=== PATIENT | male | born 1950 | race Caucasian/White ===

== ENCOUNTER 2022-07-03 15:45 | Outpatient (CLI) | payer MEDICARE, SELFPAY ==
[2022-07-03 18:50] LABS: Basophils Absolute Auto 0.1 K/mm3 (0.0-0.1); Basophils Percent Auto 0.4 % (0.2-1.2); Eosinophils Absolute Auto 0.1 K/mm3 (0-0.3); Eosinophils Percent Auto 0.4 % (0-4.4); Hematocrit 34.1 % (42.0-52.0); Hemoglobin 11.6 g/dL (14.0-18.0); Immature Granulocyte Absolute 0.12 K/mm3 (0.00-0.031); Immature Granulocyte Percent A 0.9 % (0-0.5); Lymphocytes Absolute Auto 1.68 K/mm3 (0.9-3.2); Lymphocytes Percent Auto 12.5 % (18.3-44.2); Mean Corpuscular Hemoglobin 32.8 pg (26-34); Mean Corpuscular Volume 96.3 fl (80-100); Mean Platelet Volume 11.6 fl (7.4-10.4); Monocytes Absolute Auto 0.9 K/mm3 (0.1-0.6); Monocytes Percent Auto 6.9 % (2.6-8.5); Neutrophils Absolute Auto 10.6 K/mm3 (1.3-6.7); Neutrophils Percent Auto 78.9 % (45.5-73.1); Platelet Count Result 307 k/mm3 (150-375); Red Blood Count 3.54 M/mm3 (4.6-6.20); Red Cell Distribution Width 15.6 % (11.5-14.5); White Blood Count 13.4 K/mm3 (4.5-10.0)
[2022-07-03 20:07] LABS: LDL Cholesterol Direct 88 mg/dL
[2022-07-03 21:18] LABS: Alanine Aminotransferase 54 U/L (6-50); Albumin Level 3.5 g/dL (3.5-5.1); Alkaline Phosphatase 30 U/L (38-126); Anion Gap 13 mmol/L (8-16); Aspartate Amino Transferase 40 U/L (17-59); Bilirubin,Total 1.2 mg/dL (0.2-1.3); Blood Urea Nitrogen 17 mg/dL (9-20); Calcium 8.4 mg/dL (8.4-10.2); Carbon Dioxide 24 mmol/L (22-30); Chloride 109 mmol/L (98-107); Cholesterol 143 mg/dL (0-200); Estimated Glomerular Filt Rate > 60; Glucose 123 mg/dL (65-110); HDL Direct 28 mg/dL; Sodium 146 mmol/L (137-145); Triglycerides 103 mg/dL (<150)
== END 2022-07-03 15:46 | disposition home or self-care (01) ==
LOC: ANHGOSHLAB 15:46
PROVIDERS: PCP Family Medicine; Visit Provider Family Medicine
DX: K52.9 Noninfective gastroenteritis and colitis, unspecified (principal); E78.2 Mixed hyperlipidemia
CPT/HCPCS: 36415; 80053; 80061; 85025

== ENCOUNTER 2022-07-03 21:51 | Inpatient (IN) | payer MEDICARE, SELFPAY ==
--- NOTE | ~2022-07-03 | US_ITS ---
EXAMINATION:US venous doppler LE LT INDICATION:Left leg edema TECHNIQUE: Multiple grayscale, color flow and Doppler images of the left lower extremity deep venous systems were obtained and reviewed. COMPARISON:Ultrasound dated 03/01/2009 FINDINGS: The common femoral, superficial femoral and popliteal veins demonstrate normal respiratory variation, augmentation and compressibility. Color flow is also seen within the posterior tibial, pe roneal, greater saphenous and profunda veins. IMPRESSION: 1: No lower extremity deep venous thrombosis. Reviewed, dictated and finalized at location B.
[2022-07-03 22:16] VITALS: BP 150/71; PULSE 53; RESP 16; TEMP 36.6; O2SAT 99
--- NOTE | 2022-07-03 22:16 | PC.NURSE ---
pt does not wish to have labs drawn in triage as he reports that i just had labs done at [facility]
--- NOTE | 2022-07-03 23:16 | PC.NURSE ---
pt does not wish to have labs drawn in triage as he states that he just had them drawn earlier at [facility].
[2022-07-03 23:39] LABS: Basophils Percent Auto 0.4 % (0.2-1.2); Eosinophils Absolute Auto 0.1 K/mm3 (0-0.3); Eosinophils Percent Auto 1.1 % (0-4.4); Hematocrit 32.2 % (42.0-52.0); Hemoglobin 11.2 g/dL (14.0-18.0); Immature Granulocyte Percent A 0.9 % (0-0.5); Lymphocytes Absolute Auto 2.39 K/mm3 (0.9-3.2); Mean Corpuscular HGB Conc 34.8 g/dl (32-36); Mean Corpuscular Hemoglobin 33.1 pg (26-34); Mean Corpuscular Volume 95.3 fl (80-100); Mean Platelet Volume 10.3 fl (7.4-10.4); Monocytes Absolute Auto 0.9 K/mm3 (0.1-0.6); Monocytes Percent Auto 7.5 % (2.6-8.5); Neutrophils Absolute Auto 7.9 K/mm3 (1.3-6.7); Neutrophils Percent Auto 69.1 % (45.5-73.1); Platelet Count Result 264 k/mm3 (150-375); Red Blood Count 3.38 M/mm3 (4.6-6.20); Red Cell Distribution Width 15.7 % (11.5-14.5); White Blood Count 11.4 K/mm3 (4.5-10.0)
[2022-07-03 23:52] LABS: Alanine Aminotransferase 54 U/L (6-50); Albumin Level 3.3 g/dL (3.5-5.1); Alkaline Phosphatase 30 U/L (38-126); Anion Gap 14 mmol/L (8-16); Aspartate Amino Transferase 43 U/L (17-59); Bilirubin,Total 0.9 mg/dL (0.2-1.3); Blood Urea Nitrogen 18 mg/dL (9-20); Carbon Dioxide 24 mmol/L (22-30); Chloride 108 mmol/L (98-107); Estimated CRCL calculation 75 ml/min; Estimated Glomerular Filt Rate > 60; Glucose 143 mg/dL (65-110); Potassium < 2.0 mmol/L (3.4-5.0); Sodium 146 mmol/L (137-145)
[2022-07-04] VITALS (36 sets, daily range): BP systolic 123–167; BP diastolic 55–84; PULSE 43–59; RESP 6–23; TEMP 36.1–36.6; O2SAT 96–100; BMI 33.1; BMI 33.2
[2022-07-04 00:26] LABS: Magnesium 1.2 mg/dL (1.6-2.3); Phosphorus 1.5 mg/dL (2.5-4.5)
[2022-07-04] MEDS: POTASSIUM CHLORIDE 20 MEQ PACKET (FOR LIQUID) 80 MEQ PO (00:36)
[2022-07-04] MEDS: SODIUM CHLORIDE 0.9% IV 1,000 ML 999 ML IV CONT (00:48)
[2022-07-04] MEDS: KCL 20 MEQ/SW 100 ML 100 ML 50 MEQ IVPB (00:49)
--- NOTE | 2022-07-04 01:08 | ED.GENADULT ---
HPI - General Adult General Chief complaint: Recheck/Abnormal Lab/Rx Stated complaint: low potassium Time Seen by Provider: 07/04/22 00:12 History of Present Illness HPI narrative: 71-year-old male presented emergency department for evaluation of low potassium. Patient states that over the last 8 to 9 weeks he has had intermittent issues with lymphocytic colitis. Patient had been hospitalized in [place] but does have a local physician. Patient followed up and had baseline labs drawn today and was found to have a potassium of 1.9. Patient states that the diarrhea had been improving while he had been on steroids. Patient states that this morning he had a large diarrhea episode. Patient denies any associated chest pain or shortness of breath. Patient states he does have some exertional fatigue. Patient denies any abdominal pain except that he does have some intestinal cramping with the diarrhea. Related Data Home Medications Medication Instructions Recorded Confirmed budesonide 3 mg 9 mg PO DAILY 07/03/22 07/04/22 capsule,delayed,extended release docosahexaenoic acid (dha)-epa 120 1 cap PO DAILY 07/03/22 07/04/22 mg-180 mg capsule (Fish Oil) multivitamin 1 tablet PO DAILY 07/03/22 07/04/22 vitamins A,C,U-sokm-qwfsox 14,320 1 cap PO BID 07/03/22 07/04/22 unit-226 mg-200 unit capsule (PreserVision AREDS) allopurinol 300 mg tablet 300 mg PO DAILY 07/04/22 07/04/22 levothyroxine 137 mcg tablet 137 mcg PO DAILY 07/04/22 07/04/22 Allergies Allergy/AdvReac Type Severity Reaction Status Date / Time CHRISTOPHER Inhibitors Allergy Unknown unknown Verified 07/03/22 21:51 Sulfa (Sulfonamide Allergy Unknown unknown Verified 07/03/22 21:51 Antibiotics) Ebtyjyh-LKY-LpT Reductase AdvReac Severe colitis Verified 07/03/22 21:51 Inhibitor [facility] Past Medical History Medical History Actinic keratosis Ventral hernia without obstruction or gangrene Family History Family History Father Family history of heart disease in male family member before age 55 Mother Family history of heart disease in male family member before age 55 Family history of cardiovascular disease Family history of kidney disease Family history of seizure disorder Social History Social History Smoking status: Never smoker Alcohol intake: never Substance use: never Spiritual care concerns: No Course Course Emergency Course: Patient's potassium was 1.9. Patient was treated with 20 mEq IV and 80 milliequivalents p.o. Patient's calcium and magnesium are also low. These were also replaced while in the ED. Case was discussed with hospitalist and patient is being admitted to the IMU. All questions and concerns were addressed. Patient was comfortable with the plan with admission. Vital Signs Vital signs: Vital Signs Temperature 97.9 F 07/03/22 22:16 Pulse Rate 53 L 07/03/22 22:16 Respiratory Rate 16 07/03/22 22:16 Blood Pressure 150/71 H 07/03/22 22:16 Pulse Oximetry 99 07/03/22 22:16 Oxygen Delivery Room Air 07/03/22 22:16 Temperature 97.3 F L 07/05/22 16:25 Pulse Rate 54 L 07/05/22 18:00 Respiratory Rate 20 07/05/22 16:25 Blood Pressure 148/70 H 07/05/22 16:25 Pulse Oximetry 51 L 07/05/22 16:25 Oxygen Delivery Room Air 07/05/22 15:18 Medical Decision Making Vital Signs Vital Signs: Vital Signs Temperature 97.9 F 07/03/22 22:16 Pulse Rate 53 L 07/03/22 22:16 Respiratory Rate 16 07/03/22 22:16 Blood Pressure 150/71 H 07/03/22 22:16 Pulse Oximetry 99 07/03/22 22:16 Oxygen Delivery Room Air 07/03/22 22:16 Temperature 97.3 F L 07/05/22 16:25 Pulse Rate 54 L 07/05/22 18:00 Respiratory Rate 20 07/05/22 16:25 Blood Pressure 148/70 H 07/05/22 16:25 Pulse Oximetry 51 L 07/05/22 16:25 Oxygen
[2022-07-04] MEDS: MAGNESIUM SULF 1 GM/D5W 100 ML 1 GM/100 ML BAG IVPB (01:15)
[2022-07-04 02:59] LABS: SARS-CoV-2 RNA PCR Negative
--- NOTE | 2022-07-04 03:58 | ADMGEN ---
This patient, Brandon Conn, was admitted to IMU Room 206-01. Patient/family oriented to hospital policies and general routines including ID bracelet, bed and alarms, visiting hours, pain management, procedures, bathroom and other care routines, personal items, smoking policy, room service/diet, and visiting hours. Information on how to activate the Rapid Response Team has been discussed. Patient/Family are encouraged to report perceived risks to care and to ask questions if they do not understand what they are told or what they should do.
[2022-07-04] MEDS: SODIUM CHLORIDE 0.9% IV 1,000 ML 125 ML IV CONT ×2 (04:06→12:44)
[2022-07-04] MEDS: CALCIUM GLUCONATE 1,000 MG/10 ML VIAL 1000 MG IV PUSH (04:11)
--- NOTE | 2022-07-04 08:29 | PM.IMHP ---
H&P: HPI History of Present Illness Date/Time: 07/04/22 08:29 Chief Complaint: Hypokalemia Narrative: 71-year-old male presented emergency department for evaluation of low potassium.? Patient states that over the last 8 to 9 weeks he has had intermittent issues with lymphocytic colitis.? Patient had been hospitalized in [place] but does have a local physician.? Patient followed up and had baseline labs drawn today and was found to have a potassium of 1.9.? Patient states that the diarrhea had been improving while he had been on steroids.? Patient states that this morning he had a large diarrhea episode.? Patient denies any associated chest pain or shortness of breath.? Patient states he does have some exertional fatigue.? Patient denies any abdominal pain except that he does have some intestinal cramping with the diarrhea. Review of Systems Review of Systems: - CONSTITUTIONAL: Denies weight loss, fever and chills. - HEENT: Denies changes in vision and hearing - RESPIRATORY: Denies SOB and cough. - CV: Denies palpitations and CP. - GI: Denies abdominal pain, nausea, vomiting and reports diarrhea. - : Denies dysuria and urinary frequency. - MSK: Denies myalgia and joint pain. - SKIN: Denies rash and pruritus. - NEUROLOGICAL: Denies headache and syncope. - PSYCHIATRIC: Denies recent changes in mood. Denies anxiety and depression. FOR[facility]LY [facility] Past Medical History Medical History Actinic keratosis Ventral hernia without obstruction or gangrene Family History Family History Father Family history of heart disease in male family member before age 55 Mother Family history of heart disease in male family member before age 55 Family history of cardiovascular disease Family history of kidney disease Family history of seizure disorder Social History Social History Smoking status: Never smoker Alcohol intake: never Substance use: never Spiritual care concerns: No Meds Home Medications and Allergies Home Medications Medication Instructions Recorded Confirmed Type budesonide 3 mg 9 mg PO DAILY 07/03/22 07/04/22 History capsule,delayed,extended release diphenoxylate-atropine 2.5 1 tablet PO TID PRN diarrhea #20 07/03/22 07/04/22 Rx mg-0.025 mg tablet (Lomotil) tabs docosahexaenoic acid (dha)-epa 120 1 cap PO DAILY 07/03/22 07/04/22 History mg-180 mg capsule (Fish Oil) multivitamin 1 tablet PO DAILY 07/03/22 07/04/22 History vitamins A,C,V-krfg-pcpebm 14,320 1 cap PO BID 07/03/22 07/04/22 History unit-226 mg-200 unit capsule (PreserVision AREDS) allopurinol 300 mg tablet 300 mg PO DAILY 07/04/22 07/04/22 History levothyroxine 137 mcg tablet 137 mcg PO DAILY 07/04/22 07/04/22 History Allergies Allergy/AdvReac Type Severity Reaction Status Date / Time CHRISTOPHER Inhibitors Allergy Unknown unknown Verified 07/03/22 21:51 Sulfa (Sulfonamide Allergy Unknown unknown Verified 07/03/22 21:51 Antibiotics) Mbxweks-MOM-DvL Reductase AdvReac Severe colitis Verified 07/03/22 21:51 Inhibitor Vital Signs Vital Signs - 24 hr 07/03/22 22:16 07/04/22 00:08 07/04/22 00:10 Temperature 97.9 F Pulse Rate 53 L 52 L 49 L Respiratory Rate 16 15 16 Blood Pressure 150/71 H 152/75 H Pulse Oximetry 99 99 99 Oxygen Delivery Room Air 07/04/22 00:11 07/04/22 00:15 07/04/22 00:16 Temperature Pulse Rate 46 L 44 L 47 L Respiratory Rate 15 14 16 Blood Pressure 149/70 H Pulse Oximetry 99 98 96 Oxygen Delivery 07/04/22 00:30 07/04/22 00:31 07/04/22 00:45 Temperature Pulse Rate 48 L 48 L 46 L Respiratory Rate 8 L 11 L 14 Blood Pressure 143/70 H Pulse Oximetry 98 97 98 Oxygen Delivery 07/04/22 00:46 07/04/22 01:00 07/04/22 01:01 Temperature Pulse Rate 51 L 53 L 59 L Respiratory Rate 1
[2022-07-04 08:35] LABS: Anion Gap 9 mmol/L (8-16); Blood Urea Nitrogen 19 mg/dL (9-20); Calcium 7.6 mg/dL (8.4-10.2); Carbon Dioxide 20 mmol/L (22-30); Chloride 113 mmol/L (98-107); Estimated CRCL calculation 95 ml/min; Estimated Glomerular Filt Rate > 60; Glucose 104 mg/dL (65-110); Magnesium 1.4 mg/dL (1.6-2.3); Phosphorus 2.5 mg/dL (2.5-4.5); Potassium 2.2 mmol/L (3.4-5.0); Sodium 142 mmol/L (137-145)
[2022-07-04] MEDS: POTASSIUM CHLORIDE 20 MEQ TABLET 40 MEQ PO ×2 (09:23→22:24)
[2022-07-04] MEDS: MAGNESIUM SULF 2 GM/WATER 50ML 2 GM/50 ML BAG IVPB (09:25)
[2022-07-04] MEDS: POTASSIUM CHLORIDE INJ 40 MEQ in SODIUM CHLORIDE 0.9% IV 500 ML 130 MEQ IVPB ×3 (09:26→22:23)
[2022-07-04 11:02] LABS: Toxigenic C. Diff NEGATIVE (NEGATIVE)
[2022-07-04 14:06] LABS: Magnesium 1.8 mg/dL (1.6-2.3)
[2022-07-04 14:10] LABS: Potassium 2.4 mmol/L (3.4-5.0)
[2022-07-04] MEDS: DIPHENOXYLATE/ATROPINE (*CRX) 2.5 MG TABLET 1 TABLET PO (15:00)
[2022-07-04] MEDS: BUDESONIDE 3 MG CAP.SR.24H 9 MG PO (15:01)
[2022-07-04] MEDS: OPTI-GEN TAB 1 TABLET PO (18:46)
[2022-07-04 21:27] LABS: Potassium 2.6 mmol/L (3.4-5.0)
[2022-07-05] VITALS (14 sets, daily range): BP systolic 133–148; BP diastolic 58–79; PULSE 45–100; RESP 18–23; TEMP 36.1–36.6; O2SAT 51–100
[2022-07-05 05:14] LABS: Basophils Percent Auto 0.3 % (0.2-1.2); Eosinophils Absolute Auto 0.1 K/mm3 (0-0.3); Eosinophils Percent Auto 0.5 % (0-4.4); Hematocrit 29.9 % (42.0-52.0); Hemoglobin 10.4 g/dL (14.0-18.0); Immature Granulocyte Absolute 0.09 K/mm3 (0.00-0.031); Immature Granulocyte Percent A 0.8 % (0-0.5); Lymphocytes Absolute Auto 1.39 K/mm3 (0.9-3.2); Lymphocytes Percent Auto 12.9 % (18.3-44.2); Mean Corpuscular HGB Conc 34.8 g/dl (32-36); Mean Corpuscular Hemoglobin 32.9 pg (26-34); Mean Corpuscular Volume 94.6 fl (80-100); Mean Platelet Volume 11.4 fl (7.4-10.4); Monocytes Absolute Auto 0.6 K/mm3 (0.1-0.6); Monocytes Percent Auto 5.9 % (2.6-8.5); Neutrophils Absolute Auto 8.6 K/mm3 (1.3-6.7); Neutrophils Percent Auto 79.6 % (45.5-73.1); Platelet Count Result 243 k/mm3 (150-375); Red Blood Count 3.16 M/mm3 (4.6-6.20); Red Cell Distribution Width 15.7 % (11.5-14.5); White Blood Count 10.8 K/mm3 (4.5-10.0)
[2022-07-05 05:32] LABS: Alanine Aminotransferase 50 U/L (6-50); Albumin Level 2.9 g/dL (3.5-5.1); Alkaline Phosphatase 20 U/L (38-126); Anion Gap 9 mmol/L (8-16); Aspartate Amino Transferase 32 U/L (17-59); Blood Urea Nitrogen 13 mg/dL (9-20); Calcium 7.1 mg/dL (8.4-10.2); Carbon Dioxide 21 mmol/L (22-30); Chloride 112 mmol/L (98-107); Estimated CRCL calculation 95 ml/min; Estimated Glomerular Filt Rate > 60; Glucose 122 mg/dL (65-110); Magnesium 1.7 mg/dL (1.6-2.3); Potassium 2.7 mmol/L (3.4-5.0); Sodium 142 mmol/L (137-145)
[2022-07-05] MEDS: LEVOTHYROXINE SODIUM 112 MCG, LEVOTHYROXINE SODIUM 25 MCG 137 MCG PO (06:10)
[2022-07-05] MEDS: POTASSIUM CHLORIDE INJ 40 MEQ in SODIUM CHLORIDE 0.9% IV 500 ML 130 MEQ IVPB ×2 (06:13→14:42)
[2022-07-05] MEDS: POTASSIUM CHLORIDE 20 MEQ TABLET 40 MEQ PO (06:14)
[2022-07-05] MEDS: ENOXAPARIN 40 MG/0.4 ML SYRINGE SUB-Q (09:09)
[2022-07-05] MEDS: MULTIVITAMINS THERAPEUTIC TAB (*BKC) 1 TABLET PO (09:09)
[2022-07-05] MEDS: OPTI-GEN TAB 1 TABLET PO ×2 (09:09→18:15)
[2022-07-05] MEDS: BUDESONIDE 3 MG CAP.SR.24H 9 MG PO (09:10)
[2022-07-05] MEDS: allopurinoL 300 MG TABLET PO (09:10)
[2022-07-05 13:02] LABS: Potassium 2.9 mmol/L (3.4-5.0)
--- NOTE | 2022-07-05 13:37 | PM.DS ---
DS: Admitting Diagnosis Discharge Date 07/05/2022 Admitting Diagnosis Severe hypokalemia DS: Discharge Diagnosis Discharge Diagnosis (1) Benign paroxysmal positional vertigo of left ear: Code(s): H81.12 - Benign paroxysmal vertigo, left ear Status: Acute (2) Metabolic syndrome: Code(s): E88.81 - Metabolic syndrome Status: Acute (3) Prediabetes: Code(s): R73.03 - Prediabetes Status: Acute (4) Essential hypertension: Code(s): I10 - Essential (primary) hypertension Status: Acute (5) Mixed hyperlipidemia: Code(s): E78.2 - Mixed hyperlipidemia Status: Acute (6) Gout: Qualifiers: Gout site: ankle Gout etiology: unspecified cause Chronicity: chronic Laterality: left Qualified Code(s): M1A.0720 - Idiopathic chronic gout, left ankle and foot, without tophus (tophi) Code(s): M10.9 - Gout, unspecified Status: Acute (7) Hypothyroidism (acquired): Code(s): E03.9 - Hypothyroidism, unspecified Status: Acute (8) Obesity: Qualifiers: Obesity type: unspecified obesity type Obesity classification: adult class 2 (BMI 35 - 39.9) Serious obesity comorbidity presence: with serious comorbidity Body mass index: BMI 36.0-36.9 Qualified Code(s): E66.01 - Morbid (severe) obesity due to excess calories; Z68.36 - Body mass index [BMI] 36.0-36.9, adult Code(s): E66.9 - Obesity, unspecified Status: Acute (9) Hypokalemia: Code(s): E87.6 - Hypokalemia Status: Acute (10) Lymphocytic colitis: Code(s): K52.832 - Lymphocytic colitis Status: Acute DS: Summary Hospital Course Reason for hospitalization: 71-year-old male presented emergency department for evaluation of low potassium.? Patient states that over the last 8 to 9 weeks he has had intermittent issues with lymphocytic colitis.? Patient had been hospitalized in [place] but does have a local physician.? Patient followed up and had baseline labs drawn today and was found to have a potassium of 1.9.? Patient states that the diarrhea had been improving while he had been on steroids.? Patient states that this morning he had a large diarrhea episode.? Patient denies any associated chest pain or shortness of breath.? Patient states he does have some exertional fatigue.? Patient denies any abdominal pain except that he does have some intestinal cramping with the diarrhea. Hospital Course: Severe hypokalemia potassium 1.9 replace and needed. Required several doses of IV potassium as well as oral potassium. Will send home on potassium chloride oral along with magnesium supplement. Recheck lab in 1 week. He is going to see his regular doctor at that time for further direction. Hypomagnesemia replace and monitor Recently diagnosed lymphocytic colitis: Improving.? Resume budesonide 9 mg daily.? Follows up with GI in [place] Recent history of acute renal failure with creatinine up to 7 Recent weight loss to 40 lb due to colitis Hyperlipidemia used to be on statin.? Consideration of statin his colitis. Hypertension not on any medication anymore. Used to be on olmesartan and hydrochlorothiazide. Hydrochlorothiazide will be discontinued. Restart olmesartan his blood pressure has been elevated here. Continue to monitor Metabolic syndrome Hypothyroidism Gout DVT prophylaxis Lovenox Time Spent with Patient Time attestation: Total time spent providing and/or coordinating discharge services: 40 minutes Exam Narrative: GENERAL: The patient is well developed, not in acute distress HEENT: Nonicteric sclerae, PERRLA, EOMI. Oropharynx clear. Moist mucous membranes. Conjunctivae appear well perfused. CHEST: Chest wall is nontender. HEART: Regular rate and rhythm without murmur, rubs, or gallops LUNGS: Clear to auscultation bilaterally. no respiratory distress ABDOMEN: Soft, positive bowel sounds, non-tender, no organomegaly. SKIN: No rash, no excessive bruisi
[2022-07-05] MEDS: MAGNESIUM OXIDE 400 MG TABLET PO (14:35)
[2022-07-05] MEDS: POTASSIUM CHLORIDE 20 MEQ PACKET (FOR LIQUID) 40 MEQ PO (14:42)
--- NOTE | 2022-07-05 15:08 | PC.NURSE ---
On 07/05/22, the student, [Petra Hewitt], provided care and completed [facility] documentation on this patient. I have reviewed the student's documentation and agree with the findings.
== END 2022-07-05 18:45 | disposition home or self-care (01) | DRG 641 ==
LOC: ANHED 07-04 03:09 → ANHIMU 07-04 03:12
PROVIDERS: Admitting Provider Internal Medicine; Emergency Provider Emergency Medicine; PCP Family Medicine; Visit Provider Internal Medicine
DX: E87.6 Hypokalemia (principal); E83.42 Hypomagnesemia; K52.832 Lymphocytic colitis; B96.23 Unspecified Shiga toxin-producing Escherichia coli [E. coli] [STEC] as the cause of diseases classified elsewhere; I10 Essential (primary) hypertension; M10.9 Gout, unspecified; E03.9 Hypothyroidism, unspecified; E88.81 Metabolic syndrome and other insulin resistance; Z20.822 Contact with and (suspected) exposure to COVID-19; E78.2 Mixed hyperlipidemia; E66.9 Obesity, unspecified; Z68.33 Body mass index [BMI] 33.0-33.9, adult
CPT/HCPCS: 36415; 80048; 80053; 80061; 83735; 84100; 84132; 85025; 87045; 87269; 87272; 87427; 87493; 89055; 93971; 96365; 96366; 96368; 96375; 99285; A9270; C9803; G0378; J0610; J1650; J3475; J3480; J7030; J7040; U0003; U0005

== ENCOUNTER 2023-10-08 09:18 | Outpatient (CLI) | payer MEDICARE, SELFPAY ==
--- NOTE | ~2023-10-08 | XR_ITS ---
Clinical Indication: Cough PA and lateral views of the chest: Comparison: None Findings: The lungs are clear, without evidence of focal consolidation or pleural effusion. Cardiome diastinal silhouette is upper limits of normal in size. Bones and soft tissues are unremarkable. Impression: Clear lungs. Reviewed, dictated and finalized at [facility]. GRINDER Impression: Clear lungs.
== END 2023-10-08 09:19 ==
PROVIDERS: PCP Family Medicine; Visit Provider Nurse Practitioner Family
DX: R05.9 Cough, unspecified (principal)
CPT/HCPCS: 71046

== ENCOUNTER 2023-12-12 09:08 | Outpatient (CLI) | payer MEDICARE, SELFPAY ==
--- NOTE | 2023-12-12 09:12 | EST_ITS ---
Patient Info Name: Brandon Conn Age: 73 years : 1950 Gender: Male Ht: 74 in Wt: 255 lbs BSA: 2.49 m2 HR: 90 bpm BP: 148 / 86 mmHg Heart Rhythm: Sinus Rhythm Technical Quality: Poor Exam Date: 12/12/2023 9:25 AM Exam Location: Echo Lab Patient Status: Outpatient Admit Date: 12/12/2023 Staff Ordering Physician: Janes, Ad Hill PA-C Attending Provider: Janes, Ad Hill PA-C Exercise Technologist: Nikky Lao CT Exercise Physician: Yo Hayes DO Exam Type: CA stress echo w contrast Study Info Indications R06.02 - Shortness of breath Treadmill exercise stress echocardiogram is performed. Contrast administered to opacify the left ventricle and to improve the deliniation of the left ventricular endocardial borders. Contrast/Agitated Saline Contrast/Ag. Saline: Definity Amount: 4.00 ml Administered By: Bee Haywood IV Access: Right Site Condition: IV removed Reason for Poor Study: patient body habitus Summary 1. 1. Negative Fermin exercise stress test for ischemic ST changes by ECG criteria. 2. 2. Poor functional capacity, achieving 4.7 METs of workload. 3. 3. Baseline hypertension. 4. 4. Appropriate HR response to exercise. 5. 5. Appropriate HR recovery at 1 minute post exercise. 6. 6. Negative stress echocardiogram for ischemia by wall motion analysis. 7. 7. Patient informed of the above results. Stress Echo Findings Left Ventricle Definity injected to improve delineation of endocardium. Appropriate LV endocardial thickening with systole. Appropriate augmenation of contractility with systole. No wall motion abnormality. Left Ventricle Definity injected to improve delineation of endocardium. Normal LV systolic function, no wall motion abnormality. Protocol: Fermin Stress ECG Details Stage: REST Duration (min): 1 min : 40 sec Speed (mph): 0.0 Grade (%): 0 HR (bpm): 91 SBP (mmHg): 148 DBP (mmHg): 86 METS: --- Stage: REST Duration (min): 53 min : 50 sec Speed (mph): 0.0 Grade (%): 0 HR (bpm): 91 SBP (mmHg): 148 DBP (mmHg): 86 METS: --- Stage: STAGE 1 Duration (min): 1 min : 0 sec Speed (mph): 1.7 Grade (%): 10 HR (bpm): 112 SBP (mmHg): 148 DBP (mmHg): 86 METS: --- Stage: STAGE 1 Duration (min): 2 min : 0 sec Speed (mph): 1.7 Grade (%): 10 HR (bpm): 121 SBP (mmHg): 148 DBP (mmHg): 86 METS: --- Stage: STAGE 1 Duration (min): 3 min : 0 sec Speed (mph): 1.7 Grade (%): 10 HR (bpm): 125 SBP (mmHg): 201 DBP (mmHg): 65 METS: --- Stage: STAGE 2 Duration (min): 0 min : 3 sec Speed (mph): 0.0 Grade (%): 0 HR (bpm): 125 SBP (mmHg): 201 DBP (mmHg): 65 METS: --- Stage: RECOVERY Duration (min): 0 min : 56 sec Speed (mph): 0.0 Grade (%): 0 HR (bpm): 106 SBP (mmHg): 201 DBP (mmHg): 65 METS: --- Stage: RECOVERY Duration (min): 1 min : 56 sec Speed (mph): 0.0 Grade (%): 0 HR (bpm): 102 SBP (mmHg): 201 DBP (mmHg): 65 METS: --- Stage: RECOVERY Duration (min): 2 min : 56 sec Speed (mph): 0.0 Grade (%): 0
[2023-12-12] MEDS: PERFLUTREN LIPID MICROSPHERES 1.5 ML VIAL DILUTED TO 10 ML TOTAL VOLUME IV PUSH (10:20)
--- NOTE | 2023-12-12 16:07 | P.PCNPFT_ITS ---
PFT Procedure Performed PFT Procedure Performed Plethysmography (Lung Vol) Diffusing Cap (DLCO) Flow Vol Loop Spirometry w/o Bronchodil PFT Interpretation DOS: 12/12/2023 REQUESTING: Ad Marrero PA-C REASON FOR TESTING: Shortness of breath PULMONARY FUNCTION TESTS Effort was excellent and repeatability of the FEV1 spirometry maneuver was Grade A however the patient was only able to perform one adequate DLCO trial. Spirometry: FEV1 is 1.69 L, 49%, reduced. FVC is 2.01 L, 43%, reduced. FEV 1/FVC ratio is 84% normal. No bronchodilator was administered. Lung volumes: Total lung capacity is 4.32 L, 55%, reduced. FRC is 2.50 L, 59%, reduced. Residual volume is 1.93 L, 69%, reduced. RV/TLC is 45%, normal. Airway resistance is 3.60 cmH20/L/sec, 309% predicted, elevated. Diffusion: DLCO is 13.5, 51%, moderately reduced. DLCO/VA is 4.57, 129%, normal. Flow volume loop: Restrictive appearance, tall and thin. IMPRESSION: This study shows a moderate restrictive impairment without obstruction, moderate diffusion impairment which normalizes with alveolar volume. No bronchodilator was administered. No prior studies for comparison. There many clinical scenarios that can can produce this pattern such as interstitial lung disease, pneumonitis, and carboxyhemoglobin from smoking. Clinical correlation is recommended. Keyona Denson MD
--- NOTE | 2023-12-13 13:44 | IVDEFINITY ---
Prior to administration of IV Definity the patient was educated on the risks and benefits of the imaging enhancing agent including potential adverse side effects. The patient verbalized understanding. Allergies were verified. No exclusion criteria were identified and at least one of the following inclusion criteria were met: 1) physician request, 2) patient technically difficult to image (per the [place] [employer]chocardi[employer] guidelines of two or more segments not discernable within the apical view), or 3) questionable left ventricular function. ?
== END 2023-12-12 09:09 | disposition home or self-care (01) ==
PROVIDERS: PCP Family Medicine; Visit Provider Physician Assistant
DX: R06.02 Shortness of breath (principal); R94.2 Abnormal results of pulmonary function studies
CPT/HCPCS: 93351; 94375; 94726; 94729; C8930; Q9957

== ENCOUNTER 2023-12-27 12:51 | Outpatient (CLI) | payer MEDICARE, SELFPAY ==
--- NOTE | ~2023-12-27 | CT_ITS ---
EXAMINATION:CT diagnostic chest wo con DATE: 12/27/2023 13:47 INDICATION: Shortness of breath. Chronic cough. TECHNIQUE: Computed tomography (CT) of the chest was performed without intravenous contrast. Automate d exposure control and iterative reconstruction technique were employed. The dose-length product (DLP ) was 812.57 mGy-cm. COMPARISON: Chest 2 views 10/08/2023 FINDINGS: There is mild elevation of left hemidiaphragm. There is mild atelectasis in left lower lobe . There is diffuse septal thickening in the lungs. There are associated with mild groundglass opaciti es, predominantly on the right. Calcified pulmonary nodules and calcified hilar and mediastinal lymph nodes are consistent with old granulomatous disease. No bronchiectasis or honeycombing. The heart si ze is normal. There are coronary artery calcifications. No pericardial effusion. The central pulmonar y arteries are enlarged, consistent with pulmonary arterial hypertension. Aortic atherosclerosis is n oted. There are bridging endplate osteophytes at multiple levels in the spine, consistent with diffus e idiopathic skeletal hyperostosis (DISH). There is mild chronic anterior wedging of multiple vertebr al bodies. IMPRESSION: 1. Chronic interstitial lung disease in a pattern of nonspecific interstitial pneumonia (NSIP). Reviewed, dictated and finalized at location E. IMPRESSION: 1. Chronic interstitial lung disease in a pattern of nonspecific interstitial p neumonia (NSIP).
[2023-12-27 13:00] VITALS: PULSE 110; O2SAT 95
[2023-12-27 13:05] VITALS: PULSE 144; O2SAT 86
[2023-12-27 13:10] VITALS: PULSE 142; O2SAT 87
[2023-12-27 13:15] VITALS: PULSE 143; O2SAT 91
[2023-12-27 13:30] VITALS: PULSE 112; O2SAT 95
--- NOTE | 2023-12-27 13:44 | HOMEO2EVAL ---
Evaluation was performed at [facility] Home Oxygen Evaluation RC: Home Oxygen (O2) Evaluation Start: 12/27/23 13:42 Freq: Status: Active Protocol: RPE Activity Type Activity Date Activity User E-sign Co-sign Detail Recorded Client Recorded Date Recorded By Document 12/27/23 13:00 [email or web address] 12/27/23 13:44 DJO Document 12/27/23 13:05 [email or web address] [email or web address] 12/27/23 13:44 DJO Document 12/27/23 13:10 [email or web address] [email or web address] 12/27/23 13:44 DJO Document 12/27/23 13:15 [email or web address] [email or web address] 12/27/23 13:44 DJO Document 12/27/23 13:30 [email or web address] [email or web address] 12/27/23 13:44 DJO 12/27/23 12/27/23 12/27/23 13:00 13:05 13:10 Home O2 Evaluation [Oxygen] -Test Phase Resting Exercise Exercise -Oxygen Delivery Room Air Room Air Nasal Cannula -Oxygen Flow Rate (L/min) 1 [Pulse Oximetry] -Pulse Oximetry (90-100 %) 95 86 L 87 L [Pulse Rate] -Pulse Rate (60-100 beats/min) 110 H 144 H 142 H [Evaluation] -Activity Tolerance [Charges] -Evaluation Charges O2 Evaluation by Pulmonary 12/27/23 12/27/23 13:15 13:30 Home O2 Evaluation [Oxygen] -Test Phase Exercise Resting -Oxygen Delivery Nasal Cannula Room Air -Oxygen Flow Rate (L/min) 2 [Pulse Oximetry] -Pulse Oximetry (90-100 %) 91 95 [Pulse Rate] -Pulse Rate (60-100 beats/min) 143 H 112 H [Evaluation] -Activity Tolerance Good [Charges] -Evaluation Charges
== END 2023-12-27 12:52 | disposition home or self-care (01) ==
LOC: ANHPFT 12:52
PROVIDERS: PCP Family Medicine; Visit Provider Nurse Practitioner Family
DX: R05.3 Chronic cough (principal); R06.02 Shortness of breath; J84.9 Interstitial pulmonary disease, unspecified
CPT/HCPCS: 71250; 94618

== ENCOUNTER 2024-03-13 07:55 | Outpatient (CLI) | payer MEDICARE, SELFPAY ==
[2024-03-13 08:30] VITALS: PULSE 92; O2SAT 95
[2024-03-13 08:35] VITALS: PULSE 107; O2SAT 87
[2024-03-13 08:40] VITALS: PULSE 108; O2SAT 88
[2024-03-13 08:45] VITALS: PULSE 110; O2SAT 91
[2024-03-13 09:05] VITALS: PULSE 94; O2SAT 95
--- NOTE | 2024-03-13 10:24 | HOMEO2EVAL ---
Evaluation was performed at [facility] Home Oxygen Evaluation RC: Home Oxygen (O2) Evaluation Start: 03/13/24 10:22 Freq: Status: Active Protocol: RPE Activity Type Activity Date Activity User E-sign Co-sign Detail Recorded Client Recorded Date Recorded By Document 03/13/24 08:30 [email or web address] [email or web address] 03/13/24 10:24 DJO Document 03/13/24 08:35 [email or web address] [email or web address] 03/13/24 10:24 DJO Document 03/13/24 08:40 [email or web address] [email or web address] 03/13/24 10:24 DJO Document 03/13/24 08:45 [email or web address] [email or web address] 03/13/24 10:24 DJO Document 03/13/24 09:05 [email or web address] 03/13/24 10:24 DJO 03/13/24 03/13/24 03/13/24 08:30 08:35 08:40 Home O2 Evaluation [Oxygen] -Test Phase Resting Exercise Exercise -Oxygen Delivery Room Air Room Air Nasal Cannula -Oxygen Flow Rate (L/min) 1 [Pulse Oximetry] -Pulse Oximetry (90-100 %) 95 87 L 88 L [Pulse Rate] -Pulse Rate (60-100 beats/min) 92 107 H 108 H [Evaluation] -Activity Tolerance [Exercise] -Ambulation Distance (feet) -Ambulation Distance (meters) [Charges] -Evaluation Charges O2 Evaluation by Pulmonary 03/13/24 03/13/24 08:45 09:05 Home O2 Evaluation [Oxygen] -Test Phase Exercise Resting -Oxygen Delivery Nasal Cannula Room Air -Oxygen Flow Rate (L/min) 2 [Pulse Oximetry] -Pulse Oximetry (90-100 %) 91 95 [Pulse Rate] -Pulse Rate (60-100 beats/min) 110 H 94 [Evaluation] -Activity Tolerance Good [Exercise] -Ambulation Distance (feet) 500 -Ambulation Distance (meters) 152.39 [Charges] -Evaluation Charges
== END 2024-03-13 07:56 | disposition home or self-care (01) ==
PROVIDERS: PCP Family Medicine; Visit Provider Nurse Practitioner Family
DX: R09.02 Hypoxemia (principal)
CPT/HCPCS: 94618

== ENCOUNTER 2024-03-26 08:59 | Outpatient (CLI) | payer MEDICARE, SELFPAY ==
--- NOTE | 2024-04-15 17:36 | WPDSLEEPSTUD ---
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 The patient occasionally awakens from sleep short of breath. He denies awakening at night with heartburn, belching or. He occasionally snores but is rarely loud enough that others complain. he denies having trouble sleeping when he has a cold. He denies waking up gasping for air throughout the night. He denies having breathing problems at night observed by himself or others. He rarely sweats excessively at night. He rarely has heart palpitations or irregular heartbeats during the night. He occasionally falls asleep during the day but never while driving. He denies sleep paralysis, cataplexy and hypnagogic / hypnopompic hallucinations. He denies having trouble at school or work due to sleepiness. He denies feeling afraid of going to sleep. He denies having nightmares. He denies remembering his dreams. He rarely has thoughts racing through his mind. He denies feeling sad or depressed. He denies having anxiety. He denies having muscular tension. He denies noticing parts of his body jerk. He denies kicking during the night. He denies having crawling and aching feelings in his legs and denies having leg pain during the night. He denies grinding his teeth during sleep and denies awakening with morning jaw pain. He is occasionally bothered by pain during the day but never awakened by pain during the night. He denies waking up feeling stiff in the morning. He denies waking up with sore or achy muscles. He rarely wakes up with pain in the neck, spine and other joints. He goes to bed between 9-10 p.m. on both weekdays and weekends. It takes him 1 hour to fall asleep. He wakes up 2-3 times throughout the night to urinate and is able to fall back asleep within 20 minutes. He wakes up between 6-7 a.m. on both weekdays and weekends. He typically gets 6-7 hours of sleep per night. He will stay in bed for 30 minutes after waking up in. He currently lives with his he denies consuming any caffeinated beverages within 2 hours of bedtime. He denies engaging in physical exercise before bedtime. He will watch television before falling asleep. He denies taking naps in afternoon or the evening. He consumes 1 cup of caffeinated beverage per day. He does consume wine. He denies tobacco and recreational drug use. [facility] Past Medical History Medical History Actinic keratosis Drug-induced colitis Lymphocytic colitis Neck pain Ventral hernia without obstruction or gangrene Family History Family History Father Family history of heart disease in male family member before age 55 Mother Family history of heart disease in male family member before age 55 Family history of cardiovascular disease Family history of kidney disease Family history of seizure disorder Social History Social History Smoking status: Never smoker Alcohol intake: current Drinks per week: 7 Substance use: never Substance use type: does not use Do You Feel Safe in your Home?: Yes Lack of Transportation: No Lack of Food: Never True Current Housing: I Have Housing Concerned About Future Housing: No Difficulty Paying Gas/Electric Bills: No Difficulty Paying for Meds: No Currently Unemployed: No Education: Bachelor's Degree Difficulty w/ Childcare or Family Care: No Spiritual care concerns: No Medications Home Medicati
[2024-04-15 17:37] VITALS: BMI 35.6
== END 2024-03-27 07:20 | disposition home or self-care (01) ==
LOC: ANHCSM 09:00
PROVIDERS: PCP Family Medicine; Visit Provider Internal Medicine Pulmonary Disease
DX: G47.33 Obstructive sleep apnea (adult) (pediatric) (principal)
CPT/HCPCS: 95811

== ENCOUNTER 2024-03-27 13:49 | Outpatient (CLI) | payer MEDICARE, SELFPAY ==
--- NOTE | ~2024-03-27 | XR_ITS ---
EXAMINATION: XR sniff test without CXR2V DATE: 03/27/2024 14:15 INDICATION: Disorders of diaphragm. Left diaphragm weakness. TECHNIQUE: I performed fluoroscopy of the chest while the patient performed normal respiration, deep respiration, and forceful sniffing. The fluoroscopy exposure time was 0.4 minutes. The number of imag es was 647. COMPARISON: Chest CT 12/27/2023 FINDINGS: There is chronic mild elevation of left hemidiaphragm. There is normal motion of the diaphr agm with all breathing tasks. No paradoxical motion. IMPRESSION: 1. Chronic mild elevation of left hemidiaphragm. Normal diaphragm motion. Reviewed, dictated and finalized at location A.
== END 2024-03-27 13:50 | disposition home or self-care (01) ==
PROVIDERS: PCP Family Medicine; Visit Provider Internal Medicine Pulmonary Disease
DX: J98.6 Disorders of diaphragm (principal)
CPT/HCPCS: 76000

== ENCOUNTER 2024-04-13 07:41 | Emergency (ER) | payer MEDICARE, SELFPAY ==
[2024-04-13] VITALS (10 sets, daily range): BP systolic 134–157; BP diastolic 78–95; PULSE 80–94; RESP 17–26; TEMP 36.7; O2SAT 93–98
--- NOTE | ~2024-04-13 | XR_ITS ---
XR elbow RT min 3V Ordering provider: Micha Hunt MD History: . TRIPPED ON CURB THIS MORNING, ROAD RASH, PAIN . Comparison: None. FINDINGS: BONES: No acute fracture or dislocation. JOINT SPACES: Osteoarthritic changes of the elbow joint. SOFT TISSUES: Unremarkable. No definite joint effusion. Ossification of the insertion of the triceps tendon. IMPRESSION: No acute osseous abnormality of the right elbow. Reviewed, dictated and finalized at location A.
--- NOTE | ~2024-04-13 | XR_ITS ---
XR ribs RT 2V w CXR 2V Ordering provider: Micha Hunt MD History: . TRIPPED ON CURB THIS AM. RT UPPER LATERAL RIB PAIN . Comparison: None. FINDINGS: BONES: No acute rib fracture. Degenerative changes of the spine. MEDIASTINUM: The cardiac silhouette is slightly enlarged. LUNGS: No infiltrates, effusions or pneumothorax. OTHER: No free air under the diaphragm. IMPRESSION: 1. No right rib fracture 2. No acute cardiopulmonary findings. Reviewed, dictated and finalized at location A.
[2024-04-13] MEDS: HYDROcodone/acetaminophen (*CRX) 5-325 MG TABLET 1 TAB PO (08:08)
[2024-04-13] MEDS: TETANUS,DIPHTHERIA,AC PERTUSSIS ADULT (0.5 ML) BOOSTRIX IM (08:16)
[2024-04-13] MEDS: SODIUM CHLORIDE 0.9% IV 500 ML 999 ML IV CONT (08:24)
--- NOTE | 2024-04-13 09:55 | ED.FALL ---
HPI - Fall General Chief Complaint: Fall Stated Complaint: glf Time Seen by Provider: 04/13/24 07:45 History of Present Illness HPI Narrative: Patient is a 73-year-old male who presents ER after having a fall. He is walking out to clean his pool when he tripped falling forwards. He has a skin tear from the right mid upper arm down to the wrist. He maintains normal range of motion. Has mild pain in his right elbow and his right chest wall. He did not strike his head or lose consciousness. He is not on any blood thinning medications. He is unsure when his last tetanus shot was given. Related Data Home Medications Medication Instructions Recorded Confirmed budesonide 3 mg 9 mg PO DAILY 07/03/22 04/08/24 capsule,delayed,extended release docosahexaenoic acid (dha)-epa 120 1 cap PO DAILY 07/03/22 04/08/24 mg-180 mg capsule (Fish Oil) multivitamin 1 tablet PO DAILY 07/03/22 04/08/24 ketoconazole 2 % topical cream applic topical 04/08/24 04/08/24 Allergies Allergy/AdvReac Type Severity Reaction Status Date / Time CHRISTOPHER Inhibitors Allergy Unknown unknown Verified 04/13/24 07:56 Sulfa (Sulfonamide Allergy Unknown unknown Verified 04/13/24 07:56 Antibiotics) [id number] Reductase AdvReac Severe colitis Verified 04/13/24 07:56 Inhibitor Review of Systems Review of Systems: All systems reviewed & are unremarkable except as noted in HPI and below Constitutional: Constitutional: Reports no additional constitutional complaints Cardiovascular: Cardiovascular: Reports no additional cardiovascular complaints Musculoskeletal: Musculoskeletal: Reports myalgias, Reports arthralgias and Denies joint swelling Integumentary/Breasts: Skin/Breast: Denies pruritus and Denies erythema Comments: skin tear Neurologic: Reports system reviewed and no additional complaints, except as documented PMF Past Medical History Medical History Actinic keratosis Drug-induced colitis Lymphocytic colitis Neck pain Ventral hernia without obstruction or gangrene Family History Family History Father Family history of heart disease in male family member before age 55 Mother Family history of heart disease in male family member before age 55 Family history of cardiovascular disease Family history of kidney disease Family history of seizure disorder Social History Social History (Updated 04/08/24 @ 10:13 by Alessia Mccain MA) Smoking status: Never smoker Alcohol intake: current Drinks per week: 7 Substance use: never Substance use type: does not use Do You Feel Safe in your Home?: Yes Lack of Transportation: No Lack of Food: Never True Current Housing: I Have Housing Concerned About Future Housing: No Difficulty Paying Gas/Electric Bills: No Difficulty Paying for Meds: No Currently Unemployed: No Education: Bachelor's Degree Difficulty w/ Childcare or Family Care: No Spiritual care concerns: No Exam Narrative: GENERAL: Well-appearing, well-nourished, and in no acute distress. HEAD: Normocephalic, atraumatic. ENT: Mucous membranes moist. CHEST: Clear to auscultation. No respiratory distress. HEART: Regular rate and rhythm. Normal peripheral pulses. ABDOMEN: Soft, nontender, nondistended. EXTREMITIES: Normal range of motion. 2+ edema. SKIN: Warm, dry, Large skin tear down the right arm. Not amenable to repair. NEURO: Alert and oriented x3. PSYCH: Normal mood and affect. Course Course Emergency Course: Wound cleaned/dressed. Tetanus updated. No fractures. D/c. Vital Signs Vital signs: Vital Signs Temperature 98.0 F 04/13/24 07:52 Pulse Rate 94 04/13/24 07:52 Respiratory Rate 20 04/13/24 07:52 Blood Pressure 157/95 H 04/13/24 07:52 Pulse Oximetry 96 04/13/24 07:52 Oxygen Delivery Room Air 04/13/24 07:52 Temper
== END 2024-04-13 10:18 | disposition home or self-care (01) ==
PROVIDERS: Emergency Provider Emergency Medicine; PCP Family Medicine
DX: S51.811A Laceration without foreign body of right forearm, initial encounter (principal); S41.111A Laceration without foreign body of right upper arm, initial encounter; S59.901A Unspecified injury of right elbow, initial encounter; Z23 Encounter for immunization; R07.89 Other chest pain; Z79.899 Other long term (current) drug therapy; W01.0XXA Fall on same level from slipping, tripping and stumbling without subsequent striking against object, initial encounter
CPT/HCPCS: 71046; 71100; 73080; 90471; 90715; 96360; 99284; A9270; J7040

== ENCOUNTER 2024-04-29 13:53 | Outpatient (CLI) | payer MEDICARE, SELFPAY ==
--- NOTE | 2024-04-29 13:56 | ECHO_ITS ---
Patient Info Name: Brandon Conn Age: 73 years : 1950 Gender: Male Ht: 71 in Wt: 282 lbs BSA: 2.58 m2 HR: 75 bpm BP: 153 / 101 mmHg Technical Quality: Fair Exam Date: 04/29/2024 2:13 PM Exam Location: Echo Lab Patient Status: Outpatient Admit Date: 04/29/2024 Staff Ordering Physician: Randi Araujo MD Nozzle Worker: Shadi Sun RDCS Attending Provider: Randi Araujo MD Referring Physician: Gayle ROMAN; Exam Type: CA echo dop color flow w con Study Info Indications - sob Complete two-dimensional, color flow and Doppler transthoracic echocardiogram is performed with contrast to opacify the left ventricle and to improve the deliniation of the left ventricle endocardial borders. Summary 1. Definity contrast administered improved wall motion interpretation. 2. Left ventricular chamber dimension is normal. 3. Left ventricular systolic function is normal, estimated at 60-65%. 4. There is mild concentric increased left ventricular wall thickness. 5. The left ventricular diastolic function is grade I diastolic dysfunction. 6. E/e' 7 is not elevated. 7. There is trace tricuspid valve regurgitation. 8. No pulmonary hypertension, estimated pulmonary arterial systolic pressure is 17 mmHg. Left Ventricle E/e' 7 is not elevated. Definity contrast administered improved wall motion interpretation. Left ventricular chamber dimension is normal. Left ventricular systolic function is normal, estimated at 60-65%. There is mild concentric increased left ventricular wall thickness. The left ventricular diastolic function is grade I diastolic dysfunction. Right Ventricle Right ventricular systolic function is normal and with normal TAPSE 3.6 cm. Right ventricular chamber dimension is normal. Left Atria Left atrial chamber dimension is normal. Right Atria Right atrial chamber dimension is normal. Aortic Valve The aortic valve is trileaflet. There is no aortic valve stenosis. There is no aortic valve regurgitation. Pulmonic Valve There is no pulmonic regurgitation. Mitral Valve There is no mitral valve stenosis. There is no mitral valve regurgitation. Tricuspid Valve There is trace tricuspid valve regurgitation. No pulmonary hypertension, estimated pulmonary arterial systolic pressure is 17 mmHg. Pericardium/Pleural There is no pericardial effusion. Inferior Vena Cava Normal inferior vena cava with >50% collapse upon inspiration consistent with normal right atrial pressure, 5 mmHg. Aorta The aortic root size at the sinus of Valsalva is normal. Left Ventricular Outflow Tract Name Value Normal LVOT 2D LVOT Diameter 1.93 cm LVOT Doppler LVOT Peak Gradient 5 mmHg LVOT Mean Gradient 3 mmHg LVOT VTI 26.93 cm LVOT VTI/AV VTI Ratio 1.03 LVOT Stroke Volume 78.67 ml LVOT CO 6.36 l/min LVOT CI 2.46 L/min/m2 Pulmonic Valve Name Value Normal
[2024-04-29] MEDS: PERFLUTREN LIPID MICROSPHERES 1.5 ML VIAL DILUTED TO 10 ML TOTAL VOLUME IV PUSH (14:25)
--- NOTE | 2024-04-29 14:56 | IVDEFINITY ---
Prior to administration of IV Definity the patient was educated on the risks and benefits of the imaging enhancing agent including potential adverse side effects. The patient verbalized understanding. Allergies were verified. No exclusion criteria were identified and at least one of the following inclusion criteria were met: 1) physician request, 2) patient technically difficult to image (per the [place] [employer]chocardi[employer] guidelines of two or more segments not discernable within the apical view), or 3) questionable left ventricular function. ?
== END 2024-04-29 13:54 | disposition home or self-care (01) ==
LOC: ANHCARD 13:55
PROVIDERS: PCP Family Medicine; Visit Provider Family Medicine
DX: R06.02 Shortness of breath (principal)
CPT/HCPCS: C8929; Q9957

== ENCOUNTER 2024-05-07 13:12 | Emergency (ER) | payer MEDICARE, SELFPAY ==
--- NOTE | ~2024-05-07 | XR_ITS ---
XR abdomen/kub 1V 05/07/2024 13:46 INDICATION: Leg swelling TECHNIQUE: KUB COMPARISON: None FINDINGS: Bowel gas pattern is normal. There is no evidence of free air, mass, organomegaly, ascites or obstruction. No abnormal calculi are seen. The bones appear intact. Severe lumbar spondylosis. There is dextroscoliosis. IMPRESSION: 1: No acute abdominal abnormality identified. Reviewed, dictated and finalized at location B.
--- NOTE | ~2024-05-07 | US_ITS ---
EXAMINATION: US venous doppler [facility] DATE: 05/07/2024 14:38 INDICATION: Lower limb edema. TECHNIQUE: Grayscale ultrasound images without and with compression and Doppler ultrasound images of the bilateral lower extremity veins were obtained. COMPARISON: Ultrasound 07/04/2022 FINDINGS: The visualized portions of right common femoral vein, profunda (deep) femoral vein, femoral vein, pop liteal vein, peroneal veins, posterior tibial veins, and greater saphenous vein outflow are patent. The visualized portions of left common femoral vein, profunda femoral vein, femoral vein, popliteal v ein, peroneal veins, posterior tibial veins, and greater saphenous vein outflow are patent. IMPRESSION: 1. No deep venous thrombosis. Reviewed, dictated and finalized at location A.
[2024-05-07 13:18] VITALS: BP 131/73; PULSE 110; RESP 26; TEMP 36.6; O2SAT 95
--- NOTE | 2024-05-07 13:39 | ED.EXTPRO ---
HPI - Extremity Problem General Chief complaint: Extremity Problem,Nontraumatic Stated complaint: LOWER LEGS WEEPING/SWOLLEN Time Seen by Provider: 05/07/24 13:20 History of Present Illness HPI Narrative: 73-year-old male presents to the emergency department for evaluation for bilateral lower extremity swelling. Patient states he has had lower extremity swelling has been ongoing for the last 6 weeks and patient has been having close follow-up with primary care physician. Patient did have a recent cardiac echo and has been taking Lasix. Patient reports approximately 2 days ago he had worsening swelling of the left leg and does have some swelling proximal to the knee. Related Data Home Medications Medication Instructions Recorded Confirmed budesonide 3 mg 9 mg PO DAILY 07/03/22 04/29/24 capsule,delayed,extended release docosahexaenoic acid (dha)-epa 120 1 cap PO DAILY 07/03/22 04/29/24 mg-180 mg capsule (Fish Oil) multivitamin 1 tablet PO DAILY 07/03/22 04/29/24 ketoconazole 2 % topical cream applic topical 04/08/24 04/29/24 Allergies Allergy/AdvReac Type Severity Reaction Status Date / Time CHRISTOPHER Inhibitors Allergy Unknown unknown Verified 04/29/24 13:18 Sulfa (Sulfonamide Allergy Unknown unknown Verified 04/29/24 13:18 Antibiotics) [id number] Reductase AdvReac Severe colitis Verified 04/29/24 13:18 Inhibitor Review of Systems Review of Systems: All systems reviewed & are unremarkable except as noted in HPI and below PMFSH Past Medical History Medical History Actinic keratosis Drug-induced colitis Lymphocytic colitis Neck pain Ventral hernia without obstruction or gangrene Family History Family History Father Family history of heart disease in male family member before age 55 Mother Family history of heart disease in male family member before age 55 Family history of cardiovascular disease Family history of kidney disease Family history of seizure disorder Social History Social History Smoking status: Never smoker Alcohol intake: current Drinks per week: 7 Substance use: never Substance use type: does not use Do You Feel Safe in your Home?: Yes Lack of Transportation: No Lack of Food: Never True Current Housing: I Have Housing Concerned About Future Housing: No Difficulty Paying Gas/Electric Bills: No Difficulty Paying for Meds: No Currently Unemployed: No Education: Bachelor's Degree Difficulty w/ Childcare or Family Care: No Spiritual care concerns: No Exam Narrative: APPEARANCE: Well appearing, no pain, no distress, well-nourished. HEAD: normocephalic, atraumatic. EYES: PERRLA/EOMI, conjunctivae clear. NOSE: Normal no drainage EARS:TMS clear with good light reflex. THROAT: Pharynx clear, no exudate. NECK: Supple. No adenopathy, no masses. RESPIRATORY: Airway patent, respirations nonlabored. Clear to auscultation bilaterally, no rales, rhonchi, wheezing. CARDIOVASCULAR: Regular rate and rhythm without murmurs rubs or gallops. ABDOMINAL: Soft, nontender, nondistended, normal bowel sounds MUSCULOSKELETAL: Bilateral lower extremity edema with worsening edema on the left, pitting edema proximal to the left knee with erythema NEURO: Alert. Cranial nerves II through XII intact. Grossly intact SKIN: Localized erythema just proximal to left knee Course Course Emergency Course: Ultrasounds were negative for DVT. Patient was treated with antibiotics for cellulitis. Vital Signs Vital signs: Vital Signs Temperature 97.9 F 05/07/24 13:18 Pulse Rate 110 H 05/07/24 13:18 Respiratory Rate 26 H 05/07/24 13:18 Blood Pressure 131/73 05/07/24 13:18 Pulse Oximetry 95 05/07/24 13:18 Oxygen Delivery Room Air 05/07/24 13:18 Temperature 98.5 F 05/07/24 15:46 Puls
[2024-05-07 13:44] LABS: Basophils Percent Auto 0.3 % (0.2-1.2); Eosinophils Percent Auto 0.3 % (0-4.4); Hematocrit 40.1 % (42.0-52.0); Hemoglobin 13.3 g/dL (14.0-18.0); Immature Granulocyte Percent A 0.7 % (0-0.5); Lymphocytes Absolute Auto 0.83 K/mm3 (0.9-3.2); Lymphocytes Percent Auto 6.1 % (18.3-44.2); Mean Corpuscular HGB Conc 33.2 g/dl (32-36); Mean Corpuscular Hemoglobin 35.3 pg (26-34); Mean Corpuscular Volume 106.4 fl (80-100); Mean Platelet Volume 10.3 fl (7.4-10.4); Monocytes Absolute Auto 0.6 K/mm3 (0.1-0.6); Monocytes Percent Auto 4.4 % (2.6-8.5); Neutrophils Percent Auto 88.2 % (45.5-73.1); Platelet Count Result 175 k/mm3 (150-375); Red Blood Count 3.77 M/mm3 (4.6-6.20); Red Cell Distribution Width 13.2 % (11.5-14.5); White Blood Count 13.6 K/mm3 (4.5-10.0)
[2024-05-07 13:55] LABS: Alanine Aminotransferase 21 U/L (6-50); Albumin Level 3.6 g/dL (3.5-5.1); Alkaline Phosphatase 54 U/L (38-126); Anion Gap 9 mmol/L (4-12); Aspartate Amino Transferase 19 U/L (17-59); Bilirubin,Total 1.1 mg/dL (0.2-1.3); Blood Urea Nitrogen 29 mg/dL (9-20); Calcium 8.5 mg/dL (8.4-10.2); Carbon Dioxide 28 mmol/L (22-30); Chloride 99 mmol/L (98-107); Estimated CRCL calculation 88 ml/min; Estimated Glomerular Filt Rate > 60; Glucose 179 mg/dL (65-110); Potassium 3.9 mmol/L (3.4-5.0); Sodium 136 mmol/L (137-145)
[2024-05-07 14:00] LABS: Prothrombin Time 13.7 Seconds (11.1-14.7)
--- NOTE | 2024-05-07 14:00 | PC.NURSE ---
pt in x-ray and ultra sound.
[2024-05-07 14:02] LABS: Partial Thromboplastin Time 27.1 Seconds (22.3-36.8)
[2024-05-07 14:04] LABS: NT Pro B Type Natriuretic Pept 99 pg/mL (19.9-100)
[2024-05-07] MEDS: FUROSEMIDE INJ 40 MG/4 ML VIAL IV PUSH (14:41)
[2024-05-07 15:10] VITALS: BP 129/73; BP 129/79; PULSE 96; RESP 14; RESP 30; TEMP 36.6; O2SAT 97
[2024-05-07 15:46] VITALS: BP 122/94; PULSE 96; RESP 34; TEMP 36.9; O2SAT 97
== END 2024-05-07 15:49 | disposition home or self-care (01) ==
PROVIDERS: Emergency Provider Emergency Medicine; PCP Family Medicine
DX: L03.116 Cellulitis of left lower limb (principal); R60.0 Localized edema
CPT/HCPCS: 36415; 74018; 80053; 83880; 85025; 85610; 85730; 93970; 96365; 96375; 99284; J0696; J1940

== ENCOUNTER 2024-06-02 14:04 | Emergency (ER) | payer MEDICARE, SELFPAY ==
--- NOTE | ~2024-06-02 | XR_ITS ---
EXAMINATION: XR chest 1V portable DATE: 06/02/2024 15:32 INDICATION: Chronic edema of the lower extremities. TECHNIQUE: A single frontal view of the chest was obtained. COMPARISON: Chest 2 views 04/13/2024, chest CT 12/27/2023 FINDINGS: There are chronic interstitial opacities in the lower lung zones. Calcified pulmonary nodul es and calcified hilar lymph nodes are consistent with old granulomatous disease. No pleural effusion or pneumothorax. The heart size is normal. There are prominent pericardial fat pads. IMPRESSION: 1. Stable mild chronic interstitial lung disease. Reviewed, dictated and finalized at location A.
[2024-06-02 14:11] VITALS: BP 148/72; PULSE 100; RESP 28; TEMP 36.6; O2SAT 97
--- NOTE | 2024-06-02 14:50 | ED.EXTPRO ---
HPI - Extremity Problem General Chief complaint: Extremity Problem,Nontraumatic Stated complaint: infection to R leg, both legs weeping Time Seen by Provider: 06/02/24 14:15 History of Present Illness HPI Narrative: 73-year-old male presents emergency department for evaluation for bilateral lower extremity swelling with right-sided cellulitis. Patient does have prior history of lower extremity edema and is on Lasix. Patient has having follow-up with his physicians for his leg edema. Patient did have recent antibiotics for his on a left lower extremity on 05/07 in did feel these antibiotics helped. Patient states over last few days he has had worsening erythema of the left leg. Related Data Home Medications Medication Instructions Recorded Confirmed budesonide 3 mg 9 mg PO DAILY 07/03/22 04/29/24 capsule,delayed,extended release docosahexaenoic acid (dha)-epa 120 1 cap PO DAILY 07/03/22 04/29/24 mg-180 mg capsule (Fish Oil) multivitamin 1 tablet PO DAILY 07/03/22 04/29/24 ketoconazole 2 % topical cream applic topical 04/08/24 04/29/24 Allergies Allergy/AdvReac Type Severity Reaction Status Date / Time CHRISTOPHER Inhibitors Allergy Unknown unknown Verified 04/29/24 13:18 Sulfa (Sulfonamide Allergy Unknown unknown Verified 04/29/24 13:18 Antibiotics) [id number] Reductase AdvReac Severe colitis Verified 04/29/24 13:18 Inhibitor Review of Systems Review of Systems: All systems reviewed & are unremarkable except as noted in HPI and below PMFSH Past Medical History Medical History Actinic keratosis Drug-induced colitis Lymphocytic colitis Neck pain Ventral hernia without obstruction or gangrene Family History Family History Father Family history of heart disease in male family member before age 55 Mother Family history of heart disease in male family member before age 55 Family history of cardiovascular disease Family history of kidney disease Family history of seizure disorder Social History Social History Smoking status: Never smoker Alcohol intake: current Drinks per week: 7 Substance use: never Substance use type: does not use Do You Feel Safe in your Home?: Yes Lack of Transportation: No Lack of Food: Never True Current Housing: I Have Housing Concerned About Future Housing: No Difficulty Paying Gas/Electric Bills: No Difficulty Paying for Meds: No Currently Unemployed: No Education: Bachelor's Degree Difficulty w/ Childcare or Family Care: No Spiritual care concerns: No Exam Narrative: APPEARANCE: Well appearing, no pain, no distress, well-nourished. HEAD: normocephalic, atraumatic. EYES: PERRLA/EOMI, conjunctivae clear. NOSE: Normal no drainage EARS:TMS clear with good light reflex. THROAT: Pharynx clear, no exudate. NECK: Supple. No adenopathy, no masses. RESPIRATORY: Airway patent, respirations nonlabored. Clear to auscultation bilaterally, no rales, rhonchi, wheezing. CARDIOVASCULAR: Regular rate and rhythm without murmurs rubs or gallops. ABDOMINAL: Soft, nontender, nondistended, normal bowel sounds MUSCULOSKELETAL: Bilateral lower extremity edema, right lower extremity cell NEURO: Alert. Cranial nerves II through XII intact. Grossly intact SKIN: Warm, dry. Normal Color Course Course Emergency Course: Patient was started on antibiotics for cellulitis and discharged home Vital Signs Vital signs: Vital Signs Temperature 97.8 F 06/02/24 14:11 Pulse Rate 100 06/02/24 14:11 Respiratory Rate 28 H 06/02/24 14:11 Blood Pressure 148/72 H 06/02/24 14:11 Pulse Oximetry 97 06/02/24 14:11 Oxygen Delivery Room Air 06/02/24 14:11 Temperature 97.8 F 06/02/24 16:08 Pulse Rate 89 06/02/24 16:08 Respiratory Rate 24 H 06/02/24 16:08 Blood Pressure 137/7
--- NOTE | 2024-06-02 14:58 | PC.NURSE ---
Pt presents with weeping pitting edema to bilateral legs that extend up to mid thigh, left worse than right. Diffuse blisters to bilateral lower extremities. Pedal & post-tibial pulses obtain with doppler and marked. Redness to bilateral lower legs, right worse than left. states she has been wrapping pts legs stopped few days ago
[2024-06-02 15:00] VITALS: BP 128/73; PULSE 95; RESP 16; TEMP 36.4; O2SAT 96
[2024-06-02 15:17] LABS: Basophils Percent Auto 0.3 % (0.2-1.2); Eosinophils Absolute Auto 0.1 K/mm3 (0-0.3); Eosinophils Percent Auto 0.6 % (0-4.4); Hematocrit 40.5 % (42.0-52.0); Hemoglobin 13.5 g/dL (14.0-18.0); Immature Granulocyte Absolute 0.14 K/mm3 (0.00-0.031); Immature Granulocyte Percent A 1.1 % (0-0.5); Immature Platelet Fraction Pct 4.3 % (0.9-11.2); Lymphocytes Absolute Auto 1.09 K/mm3 (0.9-3.2); Lymphocytes Percent Auto 8.3 % (18.3-44.2); Mean Corpuscular HGB Conc 33.3 g/dl (32-36); Mean Corpuscular Hemoglobin 34.8 pg (26-34); Mean Corpuscular Volume 104.4 fl (80-100); Mean Platelet Volume 10.5 fl (7.4-10.4); Monocytes Absolute Auto 0.6 K/mm3 (0.1-0.6); Monocytes Percent Auto 4.9 % (2.6-8.5); Neutrophils Absolute Auto 11.1 K/mm3 (1.3-6.7); Neutrophils Percent Auto 84.8 % (45.5-73.1); Platelet Count Result 207 k/mm3 (150-375); Red Blood Count 3.88 M/mm3 (4.6-6.20); Red Cell Distribution Width 13.2 % (11.5-14.5); White Blood Count 13.1 K/mm3 (4.5-10.0)
--- NOTE | 2024-06-02 15:27 | PC.NURSE ---
Per MD Iglesias verbal instruction, BLE dressed with non-adherent pads and pinky wrap. at bedside. showed by this RN how to dress BLE. All questions answered at this time.
[2024-06-02 15:29] LABS: Platelet Estimate Adequate (Adequate); Schistocytes None Seen
[2024-06-02 15:32] LABS: Alanine Aminotransferase 23 U/L (6-50); Albumin Level 3.9 g/dL (3.5-5.1); Alkaline Phosphatase 58 U/L (38-126); Anion Gap 7 mmol/L (4-12); Aspartate Amino Transferase 20 U/L (17-59); Bilirubin,Total 0.7 mg/dL (0.2-1.3); Blood Urea Nitrogen 27 mg/dL (9-20); Calcium 8.9 mg/dL (8.4-10.2); Carbon Dioxide 31 mmol/L (22-30); Chloride 99 mmol/L (98-107); Estimated CRCL calculation 80 ml/min; Estimated Glomerular Filt Rate > 60; Glucose 135 mg/dL (65-110); Potassium 4.2 mmol/L (3.4-5.0); Sodium 137 mmol/L (137-145)
[2024-06-02 15:42] LABS: NT Pro B Type Natriuretic Pept 94 pg/mL (19.9-100)
[2024-06-02 16:08] VITALS: BP 137/77; PULSE 89; RESP 24; TEMP 36.6; O2SAT 97
== END 2024-06-02 16:10 | disposition home or self-care (01) ==
PROVIDERS: Emergency Provider Emergency Medicine; PCP Family Medicine
DX: L03.115 Cellulitis of right lower limb (principal); R60.0 Localized edema; I10 Essential (primary) hypertension; E03.9 Hypothyroidism, unspecified; E78.00 Pure hypercholesterolemia, unspecified; M10.9 Gout, unspecified; Z79.899 Other long term (current) drug therapy
CPT/HCPCS: 36415; 71045; 80053; 83880; 85025; 85055; 96365; 99284; J0696

== ENCOUNTER 2024-07-03 14:13 | Emergency (ER) | payer MEDICARE, SELFPAY ==
[2024-07-03] VITALS (9 sets, daily range): BP systolic 114–138; BP diastolic 61–99; PULSE 95–120; RESP 16–28; TEMP 36.8; O2SAT 96–98
--- NOTE | ~2024-07-03 | CT_ITS ---
EXAMINATION: CTA chest PE protocol DATE: 07/03/2024 17:29 INDICATION: Tachycardia. Hypotension. TECHNIQUE: Computed tomography angiography (CTA) of the chest was performed with 100 mL Omnipaque-350 intravenous contrast timed to evaluate the pulmonary arteries. Coronal maximum intensity projection 3D-reconstructions were created by the technologist. Automated exposure control and iterative reconst ruction technique were employed. The dose-length product was 963.35 mGy-cm. COMPARISON: Chest CT 12/27/2023 FINDINGS: The lungs demonstrate chronic septal thickening and groundglass opacities. No bronchiectasi s or honeycombing. There is mild elevation of left hemidiaphragm. Calcified pulmonary nodules and emma cified hilar and mediastinal lymph nodes are consistent with old granulomatous disease. No pleural ef fusion. There is left atrial enlargement of the heart. There are coronary artery calcifications. No p ericardial effusion. The central pulmonaries are enlarged, consistent with pulmonary arterial hyperte nsion. There is no pulmonary embolus. There is diffuse hepatic steatosis. There are bridging endplate osteophytes at multiple levels in the spine, consistent with diffuse idiopathic skeletal hyperostosi s (DISH). There is mild chronic anterior wedging of multiple vertebral bodies. IMPRESSION: 1. No pulmonary embolus. Sensitivity is moderately decreased by motion artifact. 2. Chronic interstitial lung disease in a pattern of nonspecific interstitial pneumonia (NSIP). Reviewed, dictated and finalized at location A. IMPRESSION: 1. No pulmonary embolus. Sensitivity is moderately decreased by motion artifact . 2. Chronic interstitial lung disease in a pattern of nonspecific interstitial p neumonia (NSIP).
--- NOTE | 2024-07-03 14:20 | ECG_ITS ---
Test Date: 2024-07-03 14:24:08 Measurements Intervals [place] Rate: 109 P: 9 MN: 159 QRS: -36 QRSD: 86 T: 68 QT: 308 QTc: 416 Interpretive Statements SINUS TACHYCARDIA MARKED LEFT AXIS DEVIATION [QRS AXIS < -30] PATTERN CONSISTENT WITH PULMONARY DISEASE No previous ECG available for comparison Electronically Signed On 07-03-2024 15:10:00 CDT by Prasanna Wyatt M.D.
[2024-07-03 14:36] LABS: Basophils Percent Auto 0.2 % (0.2-1.2); Eosinophils Percent Auto 0.1 % (0-4.4); Hematocrit 40.2 % (42.0-52.0); Hemoglobin 13.7 g/dL (14.0-18.0); Immature Granulocyte Absolute 0.16 K/mm3 (0.00-0.031); Lymphocytes Percent Auto 5.5 % (18.3-44.2); Mean Corpuscular HGB Conc 34.1 g/dl (32-36); Mean Corpuscular Hemoglobin 35.1 pg (26-34); Mean Corpuscular Volume 103.1 fl (80-100); Mean Platelet Volume 10.5 fl (7.4-10.4); Neutrophils Absolute Auto 14.2 K/mm3 (1.3-6.7); Neutrophils Percent Auto 87.2 % (45.5-73.1); Platelet Count Result 207 k/mm3 (150-375); Red Cell Distribution Width 13.2 % (11.5-14.5); White Blood Count 16.2 K/mm3 (4.5-10.0)
[2024-07-03 14:47] LABS: Alanine Aminotransferase 26 U/L (6-50); Albumin Level 3.9 g/dL (3.5-5.1); Alkaline Phosphatase 49 U/L (38-126); Anion Gap 8 mmol/L (4-12); Aspartate Amino Transferase 25 U/L (17-59); Bilirubin,Total 1.2 mg/dL (0.2-1.3); Blood Urea Nitrogen 52 mg/dL (9-20); Calcium 9.1 mg/dL (8.4-10.2); Carbon Dioxide 30 mmol/L (22-30); Chloride 96 mmol/L (98-107); Estimated CRCL calculation 57 ml/min; Estimated Glomerular Filt Rate 49; Glucose 160 mg/dL (65-110); Potassium 4.1 mmol/L (3.4-5.0); Sodium 134 mmol/L (137-145)
[2024-07-03 14:52] LABS: Partial Thromboplastin Time 23.5 Seconds (22.3-36.8); Prothrombin Time 13.1 Seconds (11.1-14.7)
[2024-07-03 14:59] LABS: Troponin I 0.018 ng/mL (0.000-0.034)
--- NOTE | 2024-07-03 17:07 | PC.NURSE ---
Orthostatic VS negative. See flowsheet.
--- NOTE | 2024-07-03 17:24 | PC.NURSE ---
provider verbal ordered to hold fluid bolus due to patients blood pressure and patient has 4+ pitting edema in bilateral extremities.
--- NOTE | 2024-07-03 18:22 | ED.GENADULT ---
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 The patient states while exercising, he felt lightheaded and his blood pressure decreased to the 70s over 30s. He states he has pressure typically runs in the 120-1 30s. He denies loss of consciousness, chest pain or other difficulty breathing. He states he recently had an increase in his Lasix and increase his dose of mycophenolate mofetil. He states for the past 2 days, he has been more ambulatory than usual. He has no other complaints at this time. Related Data Home Medications Medication Instructions Recorded Confirmed budesonide 3 mg 9 mg PO DAILY 07/03/22 06/09/24 capsule,delayed,extended release docosahexaenoic acid (dha)-epa 120 1 cap PO DAILY 07/03/22 06/09/24 mg-180 mg capsule (Fish Oil) multivitamin 1 tablet PO DAILY 07/03/22 06/09/24 ketoconazole 2 % topical cream applic topical 04/08/24 06/09/24 mycophenolate mofetil 500 mg tablet PO 06/09/24 06/09/24 Allergies Allergy/AdvReac Type Severity Reaction Status Date / Time CHRISTOPHER Inhibitors Allergy Unknown unknown Verified 06/09/24 19:55 Sulfa (Sulfonamide Allergy Unknown unknown Verified 06/09/24 19:55 Antibiotics) Borsljh-QCR-SjK Reductase AdvReac Severe colitis Verified 06/09/24 19:55 Inhibitor Review of Systems Review of Systems: All systems reviewed & are unremarkable except as noted in HPI and below [facility] [place] Past Medical History Medical History (Updated 07/03/24 @ 18:47 by Sudhakar Pierce MD) Actinic keratosis Drug-induced colitis Edema, lower extremity Hypersensitivity pneumonitis dust (pillows)and pool chemicals ILD (interstitial lung disease) Lymphocytic colitis Neck pain Ventral hernia without obstruction or gangrene Family History Family History Father Family history of heart disease in male family member before age 55 Family history of cardiovascular disease High cholesterol Mother Family history of seizure disorder Family history of heart disease in male family member before age 55 Family history of cardiovascular disease Family history of kidney disease High cholesterol Sibling Family history of cardiovascular disease High cholesterol Social History Social History Smoking status: Never smoker Alcohol intake: current Drinks per week: 7 Substance use: never Substance use type: does not use Do You Feel Safe in your Home?: Yes Lack of Transportation: No Lack of Food: Never True Current Housing: I Have Housing Concerned About Future Housing: No Difficulty Paying Gas/Electric Bills: No Difficulty Paying for Meds: No Currently Unemployed: No Education: Bachelor's Degree Difficulty w/ Childcare or Family Care: No Spiritual care concerns: No Exam Narrative: GENERAL: Well-developed, well-nourished, and in no acute distress. HEAD: Normocephalic, atraumatic. EYES: PERRLA and EOMI. ENT: Nares clear, no rhinorrhea or epistaxis. Mucous membranes moist. Oropharynx without tonsillar hypertrophy exudate or other lesions. NECK: Supple. No JVD CHEST: Rales noted on exam, greater in the right posterior lung base compared to the left. No respiratory distress. No wheezes or rhonchi HEART: Tachycardic with regular rhythm. No murmur heard. Normal peripheral pulses. ABDOMEN: Soft, nontender, nondistended, normal active bowel sounds. EXTREMITIES: Normal range of motion. 2+ bilateral lower extremity edema. SKIN: Warm, dry, no ra
== END 2024-07-03 18:47 | disposition home or self-care (01) ==
PROVIDERS: Emergency Provider Preventive Medicine Aerospace Medicine; PCP Family Medicine
DX: R55 Syncope and collapse (principal); E86.0 Dehydration; N17.9 Acute kidney failure, unspecified; J67.8 Hypersensitivity pneumonitis due to other organic dusts; R00.0 Tachycardia, unspecified; R94.31 Abnormal electrocardiogram [ECG] [EKG]
CPT/HCPCS: 36415; 71275; 80053; 84484; 85025; 85610; 85730; 93005; 99284; Q9967

== ENCOUNTER 2024-09-01 14:50 | Outpatient (CLI) | payer MEDICARE, SELFPAY ==
--- NOTE | ~2024-09-01 | XR_ITS ---
EXAMINATION: XR chest 2V DATE: 09/01/2024 15:14 INDICATION: Abnormal weight gain. TECHNIQUE: Frontal and lateral views of the chest were obtained on 3 radiographs. COMPARISON: Chest view 06/02/2024 FINDINGS: There is stable mild elevation of left hemidiaphragm. No pneumonia, pleural effusion, or pn eumothorax. The heart size is normal. IMPRESSION: 1. No acute cardiopulmonary disease. Reviewed, dictated and finalized at location A. ER OR CHOREOGRAPHER
== END 2024-09-01 14:51 | disposition home or self-care (01) ==
LOC: ANHIMG 14:54
PROVIDERS: PCP Family Medicine; Visit Provider Student in an Organized Health Care Education/Training Program
DX: R63.5 Abnormal weight gain (principal); R06.02 Shortness of breath
CPT/HCPCS: 71046

== ENCOUNTER 2024-09-18 13:30 | Outpatient (RCR) | payer MEDICARE, SELFPAY ==
[2024-06-23 15:26] VITALS: BP 124/70; PULSE 102; RESP 18; O2SAT 94
[2024-06-23 15:48] VITALS: PULSE 101
== END 2024-09-18 23:59 | disposition home or self-care (01) ==
LOC: ANHCPREHAB 13:30
PROVIDERS: PCP Family Medicine
DX: J84.9 Interstitial pulmonary disease, unspecified (principal)
CPT/HCPCS: 94625; G0239

== ENCOUNTER 2024-11-11 17:12 | Inpatient (IN) | payer MEDICARE, SELFPAY ==
[2024-11-11] VITALS (17 sets, daily range): BP systolic 66–135; BP diastolic 37–76; PULSE 73–87; RESP 12–26; TEMP 36.7; O2SAT 73–100
--- NOTE | ~2024-11-11 | XR_ITS ---
CHEST RADIOGRAPH CLINICAL HISTORY: weakness . COMPARISON: 09/01/2024 TECHNIQUE: Single portable view of the chest. FINDINGS The cardiomediastinal silhouette is enlarged, unchanged. Interstitial thickening is identified bilaterally, possibly chronic. No focal infiltrate or effusion is noted. IMPRESSION: Chronic interstitial change, without focal infiltrate or effusion. Reviewed, dictated and finalized at location A. ASS ANALYST
--- NOTE | 2024-11-11 17:22 | ECG_ITS ---
Test Date: 2024-11-11 18:30:23 Measurements Intervals [place] Rate: 70 P: 93 LA: 177 QRS: -20 QRSD: 98 T: 60 QT: 388 QTc: 421 Interpretive Statements SINUS RHYTHM WITH SINUS ARRHYTHMIA BORDERLINE R WAVE PROGRESSION, ANTERIOR LEADS NONSPECIFIC ST-T WAVE ABNORMALITY- HIGH LATERAL LEADS BASELINE ARTIFACT- I, II, AVR, AVL, AVF, V2 BORDERLINE ECG Compared to ECG 07/03/2024 14:24:08 HEART RATE HAS DECREASED Electronically Signed On 11-12-2024 05:28:20 LPN OR MEDICAL ASSISTANT by Yo Hayes D.O.
--- NOTE | 2024-11-11 17:30 | ED.WEAKNESS ---
HPI - Weakness General Chief complaint: Recheck/Abnormal Lab/Rx <Trina Arredondo PA-C - Last Filed: 11/12/24 00:34> Stated complaint: hypotension <ELSY Watson Last Filed: 11/12/24 00:34> Time Seen by Provider: 11/11/24 17:16 <ELSY Watson Last Filed: 11/12/24 00:34> Source: patient <ELSY Watson Last Filed: 11/12/24 00:34> Mode of arrival: EMS <ELSY Watson Last Filed: 11/12/24 00:34> Limitations: no limitations <ELSY Watson Last Filed: 11/12/24 00:34> History of Present Illness HPI Narrative: This is a 74 year old male that presents to the ER for low blood pressure reading. Reports he was feeling very weak/lightheaded. He took his blood pressure and it was very low. Called 911 to be evaluated. Reports recently being admitted to [facility] and discharged 3 days ago for fluid overload. Reports he is currently RSV positive. Does report a cough. Denies fever, abdominal pain, vomiting, dysuria. <ELSY Watson Last Filed: 11/12/24 00:34> Related Data Home medications: Home Medications ?Medication ?Instructions ?Recorded ?Confirmed ?Last Taken ?Type multivitamin 1 tablet PO DAILY 07/03/22 11/12/24 11/11/24 History mycophenolate mofetil 500 mg tablet 1,500 mg PO Q12H 06/09/24 11/12/24 11/11/24 History <ELSY Watson Last Filed: 11/12/24 00:34> Allergies/Adverse reactions: Allergies Allergy/AdvReac Type Severity Reaction Status Date / Time CHRISTOPHER Inhibitors Allergy Unknown unknown Verified 10/20/24 13:24 Sulfa (Sulfonamide Allergy Unknown unknown Verified 10/20/24 13:24 Antibiotics) Ntxemxg-EDA-OsT Reductase AdvReac Severe colitis Verified 10/20/24 13:24 Inhibitor <ELSY Watson Last Filed: 11/12/24 00:34> Review of Systems Review of Systems: CONSTITUTIONAL: Denies fever CARDIOVASCULAR: Reports edema. Denies chest pain RESPIRATORY: Reports cough. Denies dyspnea. GASTROINTESTINAL: Denies abdominal pain, nausea, vomiting GENITOURINARY: Denies dysuria NEUROLOGIC: Reports generalized weakness. <Trina Arredondo PA-C - Last Filed: 11/12/24 00:34> All systems reviewed & are unremarkable except as noted in HPI and below <Trina Arredondo PA-C - Last Filed: 11/12/24 00:34> PMFSH Past Medical History Medical History: Medical History (Updated 11/12/24 @ 03:25 by Leon Appiah MD) Hypersensitivity pneumonitis dust (pillows)and pool chemicals Edema, lower extremity ILD (interstitial lung disease) Lymphocytic colitis Drug-induced colitis Neck pain Actinic keratosis Ventral hernia without obstruction or gangrene <Trina Arredondo PA-C - Last Filed: 11/12/24 00:34> Family History Family History: Family History Father Family history of heart disease in male family member before age 55 Family history of cardiovascular disease High cholesterol Mother Family history of seizure disorder Family history of heart disease in male family member before age 55 Family history of cardiovascular disease Family history of kidney disease High cholesterol Sibling Family history of cardiovascular disease High cholesterol <ELSY Watson Last Filed: 11/12/24 00:34> Social History Social History: Social History Smoking status: Never smoker Alcohol intake: never Drinks per week: 7 Substance use: never Substance use type: does not use Do You Feel Safe in your Home?: Yes Lack of Transportation: No Lack of Food: Never True Current Housing: I Have Housing Concerned About Future Housing: No Difficulty Paying Gas/Electric Bills: No Difficulty Paying for Meds: No Currently Unemployed: No Education: Master's Degree or Higher Difficulty w/ Childcare or Family Care: No Spiritual care concerns: No <Trina Arredondo PA-C - Last Filed: 11/12/24 00:34> Exam Narrative: GENERAL: Ill-appearing, well-nourished, and in no acute distress. HEAD: Normocephalic, atraumatic. EYES: PERRLA and EOMI. ENT: Nares clear, no rhinorrhea or epistaxis. Mucous membranes moist. Oropharynx without tonsillar hypertrophy exudate or other lesions. Bilateral TMs pearly carbajal non-bulging NECK: Supple. No adenopathy or masses. CHEST: Clear to auscultation. No respiratory distress. No wheezes rales or rhonchi HEART: Regular rate and rhythm. No murmur heard. Normal peripheral pulses. ABDOMEN: Soft, nontender, nondistended, normal active bowel sounds. EXTREMITIES: Normal range of motion. 1+ pitting edema to the bilateral lower extremities SKIN: Warm, dry, no rash. NEURO: No focal deficits. Alert and oriented x3. PSYCH: Normal mood and affect <Trina Arredondo PA-C - Last Filed: 11/12/24 00:34> Course REMARKETING REP/PA Physician Supervision I agree with midlevel documentation; I performed the medical decision making component of this evaluation. I had independent fkgz-xu-hejc time with the patient and performed my own independent evaluation and assessment. Patient was released from [facility] after having over 37 lb of fluid diuresed over the course of 4 days. Found to have recurrent hypotension almost went to the ICU at their facility. Patient had elevated lactate and white count but negative blood cultures at the facility. Today presents profoundly hypotensive but does appear to be mentating appropriately with no complaints of chest pain or shortness a breath. He was given over 4 L of fluid resuscitation and still remained hypotensive. Central venous access was obtained into the right femoral vessel and norepinephrine was infused. Considerations presently are for over diuresis and volume depletion, sepsis with vaso plegia given his elevated lactic acid and white count. He was started on broad-spectrum antibiotics, ICU was consulted and accepted the patient to admission at this time, patient and family were spoken to multiple times and agreeable with the plan of care. Please see remaining dictation by the midlevel provider. Hospitalist Service was also made aware of the ICU admission. <Leon Appiah MD - Last Filed: 11/12/24 03:25> Consultations Consultation #1: spoke with hospitalist about patient and workup who accepts admission <Trina Arredondo PA-C - Last Filed: 11/12/24 00:34> Date: 11/11/24 <Trina Arredondo PA-C - Last Filed: 11/12/24 00:34> Consultation #2: Spoke with the top taper machine who will consult <Trina Arredondo PA-C - Last Filed: 11/12/24 00:34> Date: 11/11/24 <Trina Arredondo PA-C - Last Filed: 11/12/24 00:34> Vital Signs Vital signs: Vital Signs Pulse Rate 75 11/11/24 17:22 Respiratory Rate 26 H 11/11/24 17:22 Blood Pressure 66/49 L 11/11/24 17:22 Pulse Oximetry 95 11/11/24 17:22 Oxygen Delivery Room Air 11/11/24 17:22 Temperature 36.7 C 11/11/24 22:00 Pulse Rate 85 11/12/24 01:07 Respiratory Rate 18 11/11/24 23:58 Blood Pressure 116/74 11/12/24 01:07 Pulse Oximetry 95 11/11/24 23:58 Oxygen Delivery Room Air 11/11/24 17:22 <Trina Arredondo PA-C - Last Filed: 11/12/24 00:34> Vital Signs Pulse Rate 75 11/11/24 17:22 Respiratory Rate 26 H 11/11/24 17:22 Blood Pressure 66/49 L 11/11/24 17:22 Pulse Oximetry 95 11/11/24 17:22 Oxygen Delivery Room Air 11/11/24 17:22 Temperature 36.7 C 11/11/24 22:00 Pulse Rate 85 11/12/24 01:07 Respiratory Rate 18 11/11/24 23:58 Blood Pressure 116/74 11/12/24 01:07 Pulse Oximetry 95 11/11/24 23:58 Oxygen Delivery Room Air 11/11/24 17:22 <Leon Appiah MD - Last Filed: 11/12/24 03:25> Procedures Central Line Placement Right Femoral: Central Line Date: 11/11/24 <Leon Appiah MD - Last Filed: 11/12/24 03:25> Central Line Time: 22:35 <Leon Appiah MD - Last Filed: 11/12/24 03:25> Discussed w/ the patient/family/POA,the placement of a central venous catheter, including its clinical necessity/indication & associated potential risks, benifits and alternatives.: Yes <Leon Appiah MD - Last Filed: 11/12/24 03:25> The patient/family/POA understand(s) and acknowledge(s) the need to proceed with central venous catheter insertion as an important element of the patient's clinical management.: Yes <Leon Appiah MD - Last Filed: 11/12/24 03:25> Time Out Performed: Yes <Leon Appiah MD - Last Filed: 11/12/24 03:25> Patient Placed on Monitor/Pulse Ox: Yes <Leon Appiah MD - Last Filed: 11/12/24 03:25> Max. Sterile Barrier Technique: Caps, large sterile sheet and hand hygiene <Leon Appiah MD - Last Filed: 11/12/24 03:25> Central Line Prep: 2% chlorhexidine scrub and sterile drapes applied <Leon Appiah MD - Last Filed: 11/12/24 03:25> Technique: US-Guided <Leon Appiah MD - Last Filed: 11/12/24 03:25> Local Anesthetic: lidocaine 1% <Leon Appiah MD - Last Filed: 11/12/24 03:25> Amount of anesthesia used (mL): 5 <Leon Appiah MD - Last Filed: 11/12/24 03:25> Ultrasound Used for Placement: Yes <Leon Appiah MD - Last Filed: 11/12/24 03:25> Central Line Lumen Inserted: triple <Leon Appiah MD - Last Filed: 11/12/24 03:25> Post Procedure: sutured in place, good blood return, all ports aspirated, flushed, capped and sterile dressing applied <Leon Appiah MD - Last Filed: 11/12/24 03:25> Patient Tolerated Procedure: well and no complications <Leon Appiah MD - Last Filed: 11/12/24 03:25> Complications: none <Leon Appiah MD - Last Filed: 11/12/24 03:25> MDM - Weakness MDM Narrative Medical decision making narrative: Patient presents to the emergency department for low blood pressures at home. Reports lightheadedness and generalized weakness. Patient is afebrile. Blood pressure in the 60s systolic upon arrival. Patient was hydrated with 3L IV fluids. He did have continued low blood pressures. Central line was placed and patient started on norepinephrine. CBC with leukocytosis to 14.5. Hemoglobin is mildly low at 12. Metabolic panel with hyponatremia and hypochloremia. Urine without evidence of infection. Influenza, RSV and COVID screens are negative. Chest x-ray without acute cardiopulmonary abnormality. Blood cultures drawn and patient started on empiric broad spectrum antibiotics. spoke with hospitalist about patient and workup who accepts admission. Spoke with the top taper machine who will consult <Trina Arredondo PA-C - Last Filed: 11/12/24 00:34> Differential Diagnosis Differential diagnosis: Likely sepsis and dehydration <Trina Arredondo PA-C - Last Filed: 11/12/24 00:34> Lab Data Attestation: I reviewed the patient's lab results. <Trina Arredondo PA-C - Last Filed: 11/12/24 00:34> Result diagrams: 11/11/24 18:11 11/11/24 18:11 <Trina Arredondo PA-C - Last Filed: 11/12/24 00:34> Labs: Lab Results 11/11/24 11/11/24 11/11/24 Range/Units 18:10 18:11 21:16 WBC 14.5 H (4.5-10.0) K/mm3 RBC 3.59 L (4.6-6.20) M/mm3 Hgb 12.0 L (14.0-18.0) g/dL Hct 34.5 L (42.0-52.0) % MCV 96.1 (80-100) fl MCH 33.4 (26-34) pg MCHC 34.8 (32-36) g/dl RDW 13.2 (11.5-14.5) % Plt Count 229 (150-375) k/mm3 MPV 10.6 H (7.4-10.4) fl Immature Gran % (Auto) 1.9 H (0-0.5) % Neut % (Auto) 80.7 H (45.5-73.1) % Lymph % (Auto) 8.5 L (18.3-44.2) % [place] % (Auto) 6.9 (2.6-8.5) % Eos % (Auto) 1.7 (0-4.4) % Baso % (Auto) 0.3 (0.2-1.2) % Lymph # (Auto) 1.24 (0.9-3.2) K/mm3 [place]ke # (Auto) 1.0 H (0.1-0.6) K/mm3 Eos # (Auto) 0.3 (0-0.3) K/mm3 Baso # (Auto) 0.0 (0.0-0.1) K/mm3 Abs Immat Gran (auto) 0.28 H (0.00-0.031) K/mm3 Absolute Neuts (auto) 11.7 H (1.3-6.7) K/mm3 Absolute Nucleated RBC 0.000 (0.0-0.012) K/mm3 Nucleated RBC % 0.0 (0.0-0.2) % PT 14.7 (11.1-14.7) Seconds INR 1.1 APTT 27.4 (22.3-36.8) Seconds Sodium 123 L (137-145) mmol/L Potassium 3.5 (3.4-5.0) mmol/L Chloride 91 L (98-107) mmol/L Carbon Dioxide 25 (22-30) mmol/L Anion Gap 7 (4-12) mmol/L BUN 31 H D (9-20) mg/dL Creatinine 0.98 (0.7-1.3) mg/dL Estim Creat Clear Calc 77 ml/min Estimated GFR > 60 (59 - ) Glucose 143 H (65-110) mg/dL Lactic Acid 2.2 H (0.7-2.0) mmol/L Calcium 7.9 L (8.4-10.2) mg/dL Total Bilirubin 1.2 (0.2-1.3) mg/dL AST 18 (17-59) U/L ALT 22 (6-50) U/L Alkaline Phosphatase 46 (38-126) U/L C-Reactive Protein 14.0 H (<1.0) mg/dL NT-Pro-B Natriuret Pep 86 (19.9-100) pg/mL Total Protein 6.0 L (6.3-8.2) g/dL Albumin 3.1 L (3.5-5.1) g/dL Lipase 392 H (23-300) U/L Procalcitonin 0.2 ng/mL Urine Color Yellow (Yellow) Urine Appearance Clear (Clear) Urine pH 5.0 (5.0-9.0) Ur Specific [place] 1.014 (1.001-1.035) Urine Protein Negative (Negative) mg/dL Urine Glucose (UA) Trace H (Negative) mg/dL Urine Ketones Negative (Negative) mg/dL Ur Blood (Man) Negative (Negative) Urine Nitrate Negative (Negative) Urine Bilirubin Negative (Negative) Urine Urobilinogen 0.2 (<2.0) mg/dL Leukocyte Esterase Rfl Negative (Negative) JESSICA/UL Influenza A (RT-PCR) Negative (Negative) Influenza B (RT-PCR) Negative (Negative) RSV (RT-PCR) Negative (Negative) SARS-CoV-2 RNA (RT-PCR) Negative (Negative) <Trina Arredondo PA-C - Last Filed: 11/12/24 00:34> Lab Results 11/11/24 11/11/24 11/11/24 Range/Units 18:10 18:11 21:16 WBC 14.5 H (4.5-10.0) K/mm3 RBC 3.59 L (4.6-6.20) M/mm3 Hgb 12.0 L (14.0-18.0) g/dL Hct 34.5 L (42.0-52.0) % MCV 96.1 (80-100) fl MCH 33.4 (26-34) pg MCHC 34.8 (32-36) g/dl RDW 13.2 (11.5-14.5) % Plt Count 229 (150-375) k/mm3 MPV 10.6 H (7.4-10.4) fl Immature Gran % (Auto) 1.9 H (0-0.5) % Neut % (Auto) 80.7 H (45.5-73.1) % Lymph % (Auto) 8.5 L (18.3-44.2) % [place] % (Auto) 6.9 (2.6-8.5) % Eos % (Auto) 1.7 (0-4.4) % Baso % (Auto) 0.3 (0.2-1.2) % Lymph # (Auto) 1.24 (0.9-3.2) K/mm3 [place] # (Auto) 1.0 H (0.1-0.6) K/mm3 Eos # (Auto) 0.3 (0-0.3) K/mm3 Baso # (Auto) 0.0 (0.0-0.1) K/mm3 Abs Immat Gran (auto) 0.28 H (0.00-0.031) K/mm3 Absolute Neuts (auto) 11.7 H (1.3-6.7) K/mm3 Absolute Nucleated RBC 0.000 (0.0-0.012) K/mm3 Nucleated RBC % 0.0 (0.0-0.2) % PT 14.7 (11.1-14.7) Seconds INR 1.1 APTT 27.4 (22.3-36.8) Seconds Sodium 123 L (137-145) mmol/L Potassium 3.5 (3.4-5.0) mmol/L Chloride 91 L (98-107) mmol/L Carbon Dioxide 25 (22-30) mmol/L Anion Gap 7 (4-12) mmol/L BUN 31 H D (9-20) mg/dL Creatinine 0.98 (0.7-1.3) mg/dL Estim Creat Clear Calc 77 ml/min Estimated GFR > 60 (59 - ) Glucose 143 H (65-110) mg/dL Lactic Acid 2.2 H (0.7-2.0) mmol/L Calcium 7.9 L (8.4-10.2) mg/dL Total Bilirubin 1.2 (0.2-1.3) mg/dL AST 18 (17-59) U/L ALT 22 (6-50) U/L Alkaline Phosphatase 46 (38-126) U/L C-Reactive Protein 14.0 H (<1.0) mg/dL NT-Pro-B Natriuret Pep 86 (19.9-100) pg/mL Total Protein 6.0 L (6.3-8.2) g/dL Albumin 3.1 L (3.5-5.1) g/dL Lipase 392 H (23-300) U/L Procalcitonin 0.2 ng/mL Urine Color Yellow (Yellow) Urine Appearance Clear (Clear) Urine pH 5.0 (5.0-9.0) Ur Specific [place] 1.014 (1.001-1.035) Urine Protein Negative (Negative) mg/dL Urine Glucose (UA) Trace H (Negative) mg/dL Urine Ketones Negative (Negative) mg/dL Ur Blood (Man) Negative (Negative) Urine Nitrate Negative (Negative) Urine Bilirubin Negative (Negative) Urine Urobilinogen 0.2 (<2.0) mg/dL Leukocyte Esterase Rfl Negative (Negative) JESSICA/UL Influenza A (RT-PCR) Negative (Negative) Influenza B (RT-PCR) Negative (Negative) RSV (RT-PCR) Negative (Negative) SARS-CoV-2 RNA (RT-PCR) Negative (Negative) <Leon Appiah MD - Last Filed: 11/12/24 03:25> Imaging Data Radiologist's impression: ITS Impressions Chest X-Ray 11/11/24 17:48 IMPRESSION: Chronic interstitial change, without focal infiltrate or effusion. <Trina Arredondo PA-C - Last Filed: 11/12/24 00:34> Critical Care Time Critical Care Time Critical Care Time: Yes <Leon Appiah MD - Last Filed: 11/12/24 03:25> Total Critical Care Time: 90 (Critical care time is separate from the other above billable procedures as described in the encounter.) <Leon Appiah MD - Last Filed: 11/12/24 03:25> Discharge Plan Discharge Clinical Impression: Hypovolemic shock, Dehydration, Acute hyponatremia Hypotension Qualifiers: Hypotension type: unspecified hypotension type Qualified Code(s): I95.9 - Hypotension, unspecified <Trina Arredondo PA-C - Last Filed: 11/12/24 00:34> Patient Disposition: Still a Patient <Trina Arredondo PA-C - Last Filed: 11/12/24 00:34> Condition: Serious <Trina Arredondo PA-C - Last Filed: 11/12/24 00:34> Time of Disposition: 01:00 <Trina Arredondo PA-C - Last Filed: 11/12/24 00:34> 01:00 <Leon Appiah MD - Last Filed: 11/12/24 03:25>
[2024-11-11] MEDS: SODIUM CHLORIDE 0.9% IV 1,000 ML 999 ML IV CONT ×3 (17:37→22:00)
--- OUTSIDE RECORDS SUMMARY | 2024-11-11 17:55 | XMS_ITS | Clinical Summary ---
Author Organization [facility] Address [address] [place] [address] Care Team Providers Care Political Cartoonist Name Role Phone Unavailable Primary Care Provider Unavailabl e Source Comments [facility],non-owned Affiliates and Associated Physician Practices is amultiple site organization consisting of ambulatory clinics and hospital sitesin [place], [place], [place] and [place]. This disclosure is being madepursuant to the Care Everywhere program and may not contain all information available regarding this patient. Last updated 18.[facility] Social History Tobacco Use Types Packs/Day Years Used Date Smoking Tobacco: Never Assessed Sex and Gender Information Value Date Recorded Sex Assigned at Not on file Gender Identity Not on file Sexual Orientation Not on file Plan of Treatment Health Maintenance Due Date Last Done Comments HEPATITIS C SCREENING 09/16/1966 DTAP/TDAP/TD VACCINES (1 - Tdap) 1967 PNEUMOCOCCAL VACCINE 50+ (1 of 1 - PCV) 1998 ZOSTER VACCINE (1 of 2) 1998 Respiratory Syncytial Virus (RSV) Vaccine Pt: or over 60 yrs (1 - 1-dose 75+ series) 2023 COVID-19 VACCINE ( - 2023-2 5 season) 2024 INFLUENZA VACCINE (#1) 2024 DEPRESSION SCREENING 09/30/2024 MEDICARE AWV CALENDAR YEAR 2024 HEPATITIS B VACCINE Aged Out No longe r eligible based on patient's age to complete this topic HIB VACCINE Aged Out No longer eligi ble based on patient's age to complete this topic HPV VACCINE Aged Out No longer eligi ble based on patient's age to complete this topic MENINGOCOCCAL (Group B) VACCINE Aged Out No longer eligible based on patient's age to complete this topic MENINGOCOCCAL VACCINE Aged Out No james clay eligible based on patient's age to complete this topic
--- OUTSIDE RECORDS SUMMARY | 2024-11-11 17:55 | XMS_ITS | Clinical Summary ---
Author Organization [facility] Address [address] [place] [address] Care Team Providers Care Summer [employer] Coordinator Name Role Phone Randi Araujo MD Primary Care Provider + Марина Meza RN Unavailable [phone] Allergies Active Allergy Reactions Criticality Noted Date Comments Gmmfhhm-Dre-Xfz Reductase Inhibitors Other (See comments) High 03/31/2024 Colon issues Sulfa Unknown 03/31/2024 Medications budesonide EC (ENTOCORT EC) 3 mg 24 hr capsule 02/12/20 24 Active allopurinoL (ZYLOPRIM) 300 mg tablet 01/29/20 24 Active hydroCHLOROth iazide (HYDRODIURIL) 25 mg tablet 02/19/20 24 Active levothyroxine (SYNTHROID) 150 mcg tablet 02/20/20 24 Active rosuvastatin (CRESTOR) 10 mg tablet 02/25/20 24 Active fluticasone furoate-vilan teroL (Breo Ellipta) 200-25 mcg/dose diskus inhaler Inhale 1 puff daily Rinse mouth with water after use. Do not swallow. 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 Take 1 tablet (10 mg total) by mouth daily 30 tablet 11/02/19 25 025 Active bumetanide (BUMEX) 1 mg tablet Take 1 tablet (1 mg total) by mouth 2 (two) times a day 60 tablet 1 11/07/19 25 025 Active dextromethorp lopez (DELSYM) syrup 30 mg/5 mLIndications :Cough 60 mg, oral, 2 times daily as needed for cough 89 mL 1 11/07/19 25 Active spironolacton e (ALDACTONE) 25 mg tablet Take 1 tablet (25 mg total) by mouth daily 30 tablet 11 11/08/19 25 026 Active olmesartan (BENICAR) 40 mg tablet Take 0.5 tablets (20 mg total) by mouth daily 15 tablet 11/08/19 25 025 Active olmesartan (BENICAR) 40 mg tablet 12/25/19 24 025 Discontinued cephalexin (KEFLEX) 500 mg capsule 06/09/20 24 025 Discontinued(St op Taking at Discharge) furosemide (LASIX) 20 mg tablet TAKE 2 TABLETS BY MOUTH TWICE DAILY 360 tablet 3 09/08/20 24 025 Discontinued(St op Taking at Discharge) amoxicillin-c lavulanate (AUGMENTIN) 875-125 mg per tablet Take 1 tablet (875 mg of amoxicillin total) by mouth 2 (two) times a day 14 tablet 09/15/20 24 025 Discontinued(St op Taking at Discharge) Active Problems Problem Noted Date Diagnosed Date Acute on chronic heart failu re with preserved ejection fraction (HFpEF) with exacerbation 11/01/2024 Assessment & Plan (11/05/2024 10:44 AM PROFESSOR OF POLITICAL SCIENCE): 74-year-old man with fibrotic HP, HFpEF, who was admitted for acute decompensated heart failure with hypervolemia. He is undergoing IV diuresis with improved edema on exam. - Continue IV diuresis with lasix 40 IV bid. Agree with negative fluid balance of near 2L daily. Monitor BMPs while undergoing diuresis. - Daily weights, I's/O's - Continue wrapping of legs + elevation, when able - patient would like to work on returning home by tomorrow afternoon or Saturday morning. I support working on D/C in that timeframe if it is agreeable to the primary team. I am happy to continue monitoring/management of his diuretics after D/C and will coordinate outpatient lab monitoring. Would tentatively plan to transition to oral regimen of lasix 60 bid or bumex 1 bid at the time of D/C, but would favor maintaining IV diuresis until he discharges to maximize volume removal Assessment & Plan (11/04/2024 12:33 PM PROFESSOR OF POLITICAL SCIENCE): 74-year-old man with fibrotic HP, HFpEF, who was admitted for hypervolemia due to acute decompensated heart failure. He is undergoing IV diuresis with gradual improvement in volume status on exam. - Continue IV diuresis with lasix 40 IV bid. Agree with target negative fluid balance of near 2L daily. Monitor BMPs while diuresing. - Daily weights, I's/O's - Can consider dose reduction of IV lasix if hypotensive - Continue wrapping of legs + elevation, when able Congestive heart failure ([facility]) 10/21/2024 ILD (interstitial lung disease) ([facility]) 2023 Assessment & Plan (11/04/2024 12:37 PM PROFESSOR OF POLITICAL SCIENCE): History of fibrotic HP, stable. - Continue home MMF Assessment & Plan (11/04/2024 12:34 PM PROFESSOR OF POLITICAL SCIENCE): History of fibrotic HP, stable. - Continue home MMF Encounters Date Type Department Care Team Description 11/10/2024 SHOP/CHAP Initial Outreach [facility] OP CASE MANAGEMENT [address] [place] [address] Марина Meza RN 11/09/2024 SHOP/CHAP Initial Outreach [facility] OP CASE MANAGEMENT [address] [place] [address] Марина Meza, KRISTINA 11/09/2024 SHOP/CHAP Initial Eligibility Review [facility] OP CASE MANAGEMENT [address] [place] [phone] Марина Meza, KRISTINA 11/04/2024 Telephone [facility] [address] [place] [address] Medical Office Building [address] [place] [address] Trina Dumont RN 11/02/2024 8:35 AM PROFESSOR OF POLITICAL SCIENCE Ancillary Procedure [facility] IP [address] [facility] [address] [place] [address] 11/01/2024 1:49 PM PROFESSOR [employer] POLITICAL SCIENCE - 11/08/2024 1:46 PM PROFESSOR [employer] POLITICAL SCI[employer] Hospital Encounter [address] [address] Chelo Chappell MD Rich, Michael W., MD ILD (interstitial lung disease) (CMS/HCC) (HCC) (Primary Dx); Lymphedema; Acute on chronic heart failure with preserved ejection fraction (HFpEF) with exacerbation Discharge Disposition: Discharge to home or self care 10/30/2024 Telephone [facility] [address] [facility] Advanced Medicine 8th [place] [address] [place] [phone] Vee Acosta RN 10/30/[address] [address] Chelo Chappell MD 10/29/2024 Telephone [facility] [address] [facility] [address] [place] [phone] Rena Francois for admission (Per [facility] online auth is approved for admission on 11/01/24 ref number [id number]) 10/29/2024 Telephone [facility] [address] [place] [address] Medical Office Building [address] [place] [address] Boogie Luna MD venous dopplers 10/28/2024 8:45 AM PROFESSOR OF POLITICAL SCIENCE - 10/28/2024 10:25 AM PROFESSOR [employer] POLITICAL SCIENCE Surgery [facility] [address] [place] [phone] Chet Esposito MD RIGHT LEFT HEART CATHETERIZATION WITH CORONARY ANGIOGRAPHY GRAFT AND WITH OR WITHOUT LEFT VENTRICULOGRAPHY [id number] 10/28/2024 7:15 AM PROFESSOR [employer] POLITICAL SCIENCE - 10/28/2024 3:30 PM PROFESSOR [employer] POLITICAL SCI[employer] Hospital Encounter [facility] [address] [place] [phone] Chet Esposito MD Acute on chronic diastolic congestive heart failure (CMS/HCC) (HCC) [I50.33] (Primary Dx); Congestive heart failure, unspecified HF chronicity, unspecified heart failure type (HCC) Discharge Disposition: Discharge to home or self care 10/21/2024 1:00 PM PROFESSOR [employer] POLITICAL SCIENCE Office Visit [facility] Medical Office Building [address] [place] [address] Boogie Luna MD Congestive heart failure, unspecified HF chronicity, unspecified heart failure type (HCC) (Primary Dx); Primary hypertension; Hyperlipidemia, unspecified hyperlipidemia type 10/21/[address] Medicine [facility] Floor [address] [place] [phone] Boogie Luna MD R/[facility] needed 10/20/2024 3:33 PM PROFESSOR [employer] POLITICAL SCIENCE - 10/20/2024 7:36 PM [facility] Emergency [facility] Emergency Department [address] [place] [phone] Larry Lord Jr., MD Abnormal EKG (Primary Dx); PVC (premature ventricular contraction); RSV infection Discharge Disposition: Discharge to home or self care 10/20/2024 Telephone [facility] [address] [place] [address] [place] [phone] Vee Acosta RN 10/20/[address] Advanced [facility] 8th Floor [address] [place] [phone] Boogie Luna MD 09/21/[address] 8th Floor [address] [place] [phone] Veronica Campos 09/15/2024 12:35 PM PROFESSOR OF POLITICAL SCIENCE Lab [facility] [address] [place], [place] [phone] ILD (interstitial lung disease) (CMS/HCC) (HCC); Congestive heart failure, unspecified HF chronicity, unspecified heart failure type ([facility]) 09/15/2024 11:30 AM PROFESSOR OF POLITICAL SCIENCE Office Visit [facility] [address] [facility] Medicine 8th [place] [address] [place] [address] Karla Esquivel Jr., MD ILD (interstitial lung disease) ([facility]) ([facility]) (Primary Dx); Congestive heart failure, unspecified HF chronicity, unspecified heart failure type ([facility]) 09/15/2024 10:30 AM PROFESSOR [employer] POLITICAL SCIENCE - 09/15/2024 11:59 PM PROFESSOR [employer] POLITICAL SCIENCE Hospital Encounter [facility] [address] [facility] [address] [place] [address] ILD (interstitial lung disease) ([facility]) ([facility]) Discharge Disposition: Discharge to home or self care 09/15/2024 9:30 AM PROFESSOR [employer] POLITICAL SCIENCE - 09/15/2024 11:59 PM PROFESSOR [employer] POLITICAL SCIENCE Hospital Encounter [facility] [address] [facility] 8th [place] [phone] ILD (interstitial lung disease) ([facility]) ([facility]) Discharge Disposition: Discharge to home or self care from Last 3 Months Immunizations Name Administration Dates Next Due Influenza, Quad, Adjuvantated, Intramuscular 05/2024 Influenza, Quadrivalent, Rec ombinant, Egg Free, Preservative Free, Intramuscular 07/12/2021 Pneumococcal Conjugate PCV 13 03/10/2020 Pneumococcal Polysaccharide PPV23 07/12/2021 Medical History Medical History Date Comments Hypertension Hyperlipidemia Heart failure (HCC) Bilateral lower extremity edema Scarring of lung right Family History Medical History Relation Name Comments Heart disease Brother valve replacem ent 50's Hypertension Daughter Hypertension Father Hypertension Mother Hypertension Other Hypertension Son Relation Name Status Comments Brother Daughter Alive Father Mother Other Son Alive Social History Tobacco Use Types Packs/Day Years Used Date Smoking Tobacco: Never Passive Smoke Exposure: Past Smokeless Tobacco: Never Tobacco Cessation:Counseling Given: Not Answered AUDIT-C Answer Date Recorded Q1: How often do you have a drink containing alcohol? 4 or more times a week 10/28/2024 Q2: How many drinks containi ng alcohol do you have on a typical day when you are drinking? 3 or 4 Q3: How often do you have si x or more drinks on one occasion? Never 10/28/2024 Personal Safety Answer Date Recorded Have you ever been in or are you currently in a harmful physical or emotional relationship or is someone making you feel afraid or unsafe? Denies 11/01/2024 Sex and Gender Information Value Date Recorded Sex Assigned at Not on file Legal Sex Male 3:53 PM CDT Gender Identity Male 06/30/2024 8:43 AM CDT Sexual Orientation Not on file Obstetrics History Last Filed Vital Signs Vital Sign Reading Time Taken Comments Blood Pressure 124/54 11/08/2024 7:00 AM PROFESSOR OF POLITICAL SCIENCE Pulse 84 11/08/2024 7:00 AM PROFESSOR [employer] POLITICAL SCI[employer] Temperature 36.4 C (97.5 F) 11/08/2024 7:00 AM PROFESSOR OF POLITICAL SCIENCE Respiratory Rate 14 11/08/2024 7:00 AM PROFESSOR OF POLITICAL SCIENCE Oxygen Saturation 97% 11/08/2024 7:00 AM PROFESSOR OF POLITICAL SCIENCE Inhaled Oxygen Concentration - - Weight 117.1 kg (258 lb 1.6 oz) 11/08/2024 6:05 AM PROFESSOR [employer] POLITICAL SCIENCE Height 185.4 cm (6' 1) 11/01/2024 5:10 PM PROFESSOR [employer] POLITICAL SCIENCE Body Mass Index 34.05 11/01/2024 5:10 PM PROFESSOR [employer] POLITICAL SCIENCE Plan of Treatment Health Maintenance Due Date Last Done Comments Depression Screening 1950 Hepatitis C Screening 1950 DTaP/Tdap/Td Vaccine (1 - Tdap) 1959 Hepatitis B Screening 1966 Zoster Vaccine (1 of 2) 1967 Well Visit 65+ 2013 Influenza Vaccine (#1) 2024 10/08/2023, 2020 Fall Risk Assessment 11/08/2025 11/08/2024 Pneumococcal vaccine 65+ Completed 07/12/2021, 02/28 Goals Goal Patient Goal Type Associated Problems Recent Progress Patient-Stated? Author Patient will have kept initial appointment and will show signs of improvement to baseline Care Plan Initial Follow-Up Appointment No change(11/10 1:38 PM PROFESSOR OF POLITICAL SCIENCE) No Марина Meza, RN Note: No follow up appointment scheduled prior to discharge. Offered to assist with scheduling, patient declined and prefers to schedule on his own. 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 Patient will be knowledgeable about CHF and how to respond to exacerbations at home Care Plan Knowledge Deficit Concerning CHF On track(2024 1:37 PM PROFESSOR OF POLITICAL SCIENCE) No Марина Meza, RN Note: Patient reports adherence to daily weights, states his weight this morning was 254#. Patent also reports adherence to low sodium diet, states We don't use any salt. Patient has working scale and BP monitor at home. Patient will have access to medications needed for healthy outcomes Care Plan Barriers to Medication Adherence Improving( 1:36 PM PROFESSOR OF POLITICAL SCIENCE) No Марина Meza RN Note: Reviewed medication list, patient states he has all prescribed medications except Jardiance. Patient states this script was sent to [facility] pharmacy and asked if it could be transferred to his local pharmacy. Per chart review, Jardiance script was entered on 11/02/24, but says Rosa check under notes to pharmacy. Message sent to discharging providers Dr. Doss and Dr. Thomas to determine if patient should be on Jardiance and if so to request script be sent to local pharmacy. Procedures Procedure Name Priority Date/Time Associated Diagnosis Comments EGFR Routine 11/08/2024 8:07 AM PROFESSOR OF POLITICAL SCIENCE MAGNESIUM Routine 11/08/2024 8:07 AM PROFESSOR OF POLITICAL SCIENCE CBC WITHOUT DIFFERENTIAL Routine 11/08/2024 8:07 AM PROFESSOR OF POLITICAL SCIENCE BASIC METABOLIC PANEL Routine 11/08/2024 8:07 AM PROFESSOR OF POLITICAL SCIENCE TROPONIN I HIGH-SENSITIVITY STAT 11/07/2024 2:27 PM PROFESSOR [employer] POLITICAL SCIENCE BLOOD CULTURE STAT 11/07/2024 2:27 PM PROFESSOR OF POLITICAL SCIENCE EGFR STAT 11/07/2024 2:19 PM PROFESSOR OF POLITICAL SCIENCE DIFFERENTIAL AUTO STAT 11/07/2024 2:1 9 PM PROFESSOR [employer] POLITICAL SCIENCE PROTIME-INR STAT 11/07/2024 2:19 PM PROFESSOR OF POLITICAL SCIENCE BLOOD GAS, VENOUS STAT 11/07/2024 2:1 9 PM PROFESSOR [employer] POLITICAL SCIENCE COMPREHENSIVE METABOLIC PANEL STAT 11/07/2024 2:19 PM PROFESSOR [employer] POLITICAL SCIENCE CBC WITH AUTO DIFFERENTIAL STAT 11/07/2024 2:19 PM PROFESSOR OF POLITICAL SCIENCE LACTATE, WHOLE BLOOD STAT 11/07/2024 2:19 PM PROFESSOR [employer] POLITICAL SCIENCE POCT GLUCOSE DEVICE Routine 11/07/2024 2 :17 PM PROFESSOR OF POLITICAL SCIENCE EGFR Routine 11/06/2024 8:19 PM PROFESSOR OF POLITICAL SCIENCE MAGNESIUM Routine 11/06/2024 8:19 PM PROFESSOR [employer] POLITICAL SCIENCE CBC WITHOUT DIFFERENTIAL Routine 11/06/2024 8:19 PM PROFESSOR OF POLITICAL SCIENCE BASIC METABOLIC PANEL Routine 11/06/2024 8:19 PM PROFESSOR OF POLITICAL SCIENCE ECG 12-LEAD Routine 11/06/2024 8:16 AM PROFESSOR OF POLITICAL SCIENCE EGFR Routine 11/05/2024 10:11 PM PROFESSOR OF POLITICAL SCIENCE FOLATE Routine 11/05/2024 10:11 PM PROFESSOR OF POLITICAL SCIENCE MAGNESIUM Routine 11/05/2024 10:11 PM PROFESSOR OF POLITICAL SCIENCE CBC WITHOUT DIFFERENTIAL Routine 11/05/2024 10:11 PM PROFESSOR OF POLITICAL SCIENCE BASIC METABOLIC PANEL Routine 11/05/2024 10:11 PM PROFESSOR OF POLITICAL SCIENCE EGFR Routine 11/04/2024 9:17 PM PROFESSOR OF POLITICAL SCIENCE VITAMIN B12 Routine 11/04/2024 9:17 PM PROFESSOR OF POLITICAL SCIENCE FOLATE Routine 11/04/2024 9:17 PM PROFESSOR OF POLITICAL SCIENCE MAGNESIUM Routine 11/04/2024 9:17 PM PROFESSOR OF POLITICAL SCIENCE CBC WITHOUT DIFFERENTIAL Routine 11/04/2024 9:17 PM PROFESSOR OF POLITICAL SCIENCE BASIC METABOLIC PANEL Routine 11/04/2024 9:17 PM PROFESSOR OF POLITICAL SCIENCE POCT GLUCOSE DEVICE Routine 11/04/2024 4 :35 PM PROFESSOR OF POLITICAL SCIENCE POCT GLUCOSE DEVICE Routine 11/04/2024 11:15 AM PROFESSOR OF POLITICAL SCIENCE POCT GLUCOSE DEVICE Routine 11/04/2024 7 :50 AM PROFESSOR OF POLITICAL SCIENCE VITAMIN B12 Routine 11/03/2024 9:58 PM PROFESSOR OF POLITICAL SCIENCE EGFR Routine 11/03/2024 9:58 PM PROFESSOR OF POLITICAL SCIENCE MAGNESIUM Routine 11/03/2024 9:58 PM PROFESSOR OF POLITICAL SCIENCE CBC WITHOUT DIFFERENTIAL Routine 11/03/2024 9:58 PM PROFESSOR OF POLITICAL SCIENCE BASIC METABOLIC PANEL Routine 11/03/2024 9:58 PM PROFESSOR [employer] POLITICAL SCIENCE POCT GLUCOSE DEVICE Routine 11/03/2024 7 :36 PM PROFESSOR OF POLITICAL SCIENCE SODIUM, URINE, RANDOM Timed 11/03/2024 5:54 PM PROFESSOR [employer] POLITICAL SCIENCE POCT GLUCOSE DEVICE Routine 11/03/2024 4 :47 PM PROFESSOR OF POLITICAL SCIENCE EGFR Timed 11/03/2024 12:11 PM PROFESSOR OF POLITICAL SCIENCE BASIC METABOLIC PANEL Timed 11/03/2024 12:11 PM PROFESSOR [employer] POLITICAL SCIENCE POCT GLUCOSE DEVICE Routine 11/03/2024 11:15 AM PROFESSOR OF POLITICAL SCIENCE POCT GLUCOSE DEVICE Routine 11/03/2024 7 :57 AM PROFESSOR OF POLITICAL SCIENCE EGFR Routine 11/02/2024 9:54 PM PROFESSOR OF POLITICAL SCIENCE CBC WITHOUT DIFFERENTIAL Routine 11/02/2024 9:54 PM PROFESSOR OF POLITICAL SCIENCE BASIC METABOLIC PANEL Routine 11/02/2024 9:54 PM PROFESSOR OF POLITICAL SCIENCE POCT GLUCOSE DEVICE Routine 11/02/2024 8 :09 PM PROFESSOR OF POLITICAL SCIENCE POCT GLUCOSE DEVICE Routine 11/02/2024 5 :36 PM PROFESSOR OF POLITICAL SCIENCE RESPIRATORY PATHOGEN PANEL Routine 11/02/2024 4:46 PM PROFESSOR OF POLITICAL SCIENCE EGFR Routine 11/02/2024 12:42 PM PROFESSOR OF POLITICAL SCIENCE BASIC METABOLIC PANEL Routine 11/02/2024 12:42 PM PROFESSOR OF POLITICAL SCIENCE AEROBIC CULTURE AND GRAM STAIN Routine 11/02/2024 12:42 PM PROFESSOR [employer] POLITICAL SCIENCE POCT GLUCOSE DEVICE Routine 11/02/2024 12:01 PM PROFESSOR OF POLITICAL SCIENCE US VEIN DUPLEX LOWER EXTREMITY BILATERAL COMPLETE Pending Discharge 11/02/2024 10:08 AM PROFESSOR OF POLITICAL SCIENCE POCT GLUCOSE DEVICE Routine 11/02/2024 8 :02 AM PROFESSOR OF POLITICAL SCIENCE URINALYSIS AND REFLEX TO MICROSCOPIC STAT 11/01/2024 9:07 PM PROFESSOR [employer] POLITICAL SCIENCE POCT GLUCOSE DEVICE Routine 11/01/2024 8 :53 PM PROFESSOR OF POLITICAL SCIENCE EGFR STAT 11/01/2024 6:24 PM PROFESSOR OF POLITICAL SCIENCE DIFFERENTIAL AUTO STAT 11/01/2024 6:2 4 PM PROFESSOR OF POLITICAL SCIENCE TSH STAT 11/01/2024 6:24 PM PROFESSOR [employer] POLITICAL SCIENCE PRO B-TYPE NATRIURETIC PEPTIDE STAT 11/01/2024 6:24 PM PROFESSOR OF POLITICAL SCIENCE PHOSPHORUS STAT 11/01/2024 6:24 PM PROFESSOR OF POLITICAL SCIENCE MAGNESIUM STAT 11/01/2024 6:24 PM PROFESSOR OF POLITICAL SCIENCE LIPID PANEL STAT 11/01/2024 6:24 PM PROFESSOR OF POLITICAL SCIENCE IRON PROFILE W/ IBC STAT 11/01/2024 6 :24 PM PROFESSOR [employer] POLITICAL SCIENCE HEMOGLOBIN A1C STAT 11/01/2024 6:24 PM PROFESSOR OF POLITICAL SCIENCE FERRITIN STAT 11/01/2024 6:24 PM PROFESSOR [employer] POLITICAL SCIENCE COMPREHENSIVE METABOLIC PANEL STAT 11/01/2024 6:24 PM PROFESSOR [employer] POLITICAL SCIENCE CBC WITH AUTO DIFFERENTIAL STAT 11/01/2024 6:24 PM PROFESSOR OF POLITICAL SCIENCE CALCIUM, IONIZED STAT 11/01/2024 6:24 PM PROFESSOR [employer] POLITICAL SCIENCE ECG 12-LEAD Routine 11/01/2024 5:42 PM PROFESSOR [employer] POLITICAL SCIENCE CORONARY OCT, 1ST VESSEL Routine 10/28/2024 11:03 AM PROFESSOR OF POLITICAL SCIENCE Congestive heart failure, unspecified HF chronicity, unspecified heart failure type (HCC) CORONARY FLOW VELOCITY (CFR) / INSTATANEOUS FLOW VELOCITY (IFR), 1ST VESSEL Routine 10/28/2024 11:03 AM PROFESSOR OF POLITICAL SCIENCE Congestive heart failure, unspecified HF chronicity, unspecified heart failure type (HCC) RIGHT LEFT HEART CATHETERIZATION CORONARY GRAFT WITH WITHOUT LEFT VENTRICULOGRAPHY ANGIOGRAM Routine 10/28/2024 11:03 AM PROFESSOR OF POLITICAL SCIENCE Congestive heart failure, unspecified HF chronicity, unspecified heart failure type (HCC) POCT ACTIVATED CLOTTING TIME, LOW RANGE Routine 10/28/2024 10:59 AM PROFESSOR OF POLITICAL SCIENCE POCT ACTIVATED CLOTTING TIME, LOW RANGE Routine 10/28/2024 10:48 AM PROFESSOR OF POLITICAL SCIENCE POCT ACTIVATED CLOTTING TIME, LOW RANGE Routine 10/28/2024 10:34 AM PROFESSOR OF POLITICAL SCIENCE POCT OXYHEMOGLOBIN - DEVICE Routine 10/28/2024 10:07 AM PROFESSOR OF POLITICAL SCIENCE POCT OXYHEMOGLOBIN - DEVICE Routine 10/28/2024 10:06 AM PROFESSOR OF POLITICAL SCIENCE POCT OXYHEMOGLOBIN - DEVICE Routine 10/28/2024 10:06 AM PROFESSOR OF POLITICAL SCIENCE CBC WITHOUT DIFFERENTIAL Routine 10/28/2024 9:34 AM PROFESSOR [employer] POLITICAL SCI[employer] CBC WITH AUTO DIFFERENTIAL Routine 10/22/2024 1:07 PM PROFESSOR [employer] POLITICAL SCIENCE Pre-procedure lab exam BASIC METABOLIC PANEL Routine 10/22/2024 1:07 PM PROFESSOR [employer] POLITICAL SCIENCE Pre-procedure lab exam ECG 12-LEAD Routine 10/20/2024 7:27 PM PROFESSOR OF POLITICAL SCIENCE TROPONIN T HIGH-SENSITIVITY 2-HOUR Timed 10/20/2024 5:14 PM PROFESSOR [employer] POLITICAL SCIENCE XR CHEST PA LATERAL 2 VIEWS ED 10/20/2024 3:54 PM PROFESSOR [employer] POLITICAL SCIENCE ECG 12-LEAD STAT 10/20/2024 3:18 PM PROFESSOR [employer] POLITICAL SCIENCE PRO B-TYPE NATRIURETIC PEPTIDE STAT 10/20/2024 3:14 PM PROFESSOR OF POLITICAL SCIENCE EGFR STAT 10/20/2024 3:14 PM PROFESSOR OF POLITICAL SCIENCE DIFFERENTIAL AUTO STAT 10/20/2024 3:1 4 PM PROFESSOR OF POLITICAL SCIENCE TROPONIN T HIGH-SENSITIVITY SERIES (BASELINE, 2HR, 4HR, 6HR) STAT 10/20/2024 3:14 PM PROFESSOR [employer] POLITICAL SCIENCE CBC WITH AUTO DIFFERENTIAL STAT 10/20/2024 3:14 PM PROFESSOR OF POLITICAL SCIENCE COMPREHENSIVE METABOLIC PANEL STAT 10/20/2024 3:14 PM PROFESSOR [employer] POLITICAL SCIENCE INFLUENZA A/B, RSV, AND COVID-19 PCR Routine 10/20/2024 3:14 PM PROFESSOR OF POLITICAL SCI[employer] EGFR Routine 09/15/2024 12:36 PM PROFESSOR [employer] POLITICAL SCIENCE ILD (interstitial lung disease) (CMS/HCC) (HCC) DIFFERENTIAL AUTO Routine 09/15/2024 12:36 PM PROFESSOR OF POLITICAL SCIENCE ILD (interstitial lung disease) (CMS/HCC) (HCC) PRO B-TYPE NATRIURETIC PEPTIDE Routine 09/15/2024 12:36 PM PROFESSOR OF POLITICAL SCIENCE Congestive heart failure, unspecified HF chronicity, unspecified heart failure type (HCC) CBC WITH AUTO DIFFERENTIAL Routine 09/15/2024 12:36 PM PROFESSOR OF POLITICAL SCIENCE ILD (interstitial lung disease) (CMS/HCC) (HCC) COMPREHENSIVE METABOLIC PANEL Routine 09/15/2024 12:36 PM PROFESSOR OF POLITICAL SCIENCE ILD (interstitial lung disease) (CMS/HCC) (HCC) PULMONARY FUNCTION TEST (PFT) Routine 09/15/2024 10:58 AM PROFESSOR OF POLITICAL SCIENCE ILD (interstitial lung disease) (CMS/HCC) (HCC) TRANSTHORACIC ECHO (TTE) COMPLETE W DOPPLER/CF W CONTRAST Routine 09/15/2024 10:41 AM PROFESSOR OF POLITICAL SCIENCE ILD (interstitial lung disease) (CMS/HCC) (HCC) from Last 3 Months Results * eGFR (11/08/2024 8:07 AM PROFESSOR OF POLITICAL SCIENCE) eGFR 79 >=60 mL/min/1. 73 m2 Comment: Interpretive Data Reference Interval Normal >/= 90 mL/min/1.73m2 Mildly decreased* 60 - 89 mL/min/1.73m2 Mildly to moderately decreased 45 - 59 mL/min/1.73m2 Moderately to severely decreased 30 - 44 mL/min/1.73m2 Severely decreased 15 - 29 mL/min/1.73m2 Kidney Failure < 15 mL/min/1.73m2 *Relative to young adult level Estimated glomerular filtration rate is determined by the 2020 CKD-EPI equation recommended by the [employer] (A Unifying Approach to GFR Estimation: Recommendations of the NKF-ASK Task Force on Reassessing the Inclusion of Race in Diagnosing Kidney Disease, JASN 202). The CKD-EPI equation should not be used for patients with unstable renal function and has not been validated in children and those over 70. Current interpretive data was last reviewed 2021. Blood 11/08/2024 8:07 AM PROFESSOR OF POLITICAL SCIENCE 11/08/2024 8:52 AM PROFESSOR OF POLITICAL SCIENCE us Chelo Chappell MD LAB BLOOD ORDERABLES Final Result [facility] Department [place] [address] * (ABNORMAL) CBC without differential (11/08/2024 8:07 AM PROFESSOR OF POLITICAL SCIENCE) WBC 11.9(H) 3.8 - 9.9 K/cumm Hgb 12.4(L) 13.0 - 17.5 g/dL [facility] Hct 36.8(L) 38.9 - 50.3 % [facility] Plt 256 150 - 400 K/cumm [facility] MPV 11.2 9.1 - 12.3 fL [facility] RBC 3.80(L) 4.30 - 5.80 M/cumm [facility] MCV 96.8(H) 81.3 - 96.4 fL [facility] MCH 32.6 27.1 - 33.3 pg [facility] MCHC 33.7 32.3 - 35.7 g/dL [facility] RDW CV 13.2 11.1 - 14.9 % [facility] RDW SD 46.9 35.7 - 48.1 fL [facility] NRBC abs 0.00 0.00 - 0.01 K/cumm [facility] Blood 11/08/2024 8:07 AM PROFESSOR OF POLITICAL SCIENCE 11/08/2024 8:52 AM PROFESSOR OF POLITICAL SCIENCE Chelo Chappell MD LAB BLOOD ORDERABLES Final Result [facility] Department [place] [address] * Magnesium (11/08/2024 8:07 AM PROFESSOR OF POLITICAL SCIENCE) [facility] Magnesium 2.0 1.4 - 2.5 mg/dL Blood 11/08/2024 8:07 AM PROFESSOR OF POLITICAL SCIENCE 11/08/2024 8:52 AM PROFESSOR OF POLITICAL SCIENCE Chelo Chappell MD LAB BLOOD ORDERABLES Final Result Performing Organization Address City/[facility] Co de Phone Number [facility] [place] [address] * (ABNORMAL) Basic metabolic panel (11/08/2024 8:07 AM PROFESSOR OF POLITICAL SCIENCE) [facility] Sodium 135 135 - 145 mmol/L Potassium, pl 3.5 3.3 - 4.9 mmol/L [facility] Chloride 95(L) 97 - 110 mmol/L [facility] CO2 30 22 - 32 mmol/L [facility] Anion gap 10 2 - 15 mmol/L [facility] BUN 27(H) 6 - 25 mg/dL [facility] Creatinine 0.99 0.80 - 1.30 mg/dL [facility] Glucose 153 70 - 199 mg/dL [facility] Comment: Interpretive Data Fasting glucose >/= 126 mg/dl is diagnostic for diabetes. Fasting is defined as no caloric intake for at least 8 hours. Fasting glucose between 100 mg/dl to 125 mg/dl is diagnostic of prediabetes. In a patient with classic symptoms of hyperglycemia or hyperglycemic crisis, a random glucose >/= 200 mg/dl is diagnostic for diabetes. In the absence of unequivocal hyperglycemia, results should be confirmed by repeat testing. The classification and Diagnosis of Diabetes Diabetes Care 2021; 46: S19-S40. Current interpretive data was last revised 2022. Calcium 9.2 8.5 - 10.3 mg/dL [facility] Blood 11/08/2024 8:07 AM PROFESSOR OF POLITICAL SCIENCE 11/08/2024 8:52 AM PROFESSOR OF POLITICAL SCIENCE us Chelo Chappell MD LAB BLOOD ORDERABLES Final Result Performing Organization Address [facility] Co de Phone Number [facility] [place] [address] * Troponin I high-sensitivity (11/07/2024 2:27 PM PROFESSOR OF POLITICAL SCIENCE) Trop I hs 14 <=35 ng/L Comment: Interpretive Data For further hscTnI resources including the diagnostic algorithm and an aid in interpretation, copy and paste this link: [email or web address]/[email or web address] Current Interpretive Data last revised 2020. Blood 11/07/2024 2:27 PM PROFESSOR OF POLITICAL SCIENCE 11/07/2024 3:15 PM PROFESSOR OF POLITICAL SCIENCE Jonah Doss MD LAB BLOOD ORDERABLES Final Re sult Performing Organization Address [facility] Co de Phone Number [facility] [place] [address] * Blood culture Blood (11/07/2024 2:27 PM PROFESSOR OF POLITICAL SCIENCE) Report Final Report: No growth Blood 11/07/2024 2:27 PM PROFESSOR OF POLITICAL SCIENCE 11/07/2024 2:46 PM PROFESSOR OF POLITICAL SCIENCE Narrative [facility] - 11/11/2024 4:00 PM PROFESSOR OF POLITICAL SCIENCE Collection->Peripheral 1. Blood cultures are incubated for 4 days on a continuously monitored blood culture system. The first report of a negative culture is issued within 24 hours of receipt of the specimen in the laboratory. 2. Positive culture results are reported as soon as they are detected. 3. The most important factor for detection of microbes in the setting of bloodstream infection is the volume of blood submitted for culture. Failure to collect an optimal blood volume can result in false negative blood cultures. 4. For pediatric patients, the recommended blood volume to collect follows a weight based strategy. See the electronic test catalog for collection instructions. 5. For positive blood cultures, a rapid molecular test may be performed for organism identification using the shaun ePlex blood culture identification panel for gram positive (BCID-GP) and gram negative (BCID-GN) organisms. This nucleic acid amplification test detects microbial DNA in positive blood culture broth. This assay has been cleared by the [place] Food and Drug Administration and its performance characteristics have been verified by the [facility] Microbiology Laboratory. For questions about this culture, contact the Microbiology Laboratory at [phone]. Interpretive data was last revised on 24. us Jonah Doss MD LAB MICROBIOLOGY - GENERAL OR DERABLES Final Result Performing Organization Address [facility]/ZIP Co de Phone Number [facility] Department [place] [address] * (ABNORMAL) eGFR (11/07/2024 2:19 PM PROFESSOR OF POLITICAL SCIENCE) eGFR 51(L) >=60 mL/min/1. 73 m2 Comment: Interpretive Data Reference Interval Normal >/= 90 mL/min/1.73m2 Mildly decreased* 60 - 89 mL/min/1.73m2 Mildly to moderately decreased 45 - 59 mL/min/1.73m2 Moderately to severely decreased 30 - 44 mL/min/1.73m2 Severely decreased 15 - 29 mL/min/1.73m2 Kidney Failure < 15 mL/min/1.73m2 *Relative to young adult level Estimated glomerular filtration rate is determined by the 2020 CKD-EPI equation recommended by the National Kidney Foundation (A Unifying Approach to GFR Estimation: Recommendations of the NKF-ASK Task Force on Reassessing the Inclusion of Race in Diagnosing Kidney Disease, JASN 2020). The CKD-EPI equation should not be used for patients with unstable renal function and has not been validated in children and those over 70. Current interpretive data was last reviewed 2021. Blood 11/07/2024 2:19 PM PROFESSOR OF POLITICAL SCIENCE 11/07/2024 2:49 PM PROFESSOR OF POLITICAL SCIENCE us Jonah Doss MD LAB BLOOD ORDERABLES Final Re sult [facility] Department [place] [address] * (ABNORMAL) Differential, auto (11/07/2024 2:19 PM PROFESSOR OF POLITICAL SCIENCE) Neutrophil abs 12.3(H) 1.5 - 6.5 K/cumm Imm gran abs 0.1 0.0 - 0.1 K/cumm [facility] Lymphocyte abs 1.1 0.8 - 3.3 K/cumm [facility] Monocyte abs 1.3(H) 0.2 - 0.8 K/cumm [facility] Eosinophil abs 0.0 0.0 - 0.5 K/cumm [facility] Basophil abs 0.0 0.0 - 0.1 K/cumm [facility] Neutrophil pct 83.1 % [facility] Comment: Interpretive Data Percent cell count reference ranges are not reported, since discordance with absolute values may lead to misinterpretation of CBC data. Current Interpretive Data was last revised on 2018. Imm gran pct 0.9 % [facility] Comment: Interpretive Data Percent cell count reference ranges are not reported, since discordance with absolute values may lead to misinterpretation of CBC data. Current Interpretive Data was last revised on 2018. Lymphocyte pct 7.1 % [facility] Comment: Interpretive Data Percent cell count reference ranges are not reported, since discordance with absolute values may lead to misinterpretation of CBC data. Current Interpretive Data was last revised on 2018. Monocyte pct 8.7 % [facility] Comment: Interpretive Data Percent cell count reference ranges are not reported, since discordance with absolute values may lead to misinterpretation of CBC data. Current Interpretive Data was last revised on 2018. Eosinophil pct 0.1 % [facility] Comment: Interpretive Data Percent cell count reference ranges are not reported, since discordance with absolute values may lead to misinterpretation of CBC data. Current Interpretive Data was last revised on 2018. Basophil pct 0.1 % [facility] Comment: Interpretive Data Percent cell count reference ranges are not reported, since discordance with absolute values may lead to misinterpretation of CBC data. Current Interpretive Data was last revised on 2018. Blood 11/07/2024 2:19 PM PROFESSOR OF POLITICAL SCIENCE 11/07/2024 2:49 PM PROFESSOR OF POLITICAL SCIENCE Jonah Doss MD LAB BLOOD ORDERABLES Final Re sult Performing Organization Address [facility]/ZIP Co de Phone Number [facility] Department [place] [address] * (ABNORMAL) CBC with auto differential (11/07/2024 2:19 PM PROFESSOR OF POLITICAL SCIENCE) Pathologist [facility] WBC 14.8(H) 3.8 - 9.9 K/cumm Hgb 12.5(L) 13.0 - 17.5 g/dL [facility] Hct 36.6(L) 38.9 - 50.3 % [facility] Plt 305 150 - 400 K/cumm [facility] MPV 10.7 9.1 - 12.3 fL [facility] RBC 3.73(L) 4.30 - 5.80 M/cumm [facility] MCV 98.1(H) 81.3 - 96.4 fL [facility] MCH 33.5(H) 27.1 - 33.3 pg [facility] MCHC 34.2 32.3 - 35.7 g/dL [facility] RDW CV 13.0 11.1 - 14.9 % [facility] RDW SD 46.9 35.7 - 48.1 fL [facility] NRBC abs 0.00 0.00 - 0.01 K/cumm [facility] Blood 11/07/2024 2:19 PM PROFESSOR OF POLITICAL SCIENCE 11/07/2024 2:49 PM PROFESSOR OF POLITICAL SCIENCE Jonah Doss MD LAB BLOOD ORDERABLES Final Re sult [facility] Department [place] [address] * (ABNORMAL) Lactate, whole blood (11/07/2024 2:19 PM PROFESSOR OF POLITICAL SCIENCE) Pathologist [facility] Lactate, bld 3.1(H) 0.7 - 2.0 mmol/L Blood 11/07/2024 2:19 PM PROFESSOR OF POLITICAL SCIENCE 11/07/2024 2:36 PM PROFESSOR OF POLITICAL SCIENCE Jonah Doss MD LAB BLOOD ORDERABLES Final Re sult Performing Organization Address [facility] [place] [address] * Protime-INR (11/07/2024 2:19 PM PROFESSOR OF POLITICAL SCIENCE) PT 12.6 9.7 - 13.0 sec INR 1.16 0.90 - 1.20 [facility] Comment: Interpretive data Oral anticoagulant therapeutic ranges: Venous thromboembolism prophylaxis or treatment: 2.0-3.0 CARDIOLOGY Standard range: 2.0-3.0 High-intensity range: 2.5-3.5 Refer to indication-specific guidelines for appropriate target ranges for prosthetic heart valve replacement. Current interpretive data was last revised on 2019. Blood 11/07/2024 2:19 PM PROFESSOR OF POLITICAL SCIENCE 11/07/2024 2:42 PM PROFESSOR OF POLITICAL SCIENCE Jonah Doss MD LAB BLOOD ORDERABLES Final Re sult Performing Organization Address [facility] [place] [address] * (ABNORMAL) Blood gas, venous (11/07/2024 2:19 PM PROFESSOR OF POLITICAL SCIENCE) pH, Venous 7.33 7.32 - 7.43 PCO2, Venous 53(H) 40 - 50 mmHg [facility] PO2, Venous 39 mmHg [facility] Comment: Interpretive Data No Reference Range Established Current Interpretive Data was last revised on 2018. HCO3 Venous, Calculated 29 20 - 30 mmol/L [facility] BE, venous 1 mmol/L [facility] Comment: Interpretive Data No Reference Range Established Current Interpretive Data was last revised on 2018. Blood 11/07/2024 2:19 PM PROFESSOR OF POLITICAL SCIENCE 11/07/2024 2:36 PM PROFESSOR OF POLITICAL SCIENCE us Jonah Doss MD LAB BLOOD ORDERABLES Final Re sult [facility] Department [place] [address] * (ABNORMAL) Comprehensive metabolic panel (11/07/2024 2:19 PM PROFESSOR OF POLITICAL SCIENCE) Sodium 135 135 - 145 mmol/L Potassium, pl 3.8 3.3 - 4.9 mmol/L [facility] Chloride 92(L) 97 - 110 mmol/L [facility] CO2 31 22 - 32 mmol/L [facility] Anion gap 12 2 - 15 mmol/L [facility] BUN 28(H) 6 - 25 mg/dL [facility] Creatinine 1.43(H) 0.80 - 1.30 mg/dL [facility] Glucose 196 70 - 199 mg/dL [facility] Comment: Interpretive Data Fasting glucose >/= 126 mg/dl is diagnostic for diabetes. Fasting is defined as no caloric intake for at least 8 hours. Fasting glucose between 100 mg/dl to 125 mg/dl is diagnostic of prediabetes. In a patient with classic symptoms of hyperglycemia or hyperglycemic crisis, a random glucose >/= 200 mg/dl is diagnostic for diabetes. In the absence of unequivocal hyperglycemia, results should be confirmed by repeat testing. The classification and Diagnosis of Diabetes Diabetes Care 202; 46: S19-S40. Current interpretive data was last revised 2022. Calcium 9.0 8.5 - 10.3 mg/dL [facility] Bilirubin, total 0.8 0.1 - 1.2 mg/dL [facility] Protein, pl 6.4(L) 6.5 - 8.5 g/dL [facility] Albumin 3.6 3.5 - 5.0 g/dL [facility] Alk phos 47 40 - 130 Units/L [facility] ALT 22 7 - 55 Units/L [facility] AST 19 10 - 50 Units/L [facility] Blood 11/07/2024 2:19 PM PROFESSOR OF POLITICAL SCIENCE 11/07/2024 2:49 PM PROFESSOR OF POLITICAL SCIENCE Jonah Doss MD LAB BLOOD ORDERABLES Final Re sult [facility] [place] [address] * (ABNORMAL) POCT glucose (11/07/2024 2:17 PM PROFESSOR OF POLITICAL SCIENCE) Glucose, POC 216(H) 70 - 199 mg/dL Blood 11/07/2024 2:17 PM PROFESSOR OF POLITICAL SCIENCE 11/07/2024 2:17 PM PROFESSOR OF POLITICAL SCIENCE Jonah Doss MD LAB POCT ORDERABLES - DEVICE Final Result Performing Organization Address [facility] de Phone Number [facility] [place] [address] * eGFR (11/06/2024 8:19 PM PROFESSOR OF POLITICAL SCIENCE) eGFR 70 >=60 mL/min/1. 73 m2 Comment: Interpretive Data Reference Interval Normal >/= 90 mL/min/1.73m2 Mildly decreased* 60 - 89 mL/min/1.73m2 Mildly to moderately decreased 45 - 59 mL/min/1.73m2 Moderately to severely decreased 30 - 44 mL/min/1.73m2 Severely decreased 15 - 29 mL/min/1.73m2 Kidney Failure < 15 mL/min/1.73m2 *Relative to young adult level Estimated glomerular filtration rate is determined by the 2020 CKD-EPI equation recommended by the National Kidney Foundation (A Unifying Approach to GFR Estimation: Recommendations of the NKF-ASK Task Force on Reassessing the Inclusion of Race in Diagnosing Kidney Disease, JASN 202). The CKD-EPI equation should not be used for patients with unstable renal function and has not been validated in children and those over 70. Current interpretive data was last reviewed 2021. Blood 11/06/2024 8:19 PM PROFESSOR OF POLITICAL SCIENCE 11/06/2024 9:03 PM PROFESSOR OF POLITICAL SCIENCE Chelo Chappell MD LAB BLOOD ORDERABLES Final Result Performing Organization Address City/[facility]/ZIP Co de Phone Number [facility] [place] [address] * (ABNORMAL) CBC without differential (11/06/2024 8:19 PM PROFESSOR OF POLITICAL SCIENCE) Pathologist [facility] WBC 13.3(H) 3.8 - 9.9 K/cumm Hgb 13.7 13.0 - 17.5 g/dL [facility] Hct 40.1 38.9 - 50.3 % [facility] Plt 278 150 - 400 K/cumm [facility] MPV 10.7 9.1 - 12.3 fL [facility] RBC 4.22(L) 4.30 - 5.80 M/cumm [facility] MCV 95.0 81.3 - 96.4 fL [facility] MCH 32.5 27.1 - 33.3 pg [facility] MCHC 34.2 32.3 - 35.7 g/dL [facility] RDW CV 13.2 11.1 - 14.9 % [facility] RDW SD 45.4 35.7 - 48.1 fL [facility] NRBC abs 0.00 0.00 - 0.01 K/cumm [facility] Blood 11/06/2024 8:19 PM PROFESSOR OF POLITICAL SCIENCE 11/06/2024 9:04 PM PROFESSOR OF POLITICAL SCIENCE Chelo Chappell MD LAB BLOOD ORDERABLES Final Result [facility] [place] [address] * Magnesium (11/06/2024 8:19 PM PROFESSOR OF POLITICAL SCIENCE) Pathologist [facility] Magnesium 2.1 1.4 - 2.5 mg/dL Blood 11/06/2024 8:19 PM PROFESSOR OF POLITICAL SCIENCE 11/06/2024 9:03 PM PROFESSOR OF POLITICAL SCIENCE Chelo Chappell MD LAB BLOOD ORDERABLES Final Result [facility] [place] [address] * (ABNORMAL) Basic metabolic panel (11/06/2024 8:19 PM PROFESSOR OF POLITICAL SCIENCE) Pathologist [facility] Sodium 136 135 - 145 mmol/L Potassium, pl 3.7 3.3 - 4.9 mmol/L [facility] Chloride 92(L) 97 - 110 mmol/L [facility] CO2 31 22 - 32 mmol/L [facility] Anion gap 13 2 - 15 mmol/L [facility] BUN 24 6 - 25 mg/dL [facility] Creatinine 1.09 0.80 - 1.30 mg/dL [facility] Glucose 168 70 - 199 mg/dL [facility] Comment: Interpretive Data Fasting glucose >/= 126 mg/dl is diagnostic for diabetes. Fasting is defined as no caloric intake for at least 8 hours. Fasting glucose between 100 mg/dl to 125 mg/dl is diagnostic of prediabetes. In a patient with classic symptoms of hyperglycemia or hyperglycemic crisis, a random glucose >/= 200 mg/dl is diagnostic for diabetes. In the absence of unequivocal hyperglycemia, results should be confirmed by repeat testing. The classification and Diagnosis of Diabetes Diabetes Care 202; 46: S19-S40. Current interpretive data was last revised 2022. Calcium 9.5 8.5 - 10.3 mg/dL [facility] Blood 11/06/2024 8:19 PM PROFESSOR OF POLITICAL SCIENCE 11/06/2024 9:03 PM PROFESSOR OF POLITICAL SCIENCE Chelo Chappell MD LAB BLOOD ORDERABLES Final Result [facility] Department [place] [address] * ECG 12 lead (11/06/2024 8:16 AM PROFESSOR OF POLITICAL SCIENCE) Ventricular Rate EKG/Min 93 BPM [facility] Atrial Rate 93 BPM [facility] [place]-Interval (MSEC) 170 ms [facility] QRS-Interval (MSEC) 88 ms [facility] QT-Interval (MSEC) 360 ms [facility] QTc 447 ms [facility] P [place] 95 degrees [facility] R [place] -32 degrees [facility] T [place] 100 degrees [facility] Diagnosis Normal sinus rhythm Left axis deviation Pulmonary disease pattern Nonspecific ST and T wave abnormality Abnormal ECG When compared with ECG of 01-NOV-2024 17:42, No significant change was found Confirmed by SIVA LORA M.D ([id number]) on 11/06/2024 1:25:24 PM [facility] 11/06/2024 8:16 AM PROFESSOR OF POLITICAL SCIENCE 11/06/2024 1:25 PM PROFESSOR OF POLITICAL SCIENCE us Chelo Chappell MD ECG ORDERABLES Final Resul t [facility] * eGFR (11/05/2024 10:11 PM PROFESSOR OF POLITICAL SCIENCE) eGFR 76 >=60 mL/min/1. 73 m2 Comment: Interpretive Data Reference Interval Normal >/= 90 mL/min/1.73m2 Mildly decreased* 60 - 89 mL/min/1.73m2 Mildly to moderately decreased 45 - 59 mL/min/1.73m2 Moderately to severely decreased 30 - 44 mL/min/1.73m2 Severely decreased 15 - 29 mL/min/1.73m2 Kidney Failure < 15 mL/min/1.73m2 *Relative to young adult level Estimated glomerular filtration rate is determined by the 2020 CKD-EPI equation recommended by the National Kidney Foundation (A Unifying Approach to GFR Estimation: Recommendations of the NKF-ASK Task Force on Reassessing the Inclusion of Race in Diagnosing Kidney Disease, JASN 202). The CKD-EPI equation should not be used for patients with unstable renal function and has not been validated in children and those over 70. Current interpretive data was last reviewed 2021. Blood 11/05/2024 10:1 1 PM PROFESSOR OF POLITICAL SCIENCE 11/05/2024 10:54 PM PROFESSOR OF POLITICAL SCIENCE us Chelo Chappell MD LAB BLOOD ORDERABLES Final Result Performing Organization Address [facility] de Phone Number [facility] Department [place] [address] * (ABNORMAL) CBC without differential (11/05/2024 10:11 PM PROFESSOR OF POLITICAL SCIENCE) WBC 12.2(H) 3.8 - 9.9 K/cumm Hgb 13.7 13.0 - 17.5 g/dL [facility] Hct 39.5 38.9 - 50.3 % [facility] Plt 260 150 - 400 K/cumm [facility] MPV 10.9 9.1 - 12.3 fL [facility] RBC 4.06(L) 4.30 - 5.80 M/cumm [facility] MCV 97.3(H) 81.3 - 96.4 fL [facility] MCH 33.7(H) 27.1 - 33.3 pg [facility] MCHC 34.7 32.3 - 35.7 g/dL [facility] RDW CV 13.3 11.1 - 14.9 % [facility] RDW SD 47.7 35.7 - 48.1 fL [facility] NRBC abs 0.00 0.00 - 0.01 K/cumm [facility] Blood 11/05/2024 10:1 1 PM PROFESSOR OF POLITICAL SCIENCE 11/05/2024 10:54 PM PROFESSOR OF POLITICAL SCIENCE Chelo Chappell MD LAB BLOOD ORDERABLES Final Result Performing Organization Address City/[facility] Co de Phone Number [facility] Department [place] [address] * Magnesium (11/05/2024 10:11 PM PROFESSOR OF POLITICAL SCIENCE) Pathologist [facility] Magnesium 1.8 1.4 - 2.5 mg/dL Blood 11/05/2024 10:1 1 PM PROFESSOR OF POLITICAL SCIENCE 11/05/2024 10:54 PM PROFESSOR OF POLITICAL SCIENCE Chelo Chappell MD LAB BLOOD ORDERABLES Final Result [facility] Department [place] [address] * Folate (11/05/2024 10:11 PM PROFESSOR OF POLITICAL SCIENCE) [facility] Folic acid See Comment >=5.0 ng/mL Comment:Credited; Hemolyzed Specimen Blood 11/05/2024 10:1 1 PM PROFESSOR OF POLITICAL SCIENCE 11/05/2024 10:54 PM PROFESSOR OF POLITICAL SCIENCE Jonah Doss MD LAB BLOOD ORDERABLES Final Re sult Performing Organization Address [facility] Co de Phone Number [facility] [place] [address] * (ABNORMAL) Basic metabolic panel (11/05/2024 10:11 PM PROFESSOR OF POLITICAL SCIENCE) [facility] Sodium 134(L) 135 - 145 mmol/L Potassium, pl 4.1 3.3 - 4.9 mmol/L [facility] Chloride 92(L) 97 - 110 mmol/L [facility] CO2 27 22 - 32 mmol/L [facility] Anion gap 15 2 - 15 mmol/L [facility] BUN 17 6 - 25 mg/dL [facility] Creatinine 1.02 0.80 - 1.30 mg/dL [facility] Glucose 161 70 - 199 mg/dL [facility] Comment: Interpretive Data Fasting glucose >/= 126 mg/dl is diagnostic for diabetes. Fasting is defined as no caloric intake for at least 8 hours. Fasting glucose between 100 mg/dl to 125 mg/dl is diagnostic of prediabetes. In a patient with classic symptoms of hyperglycemia or hyperglycemic crisis, a random glucose >/= 200 mg/dl is diagnostic for diabetes. In the absence of unequivocal hyperglycemia, results should be confirmed by repeat testing. The classification and Diagnosis of Diabetes Diabetes Care 2021; 46: S19-S40. Current interpretive data was last revised 2022. Calcium 9.5 8.5 - 10.3 mg/dL [facility] Blood 11/05/2024 10:1 1 PM PROFESSOR OF POLITICAL SCIENCE 11/05/2024 10:54 PM PROFESSOR OF POLITICAL SCIENCE Chelo Chappell MD LAB BLOOD ORDERABLES Final Result Performing Organization Address [facility] Co de Phone Number [facility] Department [place] [address] * eGFR (11/04/2024 9:17 PM PROFESSOR OF POLITICAL SCIENCE) eGFR 82 >=60 mL/min/1. 73 m2 Comment: Interpretive Data Reference Interval Normal >/= 90 mL/min/1.73m2 Mildly decreased* 60 - 89 mL/min/1.73m2 Mildly to moderately decreased 45 - 59 mL/min/1.73m2 Moderately to severely decreased 30 - 44 mL/min/1.73m2 Severely decreased 15 - 29 mL/min/1.73m2 Kidney Failure < 15 mL/min/1.73m2 *Relative to young adult level Estimated glomerular filtration rate is determined by the 2020 CKD-EPI equation recommended by the National Kidney Foundation (A Unifying Approach to GFR Estimation: Recommendations of the NKF-ASK Task Force on Reassessing the Inclusion of Race in Diagnosing Kidney Disease, JASN 2020). The CKD-EPI equation should not be used for patients with unstable renal function and has not been validated in children and those over 70. Current interpretive data was last reviewed 2021. Blood 11/04/2024 9:17 PM PROFESSOR OF POLITICAL SCIENCE 11/04/2024 9:51 PM PROFESSOR OF POLITICAL SCIENCE Chelo Chappell MD LAB BLOOD ORDERABLES Final Result Performing Organization Address [facility] Co de Phone Number [facility] Department [place] [address] * (ABNORMAL) CBC without differential (11/04/2024 9:17 PM PROFESSOR OF POLITICAL SCIENCE) Pathologist [facility] WBC 12.6(H) 3.8 - 9.9 K/cumm Hgb 13.8 13.0 - 17.5 g/dL [facility] Hct 40.5 38.9 - 50.3 % [facility] Plt 250 150 - 400 K/cumm [facility] MPV 11.0 9.1 - 12.3 fL [facility] RBC 4.15(L) 4.30 - 5.80 M/cumm [facility] MCV 97.6(H) 81.3 - 96.4 fL [facility] MCH 33.3 27.1 - 33.3 pg [facility] MCHC 34.1 32.3 - 35.7 g/dL [facility] RDW CV 13.4 11.1 - 14.9 % [facility] RDW SD 48.0 35.7 - 48.1 fL [facility] NRBC abs 0.00 0.00 - 0.01 K/cumm [facility] Blood 11/04/2024 9:17 PM PROFESSOR OF POLITICAL SCIENCE 11/04/2024 9:51 PM PROFESSOR OF POLITICAL SCIENCE Chelo Chappell MD LAB BLOOD ORDERABLES Final Result Performing Organization Address City/[facility]/ZIP Co de Phone Number [facility] Department [place] [address] * Magnesium (11/04/2024 9:17 PM PROFESSOR OF POLITICAL SCIENCE) [facility] Magnesium 1.7 1.4 - 2.5 mg/dL Blood 11/04/2024 9:17 PM PROFESSOR OF POLITICAL SCIENCE 11/04/2024 9:51 PM PROFESSOR OF POLITICAL SCIENCE Chelo Chappell MD LAB BLOOD ORDERABLES Final Result Performing Organization Address [facility] Co de Phone Number [facility] [place] [address] * Folate (11/04/2024 9:17 PM PROFESSOR OF POLITICAL SCIENCE) Pathologist [facility] Folic acid See Comment >=5.0 ng/mL Comment: Credited; Hemolyzed Specimen Notified Alessia (KRISTINA) to reorder and recollect. 11/04/2024 23:15:09 PROFESSOR OF POLITICAL SCIENCE [facility] Blood 11/04/2024 9:17 PM PROFESSOR OF POLITICAL SCIENCE 11/04/2024 9:51 PM PROFESSOR OF POLITICAL SCIENCE Jonah Doss MD LAB BLOOD ORDERABLES Final Re sult Performing Organization Address [facility] Co de Phone Number [facility] [place] [address] * Vitamin B12 (11/04/2024 9:17 PM PROFESSOR OF POLITICAL SCIENCE) [facility] Vitamin B12 1,010 230 - 1,250 pg/mL Blood 11/04/2024 9:17 PM PROFESSOR OF POLITICAL SCIENCE 11/04/2024 9:51 PM PROFESSOR OF POLITICAL SCIENCE Jonah Doss MD LAB BLOOD ORDERABLES Final Re sult Performing Organization Address [facility] de Phone Number [facility] Department [place] [address] * (ABNORMAL) Basic metabolic panel (11/04/2024 9:17 PM PROFESSOR OF POLITICAL SCIENCE) [facility] Sodium 135 135 - 145 mmol/L Potassium, pl 4.0 3.3 - 4.9 mmol/L [facility] Comment:Hemolyzed; Potassium value may be falsely elevated by as much as 0.6-1.0 mmol/L. Suggest redraw and reanalysis. Chloride 93(L) 97 - 110 mmol/L [facility] CO2 29 22 - 32 mmol/L [facility] Anion gap 13 2 - 15 mmol/L [facility] BUN 17 6 - 25 mg/dL [facility] Creatinine 0.96 0.80 - 1.30 mg/dL [facility] Glucose 149 70 - 199 mg/dL [facility] Comment: Interpretive Data Fasting glucose >/= 126 mg/dl is diagnostic for diabetes. Fasting is defined as no caloric intake for at least 8 hours. Fasting glucose between 100 mg/dl to 125 mg/dl is diagnostic of prediabetes. In a patient with classic symptoms of hyperglycemia or hyperglycemic crisis, a random glucose >/= 200 mg/dl is diagnostic for diabetes. In the absence of unequivocal hyperglycemia, results should be confirmed by repeat testing. The classification and Diagnosis of Diabetes Diabetes Care 2021; 46: S19-S40. Current interpretive data was last revised 2022. Calcium 9.7 8.5 - 10.3 mg/dL [facility] Blood 11/04/2024 9:17 PM PROFESSOR OF POLITICAL SCIENCE 11/04/2024 9:51 PM PROFESSOR OF POLITICAL SCIENCE us Chelo Chappell MD LAB BLOOD ORDERABLES Final Result Performing Organization Address [facility] Co de Phone Number [facility] [place] [address] * POCT glucose (11/04/2024 4:35 PM PROFESSOR OF POLITICAL SCIENCE) Glucose, POC 136 70 - 199 mg/dL Blood 11/04/2024 4:35 PM PROFESSOR OF POLITICAL SCIENCE 11/04/2024 4:35 PM PROFESSOR OF POLITICAL SCIENCE us Jonah Doss MD LAB POCT ORDERABLES - DEVICE Final Result Performing Organization Address [facility] Co de Phone Number [facility] [place] [address] * POCT glucose (11/04/2024 11:15 AM PROFESSOR OF POLITICAL SCIENCE) Glucose, POC 129 70 - 199 mg/dL Blood 11/04/2024 11:1 5 AM PROFESSOR OF POLITICAL SCIENCE 11/04/2024 11:15 AM PROFESSOR OF POLITICAL SCIENCE Jonah Doss MD LAB POCT ORDERABLES - DEVICE Final Result Performing Organization Address [facility] Co de Phone Number [facility] [place] [address] * POCT glucose (11/04/2024 7:50 AM PROFESSOR OF POLITICAL SCIENCE) Glucose, POC 159 70 - 199 mg/dL Blood 11/04/2024 7:50 AM PROFESSOR OF POLITICAL SCIENCE 11/04/2024 7:50 AM PROFESSOR OF POLITICAL SCIENCE us Jonah Doss MD LAB POCT ORDERABLES - DEVICE Final Result Performing Organization Address [facility] de Phone Number [facility] Department [place] [address] * eGFR (11/03/2024 9:58 PM PROFESSOR OF POLITICAL SCIENCE) Pathologist [facility] eGFR 70 >=60 mL/min/1. 73 m2 Comment: Interpretive Data Reference Interval Normal >/= 90 mL/min/1.73m2 Mildly decreased* 60 - 89 mL/min/1.73m2 Mildly to moderately decreased 45 - 59 mL/min/1.73m2 Moderately to severely decreased 30 - 44 mL/min/1.73m2 Severely decreased 15 - 29 mL/min/1.73m2 Kidney Failure < 15 mL/min/1.73m2 *Relative to young adult level Estimated glomerular filtration rate is determined by the 2020 CKD-EPI equation recommended by the National Kidney Foundation (A Unifying Approach to GFR Estimation: Recommendations of the NKF-ASK Task Force on Reassessing the Inclusion of Race in Diagnosing Kidney Disease, JASN 2020). The CKD-EPI equation should not be used for patients with unstable renal function and has not been validated in children and those over 70. Current interpretive data was last reviewed 2021. Blood 11/03/2024 9:58 PM PROFESSOR OF POLITICAL SCIENCE 11/03/2024 10:58 PM PROFESSOR OF POLITICAL SCIENCE us Chelo Chappell MD LAB BLOOD ORDERABLES Final Result Performing Organization Address [facility] Co de Phone Number [facility] Department [place] [address] * (ABNORMAL) CBC without differential (11/03/2024 9:58 PM PROFESSOR OF POLITICAL SCIENCE) [facility] WBC 13.1(H) 3.8 - 9.9 K/cumm Hgb 12.6(L) 13.0 - 17.5 g/dL [facility] Hct 37.7(L) 38.9 - 50.3 % [facility] Plt 262 150 - 400 K/cumm [facility] MPV 10.9 9.1 - 12.3 fL [facility] RBC 3.85(L) 4.30 - 5.80 M/cumm [facility] MCV 97.9(H) 81.3 - 96.4 fL [facility] MCH 32.7 27.1 - 33.3 pg [facility] MCHC 33.4 32.3 - 35.7 g/dL [facility] RDW CV 13.8 11.1 - 14.9 % [facility] RDW SD 49.0(H) 35.7 - 48.1 fL [facility] NRBC abs 0.00 0.00 - 0.01 K/cumm [facility] Blood 11/03/2024 9:58 PM PROFESSOR OF POLITICAL SCIENCE 11/03/2024 10:59 PM PROFESSOR OF POLITICAL SCIENCE Chelo Chappell MD LAB BLOOD ORDERABLES Final Result Performing Organization Address [facility]/ZIP Co de Phone Number [facility] [place] [address] * Magnesium (11/03/2024 9:58 PM PROFESSOR OF POLITICAL SCIENCE) [facility] Magnesium 1.7 1.4 - 2.5 mg/dL Blood 11/03/2024 9:58 PM PROFESSOR OF POLITICAL SCIENCE 11/03/2024 10:58 PM PROFESSOR OF POLITICAL SCIENCE Chelo Chappell MD LAB BLOOD ORDERABLES Final Result Performing Organization Address [facility]/ZIP Co de Phone Number [facility] [place] [address] * Vitamin B12 (11/03/2024 9:58 PM PROFESSOR OF POLITICAL SCIENCE) Vitamin B12 732 230 - 1,250 pg/mL Blood 11/03/2024 9:58 PM PROFESSOR OF POLITICAL SCIENCE 11/03/2024 10:58 PM PROFESSOR OF POLITICAL SCIENCE us Jonah Doss MD LAB BLOOD ORDERABLES Final Re sult [facility] Department [place] [address] * Basic metabolic panel (11/03/2024 9:58 PM PROFESSOR OF POLITICAL SCIENCE) Sodium 138 135 - 145 mmol/L Potassium, pl 3.7 3.3 - 4.9 mmol/L [facility] Chloride 97 97 - 110 mmol/L [facility] CO2 30 22 - 32 mmol/L [facility] Anion gap 11 2 - 15 mmol/L [facility] BUN 21 6 - 25 mg/dL [facility] Creatinine 1.09 0.80 - 1.30 mg/dL [facility] Glucose 131 70 - 199 mg/dL [facility] Comment: Interpretive Data Fasting glucose >/= 126 mg/dl is diagnostic for diabetes. Fasting is defined as no caloric intake for at least 8 hours. Fasting glucose between 100 mg/dl to 125 mg/dl is diagnostic of prediabetes. In a patient with classic symptoms of hyperglycemia or hyperglycemic crisis, a random glucose >/= 200 mg/dl is diagnostic for diabetes. In the absence of unequivocal hyperglycemia, results should be confirmed by repeat testing. The classification and Diagnosis of Diabetes Diabetes Care 202; 46: S19-S40. Current interpretive data was last revised 2022. Calcium 9.5 8.5 - 10.3 mg/dL [facility] Blood 11/03/2024 9:58 PM PROFESSOR OF POLITICAL SCIENCE 11/03/2024 10:58 PM PROFESSOR OF POLITICAL SCIENCE us Chelo Chappell MD LAB BLOOD ORDERABLES Final Result [facility] Department [place] [address] * POCT glucose (11/03/2024 7:36 PM PROFESSOR OF POLITICAL SCIENCE) Glucose, POC 145 70 - 199 mg/dL Blood 11/03/2024 7:36 PM PROFESSOR OF POLITICAL SCIENCE 11/03/2024 7:36 PM PROFESSOR OF POLITICAL SCIENCE Jonah Doss MD LAB POCT ORDERABLES - DEVICE Final Result Performing Organization Address [facility] de Phone Number [facility] [place] [address] * Sodium, urine, random (11/03/2024 5:54 PM PROFESSOR OF POLITICAL SCIENCE) [facility] Sodium, ur 133 mmol/L Comment: Interpretive Data No reference range established. Current interpretive data was last revised 2019. Urine 11/03/2024 5:54 PM PROFESSOR OF POLITICAL SCIENCE 11/03/2024 6:29 PM PROFESSOR OF POLITICAL SCIENCE Narrative [facility] - 11/03/2024 6:52 PM PROFESSOR OF POLITICAL SCIENCE 2 hours after lasix dose Jonah Doss MD LAB URINE ORDERABLES Final Re sult Performing Organization Address [facility] de Phone Number [facility] [place] [address] * POCT glucose (11/03/2024 4:47 PM PROFESSOR OF POLITICAL SCIENCE) [facility] Glucose, POC 135 70 - 199 mg/dL Blood 11/03/2024 4:47 PM PROFESSOR OF POLITICAL SCIENCE 11/03/2024 4:47 PM PROFESSOR OF POLITICAL SCIENCE Jonah Doss MD LAB POCT ORDERABLES - DEVICE Final Result Performing Organization Address [facility] de Phone Number [facility] [place] [address] * eGFR (11/03/2024 12:11 PM PROFESSOR OF POLITICAL SCIENCE) [facility] eGFR 72 >=60 mL/min/1. 73 m2 Comment: Interpretive Data Reference Interval Normal >/= 90 mL/min/1.73m2 Mildly decreased* 60 - 89 mL/min/1.73m2 Mildly to moderately decreased 45 - 59 mL/min/1.73m2 Moderately to severely decreased 30 - 44 mL/min/1.73m2 Severely decreased 15 - 29 mL/min/1.73m2 Kidney Failure < 15 mL/min/1.73m2 *Relative to young adult level Estimated glomerular filtration rate is determined by the 2020 CKD-EPI equation recommended by the National Kidney Foundation (A Unifying Approach to GFR Estimation: Recommendations of the NKF-ASK Task Force on Reassessing the Inclusion of Race in Diagnosing Kidney Disease, JASN 2020). The CKD-EPI equation should not be used for patients with unstable renal function and has not been validated in children and those over 70. Current interpretive data was last reviewed 2021. Blood 11/03/2024 12:1 1 PM PROFESSOR OF POLITICAL SCIENCE 11/03/2024 12:59 PM PROFESSOR OF POLITICAL SCIENCE us Jonah Doss MD LAB BLOOD ORDERABLES Final Re sult [facility] Department [place] [address] * Basic metabolic panel (11/03/2024 12:11 PM PROFESSOR OF POLITICAL SCIENCE) Sodium 139 135 - 145 mmol/L Potassium, pl 3.9 3.3 - 4.9 mmol/L [facility] Chloride 98 97 - 110 mmol/L [facility] CO2 30 22 - 32 mmol/L [facility] Anion gap 11 2 - 15 mmol/L [facility] BUN 20 6 - 25 mg/dL [facility] Creatinine 1.07 0.80 - 1.30 mg/dL [facility] Glucose 124 70 - 199 mg/dL [facility] Comment: Interpretive Data Fasting glucose >/= 126 mg/dl is diagnostic for diabetes. Fasting is defined as no caloric intake for at least 8 hours. Fasting glucose between 100 mg/dl to 125 mg/dl is diagnostic of prediabetes. In a patient with classic symptoms of hyperglycemia or hyperglycemic crisis, a random glucose >/= 200 mg/dl is diagnostic for diabetes. In the absence of unequivocal hyperglycemia, results should be confirmed by repeat testing. The classification and Diagnosis of Diabetes Diabetes Care 202; 46: S19-S40. Current interpretive data was last revised 2022. Calcium 9.3 8.5 - 10.3 mg/dL [facility] Blood 11/03/2024 12:1 1 PM PROFESSOR OF POLITICAL SCIENCE 11/03/2024 12:59 PM PROFESSOR OF POLITICAL SCIENCE Jonah Doss MD LAB BLOOD ORDERABLES Final Re sult Performing Organization Address [facility] Co de Phone Number [facility] [place] [address] * POCT glucose (11/03/2024 11:15 AM PROFESSOR OF POLITICAL SCIENCE) Pathologist [facility] Glucose, POC 136 70 - 199 mg/dL Blood 11/03/2024 11:1 5 AM PROFESSOR OF POLITICAL SCIENCE 11/03/2024 11:15 AM PROFESSOR OF POLITICAL SCIENCE Jonah Doss MD LAB POCT ORDERABLES - DEVICE Final Result Performing Organization Address [facility] de Phone Number [facility] [place] [address] * POCT glucose (11/03/2024 7:57 AM PROFESSOR OF POLITICAL SCIENCE) [facility] Glucose, POC 140 70 - 199 mg/dL Blood 11/03/2024 7:57 AM PROFESSOR OF POLITICAL SCIENCE 11/03/2024 7:57 AM PROFESSOR OF POLITICAL SCIENCE Jonah Doss MD LAB POCT ORDERABLES - DEVICE Final Result Performing Organization Address [facility] de Phone Number [facility] [place] [address] * eGFR (11/02/2024 9:54 PM PROFESSOR OF POLITICAL SCIENCE) [facility] eGFR 83 >=60 mL/min/1. 73 m2 Comment: Interpretive Data Reference Interval Normal >/= 90 mL/min/1.73m2 Mildly decreased* 60 - 89 mL/min/1.73m2 Mildly to moderately decreased 45 - 59 mL/min/1.73m2 Moderately to severely decreased 30 - 44 mL/min/1.73m2 Severely decreased 15 - 29 mL/min/1.73m2 Kidney Failure < 15 mL/min/1.73m2 *Relative to young adult level Estimated glomerular filtration rate is determined by the 2020 CKD-EPI equation recommended by the National Kidney Foundation (A Unifying Approach to GFR Estimation: Recommendations of the NKF-ASK Task Force on Reassessing the Inclusion of Race in Diagnosing Kidney Disease, JASN 202). The CKD-EPI equation should not be used for patients with unstable renal function and has not been validated in children and those over 70. Current interpretive data was last reviewed 2021. Blood 11/02/2024 9:54 PM PROFESSOR OF POLITICAL SCIENCE 11/02/2024 10:18 PM PROFESSOR OF POLITICAL SCIENCE Chelo Chappell MD LAB BLOOD ORDERABLES Final Result [facility] Department [place] [address] * (ABNORMAL) CBC without differential (11/02/2024 9:54 PM PROFESSOR OF POLITICAL SCIENCE) WBC 12.2(H) 3.8 - 9.9 K/cumm Hgb 13.5 13.0 - 17.5 g/dL [facility] Hct 39.4 38.9 - 50.3 % [facility] Plt 223 150 - 400 K/cumm [facility] MPV 10.9 9.1 - 12.3 fL [facility] RBC 4.01(L) 4.30 - 5.80 M/cumm [facility] MCV 98.3(H) 81.3 - 96.4 fL [facility] MCH 33.7(H) 27.1 - 33.3 pg [facility] MCHC 34.3 32.3 - 35.7 g/dL [facility] RDW CV 13.5 11.1 - 14.9 % [facility] RDW SD 47.8 35.7 - 48.1 fL [facility] NRBC abs 0.00 0.00 - 0.01 K/cumm [facility] Blood 11/02/2024 9:54 PM PROFESSOR OF POLITICAL SCIENCE 11/02/2024 10:18 PM PROFESSOR OF POLITICAL SCIENCE Chelo Chappell MD LAB BLOOD ORDERABLES Final Result Performing Organization Address [facility]/ZIP Co de Phone Number [facility] Department [place] [address] * Basic metabolic panel (11/02/2024 9:54 PM PROFESSOR OF POLITICAL SCIENCE) [facility] Sodium 140 135 - 145 mmol/L Potassium, pl 3.5 3.3 - 4.9 mmol/L [facility] Chloride 99 97 - 110 mmol/L [facility] CO2 29 22 - 32 mmol/L [facility] Anion gap 12 2 - 15 mmol/L [facility] BUN 19 6 - 25 mg/dL [facility] Creatinine 0.95 0.80 - 1.30 mg/dL [facility] Glucose 128 70 - 199 mg/dL [facility] Comment: Interpretive Data Fasting glucose >/= 126 mg/dl is diagnostic for diabetes. Fasting is defined as no caloric intake for at least 8 hours. Fasting glucose between 100 mg/dl to 125 mg/dl is diagnostic of prediabetes. In a patient with classic symptoms of hyperglycemia or hyperglycemic crisis, a random glucose >/= 200 mg/dl is diagnostic for diabetes. In the absence of unequivocal hyperglycemia, results should be confirmed by repeat testing. The classification and Diagnosis of Diabetes Diabetes Care 2021; 46: S19-S40. Current interpretive data was last revised 2022. Calcium 9.7 8.5 - 10.3 mg/dL [facility] Blood 11/02/2024 9:54 PM PROFESSOR OF POLITICAL SCIENCE 11/02/2024 10:18 PM PROFESSOR OF POLITICAL SCIENCE Chelo Chappell MD LAB BLOOD ORDERABLES Final Result Performing Organization Address [facility]/ZIP Co de Phone Number [facility] Department [place] [address] * POCT glucose (11/02/2024 8:09 PM PROFESSOR OF POLITICAL SCIENCE) [facility] Glucose, POC 126 70 - 199 mg/dL Blood 11/02/2024 8:09 PM PROFESSOR OF POLITICAL SCIENCE 11/02/2024 8:09 PM PROFESSOR OF POLITICAL SCIENCE Chelo Chappell MD LAB POCT ORDERABLES - DEVIC E Final Result [facility] [place] [address] * POCT glucose (11/02/2024 5:36 PM PROFESSOR OF POLITICAL SCIENCE) [facility] Glucose, POC 129 70 - 199 mg/dL Blood 11/02/2024 5:36 PM PROFESSOR OF POLITICAL SCIENCE 11/02/2024 5:36 PM PROFESSOR OF POLITICAL SCIENCE Chelo Chappell MD LAB POCT ORDERABLES - DEVIC E Final Result Performing Organization Address [facility] [place] [place] [address] * (ABNORMAL) Respiratory pathogen panel Nasopharyngeal (11/02/2024 4:46 PM PROFESSOR OF POLITICAL SCIENCE) [facility] Influenza A RNA Not Detected Not Detected Influenza B RNA Not Detected Not Detected [facility] RSV RNA Detected(A) Not Detected [facility] COVID-19 RNA Not Detected Not Detected [facility] Coronavirus 229E RNA Not Detected Not Detected [facility] Coronavirus HKU1 RNA Not Detected Not Detected [facility] Coronavirus NL63 RNA Not Detected Not Detected [facility] Coronavirus OC43 RNA Not Detected Not Detected [facility] Adenovirus DNA Not Detected Not Detected [facility] Metapneumovirus RNA Not Detected Not Detected [facility] Rhinovirus/Enterov irus RNA Not Detected Not Detected [facility] Parainfluenza 1 RNA Not Detected Not Detected [facility] Parainfluenza 2 RNA Not Detected Not Detected [facility] Parainfluenza 3 RNA Not Detected Not Detected [facility] Parainfluenza 4 RNA Not Detected Not Detected [facility] B. pertussis DNA Not Detected Not Detected [facility] B. parapertussis DNA Not Detected Not Detected [facility] C. pneumoniae DNA Not Detected Not Detected [facility] M. pneumoniae DNA Not Detected Not Detected [facility] Nasopharyngeal 11/02/2024 4: 46 PM PROFESSOR OF POLITICAL SCIENCE 11/02/2024 5:38 PM PROFESSOR OF POLITICAL SCIENCE Narrative [facility] - 11/02/2024 6:48 PM PROFESSOR OF POLITICAL SCIENCE Is the Patient experiencing symptoms consistent with COVID?->Yes Surveillance testing for transplant patient?->No Interpretive Data The Band Digital FilmArray Respiratory Panel (RP2.1) assay is a multiplexed real-time PCR based nucleic acid test capable of simultaneous qualitative detection and identification of multiple respiratory viral and bacterial nucleic acids, including SARS Coronavirus 2 (the causative agent of COVID-19). The following bacteria, viruses and virus subtypes can be identified using the FilmArray RP2.1 assay: Bordetella pertussis, Bordetella parapertussis, Chlamydia pneumoniae, Mycoplasma pneumoniae, Adenovirus, SARS Coronavirus 2, seasonal coronaviruses (Coronavirus HKU1, Coronavirus NL63, Coronavirus 229E, and Coronavirus OC43), Influenza A, Influenza A subtype H1, Influenza A subtype H3, Influenza A subtype 2009 H1, Influenza B, Metapneumovirus, Parainfluenza 1, Parainfluenza 2, Parainfluenza 3, Parainfluenza 4, RSV, Rhinovirus/Enterovirus. Due to the genetic similarity between human Rhinovirus and Enterovirus, the FilmArray RP2.1 assay cannot reliably differentiate them. Coronavirus OC43 may cross-react with some isolates of Coronavirus HKU1. A dual positive result may be due to cross-reactivity or may indicate a co- infection. The detection and identification of specific viral and bacterial nucleic acids from individuals exhibiting signs and symptoms of a respiratory infection aids in the diagnosis of respiratory infection if used in conjunction with other clinical and epidemiological information. The results of this test should not be used as the sole basis for diagnosis, treatment, or other management decisions. Negative results in the setting of a respiratory illness may be due to infection with pathogens that are not detected by this test. Positive results do not rule out infection/co-infection with other organisms. The agent(s) detected by the FilmArray RP2.1 may not be the definite cause of disease. Additional testing (lab, imaging, etc.) may be necessary when evaluating a patient with possible respiratory tract infection. The FilmArray RP2.1 assay has FDA clearance for testing of LATCHER swabs. The performance of additional specimen types has been assessed by the performing laboratory. The performance characteristics of this assay have been determined by [facility] Molecular Infectious Disease Laboratory. Current interpretive data was last revised on 22. us Chelo Chappell MD LAB MICROBIOLOGY - GENERAL ORDERABLES Final Result Performing Organization Address City/[facility] [place] Co de Phone Number ASHA [facility] [address] * eGFR (11/02/2024 12:42 PM PROFESSOR OF POLITICAL SCIENCE) eGFR >90 >=60 mL/min/1. 73 m2 Comment: Interpretive Data Reference Interval Normal >/= 90 mL/min/1.73m2 Mildly decreased* 60 - 89 mL/min/1.73m2 Mildly to moderately decreased 45 - 59 mL/min/1.73m2 Moderately to severely decreased 30 - 44 mL/min/1.73m2 Severely decreased 15 - 29 mL/min/1.73m2 Kidney Failure < 15 mL/min/1.73m2 *Relative to young adult level Estimated glomerular filtration rate is determined by the 2020 CKD-EPI equation recommended by the National Kidney Foundation (A Unifying Approach to GFR Estimation: Recommendations of the NKF-ASK Task Force on Reassessing the Inclusion of Race in Diagnosing Kidney Disease, JASN 2020). The CKD-EPI equation should not be used for patients with unstable renal function and has not been validated in children and those over 70. Current interpretive data was last reviewed 2021. Blood 11/02/2024 12:4 2 PM PROFESSOR OF POLITICAL SCIENCE 11/02/2024 2:03 PM PROFESSOR OF POLITICAL SCIENCE us Chelo Chappell MD LAB BLOOD ORDERABLES Final Result Performing Organization Address [place]/[facility] [place]/ZIP Co de Phone Number [facility] Department [place] [address] * Aerobic culture and gram stain Sputum Sputum (11/02/2024 12:42 PM PROFESSOR OF POLITICAL SCIENCE) Direct Specimen Exam Stain: Abundant squamous epithelial cells seen indicating excessive oropharyngeal contamination. Culture will not be processed further. Please submit another specimen. Smear results called to and read back by: Nell Means RN [phone] on 11/02/2024 16:14:56 by: Jessica Evans MT Report Final Report: This is the final report. [facility] Sputum (Sputum) 11/02/2024 1 2:42 PM PROFESSOR OF POLITICAL SCIENCE 11/02/2024 2:03 PM PROFESSOR OF POLITICAL SCIENCE Narrative [facility] - 11/03/2024 8:30 AM PROFESSOR OF POLITICAL SCIENCE Testing performed by [facility] Microbiology Laboratory ([phone]) Specimens submitted from normally sterile body sites will have all bacterial morphotypes identified. Specimens that contain grossly mixed veronika and/or are from body sites that are not normally sterile will be examined for Staphylococcus aureus, Pseudomonas aeruginosa, beta-hemolytic strep, vancomycin-resistant Enterococcus and fungus. If any of these are isolated, the organism will be reported. Current interpretive data was last revised on 2017. Chelo Chappell MD LAB MICROBIOLOGY - GENERAL ORDERABLES Final Result [facility] Department [place] [address] * Basic metabolic panel (11/02/2024 12:42 PM PROFESSOR OF POLITICAL SCIENCE) Pathologist [facility] Sodium 140 135 - 145 mmol/L Potassium, pl 3.6 3.3 - 4.9 mmol/L [facility] Chloride 99 97 - 110 mmol/L [facility] CO2 28 22 - 32 mmol/L [facility] Anion gap 13 2 - 15 mmol/L [facility] BUN 18 6 - 25 mg/dL [facility] Creatinine 0.81 0.80 - 1.30 mg/dL [facility] Glucose 143 70 - 199 mg/dL [facility] Comment: Interpretive Data Fasting glucose >/= 126 mg/dl is diagnostic for diabetes. Fasting is defined as no caloric intake for at least 8 hours. Fasting glucose between 100 mg/dl to 125 mg/dl is diagnostic of prediabetes. In a patient with classic symptoms of hyperglycemia or hyperglycemic crisis, a random glucose >/= 200 mg/dl is diagnostic for diabetes. In the absence of unequivocal hyperglycemia, results should be confirmed by repeat testing. The classification and Diagnosis of Diabetes Diabetes Care 2021; 46: S19-S40. Current interpretive data was last revised 2022. Calcium 9.5 8.5 - 10.3 mg/dL [facility] Blood 11/02/2024 12:4 2 PM PROFESSOR OF POLITICAL SCIENCE 11/02/2024 2:03 PM PROFESSOR OF POLITICAL SCIENCE Chelo Chappell MD LAB BLOOD ORDERABLES Final Result Performing Organization Address [facility] [place] Co de Phone Number [facility] [place] [address] * POCT glucose (11/02/2024 12:01 PM PROFESSOR OF POLITICAL SCIENCE) Glucose, POC 127 70 - 199 mg/dL Blood 11/02/2024 12:0 1 PM PROFESSOR OF POLITICAL SCIENCE 11/02/2024 12:01 PM PROFESSOR OF POLITICAL SCIENCE Chelo Chappell MD LAB POCT ORDERABLES - DEVIC E Final Result Performing Organization Address [facility] [place] Co de Phone Number [facility] [place] [address] * US Vein Duplex Lower Extremity Bilateral Complete (11/02/2024 10:08 AM PROFESSOR OF POLITICAL SCIENCE) LV EF % CONS SCIMAGE Anatomical Region Laterality Modality Vascular Bilateral Ultrasound 11/02/2024 9:23 AM PROFESSOR OF POLITICAL SCIENCE Narrative 11/02/2024 9:46 AM PROFESSOR OF POLITICAL SCIENCE [facility] - Department of Vascular Surgery, Vascular Laboratory [address] [place] [address] Lower Extremity Venous Ultrasound Report Patient Name: JONAH CONN : 1950 (74y 1m) Study Date: 11/02/2024 9:23:15 AM Gender: M Tech: Location: [id number] Ref Provider: CHELO CHAPPELL Quality: Adequate Order Provider: CHELO CHAPPELL PROCEDURES: Vascular Report: Venous Duplex imaging was performed bilaterally in the lower extremities. The common femoral, femoral, popliteal, posterior tibial, peroneal veins were evaluated for patency, spontaneity and phasicity with Doppler, compression and augmentation maneuvers. Great saphenous vein proximal at the junction was evaluated with compression maneuvers. INDICATIONS: severe LE edema - FINDINGS: Performing Paralegal Instructor: Elizabeth Lancaster RVT, RDMS. Bilateral: Venous Doppler signals in the bilateral lower extremity are within normal limits for spontaneity and phasicity and respond normally to augmentation maneuvers. No evidence of deep vein thrombus by duplex, proximal to the calf. Comments: Unable to visualize the left deep calf veins due to edema. CONCLUSIONS: 1. There is no evidence of acute deep vein thrombosis in the lower extremities bilaterally. Noninvasive venous studies cannot rule out isolated calf vein obstruction. HISTORY: Interstitial lung disease, congestive heart failure. PREVIOUS STUDIES: No previous studies for comparison. DISCLAIMER: The study images and the final report will be retained in the patient chart by the Vascular Laboratory for the legally required time period. This chart constitutes the legal record of any testing performed. ATTESTATION: I have reviewed and interpreted the pertinent images and measurements of this study. I attest to the conclusions in the final report that is provided above. Electronically Signed By: Kelvin Aj MD [facility] [phone] 11/02/2024 9:45:22 AM PROFESSOR OF POLITICAL SCIENCE Procedure Note Kelvin Aj MD - 11/02/2024 [facility] - Department of Vascular Surgery,Vascular Laboratory [address] [place] [address] Lower Extremity Venous Ultrasound Report Patient Name: JONAH CONN : 1950 (74y 1m) Study Date: 11/02/2024 9:23:15 AM Gender: M Tech: Location: [id number] Ref Provider: CHELO CHAPPELL Quality: Adequate Order Provider: CHELO CHAPPELL PROCEDURES: Vascular Report: Venous Duplex imaging was performed bilaterally in the lower extremities.The common femoral, femoral, popliteal, posterior tibial, peroneal veins wereevaluated for patency, spontaneity and phasicity with Doppler, compression and augmentationmaneuvers. Great saphenous vein proximal at the junction was evaluated with compressionmaneuvers. INDICATIONS: severe LE edema - FINDINGS: Performing Paralegal Instructor: Elizabeth Lancaster RVT, RDMS. Bilateral: Venous Doppler signals in the bilateral lower extremity are within normallimits for spontaneity and phasicity and respond normally to augmentation maneuvers.No evidence of deep vein thrombus by duplex, proximal to the calf. Comments: Unable to visualize the left deep calf veins due to edema. CONCLUSIONS: 1. There is no evidence of acute deep vein thrombosis in the lowerextremities bilaterally. Noninvasive venous studies cannot rule out isolated calf veinobstruction. HISTORY: Interstitial lung disease, congestive heart failure. PREVIOUS STUDIES: No previous studies for comparison. DISCLAIMER: The study images and the final report will be retained in the patientchart by the Vascular Laboratory for the legally required time period. This chartconstitutes the legal record of any testing performed. ATTESTATION: I have reviewed and interpreted the pertinent images and measurements ofthis study. I attest to the conclusions in the final report that is provided above. Electronically Signed By: Kelvin Aj MD [facility] [phone] 11/02/2024 9:45:22 AM PROFESSOR OF POLITICAL SCIENCE Chelo Chappell MD IMG US PROCEDURES Final Res ult * POCT glucose (11/02/2024 8:02 AM PROFESSOR OF POLITICAL SCIENCE) Glucose, POC 148 70 - 199 mg/dL Blood 11/02/2024 8:02 AM PROFESSOR OF POLITICAL SCIENCE 11/02/2024 8:02 AM PROFESSOR OF POLITICAL SCIENCE Chelo Chappell MD LAB POCT ORDERABLES - DEVIC E Final Result [facility] Department [place] [address] * Urinalysis reflex to microscopic (11/01/2024 9:07 PM PROFESSOR OF POLITICAL SCIENCE) Color, ur Straw Yellow Clarity, ur Clear Clear [facility] Specific gravity, ur 1.008 1.003 - 1.030 [facility] pH, urine 6.5 [facility] Comment: Interpretive Data U rine pH is affected by diet, medications, systemic acid-base disturbances, and renal tubular function. pH may affect urinary stone formation. For example, urine pH below 6.0 may help reduce the tendency for calcium phosphate stones and pH greater than 6.0 may reduce the tendency for uric acid stone formation. Source: [facility] Current Interpretive Data was last revised on 2017 Protein, ur ql Negative Negative [facility] Glucose, ur ql Negative Negative [facility] Ketones, ur Negative Negative [facility] Bilirubin, ur Negative Negative [facility] Blood, ur Negative Negative [facility] Urobilinogen, ur <2.0 <2.0 mg/dL [facility] Nitrite, ur Negative Negative [facility] Leukocyte esterase, ur Negative Negative [facility] UA reflex comment Reflex conditions for microscopic UA not met. [facility] Urine 11/01/2024 9:07 PM PROFESSOR OF POLITICAL SCIENCE 11/01/2024 10:00 PM PROFESSOR OF POLITICAL SCIENCE us Freddy Soto MD LAB URINE ORDERABLES Final Result Performing Organization Address [place]/[facility] [place]/ZIP Co de Phone Number [facility] [place] [address] * POCT glucose (11/01/2024 8:53 PM PROFESSOR OF POLITICAL SCIENCE) Pathologist [facility] Glucose, POC 140 70 - 199 mg/dL Blood 11/01/2024 8:53 PM PROFESSOR OF POLITICAL SCIENCE 11/01/2024 8:53 PM PROFESSOR OF POLITICAL SCIENCE us Chelo Chappell MD LAB POCT ORDERABLES - DEVIC E Final Result Performing Organization Address [facility] [place]/ZIP Co de Phone Number [facility] [place] [address] * eGFR (11/01/2024 6:24 PM PROFESSOR OF POLITICAL SCIENCE) [facility] eGFR >90 >=60 mL/min/1. 73 m2 Comment: Interpretive Data Reference Interval Normal >/= 90 mL/min/1.73m2 Mildly decreased* 60 - 89 mL/min/1.73m2 Mildly to moderately decreased 45 - 59 mL/min/1.73m2 Moderately to severely decreased 30 - 44 mL/min/1.73m2 Severely decreased 15 - 29 mL/min/1.73m2 Kidney Failure < 15 mL/min/1.73m2 *Relative to young adult level Estimated glomerular filtration rate is determined by the 2020 CKD-EPI equation recommended by the National Kidney Foundation (A Unifying Approach to GFR Estimation: Recommendations of the NKF-ASK Task Force on Reassessing the Inclusion of Race in Diagnosing Kidney Disease, JASN 202). The CKD-EPI equation should not be used for patients with unstable renal function and has not been validated in children and those over 70. Current interpretive data was last reviewed 2021. Blood 11/01/2024 6:24 PM PROFESSOR OF POLITICAL SCIENCE 11/01/2024 6:57 PM PROFESSOR OF POLITICAL SCIENCE us Freddy Soto MD LAB BLOOD ORDERABLES Final Result [facility] Department [place] [address] * (ABNORMAL) Differential, auto (11/01/2024 6:24 PM PROFESSOR OF POLITICAL SCIENCE) Neutrophil abs 13.0(H) 1.5 - 6.5 K/cumm Imm gran abs 0.1 0.0 - 0.1 K/cumm [facility] Lymphocyte abs 1.1 0.8 - 3.3 K/cumm [facility] Monocyte abs 0.9(H) 0.2 - 0.8 K/cumm [facility] Eosinophil abs 0.1 0.0 - 0.5 K/cumm [facility] Basophil abs 0.0 0.0 - 0.1 K/cumm [facility] Neutrophil pct 85.4 % [facility] Comment: Interpretive Data Percent cell count reference ranges are not reported, since discordance with absolute values may lead to misinterpretation of CBC data. Current Interpretive Data was last revised on 2018. Imm gran pct 0.9 % [facility] Comment: Interpretive Data Percent cell count reference ranges are not reported, since discordance with absolute values may lead to misinterpretation of CBC data. Current Interpretive Data was last revised on 2018. Lymphocyte pct 7.1 % [facility] Comment: Interpretive Data Percent cell count reference ranges are not reported, since discordance with absolute values may lead to misinterpretation of CBC data. Current Interpretive Data was last revised on 2018. Monocyte pct 5.8 % [facility] Comment: Interpretive Data Percent cell count reference ranges are not reported, since discordance with absolute values may lead to misinterpretation of CBC data. Current Interpretive Data was last revised on 2018. Eosinophil pct 0.5 % [facility] Comment: Interpretive Data Percent cell count reference ranges are not reported, since discordance with absolute values may lead to misinterpretation of CBC data. Current Interpretive Data was last revised on 2018. Basophil pct 0.3 % [facility] Comment: Interpretive Data Percent cell count reference ranges are not reported, since discordance with absolute values may lead to misinterpretation of CBC data. Current Interpretive Data was last revised on 2018. Blood 11/01/2024 6:24 PM PROFESSOR OF POLITICAL SCIENCE 11/01/2024 6:57 PM PROFESSOR OF POLITICAL SCIENCE Freddy Soto MD LAB BLOOD ORDERABLES Final Result [facility] Department [place] [address] * Pro B-type natriuretic peptide (11/01/2024 6:24 PM PROFESSOR OF POLITICAL SCIENCE) NT-proBNP 145 <=450 pg/mL Comment: Interpretive Comments: A. Dyspnea in Acute Care Setting All Ages: < 300 pg/ml, acute heart failure unlikely. < 50 yrs: 300 - 450 pg/ml, further investigation warranted. > 450 pg/ml, acute heart failure likely. 50 - 74 yrs: 300 - 900 pg/ml, further investigation warranted. > 900 pg/ml, acute heart failure likely . > or = 75 yrs: 450 - 1800 pg/ml, further investigation warranted. > 1800 pg/ml, acute heart failure likely. B. Non-acute Setting < 75 yrs < 125 pg/ml, rules out heart failure. > or = 125 pg/ml, further investigation warranted. > or = 75 yrs < 450 pg/ml, rules out heart failure. > or = 450 pg/ml, further investigation warranted. - Knowledge of each individual patient's NT-proBNP range may be more useful than using similar cut-points for every patient. Please note that marked elevations in NT-proBNP levels may be observed in state other than Left Ventricular Congestive Failure, including: acute coronary syndromes, right heart strain/failure (including pulmonary embolism and cor pulmonale), critical illness, renal failure, as well as advanced age. - References: 1. Eren GAMINO et.al. Eur Heart J. 2006:27:330-337. 2. Choco MONTANO, Amanda PARRA. J. AM Misbah Cardiol: Cardiovasc Imag. 2009;2: 216- 225. Interpretive Data Last Revised Date: 2018. Blood 11/01/2024 6:24 PM PROFESSOR OF POLITICAL SCIENCE 11/01/2024 6:57 PM PROFESSOR OF POLITICAL SCIENCE Freddy Soto MD LAB BLOOD ORDERABLES Final Result Performing Organization Address [facility] [place]/[facility] Co de Phone Number [facility] [place] [address] * Calcium, ionized (11/01/2024 6:24 PM PROFESSOR OF POLITICAL SCIENCE) Calcium, Ionized 4.83 4.50 - 5.10 mg/dL Blood 11/01/2024 6:24 PM PROFESSOR OF POLITICAL SCIENCE 11/01/2024 6:49 PM PROFESSOR OF POLITICAL SCIENCE Freddy Soto MD LAB BLOOD ORDERABLES Final Result Performing Organization Address [facility] [place]/[facility] de Phone Number [facility] [place] [address] * (ABNORMAL) Iron profile w/ IBC (11/01/2024 6:24 PM PROFESSOR OF POLITICAL SCIENCE) Iron 46(L) 50 - 150 mcg/dL TIBC See Comment 250 - 400 mcg/dL [facility] Comment:Unable to calculate Transferrin saturation See Comment 20 - 50 % [facility] Comment:Unable to calculate Blood 11/01/2024 6:24 PM PROFESSOR OF POLITICAL SCIENCE 11/01/2024 6:57 PM PROFESSOR OF POLITICAL SCIENCE Freddy Soto MD LAB BLOOD ORDERABLES Final Result Performing Organization Address [place]/[facility] [place]/ZIP Co de Phone Number [facility] [place] [address] * (ABNORMAL) CBC with auto differential (11/01/2024 6:24 PM PROFESSOR OF POLITICAL SCIENCE) [facility] WBC 15.2(H) 3.8 - 9.9 K/cumm Hgb 13.5 13.0 - 17.5 g/dL [facility] Hct 41.6 38.9 - 50.3 % [facility] Plt 241 150 - 400 K/cumm [facility] MPV 11.0 9.1 - 12.3 fL [facility] RBC 4.14(L) 4.30 - 5.80 M/cumm [facility] MCV 100.5(H) 81.3 - 96.4 fL [facility] MCH 32.6 27.1 - 33.3 pg [facility] MCHC 32.5 32.3 - 35.7 g/dL [facility] RDW CV 13.4 11.1 - 14.9 % [facility] RDW SD 48.0 35.7 - 48.1 fL [facility] NRBC abs 0.00 0.00 - 0.01 K/cumm [facility] Blood 11/01/2024 6:24 PM PROFESSOR OF POLITICAL SCIENCE 11/01/2024 6:57 PM PROFESSOR OF POLITICAL SCIENCE Freddy Soto MD LAB BLOOD ORDERABLES Final Result Performing Organization Address [facility] [place]/ZIP Co de Phone Number [facility] [place] [address] * TSH (11/01/2024 6:24 PM PROFESSOR OF POLITICAL SCIENCE) [facility] Thyroid Stimulating Hormone 1.73 0.30 - 4.20 mcIUnit/mL Blood 11/01/2024 6:24 PM PROFESSOR OF POLITICAL SCIENCE 11/01/2024 6:57 PM PROFESSOR OF POLITICAL SCIENCE Freddy Soto MD LAB BLOOD ORDERABLES Final Result Performing Organization Address [facility] [place] [address] * Phosphorus (11/01/2024 6:24 PM PROFESSOR OF POLITICAL SCIENCE) [facility] Phosphorus, pl 2.7 2.3 - 4.5 mg/dL Blood 11/01/2024 6:24 PM PROFESSOR OF POLITICAL SCIENCE 11/01/2024 6:57 PM PROFESSOR OF POLITICAL SCIENCE Freddy Soto MD LAB BLOOD ORDERABLES Final Result Performing Organization Address [facility] de Phone Number [facility] [place] [address] * Magnesium (11/01/2024 6:24 PM PROFESSOR OF POLITICAL SCIENCE) [facility] Magnesium 2.0 1.4 - 2.5 mg/dL Blood 11/01/2024 6:24 PM PROFESSOR OF POLITICAL SCIENCE 11/01/2024 6:57 PM PROFESSOR OF POLITICAL SCIENCE Result [facility] Freddy Soto MD LAB BLOOD ORDERABLES Final Result Performing Organization Address [facility] [place] [address] * (ABNORMAL) Hemoglobin A1c (11/01/2024 6:24 PM PROFESSOR OF POLITICAL SCIENCE) [facility] Hgb A1C 6.6(H) 4.0 - 5.6 % Estimated Average Glucose 143 mg/dL [facility] Comment: The ADA recommends reporting an estimated Average Glucose (eAG) with all Hemoglobin A1c results using the equation derived from a study of 507 normal and diabetic adults. Minority populations were underrepresented and children were not included. (Diabetes Care 2020; 43(S1): S66-S76). The eAG is not equivalent to a fasting glucose. Blood 11/01/2024 6:24 PM PROFESSOR OF POLITICAL SCIENCE 11/01/2024 6:58 PM PROFESSOR OF POLITICAL SCIENCE Freddy Soto MD LAB BLOOD ORDERABLES Final Result Performing Organization Address [facility] de Phone Number [facility] Department [place] [address] * (ABNORMAL) Ferritin (11/01/2024 6:24 PM PROFESSOR OF POLITICAL SCIENCE) Ferritin 517(H) 30 - 400 ng/mL Blood 11/01/2024 6:24 PM PROFESSOR OF POLITICAL SCIENCE 11/01/2024 6:57 PM PROFESSOR OF POLITICAL SCIENCE Freddy Soto MD LAB BLOOD ORDERABLES Final Result Performing Organization Address [facility] de Phone Number [facility] Department [place] [address] * Lipid panel (11/01/2024 6:24 PM PROFESSOR OF POLITICAL SCIENCE) Cholesterol 164 30 - 199 mg/dL Comment: Interpretive Data Ages < or = 19 years Acceptable: <170 mg/dL Borderline high: 170-199 mg/dL High: >or= 200 mg/dL Ages > or = 20 years Desirable: <200 mg/dL Borderline high: 200-239 mg/dL High: >or= 240 mg/dL Literature References: 1. Expert Panel on Integrated Guidelines for Cardiovascular Health and Risk Reduction in Children and Adolescents. Pediatrics 2011;128:S213 2. NCEP Expert Panel. Circulation 2004;110:227 Current Interpretive Data was last revised on 2018. Triglycerides 105 <=149 mg/dL [facility] Comment: Interpretive Data Ages < or = 9 years Acceptable: <75 mg/dL Borderline high: 75-99 mg/dL High: >or= 100 mg/dL Ages 10 to 20 years Acceptable: <90 mg/dL Borderline high: 90-129 mg/dL High: >or= 130 mg/dL Ages > or = 20 years Desirable: <150 mg/dL Borderline high: 150-199 mg/dL High: 200-499 mg/dL Very high: >or= 499 mg/dL Literature References: 1. Expert Panel on Integrated Guidelines for Cardiovascular Health and Risk Reduction in Children and Adolescents. Pediatrics 2011;128:S213 2. NCEP Expert Panel. Circulation 2004;110:227 Current Interpretive Data was last revised on 2018. HDL 66 >=40 mg/dL [facility] Comment: Interpretive Data Ages < or = 19 years Acceptable: >45 mg/dL Borderline low: 40-45 mg/dL Low: <40 mg/dL Ages > or = 20 years Desirable: >or= 60 mg/dL Low: <40 mg/dL Literature References: 1. Expert Panel on Integrated Guidelines for Cardiovascular Health and Risk Reduction in Children and Adolescents. Pediatrics 2011;128:S213 2. NCEP Expert Panel. Circulation 2004;110:227 Current Interpretive Data was last revised on 2018. LDL, calculated 79 <=129 mg/dL [facility] Comment: Interpretive Data Ages < or = 19 years Acceptable: <110 mg/dL Borderline high: 110-129 mg/dL High: >or= 130 mg/dL Ages > or = 20 years Optimal: <100 mg/dL Near optimal: 100-129 mg/dL Borderline high: 130-159 mg/dL High: >160 mg/dL Calculated using the Luiz LDL-C estimating equation. This equation was implemented on 2024. Prior to this date LDL-C was estimated using the Friedewald equation. Literature References: 1. Expert Panel on Integrated Guidelines for Cardiovascular Health and Risk Reduction in Children and Adolescents. Pediatrics 2011;128:S213 2. NCEP Expert Panel. Circulation 2004;110:227 3. Luiz Alvarado et al. BRADY Cardiol. 2020 January 28;5(5):540-548. doi: [email or web address] Current Interpretive Data was last revised on 2024. Non-HDL Cholesterol 98 mg/dL [facility] Comment: Interpretive Data Ages < or = 19 years Acceptable: <120 mg/dL Borderline high: 120-144 mg/dL High: >145 mg/dL Ages > or = 20 years When triglycerides are >200 mg/dL, Non-HDL cholesterol is a secondary target of therapy with treatment goals that are 30 mg/dL greater than the LDL cholesterol target. Literature References: 1. Expert Panel on Integrated Guidelines for Cardiovascular Health and Risk Reduction in Children and Adolescents. Pediatrics 2011;128:S213 2. NCEP Expert Panel. Circulation 2004;110:227 Current Interpretive Data was last revised on 2018. Chol/HDL ratio 2 [facility] Blood 11/01/2024 6:24 PM PROFESSOR OF POLITICAL SCIENCE 11/01/2024 6:57 PM PROFESSOR OF POLITICAL SCIENCE us Freddy Soto MD LAB BLOOD ORDERABLES Final Result [facility] Department [place] [address] * (ABNORMAL) Comprehensive metabolic panel (11/01/2024 6:24 PM PROFESSOR OF POLITICAL SCIENCE) Sodium 145 135 - 145 mmol/L Potassium, pl 4.7 3.3 - 4.9 mmol/L [facility] Comment:Hemolyzed; Potassium value may be falsely elevated by as much as 0.3-0.5 mmol/L. Suggest redraw and reanalysis. Chloride 107 97 - 110 mmol/L [facility] CO2 27 22 - 32 mmol/L [facility] Anion gap 11 2 - 15 mmol/L [facility] BUN 17 6 - 25 mg/dL [facility] Creatinine 0.67(L) 0.80 - 1.30 mg/dL [facility] Glucose 134 70 - 199 mg/dL [facility] Comment: Interpretive Data Fasting glucose >/= 126 mg/dl is diagnostic for diabetes. Fasting is defined as no caloric intake for at least 8 hours. Fasting glucose between 100 mg/dl to 125 mg/dl is diagnostic of prediabetes. In a patient with classic symptoms of hyperglycemia or hyperglycemic crisis, a random glucose >/= 200 mg/dl is diagnostic for diabetes. In the absence of unequivocal hyperglycemia, results should be confirmed by repeat testing. The classification and Diagnosis of Diabetes Diabetes Care 202; 46: S19-S40. Current interpretive data was last revised 2022. Calcium 9.3 8.5 - 10.3 mg/dL [facility] Bilirubin, total 0.5 0.1 - 1.2 mg/dL [facility] Protein, pl 6.6 6.5 - 8.5 g/dL [facility] Albumin 3.7 3.5 - 5.0 g/dL [facility] Alk phos 60 40 - 130 Units/L [facility] ALT 28 7 - 55 Units/L [facility] AST 31 10 - 50 Units/L [facility] Comment:Hemolyzed; result ma y be falsely elevated Blood 11/01/2024 6:24 PM PROFESSOR OF POLITICAL SCIENCE 11/01/2024 6:57 PM PROFESSOR OF POLITICAL SCIENCE us Freddy Soto MD LAB BLOOD ORDERABLES Final Result Performing Organization Address [facility] de Phone Number [facility] Department [place] [address] * ECG 12 lead (11/01/2024 5:42 PM PROFESSOR OF POLITICAL SCIENCE) Ventricular Rate EKG/Min 93 BPM [facility] Atrial Rate 93 BPM [facility] [place]-Interval (MSEC) 156 ms [facility] QRS-Interval (MSEC) 78 ms [facility] QT-Interval (MSEC) 328 ms [facility] QTc 407 ms [facility] P [place] 1 degrees [facility] R [place] -21 degrees [facility] T [place] 77 degrees [facility] Diagnosis Normal sinus rhythm Nonspecific ST and T wave abnormality Abnormal ECG No previous ECGs available Confirmed by Oren Red MD ([id number]) on 11/02/2024 6:35:56 PM [facility] 11/01/2024 5:42 PM PROFESSOR OF POLITICAL SCIENCE 11/02/2024 6:35 PM PROFESSOR OF POLITICAL SCIENCE us Chelo Chappell MD ECG ORDERABLES Final Resul t Performing Organization Address [facility] Co de Phone Number [facility] * RIGHT LEFT HEART CATHETERIZATION CORONARY GRAFT WITH WITHOUT LEFT VENTRICULOGRAPHY ANGIOGRAM, CORONARY FLOW VELOCITY (CFR) / INSTATANEOUS FLOW VELOCITY (IFR), 1ST VESSEL, CORONARY OCT, 1ST VESSEL (10/28/2024 11:03 AM PROFESSOR OF POLITICAL SCIENCE) Anatomical Region Laterality Modality X-Ray Angiograph y Impressions 10/28/2024 2:13 PM PROFESSOR OF POLITICAL SCIENCE Moderate ostial left main disease, nonischemic on IFR and intravascular ultrasound assessment(MLA>12mm2) Elevated left and right-sided filling pressures, mild group 2 pulmonary hypertension. Preserved right ventricular function based on hemodynamics. THERAPEUTIC RECOMMENDATIONS: Would recommend re-initiation of low-dose diuretic therapy, compression therapy. Would pursue a venous reflux study if not already done. Narrative 10/28/2024 2:13 PM PROFESSOR OF POLITICAL SCIENCE Images from the original result were not included. Cardiovascular Procedure Center [facility] [address], [address] [place] [id number] DIAGNOSTIC CATHETERIZATION REPORT Patient: Jonah Conn : 1950 MR number: [id number] Date of Service: 10/28/2024 Staffing Recruiter: Chet Esposito MD INDICATION: Swelling PATIENT CLINICAL PROFILE: Jonah Conn is a 74 y.o. male with a history of shortness of breath and likely relatively new diagnosis of hypersensitivity pneumonitis. He was placed on prednisone and subsequently saw pulmonology or [facility]. His immunosuppression has been transitioned. Since starting prednisone the patient began having significant lower extremity edema that has been refractory to diuretic therapy, compression therapy including wraps and compression socks. His prednisone has been stopped however his edema has persisted. He continues to be short of breath. His diuretic therapy recently been stopped with no significant change in his lower extremity swelling. His CT chest was notable for significant coronary calcifications, there was no evidence for constriction based on his CT chest or echocardiogram. He was referred for left heart and right heart catheterization for further evaluation PROCEDURE: The risks, benefits and alternatives of the procedures and moderate sedation were explained to the patient and informed consent was obtained. The patient was brought to the label stitcher and placed on the table. The RIGHT radial artery site was infiltrated with 1% lidocaine. The vessel was accessed using ultrasound guidance. Using the modified Seldinger technique, a wire was threaded into the vessel, and a 6 Fr Sheath was advanced over the wire into the vessel. Right antecubital venous space was used for right heart catheterization. This was accessed using an existing IV Left coronary artery angiogram was performed using a 5 Fr JL3.5 catheter. Right coronary artery angiogram was performed using a 5 Fr JR4 catheter. Left ventricular hemodynamics were measured using JR4 catheter, no left ventriculogram was done. IFR done using EBU catheter as well as intravascular ultrasound Right heart catheterization was done via pulmonary artery catheter I provided direct [id number] moderate conscious sedation which administered by independent trained nurse using fentanyl and Versed for 60 minutes At the end of the procedure, the radial artery sheath was removed with TR band for hemostasis. Patient was transferred to the holding area in stable condition. RESULTS: Right Heart Catheterization: RA Pressure: Right atrial pressure 14 RV Presure: 54/14 PA Pressure: 54/27, mean of 36 PCWP mean: 20 AO saturation: 92% Mixed venous saturation: 69% CO/CI 6.84, 2.7 by [place], 7.19, 2.84 by [id number] PVR: 2.3 Mahoney units: (MPAP-PCWP)/CO Pulmonary artery pulsatility index: 1.9 Left ventricular pressure 140/20 Coronary Arteriography: Left main coronary: Ostial 50% stenosis Left anterior descending: Mild diffuse calcific disease Left circumflex: Large vessel which supplies 1 major OM branch plus a high OM/ramus branch. Normal Right coronary artery: Right dominant system. Mild diffuse calcific disease IFR assessment was done of the left main. The wire was placed in the LAD in the IFR was measured at 0.86 initially however there was drift. It was remeasured at 0.90 on pullback with no drift. There was a few dots of ischemic units in the LAD along with approximately 5 from the left main. The wire was subsequently advanced in the LAD and intravascular ultrasound was done of the left main. This showed a large minimal luminal area well over 12 millimeter squared with eccentric calcification COMPLICATIONS: None. DIAGNOSTIC us Boogie Luna MD CV CARDIAC CATH PROCEDURES F inal Result * (ABNORMAL) POCT Activated clotting time, low range (10/28/2024 10:59 AM PROFESSOR OF POLITICAL SCIENCE) ACT 223(H) 123 - 168 sec POC Performer [id number] [facility] POC Device Number [id number] [facility] Blood 10/28/2024 10:5 9 AM PROFESSOR OF POLITICAL SCIENCE 10/28/2024 10:59 AM PROFESSOR OF POLITICAL SCIENCE us Chet Esposito MD LAB POCT ORDERABLES - DEVICE Final Result Performing Organization Address [facility] de Phone Number [facility] Department [place] [address] * (ABNORMAL) POCT Activated clotting time, low range (10/28/2024 10:48 AM PROFESSOR OF POLITICAL SCIENCE) ACT 285(H) 123 - 168 sec POC Performer [id number] [facility] POC Device Number [id number] [facility] Blood 10/28/2024 10:4 8 AM PROFESSOR OF POLITICAL SCIENCE 10/28/2024 10:48 AM PROFESSOR OF POLITICAL SCIENCE us Chet Esposito MD LAB POCT ORDERABLES - DEVICE Final Result Performing Organization Address [facility] de Phone Number [facility] Department [place] [address] * (ABNORMAL) POCT Activated clotting time, low range (10/28/2024 10:34 AM PROFESSOR OF POLITICAL SCIENCE) ACT 205(H) 123 - 168 sec POC Performer [id number] [facility] POC Device Number [id number] [facility] Blood 10/28/2024 10:3 4 AM PROFESSOR OF POLITICAL SCIENCE 10/28/2024 10:34 AM PROFESSOR OF POLITICAL SCIENCE us Chet Esposito MD LAB POCT ORDERABLES - DEVICE Final Result Performing Organization Address [facility] Co de Phone Number [facility] [place] [address] * (ABNORMAL) POCT oxyhemoglobin (10/28/2024 10:07 AM PROFESSOR OF POLITICAL SCIENCE) QUALITY HEAD Oxyhemoglobin 92.6 >=65.0 % [facility] Hemoglobin 12.5(L) 13.0 - 17.5 g/dL [facility] QUALITY HEAD O2 content 16.1 15.0 - 22.0 Vol % [facility] Anatomic Site aPOC Aorta descend [facility] Blood 10/28/2024 10:0 7 AM PROFESSOR OF POLITICAL SCIENCE 10/28/2024 10:07 AM PROFESSOR OF POLITICAL SCIENCE Chet Esposito MD LAB POCT ORDERABLES - DEVICE [place] [address] * (ABNORMAL) POCT oxyhemoglobin (10/28/2024 10:06 AM PROFESSOR OF POLITICAL SCIENCE) QUALITY HEAD Oxyhemoglobin 69.9 >=65.0 % [facility] Hemoglobin 12.4(L) 13.0 - 17.5 g/dL [facility] QUALITY HEAD O2 content 12.0(L) 15.0 - 22.0 Vol % [facility] Anatomic Site aPOC Pulm Art right [facility] Blood 10/28/2024 10:0 6 AM PROFESSOR OF POLITICAL SCIENCE 10/28/2024 10:06 AM PROFESSOR OF POLITICAL SCIENCE us Chet Esposito MD LAB POCT ORDERABLES - DEVICE [place] [address] * (ABNORMAL) POCT oxyhemoglobin (10/28/2024 10:06 AM PROFESSOR OF POLITICAL SCIENCE) QUALITY HEAD Oxyhemoglobin 68.9 >=65.0 % [facility] [place] Hemoglobin 12.4(L) 13.0 - 17.5 g/dL [facility] QUALITY HEAD O2 content 11.8(L) 15.0 - 22.0 Vol % [facility] Anatomic Site aPOC Pulm Art right [facility] Blood 10/28/2024 10:0 6 AM PROFESSOR OF POLITICAL SCIENCE 10/28/2024 10:06 AM PROFESSOR OF POLITICAL SCIENCE us Chet Esposito MD LAB POCT ORDERABLES - DEVICE Final Result [facility] Department [place] [address] * (ABNORMAL) CBC without differential (10/28/2024 9:34 AM PROFESSOR OF POLITICAL SCIENCE) WBC 15.5(H) 3.8 - 9.9 K/cumm Hgb 12.5(L) 13.0 - 17.5 g/dL [facility] Hct 36.7(L) 38.9 - 50.3 % [facility] Plt 236 150 - 400 K/cumm [facility] MPV 10.7 9.1 - 12.3 fL [facility] RBC 3.79(L) 4.30 - 5.80 M/cumm [facility] MCV 96.8(H) 81.3 - 96.4 fL [facility] MCH 33.0 27.1 - 33.3 pg [facility] MCHC 34.1 32.3 - 35.7 g/dL [facility] RDW CV 13.0 11.1 - 14.9 % [facility] RDW SD 45.7 35.7 - 48.1 fL [facility] NRBC abs 0.00 0.00 - 0.01 K/cumm [facility] Blood 10/28/2024 9:34 AM PROFESSOR OF POLITICAL SCIENCE 10/28/2024 9:57 AM PROFESSOR OF POLITICAL SCIENCE Narrative [facility] - 10/28/2024 10:15 AM PROFESSOR OF POLITICAL SCIENCE To be drawn after hydration bolus complete us Chet Esposito MD LAB BLOOD ORDERABLES Final Result [facility] Department [place] [address] * (ABNORMAL) CBC with auto differential (10/22/2024 1:07 PM PROFESSOR OF POLITICAL SCIENCE) WBC 12.7(H) 3.8 - 10.8 Thousand/ uL [facility] RBC, POC 4.02(L) 4.20 - 5.80 Million/u L [facility] Hgb 13.5 13.2 - 17.1 g/dL [facility] Hct 40.7 38.5 - 50.0 % [facility] MCV 101.2(H) 80.0 - 100.0 fL [facility] MCH 33.6(H) 27.0 - 33.0 pg [facility] MCHC 33.2 32.0 - 36.0 g/dL [facility] Comment: For adults, a slight decrease in the calculated MCHC value (in the range of 30 to 32 g/dL) is most likely not clinically significant; however, it should be interpreted with caution in correlation with other red cell parameters and the patient's clinical condition. Rdw 12.1 11.0 - 15.0 % [facility] Platelets 276 140 - 400 Thousand/ uL [facility] MPV 10.8 7.5 - 12.5 fL [facility] Neutrophils, abs 10,744(H) 1,500 - 7,800 cells/uL [facility] Lymphocytes, abs 1,080 850 - 3,900 cells/uL [facility] Monocyte abs 813 200 - 950 cells/uL [facility] Eosinophils, abs 38 15 - 500 cells/uL [facility] Basophils, abs 25 0 - 200 cells/uL [facility] Neutrophils 84.6 % [facility] Lymphocyte pct 8.5 % [facility] Monocytes 6.4 % [facility] Eosinophils 0.3 % [facility] Basophils 0.2 % [facility] Blood 10/22/2024 1:07 PM PROFESSOR OF POLITICAL SCIENCE 10/22/2024 1:07 PM PROFESSOR OF POLITICAL SCIENCE Boogie Luna MD LAB BLOOD ORDERABLES Final R esult Performing Organization Address [facility] Co de Phone Number [facility] [address] [place] [address] * (ABNORMAL) Basic metabolic panel (10/22/2024 1:07 PM PROFESSOR OF POLITICAL SCIENCE) Glucose 129(H) 65 - 99 mg/dL [facility] Comment: Fasting reference interval For someone without known diabetes, a glucose value >125 mg/dL indicates that they may have diabetes and this should be confirmed with a follow-up test. BUN 17 7 - 25 mg/dL [facility] Creatinine 0.77 0.70 - 1.28 mg/dL [facility] eGFR 93 > OR = 60 mL/min/1.7 3m2 [facility] BUN/creat ratio SEE NOTE: (calc) [facility] Comment: Not Reported: BUN and Creatinine are within reference range. Sodium 144 135 - 146 mmol/L [facility] Potassium, pl 4.4 3.5 - 5.3 mmol/L [facility] Chloride 106 98 - 110 mmol/L [facility] CO2 29 20 - 32 mmol/L [facility] Calcium 9.3 8.6 - 10.3 mg/dL [facility] Blood 10/22/2024 1:07 PM PROFESSOR OF POLITICAL SCIENCE 10/22/2024 1:07 PM PROFESSOR OF POLITICAL SCIENCE Boogie Luna MD LAB BLOOD ORDERABLES Final R esult Performing Organization Address [facility] Co de Phone Number [facility] [address] [phone] * ECG 12-LEAD (10/20/2024 7:27 PM PROFESSOR OF POLITICAL SCIENCE) Narrative [facility] - 10/20/2024 7:27 PM PROFESSOR OF POLITICAL SCIENCE Larry Lord Jr., MD 10/20/2024 7:34 PM ECG 12 lead Date/Time: 10/20/2024 7:27 PM Performed by: Larry Lord Jr., MD Authorized by: Larry Lord Jr., MD Comments: EKG Interpretation Interpreted by ED physician in absence of a agricultural economics professor Ventricular rate: 94 bpm Rhythm: NSR with infrequent PVC [place]: Left axis deviation Intervals: normal Other findings: no acute ischemia, no ST segment elevation, nonspecific T-wave abnormalities Interpretation: nsr with infrequent PVC Compared to priors: yes, earlier today in ED, and similar. Procedure Note Larry Lord Jr., MD - 10/20/2024 7:27 PM CST Procedure ECG 12 lead Date/Time: 10/20/2024 7:27 PM Performed by: Larry Lord Jr., MD Authorized by: Larry Lord Jr., MD Comments: EKG Interpretation Interpreted by ED physician in absence of a agricultural economics professor Ventricular rate: 94 bpm Rhythm: NSR with infrequent PVC [place]: Left axis deviation Intervals: normal Other findings: no acute ischemia, no ST segment elevation, nonspecificT-wave abnormalities Interpretation: nsr with infrequent PVC Compared to priors: yes, earlier today in ED, and similar. Larry Lord Jr., MD 10/20/241933 us Larry Lord Jr., MD ECG ORDERABLES Domenica l Result [facility] * (ABNORMAL) Troponin T high-sensitivity 2-hour (10/20/2024 5:14 PM PROFESSOR OF POLITICAL SCIENCE) Trop T hs 113(H) <=22 ng/L Comment: Interpretive Data For further hscTnT resources including the diagnostic algorithm and an aid in interpretation, copy and paste this link: [email or web address].testcatalog.org/show/[email or web address] Current Interpretive Data last revised 2020. Trop T hs pct delta -14 % [facility] Trop T hs interp Equivocal [facility] Blood 10/20/2024 5:14 PM PROFESSOR OF POLITICAL SCIENCE 10/20/2024 5:17 PM PROFESSOR OF POLITICAL SCIENCE us Larry Lord Jr., MD LAB BLOOD ORDERABLES Final Result [facility] [address] [facility]. Department [place] [address] * XR Chest PA Lateral 2 Views (10/20/2024 3:54 PM PROFESSOR OF POLITICAL SCIENCE) Anatomical Region Laterality Modality Body, Chest N/A Computed Radiogr aphy 10/21/2024 7:59 AM PROFESSOR OF POLITICAL SCIENCE Impressions 10/21/2024 8:02 AM PROFESSOR OF POLITICAL SCIENCE Comparison is made to radiograph dated 03/31/2024. Unchanged elevation of the left hemidiaphragm. Bibasilar atelectasis. No pneumothorax or pleural effusion. Stable cardiomediastinal silhouette. Dictated by: Jordin Franco MD The radiology attending physician has personally reviewed this study, and had reviewed and/or edited this written report and agrees with it. Electronically signed by: Alejandro Watson M.D. Narrative 10/21/2024 8:02 AM PROFESSOR OF POLITICAL SCIENCE EXAMINATION: 2 view chest radiograph Procedure Note Alejandro Watson MD - 10/21/2024 EXAMINATION: 2 view chest radiograph IMPRESSION: Comparison is made to radiograph dated 03/31/2024. Unchanged elevation of the left hemidiaphragm. Bibasilar atelectasis. No pneumothorax or pleural effusion. Stable cardiomediastinal silhouette. Dictated by: Jordin Franco MD The radiology attending physician has personally reviewed this study, and had reviewed and/or edited this written report and agrees with it. Electronically signed by: Alejandro Watson M.D. us Larry Lord Jr., MD IMG XR PROCEDURES Fi nal Result * ECG 12-LEAD (10/20/2024 3:18 PM PROFESSOR OF POLITICAL SCIENCE) Narrative CONS SCIMAGE - 10/20/2024 3:18 PM PROFESSOR OF POLITICAL SCIENCE Larry Lord Jr., MD 10/20/2024 3:20 PM ECG 12 lead Date/Time: 10/20/2024 3:18 PM Performed by: Larry Lord Jr., MD Authorized by: Larry Lord Jr., MD Comments: EKG Interpretation Interpreted by ED physician in absence of a agricultural economics professor Ventricular rate: 95 bpm Rhythm: nsr with PVCs [place]: Left axis deviation Intervals: normal Other findings: no acute ischemia, no ST segment elevation, change in P wave morphologies but not MAT with rate 95 Interpretation: nsr with PVCs Compared to priors: n/a Procedure Note Larry Lord Jr., MD - 10/20/2024 3:18 PM CST Procedure ECG 12 lead Date/Time: 10/20/2024 3:18 PM Performed by: Larry Lord Jr., MD Authorized by: Larry Lord Jr., MD Comments: EKG Interpretation Interpreted by ED physician in absence of a agricultural economics professor Ventricular rate: 95 bpm Rhythm: nsr with PVCs [place]: Left axis deviation Intervals: normal Other findings: no acute ischemia, no ST segment elevation, change in Pwave morphologies but not MAT with rate 95 Interpretation: nsr with PVCs Compared to priors: n/a Larry Lord Jr., MD 10/20/24 1520 us Larry Lord Jr., MD ECG ORDERABLES Domenica l Result CONS SCIMAGE * (ABNORMAL) Troponin T high-sensitivity series (baseline, 2hr, 4hr, 6hr) (10/20/2024 3:14 PM PROFESSOR OF POLITICAL SCIENCE) Trop T hs 131(H) <=22 ng/L Comment: Interpretive Data For further hscTnT resources including the diagnostic algorithm and an aid in interpretation, copy and paste this link: https://nrl.testcatalog.org/show/hsTrop Current Interpretive Data last revised 2020. Blood 10/20/2024 3:14 PM PROFESSOR OF POLITICAL SCIENCE 10/20/2024 3:16 PM PROFESSOR OF POLITICAL SCIENCE us Larry Lord Jr., MD LAB BLOOD ORDERABLES Final Result Performing Organization Address [facility] de Phone Number [facility] [id number] [facility] [place] [address] * (ABNORMAL) Influenza A/B, RSV, and COVID-19 PCR Nasopharyngeal (10/20/2024 3:14 PM PROFESSOR OF POLITICAL SCIENCE) [facility] COVID-19 RNA Negative Negative Influenza A RNA Negative Negative [facility] Influenza B RNA Negative Negative [facility] RSV RNA Positive(A) Negative [facility] Comment: Testing performed by [facility]. This test is performed using the [employer] Xpert Xpress CoV-2/Flu/RSV plus assay. This is a multiplex, real-time reverse transcriptase PCR assay intended for the qualitative detection of nucleic acid from SARS-CoV-2, influenza A, influenza B, and respiratory syncytial virus. This assay has been cleared by the [place] Food and Drug administration. The performance characteristics have been verified by the [facility]. Results must be considered in the clinical context, and a negative result does not rule out infection. Interpretive Data last revised 2023 Nasopharyngeal 10/20/2024 3: 14 PM PROFESSOR OF POLITICAL SCIENCE 10/20/2024 3:16 PM PROFESSOR OF POLITICAL SCIENCE [facility]ative [facility] 10/20/2024 4:08 PM PROFESSOR OF POLITICAL SCIENCE Is the Patient experiencing symptoms consistent with COVID?->No Larry Lord Jr., MD LAB MICROBIOLOGY - G ENERAL ORDERABLES Final Result Performing Organization Address [facility] de Phone Number [facility] [address] [address] [facility]. Department [place] [address] * eGFR (10/20/2024 3:14 PM PROFESSOR OF POLITICAL SCIENCE) [facility] eGFR >90 >=60 mL/min/1. 73 m2 Comment: Interpretive Data Reference Interval Normal >/= 90 mL/min/1.73m2 Mildly decreased* 60 - 89 mL/min/1.73m2 Mildly to moderately decreased 45 - 59 mL/min/1.73m2 Moderately to severely decreased 30 - 44 mL/min/1.73m2 Severely decreased 15 - 29 mL/min/1.73m2 Kidney Failure < 15 mL/min/1.73m2 *Relative to young adult level Estimated glomerular filtration rate is determined by the 2020 CKD-EPI equation recommended by the National Kidney Foundation (A Unifying Approach to GFR Estimation: Recommendations of the NKF-ASK Task Force on Reassessing the Inclusion of Race in Diagnosing Kidney Disease, JASN 2020). The CKD-EPI equation should not be used for patients with unstable renal function and has not been validated in children and those over 70. Current interpretive data was last reviewed 2021. Blood 10/20/2024 3:14 PM PROFESSOR OF POLITICAL SCIENCE 10/20/2024 3:16 PM PROFESSOR OF POLITICAL SCIENCE us Larry Lord Jr., MD LAB BLOOD ORDERABLES Final Result [facility] [address] [facility]. Department [place] [address] * (ABNORMAL) Differential, auto (10/20/2024 3:14 PM PROFESSOR OF POLITICAL SCIENCE) Neutrophil abs 10.8(H) 1.5 - 6.5 K/cumm Imm gran abs 0.1 0.0 - 0.1 K/cumm [facility] Lymphocyte abs 0.8 0.8 - 3.3 K/cumm [facility] Monocyte abs 1.1(H) 0.2 - 0.8 K/cumm [facility] Eosinophil abs 0.1 0.0 - 0.5 K/cumm [facility] Basophil abs 0.0 0.0 - 0.1 K/cumm [facility] Neutrophil pct 83.6 % [facility] Comment: Interpretive Data Percent cell count reference ranges are not reported, since discordance with absolute values may lead to misinterpretation of CBC data. Current Interpretive Data was last revised on 2018. Imm gran pct 0.9 % [facility] Comment: Interpretive Data Percent cell count reference ranges are not reported, since discordance with absolute values may lead to misinterpretation of CBC data. Current Interpretive Data was last revised on 2018. Lymphocyte pct 6.1 % [facility] Comment: Interpretive Data Percent cell count reference ranges are not reported, since discordance with absolute values may lead to misinterpretation of CBC data. Current Interpretive Data was last revised on 2018. Monocyte pct 8.7 % [facility] Comment: Interpretive Data Percent cell count reference ranges are not reported, since discordance with absolute values may lead to misinterpretation of CBC data. Current Interpretive Data was last revised on 2018. Eosinophil pct 0.5 % [facility] Comment: Interpretive Data Percent cell count reference ranges are not reported, since discordance with absolute values may lead to misinterpretation of CBC data. Current Interpretive Data was last revised on 2018. Basophil pct 0.2 % [facility] Comment: Interpretive Data Percent cell count reference ranges are not reported, since discordance with absolute values may lead to misinterpretation of CBC data. Current Interpretive Data was last revised on 2018. Blood 10/20/2024 3:14 PM PROFESSOR OF POLITICAL SCIENCE 10/20/2024 3:16 PM PROFESSOR OF POLITICAL SCIENCE us Larry Lord Jr., MD LAB BLOOD ORDERABLES Final Result [facility] [address] [facility]. Department [place] [address] * Pro B-type natriuretic peptide (10/20/2024 3:14 PM PROFESSOR OF POLITICAL SCIENCE) NT-proBNP 122 <=450 pg/mL Comment: Interpretive Comments: A. Dyspnea in Acute Care Setting All Ages: < 300 pg/ml, acute heart failure unlikely. < 50 yrs: 300 - 450 pg/ml, further investigation warranted. > 450 pg/ml, acute heart failure likely. 50 - 74 yrs: 300 - 900 pg/ml, further investigation warranted. > 900 pg/ml, acute heart failure likely . > or = 75 yrs: 450 - 1800 pg/ml, further investigation warranted. > 1800 pg/ml, acute heart failure likely. B. Non-acute Setting < 75 yrs < 125 pg/ml, rules out heart failure. > or = 125 pg/ml, further investigation warranted. > or = 75 yrs < 450 pg/ml, rules out heart failure. > or = 450 pg/ml, further investigation warranted. - Knowledge of each individual patient's NT-proBNP range may be more useful than using similar cut-points for every patient. Please note that marked elevations in NT-proBNP levels may be observed in state other than Left Ventricular Congestive Failure, including: acute coronary syndromes, right heart strain/failure (including pulmonary embolism and cor pulmonale), critical illness, renal failure, as well as advanced age. - References: 1. Eren GAMINO et.al. Eur Heart J. 2006:27:330-337. 2. Choco RW, Amanda PARRA. J. AM Misbah Cardiol: Cardiovasc Imag. 2009;2: 216- 225. Interpretive Data Last Revised Date: 2018. Blood 10/20/2024 3:14 PM PROFESSOR OF POLITICAL SCIENCE 10/20/2024 3:16 PM PROFESSOR OF POLITICAL SCIENCE us Larry Lord Jr., MD LAB BLOOD ORDERABLES Final Result [facility] [address] [facility]. Department [place] [address] * (ABNORMAL) CBC with auto differential (10/20/2024 3:14 PM PROFESSOR OF POLITICAL SCIENCE) WBC 12.9(H) 3.8 - 9.9 K/cumm Hgb 13.6 13.0 - 17.5 g/dL [facility] Hct 40.3 38.9 - 50.3 % [facility] Plt 257 150 - 400 K/cumm [facility] MPV 10.1 9.1 - 12.[address] [facility] RBC 4.01(L) 4.30 - 5.80 M/cumm [facility] MCV 100.5(H) 81.3 - 96.[address] [facility] MCH 33.9(H) 27.1 - 33.[address] [facility] MCHC 33.7 32.3 - 35.7 g/dL [facility] RDW CV 13.0 11.1 - 14.9 % [facility] RDW SD 48.2(H) 35.7 - 48.1 fL [facility] NRBC abs 0.00 0.00 - 0.01 K/cumm [facility] Blood 10/20/2024 3:14 PM PROFESSOR OF POLITICAL SCIENCE 10/20/2024 3:16 PM PROFESSOR OF POLITICAL SCIENCE us Larry Lodr Jr., MD LAB BLOOD ORDERABLES Final Result [facility] [address] [facility]. [place] [address] * (ABNORMAL) Comprehensive metabolic panel (10/20/2024 3:14 PM PROFESSOR OF POLITICAL SCIENCE) Sodium 137 135 - 145 mmol/L Potassium, pl 3.9 3.3 - 4.9 mmol/L [facility] Chloride 100 97 - 110 mmol/L [facility] CO2 25 22 - 32 mmol/L [facility] Anion gap 12 2 - 15 mmol/L [facility] BUN 21 6 - 25 mg/dL [facility] Creatinine 0.70(L) 0.80 - 1.30 mg/dL [facility] Glucose 149 70 - 199 mg/dL [facility] Comment: Interpretive Data Fasting glucose >/= 126 mg/dl is diagnostic for diabetes. Fasting is defined as no caloric intake for at least 8 hours. Fasting glucose between 100 mg/dl to 125 mg/dl is diagnostic of prediabetes. In a patient with classic symptoms of hyperglycemia or hyperglycemic crisis, a random glucose >/= 200 mg/dl is diagnostic for diabetes. In the absence of unequivocal hyperglycemia, results should be confirmed by repeat testing. The classification and Diagnosis of Diabetes Diabetes Care 2021; 46: S19-S40. Current interpretive data was last revised 2022. Calcium 9.3 8.5 - 10.3 mg/dL [facility] Bilirubin, total 0.6 0.1 - 1.2 mg/dL [facility] Protein, pl 6.4(L) 6.5 - 8.5 g/dL [facility] Albumin 3.6 3.5 - 5.0 g/dL [facility] Alk phos 53 40 - 130 Units/L [facility] ALT 25 7 - 55 Units/L [facility] AST 16 10 - 50 Units/L [facility] Blood 10/20/2024 3:14 PM PROFESSOR OF POLITICAL SCIENCE 10/20/2024 3:16 PM PROFESSOR OF POLITICAL SCIENCE us Larry Lord Jr., MD LAB BLOOD ORDERABLES Final Result [facility] [address] [facility] Department [place] [address] * eGFR (09/15/2024 12:36 PM PROFESSOR OF POLITICAL SCIENCE) eGFR 90 >=60 mL/min/1. 73 m2 Comment: Interpretive Data Reference Interval Normal >/= 90 mL/min/1.73m2 Mildly decreased* 60 - 89 mL/min/1.73m2 Mildly to moderately decreased 45 - 59 mL/min/1.73m2 Moderately to severely decreased 30 - 44 mL/min/1.73m2 Severely decreased 15 - 29 mL/min/1.73m2 Kidney Failure < 15 mL/min/1.73m2 *Relative to young adult level Estimated glomerular filtration rate is determined by the 2020 CKD-EPI equation recommended by the National Kidney Foundation (A Unifying Approach to GFR Estimation: Recommendations of the NKF-ASK Task Force on Reassessing the Inclusion of Race in Diagnosing Kidney Disease, JASN 2020). The CKD-EPI equation should not be used for patients with unstable renal function and has not been validated in children and those over 70. Current interpretive data was last reviewed 2021. Blood 09/15/2024 12:3 6 PM PROFESSOR OF POLITICAL SCIENCE 09/15/2024 1:21 PM PROFESSOR OF POLITICAL SCIENCE us Karla Esquivel Jr., MD LAB BLOOD ORDERABL ES Final Result [facility] Department [place] [address] * (ABNORMAL) Differential, auto (09/15/2024 12:36 PM PROFESSOR OF POLITICAL SCIENCE) Neutrophil abs 15.5(H) 1.5 - 6.5 K/cumm Imm gran abs 0.2(H) 0.0 - 0.1 K/cumm [facility] Lymphocyte abs 1.5 0.8 - 3.3 K/cumm [facility] Monocyte abs 1.5(H) 0.2 - 0.8 K/cumm [facility] Eosinophil abs 0.1 0.0 - 0.5 K/cumm [facility] Basophil abs 0.1 0.0 - 0.1 K/cumm [facility] Neutrophil pct 82.4 % [facility] Comment: Interpretive Data Percent cell count reference ranges are not reported, since discordance with absolute values may lead to misinterpretation of CBC data. Current Interpretive Data was last revised on 2018. Imm gran pct 1.2 % [facility] Comment: Interpretive Data Percent cell count reference ranges are not reported, since discordance with absolute values may lead to misinterpretation of CBC data. Current Interpretive Data was last revised on 2018. Lymphocyte pct 7.8 % [facility] Comment: Interpretive Data Percent cell count reference ranges are not reported, since discordance with absolute values may lead to misinterpretation of CBC data. Current Interpretive Data was last revised on 2018. Monocyte pct 7.9 % [facility] Comment: Interpretive Data Percent cell count reference ranges are not reported, since discordance with absolute values may lead to misinterpretation of CBC data. Current Interpretive Data was last revised on 2018. Eosinophil pct 0.3 % [facility] Comment: Interpretive Data Percent cell count reference ranges are not reported, since discordance with absolute values may lead to misinterpretation of CBC data. Current Interpretive Data was last revised on 2018. Basophil pct 0.4 % [facility] Comment: Interpretive Data Percent cell count reference ranges are not reported, since discordance with absolute values may lead to misinterpretation of CBC data. Current Interpretive Data was last revised on 2018. Blood 09/15/2024 12:3 6 PM PROFESSOR OF POLITICAL SCIENCE 09/15/2024 1:21 PM PROFESSOR OF POLITICAL SCIENCE us Karla Esquivel Jr., MD LAB BLOOD ORDERABL ES Final Result [facility] Department [place] [address] * Pro B-type natriuretic peptide (09/15/2024 12:36 PM PROFESSOR OF POLITICAL SCIENCE) NT-proBNP 98 <=450 pg/mL Comment: Interpretive Comments: A. Dyspnea in Acute Care Setting All Ages: < 300 pg/ml, acute heart failure unlikely. < 50 yrs: 300 - 450 pg/ml, further investigation warranted. > 450 pg/ml, acute heart failure likely. 50 - 74 yrs: 300 - 900 pg/ml, further investigation warranted. > 900 pg/ml, acute heart failure likely . > or = 75 yrs: 450 - 1800 pg/ml, further investigation warranted. > 1800 pg/ml, acute heart failure likely. B. Non-acute Setting < 75 yrs < 125 pg/ml, rules out heart failure. > or = 125 pg/ml, further investigation warranted. > or = 75 yrs < 450 pg/ml, rules out heart failure. > or = 450 pg/ml, further investigation warranted. - Knowledge of each individual patient's NT-proBNP range may be more useful than using similar cut-points for every patient. Please note that marked elevations in NT-proBNP levels may be observed in state other than Left Ventricular Congestive Failure, including: acute coronary syndromes, right heart strain/failure (including pulmonary embolism and cor pulmonale), critical illness, renal failure, as well as advanced age. - References: 1. Eren GAMINO et.al. Eur Heart J. 2006:27:330-337. 2. Choco MONTANO, Amanda PARRA. J. AM Misbah Cardiol: Cardiovasc Imag. 2009;2: 216- 225. Interpretive Data Last Revised Date: 2018. Blood 09/15/2024 12:3 6 PM PROFESSOR OF POLITICAL SCIENCE 09/15/2024 1:21 PM PROFESSOR OF POLITICAL SCIENCE us Karla Esquivel Jr., MD LAB BLOOD ORDERABL ES Final Result Performing Organization Address [facility] Co de Phone Number [facility] [place] [address] * (ABNORMAL) CBC with auto differential (09/15/2024 12:36 PM PROFESSOR OF POLITICAL SCIENCE) Pathologist [facility] WBC 18.8(H) 3.8 - 9.9 K/cumm Hgb 13.7 13.0 - 17.5 g/dL [facility] Hct 40.9 38.9 - 50.3 % [facility] Plt 296 150 - 400 K/cumm [facility] MPV 10.5 9.1 - 12.3 fL [facility] RBC 3.98(L) 4.30 - 5.80 M/cumm [facility] MCV 102.8(H) 81.3 - 96.4 fL [facility] MCH 34.4(H) 27.1 - 33.3 pg [facility] MCHC 33.5 32.3 - 35.7 g/dL [facility] RDW CV 13.4 11.1 - 14.9 % [facility] RDW SD 50.7(H) 35.7 - 48.1 fL [facility] NRBC abs 0.00 0.00 - 0.01 K/cumm [facility] Blood 09/15/2024 12:3 6 PM PROFESSOR OF POLITICAL SCIENCE 09/15/2024 1:21 PM PROFESSOR OF POLITICAL SCIENCE us Karla Esquivel Jr., MD LAB BLOOD ORDERABL ES Final Result Performing Organization Address [facility]/ZIP Co de Phone Number [facility] Department [place] [address] * (ABNORMAL) Comprehensive metabolic panel (09/15/2024 12:36 PM PROFESSOR OF POLITICAL SCIENCE) Pathologist [facility] Sodium 142 135 - 145 mmol/L Potassium, pl 4.1 3.3 - 4.9 mmol/L [facility] Chloride 102 97 - 110 mmol/L [facility] CO2 29 22 - 32 mmol/L [facility] Anion gap 11 2 - 15 mmol/L [facility] BUN 28(H) 6 - 25 mg/dL [facility] Creatinine 0.88 0.80 - 1.30 mg/dL [facility] Glucose 138 70 - 199 mg/dL [facility] Comment: Interpretive Data Fasting glucose >/= 126 mg/dl is diagnostic for diabetes. Fasting is defined as no caloric intake for at least 8 hours. Fasting glucose between 100 mg/dl to 125 mg/dl is diagnostic of prediabetes. In a patient with classic symptoms of hyperglycemia or hyperglycemic crisis, a random glucose >/= 200 mg/dl is diagnostic for diabetes. In the absence of unequivocal hyperglycemia, results should be confirmed by repeat testing. The classification and Diagnosis of Diabetes Diabetes Care 2021; 46: S19-S40. Current interpretive data was last revised 2022. Calcium 9.8 8.5 - 10.3 mg/dL [facility] Bilirubin, total 0.7 0.1 - 1.2 mg/dL [facility] Protein, pl 6.9 6.5 - 8.5 g/dL [facility] Albumin 4.1 3.5 - 5.0 g/dL [facility] Alk phos 49 40 - 130 Units/L [facility] ALT 31 7 - 55 Units/L [facility] AST 21 10 - 50 Units/L [facility] Blood 09/15/2024 12:3 6 PM PROFESSOR OF POLITICAL SCIENCE 09/15/2024 1:21 PM PROFESSOR OF POLITICAL SCIENCE Karla Esquivel Jr., MD LAB BLOOD ORDERABL ES Final Result [facility] Department [place] [address] * Pulmonary Function Test - (09/15/2024 10:58 AM PROFESSOR OF POLITICAL SCIENCE) FVC PRE 2.06 L [facility] FVC %PRE PRED 48 % [facility] FEV1 PRE 1.82 L [facility] FEV1 %PRE PRED 57 % [facility] FEV1/FVC PRE 88.3 % [facility] Anatomical Region Laterality Modality PFT 09/15/2024 10:4 5 AM PROFESSOR OF POLITICAL SCIENCE Narrative 09/17/2024 8:14 AM PROFESSOR OF POLITICAL SCIENCE PFT performed at:->[facility] Adult PFT Lab- [id number] Procedure:->Spirometry Pulmonary Function Test Interpretation SPIROMETRY: The FEV1 to FVC ratio is normal. The FEV1 and FVC are reduced in a pattern suggestive of a restrictive abnormality. The inspiratory loop is appropriate for the expiratory flow abnormality. 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 However, measurement of lung volumes is suggested to confirm this if clinically indicated. Compared with most recent study, there has been no significant interval change. The attending pulmonary physician certifies a physician presence in the [facility] during the administration of aerosolized bronchodilator. The attending pulmonary physician certifies that he/she has reviewed and interpreted the graphic and numerical data of this pulmonary function study and agrees with the written final report. The lower limit of normal for PaO2 and %HbO2 is age dependent. However, the [facility] Pulmonary Function Laboratory defines hypoxemia as a PaO2 <56 mm Hg or a %HbO2 <89%. us Karla Esquivel Jr., MD PFT ORDERABLES Fi nal Result * TRANSTHORACIC ECHO (TTE) COMPLETE W DOPPLER/CF W CONTRAST (09/15/2024 10:41 AM PROFESSOR OF POLITICAL SCIENCE) LV EF 55-60 % [facility] Anatomical Region Laterality Modality Ultrasound 09/15/2024 9:30 AM PROFESSOR OF POLITICAL SCIENCE Narrative 09/17/2024 7:57 AM PROFESSOR OF POLITICAL SCIENCE Patient name: Jonah Conn Date of test: 09/15/2024 Type of test: TTE w/Doppler Hospital #: 0 Date of : 1950 (M) Paralegal Instructor: Jeni Ponce RDCS Referring Physician: KARLA ESQUIVEL MD Contrast Agent: 0.15 ml Definity Administered, (1.35 ml wasted). Contrast Administered by: Jose Cardenas RN Supervised/Interpreted by: Temi Whalen MD Diagnosis: Location: [facility] Reason for test: ILD (interstital lung disease) MV Structure: not well visualized, MV Motion: not well visualized, Mitral Annulus: not well visualized AV Structure: not well visualized and is not well visualized, AV Motion: not well visualized Aotic root: Normal, TM: not well visualized, PV: not well visualized Valvular Vegetations: none seen, Mass/Thrombi: none seen RA: Normal Measurements: M-Mode Normal Aotic Root: <3.8 LA: <4.0 RV: <2.8 LV(ED): <5.7 LV(ES): Variable 2D Linear Normal Aotic Root: 4.0 cm <4.0 Ao Indexed: 1.6 cm/M2 <2.0 LA: <4.0 RV: <4.2 LV(ED): <5.9 LV(ES): <4.0 2D Vol. Normal Indexed Indexed Normal RA: 11-39 LA: 85.0 ml 34.7 ml/M2 16-34 RV: <12.7 LV(ED): 62-150 <75 LV(ES): 21-61 <32 3D Vol. Indexed Normal LV(ED): <75 LV(ES): <32 LV EF: 55-60 % (Normal: >=52%) LV Septum: 0.9 cm (Normal: <1.0 cm) Wall Motion Scoring (1=Normal 2=Hypo 3=Akinetic 4=Dyskin./Aneurysm 0=Not visualized) Parasternal Long [place]:MAS=1 BAS=1 MIL=1 MADELINE=1 Parasternal Short [place]:MAS=1 MIS=1 NH=1 MIL=1 MAL=1 MA=1 Apical 4 Chambers:=1 MIS=1 BIS=1 BAL=1 MAL=1 AL=1 AC=1 Apical 2 Chambers:AI=1 NH=1 BI=1 BA=1 MA=1 AA=1 AC=1 LV Global Longitudinal Strain: RV Global Longitudinal Strain: LV Function: Normal LV Ejection Fraction, (EF=52-72%) RV Function: Normal Septal Motion: Normal Pericardial Effusion: none seen Atrial Septum: Normal DOPPLER/COLOR FLOW DOPPLER RESULTS: Diastolic Function: normal Tricuspid Valve: normal TV Pulmonic Valve: normal PV AV Regurgitation: No AR seen AV Stenosis: no AV Area: cm2 AV Pressure Gradient (mmHg): Mean: 0, Peak:0 MV Regurgitation: No MR seen MV Stenosis: no MS MV Area: cm2 MV Pressure Gradient (mmHg): Mean: 0 MV ERO: cm Regurg. Vol.: ml/beat Regurg. Frac.: % PA Pressure: mmHg DOPPLER/COLOR FOLOW DOPPLER COMMENTS: No AR seen, No MR seen, no , no MS, normal TV, normal PV. Diastolic function: normal E's = 8 cm/s. E'lat = 10 cm/s; E/E'lat < 8 c/w normal LAP. CONTRAST: 0.15 ml Definity Administered, (1.35 ml wasted). SUMMARY: Technically VERY DIFFICULT study (despite contrast) due to poor acoustic windows, tachycardia w/ frequent ectopy (HR 100-105 bpm), and pt discomfort which limited proper positioning for exam. Grossly normal LV size with normal systolic function. Strain quality inadequate for accurate reporting. Normal LV mass. Grossly normal RV size and systolic function (TAPSE 2.2 cm; RV S' 21 cm/s). Upper-normal LA size; RA not well seen. No significant valvular abnormalities by Doppler. TR absent; unable to estimate PASP. Normal LV diastolic function. IVC not seen. Normal proximal aorta. No prior exams available for comparison. Confirmed on 09/17/2024 - 07:57:38 by Temi Whalen MD By signing this report, the attending agricultural economics professor certifies that he or she has personally supervised and interpreted the echocardiogram and has reviewed and or edited and agrees with the written comments contained within the report. Procedure Note De Temi Wood MD - 09/17/2024 Patient name: Jonah Conn Date of test: 09/15/2024 Type of test: TTE w/Doppler Hospital #: [id number] Date of : 1950 (M) Paralegal Instructor: Jeni Ponce [facility] Referring Physician: KARLA ESQUIVEL MD Contrast Agent: 0.15 ml Definity Administered, (1.35 ml wasted). Contrast Administered by: Jose Cardenas RN Supervised/Interpreted by: Temi Whalen MD Diagnosis: Location: [facility] Reason for test: ILD (interstital lung disease) MV Structure: not well visualized, MV Motion: not well visualized, Mitral Annulus: not well visualized AV Structure: not well visualized and is not well visualized, AV Motion: not well visualized Aotic root: Normal, TM: not well visualized, PV: not well visualized Valvular Vegetations: none seen, Mass/Thrombi: none seen RA: Normal Measurements: M-Mode Normal Aotic Root: <3.8 LA: <4.0 RV: <2.8 LV(ED): <5.7 LV(ES): Variable 2D Linear Normal Aotic Root: 4.0 cm <4.0 Ao Indexed: 1.6 cm/M2 <2.0 LA: <4.0 RV: <4.2 LV(ED): <5.9 LV(ES): <4.0 2D Vol. Normal Indexed Indexed Normal RA: 11-39 LA: 85.0 ml 34.7 ml/M2 16-34 RV: <12.7 LV(ED): 62-150 <75 LV(ES): 21-61 <32 3D Vol. Indexed Normal LV(ED): <75 LV(ES): <32 LV EF: 55-60 % (Normal: >=52%) LV Septum: 0.9 cm (Normal: <1.0 cm) Wall Motion Scoring (1=Normal 2=Hypo 3=Akinetic 4=Dyskin./Aneurysm 0=Not visualized) Parasternal Long [place]:MAS=1 BAS=1 MIL=1 MADELINE=1 Parasternal Short [place]:MAS=1 MIS=1 NH=1 MIL=1 MAL=1 MA=1 Apical 4 Chambers:=1 MIS=1 BIS=1 BAL=1 MAL=1 AL=1 AC=1 Apical 2 Chambers:AI=1 NH=1 BI=1 BA=1 MA=1 AA=1 AC=1 LV Global Longitudinal Strain: RV Global Longitudinal Strain: LV Function: Normal LV Ejection Fraction, (EF=52-72%) RV Function: Normal Septal Motion: Normal Pericardial Effusion: none seen Atrial Septum: Normal DOPPLER/COLOR FLOW DOPPLER RESULTS: Diastolic Function: normal Tricuspid Valve: normal TV Pulmonic Valve: normal PV AV Regurgitation: No AR seen AV Stenosis: no AV Area: cm2 AV Pressure Gradient (mmHg): Mean: 0, Peak:0 MV Regurgitation: No MR seen MV Stenosis: no MS MV Area: cm2 MV Pressure Gradient (mmHg): Mean: 0 MV ERO: cm Regurg. Vol.: ml/beat Regurg. Frac.: % PA Pressure: mmHg DOPPLER/COLOR FOLOW DOPPLER COMMENTS: No AR seen, No MR seen, no , no MS, normal TV, normal PV. Diastolic function: normal E's = 8 cm/s. E'lat = 10 cm/s; E/E'lat < 8 c/w normal LAP. CONTRAST: 0.15 ml Definity Administered, (1.35 ml wasted). SUMMARY: Technically VERY DIFFICULT study (despite contrast) due to poor acoustic windows, tachycardia w/ frequent ectopy (HR 100-105 bpm), and pt discomfort which limited proper positioning for exam. Grossly normal LV size with normal systolic function. Strain quality inadequate for accurate reporting. Normal LV mass. Grossly normal RV size and systolic function (TAPSE 2.2 cm; RV S' 21 cm/s). Upper-normal LA size; RA not well seen. No significant valvular abnormalities by Doppler. TR absent; unable to estimate PASP. Normal LV diastolic function. IVC not seen. Normal proximal aorta. No prior exams available for comparison. Confirmed on 09/17/2024 - 07:57:38 by Temi Whalen MD By signing this report, the attending agricultural economics professor certifies that he or she has personally supervised and interpreted the echocardiogram and has reviewed and or edited and agrees with the written comments contained within the report. Result [facility] Karla Esquivel Jr., MD CV ECHO PROCEDURES Final Result from Last 3 Months Additional Health Concerns Active Problems Noted Date Diagnosed Date Initial Follow-Up Appointment 11/09/2024 Knowledge Deficit Concerning CHF 11/10/2024 Barriers to Medication Adherence 11/10/2024 Insurance [facility] Address: [facility] [address] [place] [address] [facility] [facility] Address: [address] [address] [place] [address] [facility] [facility] Address: [address] [address] [place] [address] Advance Directives For more information, please contact: [phone] * Full Code (Latest Code Status on File) Date Activated Date Inactivated Comments 11/01/2024 4:25 PM 11/08/2024 5:52 PM Care Teams Summer School Coordinator Relationship Specialty Start Date End Date Randi Araujo MD PCP - General Family Medicine 03/31/24 Марина Meza RN [address] [facility] [address] [place] [address] [facility] Outpatient Object Oriented Developer 11/09/24
--- OUTSIDE RECORDS SUMMARY | 2024-11-11 17:55 | XMS_ITS | Patient Health Summary ---
Author Organization [facility] Address [address] [place] [address] Care Team Providers Care Lithographic Plate Maker Apprentice Name Role Phone Unavailable Primary Care Provider Unavailabl e Note from [facility],non-owned Affiliates and Associated Physician Practices is amultiple site organization consisting of ambulatory clinics and hospital sitesin [place], [place], [place] and [place]. This disclosure is being madepursuant to the Care Everywhere program and may not contain all information available regarding this patient. Last updated 18.[facility] Social History Tobacco Use Types Packs/Day Years Used Date Smoking Tobacco: Never Assessed Sex and Gender Information Value Date Recorded Sex Assigned at Not on file Gender Identity Not on file Sexual Orientation Not on file Procedures * DERMATOPATHOLOGY(Performed 03/27/2021) Results * DERMATOPATHOLOGY (03/27/2021 12:00 AM CDT) Case Report Dermatopathology Report Case: [id number] Authorizing Provider: Kenyon Bennett MD Collected: 03/27/2021 12:00 AM Ordering Location: [facility] DermPath Lab Received: 03/28/2021 06:07 AM Pathologist: Chantel Mejia MD Specimen: Skin, left shoulder 1 1:21 PM CDT DERMATOPATHOLOGY LABORATORY Final Diagnosis Specimen A. SKIN, left shoulder: BENIGN VERRUCOUS KERATOSIS, INFLAMED (L82.1) POST-INFLAMMATORY PIGMENT ALTERATION (L81.9) 1 1:21 PM CDT DERMATOPATHOLOGY LABORATORY Clinical History Irr nevus vs irr SK vs MM. Path# [id number]. 1 1:21 PM CDT DERMATOPATHOLOGY LABORATORY Gross Description Specimen A: Received is one formalin filled container labeled with the patient's name and designated left shoulder. The specimen consists of a shave biopsy measuring 1n8x8hi. Jar 0. 1 1:21 PM T DERMATOPATHOLOGY LABORATORY Microscopic Description Specimen A. SKIN, left shoulder: Sections show hyperkeratosis, papillomatosis, hypergranulosis, and acanthosis. Inflammatory cells are present within the dermis. These histological findings can be seen in a verruca vulgaris or a seborrheic keratosis. There is abundant melanin within melanophages around the superficial vascular plexus. 1 1:21 PM T DERMATOPATHOLOGY LABORATORY Disclaimer An external and internal positive and negative controls are appropriate for the histochemical, immunohistochemical and immunofluorescence stain(s) in this case (if any), except where stated explicitly. The performance characteristics of the stain(s) cited in this report were developed and its performance characteristic determined by the Dermatopathology Laboratory at [facility], directed by Dr. Evi Underwood. These tests need not be, and therefore are not, approved by the [place] Food and Drug Administration. The tests are used for clinical purposes. Billing Codes Specimen Charges Stain Charges 50442 1 1 1:21 PM CDT DERMATOPATHOLOGY LABORATORY Embedded Images 1 1:21 PM CDT DERMATOPATHOLOGY LABORATORY Pathology/Cytolog y TISSUE SPECIMEN FROM SKIN / Unknown 03/27/2021 03/28/2021 6:07 AM CDT Kenyon Bennett MD LAB - PATHOLOGY/CYTO LOGY ORDERABLES DERMATOPATHOLOGY LABORATORY [facility] - Department of Dermatology [address], [address] [phone]
--- OUTSIDE RECORDS SUMMARY | 2024-11-11 17:55 | XMS_ITS | Encounter Summary ---
Author Organization [facility] Address [address] [place] [address] Care Team Providers Care Glass Washer And Carrier Name Role Phone Randi Araujo MD Primary Care Provider + Марина Meza RN Unavailable [phone] Reason for Visit * Reason Comments Successfully Completed Encounter Details Date Type Department Care Team (Late st Contact Info) Description 11/10/2024 [facility]/CHAP Initial Outreach [facility] OP CASE MANAGEMENT [address] [place] [address] Марина Meza, RN [address] [facility] [address] [place] [address] Social History Tobacco Use Types Packs/Day Years Used Date Smoking Tobacco: Never Passive Smoke Exposure: Past Smokeless Tobacco: Never AUDIT-C Answer Date Recorded Q1: How often [...] AM CDT Sexual Orientation Not on file documented as of this encounter Progress Notes * Марина Meza RN - 11/10/2024 1:21 PM CST Spoke with patient for initial [facility] outreach. Patient reports feeling fairly well since discharge. Patient endorses episode of hypotension yesterday, states he hydrated well and his BP has since stabilized, reports it was 120/70 this morning. Patient denies dizziness, fainting, or syncope. Patient denies chest pain or SOB. Patient reports adherence to daily weights, states his weight this morningwas 254#. Patent also reports adherence to low sodium diet, states We don't use any salt. Reviewed medication list, patient states he has all prescribed medications except Jardiance. Patient statesthis script was sent to [facility] pharmacy and asked if it could be transferred to his local pharmacy. Per chart review, Jardiance script was entered on 11/02/24, but says Rosa check under notes to pharmacy. Message sent to discharging providers Dr. Doss and Dr. Thomas to determine if patient should be on Jardiance and if so to request script be sent to local pharmacy. Patient has no further questionsat this time and consents to [facility] outreach. Provided [facility] phone number and encouraged patient to callwith any needs. GER OF SOFTWARE DEVELOPMENT documented in this encounter Plan of Treatment Not on file documented as of this encounter Goals Goal Patient Goal Type Associated Problems Recent Progress Patient-Stated? Author Patient will have kept initial appointment and will show signs of improvement to baseline Care Plan Initial Follow-Up Appointment No change(11/10 1:38 PM MANAGER OF SOFTWARE DEVELOPMENT) No Марина Meza RN Note: No follow up appointment scheduled prior to discharge. Offered to assist with scheduling, patient declined and prefers to schedule on his own. Offered [facility] appointment, patient states he will consider if he cannot get in to see his assurance specialist in a timely manner. Patient will be knowledgeable about CHF and how to respond to exacerbations at home Care Plan Knowledge Deficit Concerning CHF On track(2024 1:37 PM MANAGER OF SOFTWARE DEVELOPMENT) No Марина Meza RN Note: Patient reports adherence to daily weights, states his weight this morning was 254#. Patent also reports adherence to low sodium diet, states We don't use any salt. Patient has working scale and BP monitor at home. Patient will have access to medications needed for healthy outcomes Care Plan Barriers to Medication Adherence Improving( 1:36 PM MANAGER OF SOFTWARE DEVELOPMENT) No Марина Meza RN Note: Reviewed medication list, patient states he has all prescribed medications except Jardiance. Patient states this script was sent to [facility] pharmacy and asked if it could be transferred to his local pharmacy. Per chart review, Jardiance script was entered on 11/02/24, but says Rosa check under notes to pharmacy. Message sent to discharging providers Dr. Doss and Dr. Thomas to determine if patient should be on Jardiance and if so to request script be sent to local pharmacy. documented as of this encounter Visit Diagnoses Not on filedocumented in this encounter Additional Health Concerns Active Problems Noted Date Diagnosed Date Initial Follow-Up Appointment 11/09/2024 Knowledge Deficit Concerning CHF 11/10/2024 Barriers to Medication Adherence 11/10/2024 documented as of this encounter Care Teams Glass Washer And Carrier Relationship Specialty Start Date End Date Randi Araujo MD PCP - General Family Medicine 03/31/24 Марина Meza RN [address] [address] [facility] Outpatient Methods Engineer 11/09/24 documented as of this encounter
--- OUTSIDE RECORDS SUMMARY | 2024-11-11 17:55 | XMS_ITS ---
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 - Continue home MMF Assessment & Plan (11/04/2024 12:34 PM ROD TAPE OPERATOR): History of fibrotic HP, stable. - Continue home MMF Additional Health Concerns Active Problems Noted Date Diagnosed Date Initial Follow-Up Appointment 11/09/2024 Knowledge Deficit Concerning CHF 11/10/2024 Barriers to Medication Adherence 11/10/2024 Goals Goal Patient Goal Type Associated Problems Recent Progress Patient-Stated? Author Patient will have kept initial appointment and will show signs of improvement to baseline Care Plan Initial Follow-Up Appointment No change(11/10 1:38 PM ROD TAPE OPERATOR) Марина Sparks, KRISTINA Note: No follow up appointment scheduled prior to discharge. Offered to assist with scheduling, patient declined and prefers to schedule on his own. 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 Patient will be knowledgeable about CHF and how to respond to exacerbations at home Care Plan Knowledge Deficit Concerning CHF On track(2024 1:37 PM ROD TAPE OPERATOR) No Марина Meza, KRISTINA Note: Patient reports adherence to daily weights, states his weight this morning was 254#. Patent also reports adherence to low sodium diet, states We don't use any salt. Patient has working scale and BP monitor at home. Patient will have access to medications needed for healthy outcomes Care Plan Barriers to Medication Adherence Improving( 1:36 PM ROD TAPE OPERATOR) Марина Sparks RN Note: Reviewed medication list, patient states he has all prescribed medications except Jardiance. Patient states this script was sent to [facility] pharmacy and asked if it could be transferred to his local pharmacy. Per chart review, Jardiance script was entered on 11/02/24, but says Rosa check under notes to pharmacy. Message sent to discharging providers Dr. Doss and Dr. Thomas to determine if patient should be on Jardiance and if so to request script be sent to local pharmacy. Interventions Care Plan Interventions Intervention Entry Date Outcome Contact prescriber to request an alternative medication/prescription assistance plan if pt cannot afford medication, is not covered by insurance, or patient did not receive prescription 11/10/2024 Ensure that prescriptions are transferred to pt s home pharmacy as needed 11/10/2024 Transfer prescriptions to pharmacy that delivers to patient s home as needed 11/10/2024 Educate on red flag symptoms (eg: edema, chest pain, heart palpitations, SOB, weight gain) and how to intervene when these happen 11/10/2024 Educate patient that notifying physician or CM of worsening condition can result in medication changes that can prevent a full-blown exacerbation and hospitalization 11/10/2024 Follow up with patient 2 days after Post Hospital Visit office visit to ensure understanding of changes and follow-up plan 11/09/2024 Coordinate with patient/caregiver(s) to ensure patient is able to keep scheduled appointment 11/09/2024 Address any barriers for keeping scheduled appointment 11/09/2024 Discuss with patient/ caregiver plan for transportation to appointment 11/09/2024 Ensure Pt has follow-up scheduled within 7 days of discharge 11/09/2024 Related Goals and Interventions Goal Associated Intervent ions Patient will have kept initi al appointment and will show signs of improvement to baseline Follow up with patient 2 days after Post Hospital Visit office visit to ensure understanding of changes and follow-up plan; Coordinate with patient/caregiver(s) to ensure patient is able to keep scheduled appointment; Address any barriers for keeping scheduled appointment; Discuss with patient/ caregiver plan for transportation to appointment; Ensure Pt has follow-up scheduled within 7 days of discharge Patient will be knowledgeabl e about CHF and how to respond to exacerbations at home Educate on red flag symptoms (eg: sharri a, chest pain, heart palpitations, SOB, weight gain) and how to intervene when these happen; Educate patient that notifying physician or CM of worsening condition can result in medication changes that can prevent a full-blown exacerbation and hospitalization Patient will have access to medications needed for healthy outcomes Contact prescriber to request an alternative medication/prescription assistance plan if pt cannot afford medication, is not covered by insurance, or patient did not receive prescription; Ensure that prescriptions are transferred to pt s home pharmacy as needed; Transfer prescriptions to pharmacy that delivers to patient s home as needed
--- OUTSIDE RECORDS SUMMARY | 2024-11-11 17:55 | XMS_ITS | Referral Summary ---
Author Organization [facility] Address [address] [place] [address] Care Team Providers Care Quality Control Inspector Name Role Phone Randi Araujo MD Primary Care Provider + Марина Meza RN Unavailable [phone] Encounters Date Type Department Care Team Description 11/10/2024 SHOP/CHAP Initial Outreach [facility] OP CASE MANAGEMENT [address] [place] [address] Марина Meza, KRISTINA 11/09/2024 SHOP/CHAP Initial Outreach [facility] OP CASE MANAGEMENT [address] [place] [address] Марина Meza, KRISTINA 11/09/2024 SHOP/CHAP Initial Eligibility Review [facility] OP CASE MANAGEMENT [address] [place] [address] Марина Meza, KRISTINA 11/01/2024 1:49 PM WATER RESOURCE CONSULTANT - 11/08/2024 1:46 PM WATER RESOURCE CONSULTANT Hospital Encounter [facility] [address] [place] [address] Chelo Chappell MD Rich, Michael W., MD ILD (interstitial lung disease) (CMS/HCC) (HCC) (Primary Dx); Lymphedema; Acute on chronic heart failure with preserved ejection fraction (HFpEF) with exacerbation Discharge Disposition: Discharge to home or self care 11/04/2024 Telephone [facility] Cardiology [address] [place] [address] Medical Office Building [address] [place] [address] Trina Dumont, KRISTINA 11/02/2024 8:35 AM WATER RESOURCE CONSULTANT Ancillary Procedure [facility] Vascular Lab IP 1 [facility] [address] [place] [address] 10/30/2024 Telephone [facility] Pulmonary [address] [facility] Advanced Medicine 8th Floor [address] [place] [phone] Vee Acosta RN 10/30/[address] [address] Chelo Chappell MD 10/29/2024 Telephone [facility] Pulmonary [facility] [address] [place] [address] Rena Francois for admission (Per [facility] online auth is approved for admission on 11/01/24 ref number [id number]) 10/29/2024 Telephone [facility] Cardiology [facility] Medical Office Building [address] [place] [address] Boogie Luna MD venous dopplers 10/28/2024 8:45 AM WATER RESOURCE CONSULTANT - 10/28/2024 10:25 AM WATER RESOURCE CONSULTANT Surgery [facility] [address] [place] [id number] Chet Esposito MD RIGHT LEFT HEART CATHETERIZATION WITH CORONARY ANGIOGRAPHY GRAFT AND WITH OR WITHOUT LEFT VENTRICULOGRAPHY [id number] 10/28/2024 7:15 AM WATER RESOURCE CONSULTANT - 10/28/2024 3:30 PM WATER RESOURCE CONSULTANT Hospital Encounter [facility] Heart and Vascular [address] [address] Chet Esposito MD Acute on chronic diastolic congestive heart failure (CMS/HCC) (HCC) [I50.33] (Primary Dx); Congestive heart failure, unspecified HF chronicity, unspecified heart failure type (HCC) Discharge Disposition: Discharge to home or self care 10/21/2024 Telephone [facility] Cardiology [facility] Advanced Medicine 8th [place] [address] [place] [address] Boogie Luna MD R/[facility] needed 10/21/2024 1:00 PM WATER RESOURCE CONSULTANT Office Visit [facility] Cardiology [facility] Medical Office Building [address] [place] [address] Boogie Luna MD Congestive heart failure, unspecified HF chronicity, unspecified heart failure type (HCC) (Primary Dx); Primary hypertension; Hyperlipidemia, unspecified hyperlipidemia type 10/20/2024 3:33 PM WATER RESOURCE CONSULTANT - 10/20/2024 7:36 PM WATER RESOURCE CONSULTANT Emergency [facility] [address] [place] [phone] Larry Lord Jr., MD Abnormal EKG (Primary Dx); PVC (premature ventricular contraction); RSV infection Discharge Disposition: Discharge to home or self care 10/20/2024 Telephone [facility] Pulmonary [address] [place] [address] Advanced Medicine 8th [place] [address] [place] [address] Vee Acosta RN 10/20/2024 Telephone [facility] Cardiology [address] [place] [address] [place] [address] [place] [address] Boogie Luna MD 09/21/2024 Telephone [facility] Cardiology [address] [place] [address] 8th [place] [address] [place] [address] Veronica Campos 09/15/2024 12:35 PM WATER RESOURCE CONSULTANT Lab [facility] [address] [place] [phone] ILD (interstitial lung disease) (CMS/HCC) (HCC); Congestive heart failure, unspecified HF chronicity, unspecified heart failure type (HCC) 09/15/2024 11:30 AM WATER RESOURCE CONSULTANT Office Visit [facility] Pulmonary [address] [place] [address] Medicine 8th [place] [address] [place] [address] Karla Esquivel Jr., MD ILD (interstitial lung disease) (CMS/HCC) (HCC) (Primary Dx); Congestive heart failure, unspecified HF chronicity, unspecified heart failure type (HCC) 09/15/2024 10:30 AM WATER RESOURCE CONSULTANT - 09/15/2024 11:59 PM WATER RESOURCE CONSULTANT Hospital Encounter [facility] Pulmonary [address] [facility] [address] [place] [phone] ILD (interstitial lung disease) ([facility]) ([facility]) Discharge Disposition: Discharge to home or self care 09/15/2024 9:30 AM WATER RESOURCE CONSULTANT - 09/15/2024 11:59 PM WATER RESOURCE CONSULTANT Hospital Encounter [facility] Cardiac Diagnostic Lab [address] [facility] 8th [place] [address] ILD (interstitial lung disease) ([facility]) ([facility]) Discharge Disposition: Discharge to home or self care from Last 3 Months Allergies Active Allergy Reactions Criticality Noted Date Comments Wxwafgo-Hkw-Cue Reductase Inhibitors Other (See comments) High 03/31/2024 [...] 11/01/2024 Assessment & Plan (11/05/2024 10:44 AM WATER RESOURCE CONSULTANT): 74-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 - Continue home MMF Assessment & Plan (11/04/2024 12:34 PM WATER RESOURCE CONSULTANT): History of fibrotic HP, stable. - Continue home MMF Immunizations Name Administration Dates Next Due Influenza, Quad, Adjuvantated, Intramuscular 05/2024 Influenza, Quadrivalent, Rec ombinant, Egg Free, Preservative Free, Intramuscular 07/12/2021 Pneumococcal Conjugate PCV 13 03/10/2020 Pneumococcal Polysaccharide PPV23 07/12/2021 Social History Tobacco Use Types Packs/Day Years [...] AM CDT Sexual Orientation Not on file Last Filed Vital Signs Vital Sign Reading Time Taken Comments Blood Pressure 124/54 11/08/2024 7:00 AM WATER RESOURCE CONSULTANT Pulse 84 11/08/2024 7:00 AM WATER RESOURCE CONSULTANT Temperature 36.4 C (97.5 F) 11/08/2024 7:00 AM WATER RESOURCE CONSULTANT Respiratory Rate 14 11/08/2024 7:00 AM WATER RESOURCE CONSULTANT Oxygen Saturation 97% 11/08/2024 7:00 AM WATER RESOURCE CONSULTANT Inhaled Oxygen Concentration - - Weight 117.1 kg (258 lb 1.6 oz) 11/08/2024 6:05 AM WATER RESOURCE CONSULTANT Height 185.4 cm (6' 1) 11/01/2024 5:10 PM WATER RESOURCE CONSULTANT Body Mass Index 34.05 11/01/2024 5:10 PM WATER RESOURCE CONSULTANT Plan of Treatment Not on file Goals Goal Patient Goal Type Associated Problems Recent Progress Patient-Stated? Author Patient will have kept initial appointment and will show signs of improvement to baseline Care Plan Initial Follow-Up Appointment No change(11/10 1:38 PM WATER RESOURCE CONSULTANT) No Марина Meza RN Note: No follow up appointment scheduled prior to discharge. Offered to assist with scheduling, patient declined and prefers to schedule on his own. 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 Patient will be knowledgeable about CHF and how to respond to exacerbations at home Care Plan Knowledge Deficit Concerning CHF On track(2024 1:37 PM WATER RESOURCE CONSULTANT) No Марина Meza, KRISTINA Note: Patient reports adherence to daily weights, states his weight this morning was 254#. Patent also reports adherence to low sodium diet, states We don't use any salt. Patient has working scale and BP monitor at home. Patient will have access to medications needed for healthy outcomes Care Plan Barriers to Medication Adherence Improving( 1:36 PM WATER RESOURCE CONSULTANT) No Марина Meza RN Note: Reviewed medication list, patient states he has all prescribed medications except Jardiance. Patient states this script was sent to [facility] pharmacy and asked if it could [...] Diagnosis Comments EGFR Routine 11/08/2024 8:07 AM WATER RESOURCE CONSULTANT MAGNESIUM Routine 11/08/2024 8:07 AM WATER RESOURCE CONSULTANT CBC WITHOUT DIFFERENTIAL Routine 11/08/2024 8:07 AM WATER RESOURCE CONSULTANT BASIC METABOLIC PANEL Routine 11/08/2024 8:07 AM WATER RESOURCE CONSULTANT TROPONIN I HIGH-SENSITIVITY STAT 11/07/2024 2:27 PM WATER RESOURCE CONSULTANT BLOOD CULTURE STAT 11/07/2024 2:27 PM WATER RESOURCE CONSULTANT EGFR STAT 11/07/2024 2:19 PM WATER RESOURCE CONSULTANT DIFFERENTIAL AUTO STAT 11/07/2024 2:1 9 PM WATER RESOURCE CONSULTANT PROTIME-INR STAT 11/07/2024 2:19 PM WATER RESOURCE CONSULTANT BLOOD GAS, VENOUS STAT 11/07/2024 2:1 9 PM WATER RESOURCE CONSULTANT COMPREHENSIVE METABOLIC PANEL STAT 11/07/2024 2:19 PM WATER RESOURCE CONSULTANT CBC WITH AUTO DIFFERENTIAL STAT 11/07/2024 2:19 PM WATER RESOURCE CONSULTANT LACTATE, WHOLE BLOOD STAT 11/07/2024 2:19 PM WATER RESOURCE CONSULTANT POCT GLUCOSE DEVICE Routine 11/07/2024 2 :17 PM WATER RESOURCE CONSULTANT EGFR Routine 11/06/2024 8:19 PM WATER RESOURCE CONSULTANT MAGNESIUM Routine 11/06/2024 8:19 PM WATER RESOURCE CONSULTANT CBC WITHOUT DIFFERENTIAL Routine 11/06/2024 8:19 PM WATER RESOURCE CONSULTANT BASIC METABOLIC PANEL Routine 11/06/2024 8:19 PM WATER RESOURCE CONSULTANT ECG 12-LEAD Routine 11/06/2024 8:16 AM WATER RESOURCE CONSULTANT EGFR Routine 11/05/2024 10:11 PM WATER RESOURCE CONSULTANT FOLATE Routine 11/05/2024 10:11 PM WATER RESOURCE CONSULTANT MAGNESIUM Routine 11/05/2024 10:11 PM WATER RESOURCE CONSULTANT CBC WITHOUT DIFFERENTIAL Routine 11/05/2024 10:11 PM WATER RESOURCE CONSULTANT BASIC METABOLIC PANEL Routine 11/05/2024 10:11 PM WATER RESOURCE CONSULTANT EGFR Routine 11/04/2024 9:17 PM WATER RESOURCE CONSULTANT VITAMIN B12 Routine 11/04/2024 9:17 PM WATER RESOURCE CONSULTANT FOLATE Routine 11/04/2024 9:17 PM WATER RESOURCE CONSULTANT MAGNESIUM Routine 11/04/2024 9:17 PM WATER RESOURCE CONSULTANT CBC WITHOUT DIFFERENTIAL Routine 11/04/2024 9:17 PM WATER RESOURCE CONSULTANT BASIC METABOLIC PANEL Routine 11/04/2024 9:17 PM WATER RESOURCE CONSULTANT POCT GLUCOSE DEVICE Routine 11/04/2024 4 :35 PM WATER RESOURCE CONSULTANT POCT GLUCOSE DEVICE Routine 11/04/2024 11:15 AM WATER RESOURCE CONSULTANT POCT GLUCOSE DEVICE Routine 11/04/2024 7 :50 AM WATER RESOURCE CONSULTANT VITAMIN B12 Routine 11/03/2024 9:58 PM WATER RESOURCE CONSULTANT EGFR Routine 11/03/2024 9:58 PM WATER RESOURCE CONSULTANT MAGNESIUM Routine 11/03/2024 9:58 PM WATER RESOURCE CONSULTANT CBC WITHOUT DIFFERENTIAL Routine 11/03/2024 9:58 PM WATER RESOURCE CONSULTANT BASIC METABOLIC PANEL Routine 11/03/2024 9:58 PM WATER RESOURCE CONSULTANT POCT GLUCOSE DEVICE Routine 11/03/2024 7 :36 PM WATER RESOURCE CONSULTANT SODIUM, URINE, RANDOM Timed 11/03/2024 5:54 PM WATER RESOURCE CONSULTANT POCT GLUCOSE DEVICE Routine 11/03/2024 4 :47 PM WATER RESOURCE CONSULTANT EGFR Timed 11/03/2024 12:11 PM WATER RESOURCE CONSULTANT BASIC METABOLIC PANEL Timed 11/03/2024 12:11 PM WATER RESOURCE CONSULTANT POCT GLUCOSE DEVICE Routine 11/03/2024 11:15 AM WATER RESOURCE CONSULTANT POCT GLUCOSE DEVICE Routine 11/03/2024 7 :57 AM WATER RESOURCE CONSULTANT EGFR Routine 11/02/2024 9:54 PM WATER RESOURCE CONSULTANT CBC WITHOUT DIFFERENTIAL Routine 11/02/2024 9:54 PM WATER RESOURCE CONSULTANT BASIC METABOLIC PANEL Routine 11/02/2024 9:54 PM WATER RESOURCE CONSULTANT POCT GLUCOSE DEVICE Routine 11/02/2024 8 :09 PM WATER RESOURCE CONSULTANT POCT GLUCOSE DEVICE Routine 11/02/2024 5 :36 PM WATER RESOURCE CONSULTANT RESPIRATORY PATHOGEN PANEL Routine 11/02/2024 4:46 PM WATER RESOURCE CONSULTANT EGFR Routine 11/02/2024 12:42 PM WATER RESOURCE CONSULTANT BASIC METABOLIC PANEL Routine 11/02/2024 12:42 PM WATER RESOURCE CONSULTANT AEROBIC CULTURE AND GRAM STAIN Routine 11/02/2024 12:42 PM WATER RESOURCE CONSULTANT POCT GLUCOSE DEVICE Routine 11/02/2024 12:01 PM WATER RESOURCE CONSULTANT US VEIN DUPLEX LOWER EXTREMITY BILATERAL COMPLETE Pending Discharge 11/02/2024 10:08 AM WATER RESOURCE CONSULTANT POCT GLUCOSE DEVICE Routine 11/02/2024 8 :02 AM WATER RESOURCE CONSULTANT URINALYSIS AND REFLEX TO MICROSCOPIC STAT 11/01/2024 9:07 PM WATER RESOURCE CONSULTANT POCT GLUCOSE DEVICE Routine 11/01/2024 8 :53 PM WATER RESOURCE CONSULTANT EGFR STAT 11/01/2024 6:24 PM WATER RESOURCE CONSULTANT DIFFERENTIAL AUTO STAT 11/01/2024 6:2 4 PM WATER RESOURCE CONSULTANT TSH STAT 11/01/2024 6:24 PM WATER RESOURCE CONSULTANT PRO B-TYPE NATRIURETIC PEPTIDE STAT 11/01/2024 6:24 PM WATER RESOURCE CONSULTANT PHOSPHORUS STAT 11/01/2024 6:24 PM WATER RESOURCE CONSULTANT MAGNESIUM STAT 11/01/2024 6:24 PM WATER RESOURCE CONSULTANT LIPID PANEL STAT 11/01/2024 6:24 PM WATER RESOURCE CONSULTANT IRON PROFILE W/ IBC STAT 11/01/2024 6 :24 PM WATER RESOURCE CONSULTANT HEMOGLOBIN A1C STAT 11/01/2024 6:24 PM WATER RESOURCE CONSULTANT FERRITIN STAT 11/01/2024 6:24 PM WATER RESOURCE CONSULTANT COMPREHENSIVE METABOLIC PANEL STAT 11/01/2024 6:24 PM WATER RESOURCE CONSULTANT CBC WITH AUTO DIFFERENTIAL STAT 11/01/2024 6:24 PM WATER RESOURCE CONSULTANT CALCIUM, IONIZED STAT 11/01/2024 6:24 PM WATER RESOURCE CONSULTANT ECG 12-LEAD Routine 11/01/2024 5:42 PM WATER RESOURCE CONSULTANT CORONARY OCT, 1ST VESSEL Routine 10/28/2024 11:03 AM WATER RESOURCE CONSULTANT Congestive heart failure, unspecified HF chronicity, unspecified heart failure type (HCC) CORONARY FLOW VELOCITY (CFR) / INSTATANEOUS FLOW VELOCITY (IFR), 1ST VESSEL Routine 10/28/2024 11:03 AM WATER RESOURCE CONSULTANT Congestive heart failure, unspecified HF chronicity, unspecified heart failure type (HCC) RIGHT LEFT HEART CATHETERIZATION CORONARY GRAFT WITH WITHOUT LEFT VENTRICULOGRAPHY ANGIOGRAM Routine 10/28/2024 11:03 AM WATER RESOURCE CONSULTANT Congestive heart failure, unspecified HF chronicity, unspecified heart failure type (HCC) POCT ACTIVATED CLOTTING TIME, LOW RANGE Routine 10/28/2024 10:59 AM WATER RESOURCE CONSULTANT POCT ACTIVATED CLOTTING TIME, LOW RANGE Routine 10/28/2024 10:48 AM WATER RESOURCE CONSULTANT POCT ACTIVATED CLOTTING TIME, LOW RANGE Routine 10/28/2024 10:34 AM WATER RESOURCE CONSULTANT POCT OXYHEMOGLOBIN - DEVICE Routine 10/28/2024 10:07 AM WATER RESOURCE CONSULTANT POCT OXYHEMOGLOBIN - DEVICE Routine 10/28/2024 10:06 AM WATER RESOURCE CONSULTANT POCT OXYHEMOGLOBIN - DEVICE Routine 10/28/2024 10:06 AM WATER RESOURCE CONSULTANT CBC WITHOUT DIFFERENTIAL Routine 10/28/2024 9:34 AM WATER RESOURCE CONSULTANT CBC WITH AUTO DIFFERENTIAL Routine 10/22/2024 1:07 PM WATER RESOURCE CONSULTANT Pre-procedure lab exam BASIC METABOLIC PANEL Routine 10/22/2024 1:07 PM WATER RESOURCE CONSULTANT Pre-procedure lab exam ECG 12-LEAD Routine 10/20/2024 7:27 PM WATER RESOURCE CONSULTANT TROPONIN T HIGH-SENSITIVITY 2-HOUR Timed 10/20/2024 5:14 PM WATER RESOURCE CONSULTANT XR CHEST PA LATERAL 2 VIEWS ED 10/20/2024 3:54 PM WATER RESOURCE CONSULTANT ECG 12-LEAD STAT 10/20/2024 3:18 PM WATER RESOURCE CONSULTANT PRO B-TYPE NATRIURETIC PEPTIDE STAT 10/20/2024 3:14 PM WATER RESOURCE CONSULTANT EGFR STAT 10/20/2024 3:14 PM WATER RESOURCE CONSULTANT DIFFERENTIAL AUTO STAT 10/20/2024 3:1 4 PM WATER RESOURCE CONSULTANT TROPONIN T HIGH-SENSITIVITY SERIES (BASELINE, 2HR, 4HR, 6HR) STAT 10/20/2024 3:14 PM WATER RESOURCE CONSULTANT CBC WITH AUTO DIFFERENTIAL STAT 10/20/2024 3:14 PM WATER RESOURCE CONSULTANT COMPREHENSIVE METABOLIC PANEL STAT 10/20/2024 3:14 PM WATER RESOURCE CONSULTANT INFLUENZA A/B, RSV, AND COVID-19 PCR Routine 10/20/2024 3:14 PM WATER RESOURCE CONSULTANT EGFR Routine 09/15/2024 12:36 PM WATER RESOURCE CONSULTANT ILD (interstitial lung disease) (CMS/HCC) (HCC) DIFFERENTIAL AUTO Routine 09/15/2024 12:36 PM WATER RESOURCE CONSULTANT ILD (interstitial lung disease) (CMS/HCC) (HCC) PRO B-TYPE NATRIURETIC PEPTIDE Routine 09/15/2024 12:36 PM WATER RESOURCE CONSULTANT Congestive heart failure, unspecified HF chronicity, unspecified heart failure type (HCC) CBC WITH AUTO DIFFERENTIAL Routine 09/15/2024 12:36 PM WATER RESOURCE CONSULTANT ILD (interstitial lung disease) (CMS/HCC) (HCC) COMPREHENSIVE METABOLIC PANEL Routine 09/15/2024 12:36 PM WATER RESOURCE CONSULTANT ILD (interstitial lung disease) (CMS/HCC) (HCC) PULMONARY FUNCTION TEST (PFT) Routine 09/15/2024 10:58 AM WATER RESOURCE CONSULTANT ILD (interstitial lung disease) (CMS/HCC) (HCC) TRANSTHORACIC ECHO (TTE) COMPLETE W DOPPLER/CF W CONTRAST Routine 09/15/2024 10:41 AM WATER RESOURCE CONSULTANT ILD (interstitial lung disease) (CMS/HCC) (HCC) from Last 3 Months Results * eGFR (11/08/2024 8:07 AM WATER RESOURCE CONSULTANT) eGFR 79 >=60 mL/min/1. 73 m2 Comment: [...] last reviewed 2021. Blood 11/08/2024 8:07 AM WATER RESOURCE CONSULTANT 11/08/2024 8:52 AM WATER RESOURCE CONSULTANT us Chelo Chappell MD LAB BLOOD ORDERABLES Final Result ASHA [facility] One [facility] [place] [address] * (ABNORMAL) CBC without differential (11/08/2024 8:07 AM WATER RESOURCE CONSULTANT) [facility] [address] WBC 11.9(H) 3.8 - 9.9 K/cumm Hgb 12.4(L) 13.0 - 17.5 g/dL [facility] Hct 36.8(L) 38.9 - 50.3 % [facility] Plt 256 150 - 400 K/cumm [facility] MPV 11.2 9.1 - 12.3 fL [facility] RBC 3.80(L) 4.30 - 5.80 M/cumm [facility] MCV 96.8(H) 81.3 - 96.4 fL [facility] MCH 32.6 27.1 - 33.3 pg [facility] MCHC 33.7 32.3 - 35.7 g/dL [facility] RDW CV 13.2 11.1 - 14.9 % [facility] RDW SD 46.9 35.7 - 48.1 fL [facility] NRBC abs 0.00 0.00 - 0.01 K/cumm [facility] Blood 11/08/2024 8:07 AM WATER RESOURCE CONSULTANT 11/08/2024 8:52 AM WATER RESOURCE CONSULTANT Chelo Chappell MD LAB BLOOD ORDERABLES Final Result Performing Organization Address City/[facility] Co de Phone Number [facility] [place] [employer] [place] [address] * Magnesium (11/08/2024 8:07 AM WATER RESOURCE CONSULTANT) [facility] [address] Magnesium 2.0 1.4 - 2.5 mg/dL Blood 11/08/2024 8:07 AM WATER RESOURCE CONSULTANT 11/08/2024 8:52 AM WATER RESOURCE CONSULTANT Chelo Chappell MD LAB BLOOD ORDERABLES Final Result Performing Organization Address City/[facility]/ZIP Co de Phone Number [facility] Department [place] [address] * (ABNORMAL) Basic metabolic panel (11/08/2024 8:07 AM WATER RESOURCE CONSULTANT) Sodium 135 135 - 145 mmol/L Potassium, pl 3.5 3.3 - 4.9 mmol/L [facility] Chloride 95(L) 97 - 110 mmol/L [facility] CO2 30 22 - 32 mmol/L [facility] Anion gap 10 2 - 15 mmol/L [facility] BUN 27(H) 6 - 25 mg/dL [facility] Creatinine 0.99 0.80 - 1.30 mg/dL [facility] Glucose 153 70 - 199 mg/dL [facility] Comment: Interpretive Data Fasting glucose >/= 126 [...] 2022. Calcium 9.2 8.5 - 10.3 mg/dL [facility] Blood 11/08/2024 8:07 AM WATER RESOURCE CONSULTANT 11/08/2024 8:52 AM WATER RESOURCE CONSULTANT Chelo Chappell MD LAB BLOOD ORDERABLES Final Result [facility] One [facility] [place] [address] * Troponin I high-sensitivity (11/07/2024 2:27 PM WATER RESOURCE CONSULTANT) Pathologist [facility] Trop I hs 14 <=35 ng/L Comment: Interpretive Data For further RUSTnI resources including the diagnostic algorithm and an aid in interpretation, copy and paste this link: [email or web address] Current Interpretive Data last revised 2020. Blood 11/07/2024 2:27 PM WATER RESOURCE CONSULTANT 11/07/2024 3:15 PM WATER RESOURCE CONSULTANT Jonah Doss MD LAB BLOOD ORDERABLES Final Re sult Performing Organization Address City/[facility]/ZIP Co de Phone Number ASHA [facility] [place] [address] * Blood culture Blood (11/07/2024 2:27 PM WATER RESOURCE CONSULTANT) Report Final Report: No growth Blood 11/07/2024 2:27 PM WATER RESOURCE CONSULTANT 11/07/2024 2:46 PM WATER RESOURCE CONSULTANT [facility]ative [facility] - 11/11/2024 4:00 PM WATER RESOURCE CONSULTANT Collection->Peripheral 1. Blood cultures are incubated for [...] characteristics have been verified by the [facility] Microbiology Laboratory. For questions about this culture, contact the Microbiology Laboratory at [phone]. Interpretive data was last revised on 24. Jonah Doss MD LAB MICROBIOLOGY - GENERAL OR DERABLES Final Result Performing Organization Address [facility]/ZIP Co de Phone Number ASHA [facility] Anastacio [facility] [place] [address] * (ABNORMAL) eGFR (11/07/2024 2:19 PM WATER RESOURCE CONSULTANT) Pathologist [facility] eGFR 51(L) >=60 mL/min/1. 73 m2 Comment: [...] last reviewed 2021. Blood 11/07/2024 2:19 PM WATER RESOURCE CONSULTANT 11/07/2024 2:49 PM WATER RESOURCE CONSULTANT us Jonah Doss MD LAB BLOOD ORDERABLES Final Re sult [facility] One [facility] [place] [address] * (ABNORMAL) Differential, auto (11/07/2024 2:19 PM WATER RESOURCE CONSULTANT) [facility] [address] Neutrophil abs 12.3(H) 1.5 - 6.5 K/cumm Imm gran abs 0.1 0.0 - 0.1 K/cumm [facility] Lymphocyte abs 1.1 0.8 - 3.3 K/cumm [facility] Monocyte abs 1.3(H) 0.2 - 0.8 K/cumm [facility] Eosinophil abs 0.0 0.0 - 0.5 K/cumm [facility] Basophil abs 0.0 0.0 - 0.1 K/cumm [facility] Neutrophil pct 83.1 % [facility] Comment: Interpretive Data Percent cell count reference ranges are not reported, since discordance with absolute values may lead to misinterpretation of CBC data. Current Interpretive Data was last revised on 2018. Imm gran pct 0.9 % [facility] Comment: Interpretive Data Percent cell count reference ranges are not reported, since discordance with absolute values may lead to misinterpretation of CBC data. Current Interpretive Data was last revised on 2018. Lymphocyte pct 7.1 % [facility] Comment: Interpretive Data Percent cell count reference ranges are not reported, since discordance with absolute values may lead to misinterpretation of CBC data. Current Interpretive Data was last revised on 2018. Monocyte pct 8.7 % [facility] Comment: Interpretive Data Percent cell count reference ranges are not reported, since discordance with absolute values may lead to misinterpretation of CBC data. Current Interpretive Data was last revised on 2018. Eosinophil pct 0.1 % [facility] Comment: Interpretive Data Percent cell count reference ranges are not reported, since discordance with absolute values may lead to misinterpretation of CBC data. Current Interpretive Data was last revised on 2018. Basophil pct 0.1 % [facility] Comment: Interpretive Data Percent cell count reference ranges are not reported, since discordance with absolute values may lead to misinterpretation of CBC data. Current Interpretive Data was last revised on 2018. Blood 11/07/2024 2:19 PM WATER RESOURCE CONSULTANT 11/07/2024 2:49 PM WATER RESOURCE CONSULTANT us Jonah Doss MD LAB BLOOD ORDERABLES Final Re sult [facility] [place] [address] * (ABNORMAL) CBC with auto differential (11/07/2024 2:19 PM WATER RESOURCE CONSULTANT) WBC 14.8(H) 3.8 - 9.9 K/cumm Hgb 12.5(L) 13.0 - 17.5 g/dL [facility] Hct 36.6(L) 38.9 - 50.3 % [facility] Plt 305 150 - 400 K/cumm [facility] MPV 10.7 9.1 - 12.3 fL [facility] RBC 3.73(L) 4.30 - 5.80 M/cumm [facility] MCV 98.1(H) 81.3 - 96.4 fL [facility] MCH 33.5(H) 27.1 - 33.3 pg [facility] MCHC 34.2 32.3 - 35.7 g/dL [facility] RDW CV 13.0 11.1 - 14.9 % [facility] RDW SD 46.9 35.7 - 48.1 fL [facility] NRBC abs 0.00 0.00 - 0.01 K/cumm [facility] Blood 11/07/2024 2:19 PM WATER RESOURCE CONSULTANT 11/07/2024 2:49 PM WATER RESOURCE CONSULTANT Jonah Doss MD LAB BLOOD ORDERABLES Final Re sult Performing Organization Address [facility] Co de Phone Number [facility] [place] [address] * (ABNORMAL) Lactate, whole blood (11/07/2024 2:19 PM WATER RESOURCE CONSULTANT) [facility] [address] Lactate, bld 3.1(H) 0.7 - 2.0 mmol/L Blood 11/07/2024 2:19 PM WATER RESOURCE CONSULTANT 11/07/2024 2:36 PM WATER RESOURCE CONSULTANT Jonah Doss MD LAB BLOOD ORDERABLES Final Re sult [facility] [place] [address] * Protime-INR (11/07/2024 2:19 PM WATER RESOURCE CONSULTANT) [facility] [address] PT 12.6 9.7 - 13.0 sec INR 1.16 0.90 - 1.20 [facility] Comment: Interpretive data Oral anticoagulant therapeutic ranges: Venous thromboembolism prophylaxis or treatment: 2.0-3.0 CARDIOLOGY Standard range: 2.0-3.0 High-intensity range: 2.5-3.5 Refer to indication-specific guidelines for appropriate target ranges for prosthetic heart valve replacement. Current interpretive data was last revised on 2019. Blood 11/07/2024 2:19 PM WATER RESOURCE CONSULTANT 11/07/2024 2:42 PM WATER RESOURCE CONSULTANT Jonah Doss MD LAB BLOOD ORDERABLES Final Re sult Performing Organization Address [email or web address]] de Phone Number [facility] [place] [address] * (ABNORMAL) Blood gas, venous (11/07/2024 2:19 PM WATER RESOURCE CONSULTANT) pH, Venous 7.33 7.32 - 7.43 PCO2, Venous 53(H) 40 - 50 mmHg [facility] PO2, Venous 39 mmHg [facility] Comment: Interpretive Data No Reference Range Established Current Interpretive Data was last revised on 2018. HCO3 Venous, Calculated 29 20 - 30 mmol/L [facility] BE, venous 1 mmol/L [facility] Comment: Interpretive Data No Reference Range Established Current Interpretive Data was last revised on 2018. Blood 11/07/2024 2:19 PM WATER RESOURCE CONSULTANT 11/07/2024 2:36 PM WATER RESOURCE CONSULTANT Jonah Doss MD LAB BLOOD ORDERABLES Final Re sult Performing Organization Address [facility] Co de Phone Number [facility] Department [place] [address] * (ABNORMAL) Comprehensive metabolic panel (11/07/2024 2:19 PM WATER RESOURCE CONSULTANT) Sodium 135 135 - 145 mmol/L Potassium, pl 3.8 3.3 - 4.9 mmol/L [facility] Chloride 92(L) 97 - 110 mmol/L [facility] CO2 31 22 - 32 mmol/L [facility] Anion gap 12 2 - 15 mmol/L [facility] BUN 28(H) 6 - 25 mg/dL [facility] Creatinine 1.43(H) 0.80 - 1.30 mg/dL [facility] Glucose 196 70 - 199 mg/dL [facility] Comment: Interpretive Data Fasting glucose >/= 126 [...] 2022. Calcium 9.0 8.5 - 10.3 mg/dL [facility] Bilirubin, total 0.8 0.1 - 1.2 mg/dL [facility] Protein, pl 6.4(L) 6.5 - 8.5 g/dL [facility] Albumin 3.6 3.5 - 5.0 g/dL [facility] Alk phos 47 40 - 130 Units/L [facility] ALT 22 7 - 55 Units/L [facility] AST 19 10 - 50 Units/L [facility] Blood 11/07/2024 2:19 PM WATER RESOURCE CONSULTANT 11/07/2024 2:49 PM WATER RESOURCE CONSULTANT us Jonah Doss MD LAB BLOOD ORDERABLES Final Re sult [facility] Department [place] [address] * (ABNORMAL) POCT glucose (11/07/2024 2:17 PM WATER RESOURCE CONSULTANT) [facility] [address] Glucose, POC 216(H) 70 - 199 mg/dL Blood 11/07/2024 2:17 PM WATER RESOURCE CONSULTANT 11/07/2024 2:17 PM WATER RESOURCE CONSULTANT Jonah Doss MD LAB POCT ORDERABLES - DEVICE Final Result Performing Organization Address [facility] Co de Phone Number [facility] Department [place] [address] * eGFR (11/06/2024 8:19 PM WATER RESOURCE CONSULTANT) Pathologist [facility] eGFR 70 >=60 mL/min/1. 73 m2 Comment: [...] last reviewed 2021. Blood 11/06/2024 8:19 PM WATER RESOURCE CONSULTANT 11/06/2024 9:03 PM WATER RESOURCE CONSULTANT Chelo Chappell MD LAB BLOOD ORDERABLES Final Result Performing Organization Address [facility] Co de Phone Number [facility] [place] [address] * (ABNORMAL) CBC without differential (11/06/2024 8:19 PM WATER RESOURCE CONSULTANT) Pathologist [facility] WBC 13.3(H) 3.8 - 9.9 K/cumm Hgb 13.7 13.0 - 17.5 g/dL [facility] Hct 40.1 38.9 - 50.3 % [facility] Plt 278 150 - 400 K/cumm [facility] MPV 10.7 9.1 - 12.3 fL [facility] RBC 4.22(L) 4.30 - 5.80 M/cumm [facility] MCV 95.0 81.3 - 96.4 fL [facility] MCH 32.5 27.1 - 33.3 pg [facility] MCHC 34.2 32.3 - 35.7 g/dL [facility] RDW CV 13.2 11.1 - 14.9 % [facility] RDW SD 45.4 35.7 - 48.1 fL [facility] NRBC abs 0.00 0.00 - 0.01 K/cumm [facility] Blood 11/06/2024 8:19 PM WATER RESOURCE CONSULTANT 11/06/2024 9:04 PM WATER RESOURCE CONSULTANT Chelo Chappell MD LAB BLOOD ORDERABLES Final Result Performing Organization Address City/[facility]/ZIP Co de Phone Number [facility] [place] [employer] [place] [address] * Magnesium (11/06/2024 8:19 PM WATER RESOURCE CONSULTANT) [facility] [address] [facility] Magnesium 2.1 1.4 - 2.5 mg/dL Blood 11/06/2024 8:19 PM WATER RESOURCE CONSULTANT 11/06/2024 9:03 PM WATER RESOURCE CONSULTANT Chelo Chappell MD LAB BLOOD ORDERABLES Final Result Performing Organization Address City/[facility]/ZIP Co de Phone Number [facility] [place] [employer] [place] [address] * (ABNORMAL) Basic metabolic panel (11/06/2024 8:19 PM WATER RESOURCE CONSULTANT) Pathologist [facility] Sodium 136 135 - 145 mmol/L Potassium, pl 3.7 3.3 - 4.9 mmol/L [facility] Chloride 92(L) 97 - 110 mmol/L [facility] CO2 31 22 - 32 mmol/L [facility] Anion gap 13 2 - 15 mmol/L [facility] BUN 24 6 - 25 mg/dL [facility] Creatinine 1.09 0.80 - 1.30 mg/dL [facility] Glucose 168 70 - 199 mg/dL [facility] Comment: Interpretive Data Fasting glucose >/= 126 [...] 2022. Calcium 9.5 8.5 - 10.3 mg/dL [facility] Blood 11/06/2024 8:19 PM WATER RESOURCE CONSULTANT 11/06/2024 9:03 PM WATER RESOURCE CONSULTANT Chelo Chappell MD LAB BLOOD ORDERABLES Final Result [facility] Department [place] [address] * ECG 12 lead (11/06/2024 8:16 AM WATER RESOURCE CONSULTANT) Pathologist [facility] Ventricular Rate EKG/Min 93 BPM [facility] Atrial Rate [address] [facility] ME-Interval (MSEC) 170 ms [facility] QRS-Interval (MSEC) 88 ms [facility] QT-Interval (MSEC) 360 ms [facility] QTc 447 ms [facility] P [place] 95 degrees [facility] R [place] -[address] [facility] T [place] [address] [facility] Diagnosis Normal sinus rhythm Left axis deviation Pulmonary disease pattern Nonspecific ST and T wave abnormality Abnormal ECG When compared with ECG of 01-NOV-2024 17:42, No significant change was found Confirmed by SIVA LORA M.D ([id number]) on 11/06/2024 1:25:[address] [facility] 11/06/2024 8:16 AM WATER RESOURCE CONSULTANT 11/06/2024 1:25 PM WATER RESOURCE CONSULTANT Chelo Chappell MD ECG ORDERABLES Final Resul t [facility] * eGFR (11/05/2024 10:11 PM WATER RESOURCE CONSULTANT) eGFR 76 >=60 mL/min/1. 73 m2 Comment: [...] reviewed 2021. Blood 11/05/2024 10:1 1 PM WATER RESOURCE CONSULTANT 11/05/2024 10:54 PM WATER RESOURCE CONSULTANT Chelo Chappell MD LAB BLOOD ORDERABLES Final Result Performing Organization Address City/[facility] Co de Phone Number [facility] Department [place] [address] * (ABNORMAL) CBC without differential (11/05/2024 10:11 PM WATER RESOURCE CONSULTANT) Pathologist [facility] WBC 12.2(H) 3.8 - 9.9 K/cumm Hgb 13.7 13.0 - 17.5 g/dL [facility] Hct 39.5 38.9 - 50.3 % [facility] Plt 260 150 - 400 K/cumm [facility] MPV 10.9 9.1 - 12.3 fL [facility] RBC 4.06(L) 4.30 - 5.80 M/cumm [facility] MCV 97.3(H) 81.3 - 96.4 fL [facility] MCH 33.7(H) 27.1 - 33.3 pg [facility] MCHC 34.7 32.3 - 35.7 g/dL [facility] RDW CV 13.3 11.1 - 14.9 % [facility] RDW SD 47.7 35.7 - 48.1 fL [facility] NRBC abs 0.00 0.00 - 0.01 K/cumm [facility] Blood 11/05/2024 10:1 1 PM WATER RESOURCE CONSULTANT 11/05/2024 10:54 PM WATER RESOURCE CONSULTANT Chelo Chappell MD LAB BLOOD ORDERABLES Final Result Performing Organization Address City/[facility] Co de Phone Number [facility] [place] [place] [address] * Magnesium (11/05/2024 10:11 PM WATER RESOURCE CONSULTANT) Pathologist [facility] Magnesium 1.8 1.4 - 2.5 mg/dL Blood 11/05/2024 10:1 1 PM WATER RESOURCE CONSULTANT 11/05/2024 10:54 PM WATER RESOURCE CONSULTANT Chelo Chappell MD LAB BLOOD ORDERABLES Final Result Performing Organization Address [facility] Co de Phone Number [facility] [place] [employer] [place] [address] * Folate (11/05/2024 10:11 PM WATER RESOURCE CONSULTANT) Folic acid See Comment >=5.0 ng/mL Comment:Credited; Hemolyzed Specimen Blood 11/05/2024 10:1 1 PM WATER RESOURCE CONSULTANT 11/05/2024 10:54 PM WATER RESOURCE CONSULTANT Jonah Doss MD LAB BLOOD ORDERABLES Final Re sult Performing Organization Address [facility]/ZIP Co de Phone Number [facility] [place] [employer] [place] [address] * (ABNORMAL) Basic metabolic panel (11/05/2024 10:11 PM WATER RESOURCE CONSULTANT) Pathologist [facility] Sodium 134(L) 135 - 145 mmol/L Potassium, pl 4.1 3.3 - 4.9 mmol/L [facility] Chloride 92(L) 97 - 110 mmol/L [facility] CO2 27 22 - 32 mmol/L [facility] Anion gap 15 2 - 15 mmol/L [facility] BUN 17 6 - 25 mg/dL [facility] Creatinine 1.02 0.80 - 1.30 mg/dL [facility] Glucose 161 70 - 199 mg/dL [facility] Comment: Interpretive Data Fasting glucose >/= 126 [...] 2022. Calcium 9.5 8.5 - 10.3 mg/dL [facility] Blood 11/05/2024 10:1 1 PM WATER RESOURCE CONSULTANT 11/05/2024 10:54 PM WATER RESOURCE CONSULTANT Chelo Chappell MD LAB BLOOD ORDERABLES Final Result [facility] Department [place] [address] * eGFR (11/04/2024 9:17 PM WATER RESOURCE CONSULTANT) Pathologist [facility] eGFR 82 >=60 mL/min/1. 73 m2 Comment: [...] last reviewed 2021. Blood 11/04/2024 9:17 PM WATER RESOURCE CONSULTANT 11/04/2024 9:51 PM WATER RESOURCE CONSULTANT Chelo Chappell MD LAB BLOOD ORDERABLES Final Result [facility] Department [place] [address] * (ABNORMAL) CBC without differential (11/04/2024 9:17 PM WATER RESOURCE CONSULTANT) WBC 12.6(H) 3.8 - 9.9 K/cumm Hgb 13.8 13.0 - 17.5 g/dL [facility] Hct 40.5 38.9 - 50.3 % [facility] Plt 250 150 - 400 K/cumm [facility] MPV 11.0 9.1 - 12.3 fL [facility] RBC 4.15(L) 4.30 - 5.80 M/cumm [facility] MCV 97.6(H) 81.3 - 96.4 fL [facility] MCH 33.3 27.1 - 33.3 pg [facility] MCHC 34.1 32.3 - 35.7 g/dL [facility] RDW CV 13.4 11.1 - 14.9 % [facility] RDW SD 48.0 35.7 - 48.1 fL [facility] NRBC abs 0.00 0.00 - 0.01 K/cumm [facility] Blood 11/04/2024 9:17 PM WATER RESOURCE CONSULTANT 11/04/2024 9:51 PM WATER RESOURCE CONSULTANT Chelo Chappell MD LAB BLOOD ORDERABLES Final Result Performing Organization Address [facility] [[email or web address]] de Phone Number [facility] [place] [place] [address] * Magnesium (11/04/2024 9:17 PM WATER RESOURCE CONSULTANT) Magnesium 1.7 1.4 - 2.5 mg/dL Blood 11/04/2024 9:17 PM WATER RESOURCE CONSULTANT 11/04/2024 9:51 PM WATER RESOURCE CONSULTANT Chelo Chappell MD LAB BLOOD ORDERABLES Final Result Performing Organization Address [facility] [place] [address] * Folate (11/04/2024 9:17 PM WATER RESOURCE CONSULTANT) Pathologist [facility] Folic acid See Comment >=5.0 ng/mL Comment: Credited; Hemolyzed Specimen Notified Alessia (RN) to reorder and recollect. 11/04/2024 23:15:09 WATER RESOURCE CONSULTANT kc Blood 11/04/2024 9:17 PM WATER RESOURCE CONSULTANT 11/04/2024 9:51 PM WATER RESOURCE CONSULTANT Jonah Doss MD LAB BLOOD ORDERABLES Final Re sult Performing Organization Address [facility] Co de Phone Number [facility] [place] [place] [address] * Vitamin B12 (11/04/2024 9:17 PM WATER RESOURCE CONSULTANT) Vitamin B12 1,010 230 - 1,250 pg/mL Blood 11/04/2024 9:17 PM WATER RESOURCE CONSULTANT 11/04/2024 9:51 PM WATER RESOURCE CONSULTANT Jonah Doss MD LAB BLOOD ORDERABLES Final Re sult [facility] [place] [address] * (ABNORMAL) Basic metabolic panel (11/04/2024 9:17 PM WATER RESOURCE CONSULTANT) [facility] [address] [facility] Sodium 135 135 - 145 mmol/L Potassium, pl 4.0 3.3 - 4.9 mmol/L [facility] Comment:Hemolyzed; Potassium value may be falsely elevated by as much as 0.6-1.0 mmol/L. Suggest redraw and reanalysis. Chloride 93(L) 97 - 110 mmol/L [facility] CO2 29 22 - 32 mmol/L [facility] Anion gap 13 2 - 15 mmol/L [facility] BUN 17 6 - 25 mg/dL [facility] Creatinine 0.96 0.80 - 1.30 mg/dL [facility] Glucose 149 70 - 199 mg/dL [facility] Comment: Interpretive Data Fasting glucose >/= 126 [...] 2022. Calcium 9.7 8.5 - 10.3 mg/dL [facility] Blood 11/04/2024 9:17 PM WATER RESOURCE CONSULTANT 11/04/2024 9:51 PM WATER RESOURCE CONSULTANT Chelo Chappell MD LAB BLOOD ORDERABLES Final Result ASHA DUNHAM Anast[facility] Department [place] [address] * POCT glucose (11/04/2024 4:35 PM WATER RESOURCE CONSULTANT) Glucose, POC 136 70 - 199 mg/dL Blood 11/04/2024 4:35 PM WATER RESOURCE CONSULTANT 11/04/2024 4:35 PM WATER RESOURCE CONSULTANT Jonah Doss MD LAB POCT ORDERABLES - DEVICE Final Result Performing Organization Address [facility] [[email or web address]] de Phone Number [facility] [place] [place] [address] * POCT glucose (11/04/2024 11:15 AM WATER RESOURCE CONSULTANT) Glucose, POC 129 70 - 199 mg/dL Blood 11/04/2024 11:1 5 AM WATER RESOURCE CONSULTANT 11/04/2024 11:15 AM WATER RESOURCE CONSULTANT Jonah Doss MD LAB POCT ORDERABLES - DEVICE Final Result Performing Organization Address [facility] de Phone Number [facility] [place] [address] * POCT glucose (11/04/2024 7:50 AM WATER RESOURCE CONSULTANT) Glucose, POC 159 70 - 199 mg/dL Blood 11/04/2024 7:50 AM WATER RESOURCE CONSULTANT 11/04/2024 7:50 AM WATER RESOURCE CONSULTANT Jonah Doss MD LAB POCT ORDERABLES - DEVICE Final Result Performing Organization Address [facility] de Phone Number [facility] [place] [place] [address] * eGFR (11/03/2024 9:58 PM WATER RESOURCE CONSULTANT) eGFR 70 >=60 mL/min/1. 73 m2 Comment: [...] last reviewed 2021. Blood 11/03/2024 9:58 PM WATER RESOURCE CONSULTANT 11/03/2024 10:58 PM WATER RESOURCE CONSULTANT us Chelo Chappell MD LAB BLOOD ORDERABLES Final Result [facility] [place] [address] * (ABNORMAL) CBC without differential (11/03/2024 9:58 PM WATER RESOURCE CONSULTANT) WBC 13.1(H) 3.8 - 9.9 K/cumm Hgb 12.6(L) 13.0 - 17.5 g/dL [facility] Hct 37.7(L) 38.9 - 50.3 % [facility] Plt 262 150 - 400 K/cumm [facility] MPV 10.9 9.1 - 12.3 fL [facility] RBC 3.85(L) 4.30 - 5.80 M/cumm [facility] MCV 97.9(H) 81.3 - 96.4 fL [facility] MCH 32.7 27.1 - 33.3 pg [facility] MCHC 33.4 32.3 - 35.7 g/dL [facility] RDW CV 13.8 11.1 - 14.9 % [facility] RDW SD 49.0(H) 35.7 - 48.1 fL [facility] NRBC abs 0.00 0.00 - 0.01 K/cumm [facility] Blood 11/03/2024 9:58 PM WATER RESOURCE CONSULTANT 11/03/2024 10:59 PM WATER RESOURCE CONSULTANT Chelo Chappell MD LAB BLOOD ORDERABLES Final Result Performing Organization Address City/[facility]/ZIP Co de Phone Number [facility] [place] [address] * Magnesium (11/03/2024 9:58 PM WATER RESOURCE CONSULTANT) [facility] [address] Magnesium 1.7 1.4 - 2.5 mg/dL Blood 11/03/2024 9:58 PM WATER RESOURCE CONSULTANT 11/03/2024 10:58 PM WATER RESOURCE CONSULTANT Chelo Chappell MD LAB BLOOD ORDERABLES Final Result Performing Organization Address [facility] Co de Phone Number [facility] [place] [address] * Vitamin B12 (11/03/2024 9:58 PM WATER RESOURCE CONSULTANT) [facility] [address] Vitamin B12 732 230 - 1,250 pg/mL Blood 11/03/2024 9:58 PM WATER RESOURCE CONSULTANT 11/03/2024 10:58 PM WATER RESOURCE CONSULTANT Jonah Doss MD LAB BLOOD ORDERABLES Final Re sult Performing Organization Address City/[facility] [place] [address] * Basic metabolic panel (11/03/2024 9:58 PM WATER RESOURCE CONSULTANT) Pathologist [facility] Sodium 138 135 - 145 mmol/L Potassium, pl 3.7 3.3 - 4.9 mmol/L [facility] Chloride 97 97 - 110 mmol/L [facility] CO2 30 22 - 32 mmol/L [facility] Anion gap 11 2 - 15 mmol/L [facility] BUN 21 6 - 25 mg/dL [facility] Creatinine 1.09 0.80 - 1.30 mg/dL [facility] Glucose 131 70 - 199 mg/dL [facility] Comment: Interpretive Data Fasting glucose >/= 126 [...] 2022. Calcium 9.5 8.5 - 10.3 mg/dL [facility] Blood 11/03/2024 9:58 PM WATER RESOURCE CONSULTANT 11/03/2024 10:58 PM WATER RESOURCE CONSULTANT us Chelo Chappell MD LAB BLOOD ORDERABLES Final Result Performing Organization Address City/[facility]/ZIP Co de Phone Number [facility] [place] [address] * POCT glucose (11/03/2024 7:36 PM WATER RESOURCE CONSULTANT) Glucose, POC 145 70 - 199 mg/dL Blood 11/03/2024 7:36 PM WATER RESOURCE CONSULTANT 11/03/2024 7:36 PM WATER RESOURCE CONSULTANT Jonah Doss MD LAB POCT ORDERABLES - DEVICE Final Result Performing Organization Address City/[facility]/ZIP Co de Phone Number [facility] [place] [address] * Sodium, urine, random (11/03/2024 5:54 PM WATER RESOURCE CONSULTANT) Sodium, ur 133 mmol/L Comment: Interpretive Data No reference range established. Current interpretive data was last revised 2019. Urine 11/03/2024 5:54 PM WATER RESOURCE CONSULTANT 11/03/2024 6:29 PM WATER RESOURCE CONSULTANT Narrative [facility] - 11/03/2024 6:52 PM WATER RESOURCE CONSULTANT 2 hours after lasix dose Jonah Doss MD LAB URINE ORDERABLES Final Re sult Performing Organization Address City/[facility]/ZIP Co de Phone Number [facility] [place] [address] * POCT glucose (11/03/2024 4:47 PM WATER RESOURCE CONSULTANT) Glucose, POC 135 70 - 199 mg/dL Blood 11/03/2024 4:47 PM WATER RESOURCE CONSULTANT 11/03/2024 4:47 PM WATER RESOURCE CONSULTANT Jonah Doss MD LAB POCT ORDERABLES - DEVICE Final Result Performing Organization Address [facility] Co de Phone Number [facility] [place] [address] * eGFR (11/03/2024 12:11 PM WATER RESOURCE CONSULTANT) [facility] [address] eGFR 72 >=60 mL/min/1. 73 m2 Comment: [...] reviewed 2021. Blood 11/03/2024 12:1 1 PM WATER RESOURCE CONSULTANT 11/03/2024 12:59 PM WATER RESOURCE CONSULTANT Jonah Doss MD LAB BLOOD ORDERABLES Final Re sult [facility] [place] [address] * Basic metabolic panel (11/03/2024 12:11 PM WATER RESOURCE CONSULTANT) Sodium 139 135 - 145 mmol/L Potassium, pl 3.9 3.3 - 4.9 mmol/L [facility] Chloride 98 97 - 110 mmol/L [facility] CO2 30 22 - 32 mmol/L [facility] Anion gap 11 2 - 15 mmol/L [facility] BUN 20 6 - 25 mg/dL [facility] Creatinine 1.07 0.80 - 1.30 mg/dL [facility] Glucose 124 70 - 199 mg/dL [facility] Comment: Interpretive Data Fasting glucose >/= 126 [...] 2022. Calcium 9.3 8.5 - 10.3 mg/dL [facility] Blood 11/03/2024 12:1 1 PM WATER RESOURCE CONSULTANT 11/03/2024 12:59 PM WATER RESOURCE CONSULTANT Jonha Doss MD LAB BLOOD ORDERABLES Final Re sult Performing Organization Address City/[facility]. [facility]/ZIP Co de Phone Number ASHA [facility] [place] [address] * POCT glucose (11/03/2024 11:15 AM WATER RESOURCE CONSULTANT) Glucose, POC 136 70 - 199 mg/dL Blood 11/03/2024 11:1 5 AM WATER RESOURCE CONSULTANT 11/03/2024 11:15 AM WATER RESOURCE CONSULTANT oJnah Doss MD LAB POCT ORDERABLES - DEVICE Final Result Performing Organization Address City/[facility] Co de Phone Number ASHA [facility] [place] [address] * POCT glucose (11/03/2024 7:57 AM WATER RESOURCE CONSULTANT) Glucose, POC 140 70 - 199 mg/dL Blood 11/03/2024 7:57 AM WATER RESOURCE CONSULTANT 11/03/2024 7:57 AM WATER RESOURCE CONSULTANT Jonah Doss MD LAB POCT ORDERABLES - DEVICE Final Result Performing Organization Address [facility] [[email or web address]] de Phone Number [facility] [place] [address] * eGFR (11/02/2024 9:54 PM WATER RESOURCE CONSULTANT) eGFR 83 >=60 mL/min/1. 73 m2 Comment: [...] last reviewed 2021. Blood 11/02/2024 9:54 PM WATER RESOURCE CONSULTANT 11/02/2024 10:18 PM WATER RESOURCE CONSULTANT Chelo hCappell MD LAB BLOOD ORDERABLES Final Result [facility] [place] [address] * (ABNORMAL) CBC without differential (11/02/2024 9:54 PM WATER RESOURCE CONSULTANT) Pathologist [facility] WBC 12.2(H) 3.8 - 9.9 K/cumm Hgb 13.5 13.0 - 17.5 g/dL [facility] Hct 39.4 38.9 - 50.3 % [facility] Plt 223 150 - 400 K/cumm [facility] MPV 10.9 9.1 - 12.3 fL [facility] RBC 4.01(L) 4.30 - 5.80 M/cumm [facility] MCV 98.3(H) 81.3 - 96.4 fL [facility] MCH 33.7(H) 27.1 - 33.3 pg [facility] MCHC 34.3 32.3 - 35.7 g/dL [facility] RDW CV 13.5 11.1 - 14.9 % [facility] RDW SD 47.8 35.7 - 48.1 fL [facility] NRBC abs 0.00 0.00 - 0.01 K/cumm [facility] Blood 11/02/2024 9:54 PM WATER RESOURCE CONSULTANT 11/02/2024 10:18 PM WATER RESOURCE CONSULTANT Chelo Chappell MD LAB BLOOD ORDERABLES Final Result [facility] [place] [address] * Basic metabolic panel (11/02/2024 9:54 PM WATER RESOURCE CONSULTANT) Pathologist [facility] Sodium 140 135 - 145 mmol/L Potassium, pl 3.5 3.3 - 4.9 mmol/L [facility] Chloride 99 97 - 110 mmol/L [facility] CO2 29 22 - 32 mmol/L [facility] Anion gap 12 2 - 15 mmol/L [facility] BUN 19 6 - 25 mg/dL [facility] Creatinine 0.95 0.80 - 1.30 mg/dL [facility] Glucose 128 70 - 199 mg/dL [facility] Comment: Interpretive Data Fasting glucose >/= 126 [...] 2022. Calcium 9.7 8.5 - 10.3 mg/dL [facility] Blood 11/02/2024 9:54 PM WATER RESOURCE CONSULTANT 11/02/2024 10:18 PM WATER RESOURCE CONSULTANT Chelo Chappell MD LAB BLOOD ORDERABLES Final Result [facility] Department [place] [place] [address] * POCT glucose (11/02/2024 8:09 PM WATER RESOURCE CONSULTANT) Glucose, POC 126 70 - 199 mg/dL Blood 11/02/2024 8:09 PM WATER RESOURCE CONSULTANT 11/02/2024 8:09 PM WATER RESOURCE CONSULTANT Chelo Chappell MD LAB POCT ORDERABLES - DEVIC E Final Result Performing Organization Address City/[facility]/ZIP Co de Phone Number [facility] Department [place] [place] [address] * POCT glucose (11/02/2024 5:36 PM WATER RESOURCE CONSULTANT) Glucose, POC 129 70 - 199 mg/dL Blood 11/02/2024 5:36 PM WATER RESOURCE CONSULTANT 11/02/2024 5:36 PM WATER RESOURCE CONSULTANT Chelo Chappell MD LAB POCT ORDERABLES - DEVIC E Final Result [facility] [place] [address] * (ABNORMAL) Respiratory pathogen panel Nasopharyngeal (11/02/2024 4:46 PM WATER RESOURCE CONSULTANT) Pathologist [facility] Influenza A RNA Not Detected Not Detected Influenza B RNA Not Detected Not Detected [facility] RSV RNA Detected(A) Not Detected [facility] COVID-19 RNA Not Detected Not Detected [facility] Coronavirus 229E RNA Not Detected Not Detected [facility] Coronavirus HKU1 RNA Not Detected Not Detected [facility] Coronavirus NL63 RNA Not Detected Not Detected [facility] Coronavirus OC43 RNA Not Detected Not Detected [facility] Adenovirus DNA Not Detected Not Detected [facility] Metapneumovirus RNA Not Detected Not Detected [facility] Rhinovirus/Enterov irus RNA Not Detected Not Detected [facility] Parainfluenza 1 RNA Not Detected Not Detected [facility] Parainfluenza 2 RNA Not Detected Not Detected [facility] Parainfluenza 3 RNA Not Detected Not Detected [facility] Parainfluenza 4 RNA Not Detected Not Detected [facility] B. pertussis DNA Not Detected Not Detected [facility] B. parapertussis DNA Not Detected Not Detected [facility] C. pneumoniae DNA Not Detected Not Detected [facility] M. pneumoniae DNA Not Detected Not Detected [facility] Nasopharyngeal 11/02/2024 4: 46 PM WATER RESOURCE CONSULTANT 11/02/2024 5:38 PM WATER RESOURCE CONSULTANT Narrative [facility] - 11/02/2024 6:48 PM WATER RESOURCE CONSULTANT Is the Patient experiencing symptoms consistent with COVID?->Yes Surveillance testing for transplant patient?->No Interpretive Data [employer] FilmArray Respiratory Panel (RP2.1) assay is a [...] assay has FDA clearance for testing of CINEMA OR THEATRE MANAGER swabs. The performance of additional specimen types has been assessed by the performing laboratory. The performance characteristics of this assay have been determined by [facility] Molecular Infectious Disease Laboratory. Current interpretive data was last revised on 22. us Chelo Chappell MD LAB MICROBIOLOGY - GENERAL ORDERABLES Final Result ASHA [facility] [place] [address] * eGFR (11/02/2024 12:42 PM WATER RESOURCE CONSULTANT) eGFR >90 >=60 mL/min/1. 73 m2 Comment: [...] reviewed 2021. Blood 11/02/2024 12:4 2 PM WATER RESOURCE CONSULTANT 11/02/2024 2:03 PM WATER RESOURCE CONSULTANT Chelo Chappell MD LAB BLOOD ORDERABLES Final Result ASHA DUNH[facility] [place] [address] * Aerobic culture and gram stain Sputum Sputum (11/02/2024 12:42 PM WATER RESOURCE CONSULTANT) Direct Specimen Exam Stain: Abundant squamous epithelial cells seen indicating excessive oropharyngeal contamination. Culture will not be processed further. Please submit another specimen. Smear results called to and read back by: Nell Means RN [phone] on 11/02/2024 16:14:56 by: Jessica Evans MT Report Final Report: This is the final report. ASHA [facility] Sputum (Sputum) 11/02/2024 1 2:42 PM WATER RESOURCE CONSULTANT 11/02/2024 2:03 PM WATER RESOURCE CONSULTANT Narrative ASHA [facility] - 11/03/2024 8:30 AM WATER RESOURCE CONSULTANT Testing performed by [facility] Microbiology Laboratory ([phone]) Specimens submitted from normally sterile body sites [...] LAB MICROBIOLOGY - GENERAL ORDERABLES Final Result [facility] [place] [address] * Basic metabolic panel (11/02/2024 12:42 PM WATER RESOURCE CONSULTANT) Pathologist [facility] Sodium 140 135 - 145 mmol/L Potassium, pl 3.6 3.3 - 4.9 mmol/L [facility] Chloride 99 97 - 110 mmol/L [facility] CO2 28 22 - 32 mmol/L [facility] Anion gap 13 2 - 15 mmol/L [facility] BUN 18 6 - 25 mg/dL [facility] Creatinine 0.81 0.80 - 1.30 mg/dL [facility] Glucose 143 70 - 199 mg/dL [facility] Comment: Interpretive Data Fasting glucose >/= 126 [...] 2022. Calcium 9.5 8.5 - 10.3 mg/dL [facility] Blood 11/02/2024 12:4 2 PM WATER RESOURCE CONSULTANT 11/02/2024 2:03 PM WATER RESOURCE CONSULTANT Chelo Chappell MD LAB BLOOD ORDERABLES Final Result Performing Organization Address City/[facility]/ZIP Co de Phone Number ASHA DUNH[facility] [place] [address] * POCT glucose (11/02/2024 12:01 PM WATER RESOURCE CONSULTANT) Pathologist [facility] Glucose, POC 127 70 - 199 mg/dL Blood 11/02/2024 12:0 1 PM WATER RESOURCE CONSULTANT 11/02/2024 12:01 PM WATER RESOURCE CONSULTANT Chelo Chappell MD LAB POCT ORDERABLES - DEVIC E Final Result Performing Organization Address [facility] Co de Phone Number [facility] [place] [address] * US Vein Duplex Lower Extremity Bilateral Complete (11/02/2024 10:08 AM WATER RESOURCE CONSULTANT) [facility] [address] LV EF % CONS SCIMAGE Anatomical Region Laterality Modality Vascular Bilateral Ultrasound 11/02/2024 9:23 AM WATER RESOURCE CONSULTANT Narrative 11/02/2024 9:46 AM WATER RESOURCE CONSULTANT [facility] - Department of Vascular Surgery, Vascular Laboratory [address] [place] [address] Lower Extremity Venous Ultrasound Report Patient Name: JONAH CONN : 1950 (74y 1m) Study Date: 11/02/2024 9:23:15 AM Gender: M Tech: Location: [id number] Ref Provider: CHELO CHAPPELL Quality: Adequate Order [...] INDICATIONS: severe LE edema - FINDINGS: Performing Freelance Director: Elizabeth Lancaster RVT, RDMS. Bilateral: Venous Doppler [...] above. Electronically Signed By: Kelvin Aj MD [facility] [phone] 11/02/2024 9:45:22 AM WATER RESOURCE CONSULTANT Procedure Note Kelvin Aj MD - 11/02/2024 [facility] - Department of Vascular Surgery,Vascular Laboratory [address] [place] [address] Lower Extremity Venous Ultrasound Report Patient Name: JONAH CONN : 1950 (74y 1m) Study Date: 11/02/2024 9:23:15 AM Gender: M Tech: Location: [id number] Ref Provider: CHELO CHAPPELL Quality: Adequate Order Provider: CHELO CHAPPELL PROCEDURES: Vascular Report: Venous Duplex imaging was performed bilaterally in the lower extremities.The common femoral, femoral, popliteal, posterior tibial, peroneal veins wereevaluated for patency, spontaneity and phasicity with Doppler, compression and augmentationmaneuvers. Great saphenous vein proximal at the junction was evaluated with compressionmaneuvers. INDICATIONS: severe LE edema - FINDINGS: Performing Freelance Director: Elizabteh Lancaster RVT, RDMS. Bilateral: Venous Doppler signals [...] above. Electronically Signed By: Kelvin Aj MD [facility] [phone] 11/02/2024 9:45:22 AM WATER RESOURCE CONSULTANT us Chelo Chappell MD IMG US PROCEDURES Final Res ult * POCT glucose (11/02/2024 8:02 AM WATER RESOURCE CONSULTANT) Glucose, POC 148 70 - 199 mg/dL Blood 11/02/2024 8:02 AM WATER RESOURCE CONSULTANT 11/02/2024 8:02 AM WATER RESOURCE CONSULTANT Chelo Chappell MD LAB POCT ORDERABLES - DEVIC E Final Result [facility] [place] [address] * Urinalysis reflex to microscopic (11/01/2024 9:07 PM WATER RESOURCE CONSULTANT) Color, ur Straw Yellow Clarity, ur Clear Clear [facility] Specific gravity, ur 1.008 1.003 - 1.030 [facility] pH, urine 6.5 [facility] Comment: Interpretive Data U rine pH is affected by diet, medications, systemic acid-base disturbances, and renal tubular function. pH may affect urinary stone formation. For example, urine pH below 6.0 may help reduce the tendency for calcium phosphate stones and pH greater than 6.0 may reduce the tendency for uric acid stone formation. Source: [facility] [employer] Current Interpretive Data was last revised on 2017 Protein, ur ql Negative Negative [facility] Glucose, ur ql Negative Negative [facility] Ketones, ur Negative Negative [facility] Bilirubin, ur Negative Negative [facility] Blood, ur Negative Negative [facility] Urobilinogen, ur <2.0 <2.0 mg/dL [facility] Nitrite, ur Negative Negative [facility] Leukocyte esterase, ur Negative Negative [facility] UA reflex comment Reflex conditions for microscopic UA not met. [facility] Urine 11/01/2024 9:07 PM WATER RESOURCE CONSULTANT 11/01/2024 10:00 PM WATER RESOURCE CONSULTANT us Freddy Soto MD LAB URINE ORDERABLES Final Result Performing Organization Address City/[facility] Co de Phone Number [facility] [place] [address] * POCT glucose (11/01/2024 8:53 PM WATER RESOURCE CONSULTANT) Glucose, POC 140 70 - 199 mg/dL Blood 11/01/2024 8:53 PM WATER RESOURCE CONSULTANT 11/01/2024 8:53 PM WATER RESOURCE CONSULTANT us Chelo Chappell MD LAB POCT ORDERABLES - DEVIC E Final Result Performing Organization Address [facility] [[email or web address]] de Phone Number [facility] [place] [address] * eGFR (11/01/2024 6:24 PM WATER RESOURCE CONSULTANT) eGFR >90 >=60 mL/min/1. 73 m2 Comment: [...] last reviewed 2021. Blood 11/01/2024 6:24 PM WATER RESOURCE CONSULTANT 11/01/2024 6:57 PM WATER RESOURCE CONSULTANT us Freddy Soto MD LAB BLOOD ORDERABLES Final Result ASHA [facility] [place] [address] * (ABNORMAL) Differential, auto (11/01/2024 6:24 PM WATER RESOURCE CONSULTANT) Neutrophil abs 13.0(H) 1.5 - 6.5 K/cumm Imm gran abs 0.1 0.0 - 0.1 K/cumm [facility] Lymphocyte abs 1.1 0.8 - 3.3 K/cumm [facility] Monocyte abs 0.9(H) 0.2 - 0.8 K/cumm [facility] Eosinophil abs 0.1 0.0 - 0.5 K/cumm [facility] Basophil abs 0.0 0.0 - 0.1 K/cumm [facility] Neutrophil pct 85.4 % [facility] Comment: Interpretive Data Percent cell count reference ranges are not reported, since discordance with absolute values may lead to misinterpretation of CBC data. Current Interpretive Data was last revised on 2018. Imm gran pct 0.9 % [facility] Comment: Interpretive Data Percent cell count reference ranges are not reported, since discordance with absolute values may lead to misinterpretation of CBC data. Current Interpretive Data was last revised on 2018. Lymphocyte pct 7.1 % [facility] Comment: Interpretive Data Percent cell count reference ranges are not reported, since discordance with absolute values may lead to misinterpretation of CBC data. Current Interpretive Data was last revised on 2018. Monocyte pct 5.8 % [facility] Comment: Interpretive Data Percent cell count reference ranges are not reported, since discordance with absolute values may lead to misinterpretation of CBC data. Current Interpretive Data was last revised on 2018. Eosinophil pct 0.5 % [facility] Comment: Interpretive Data Percent cell count reference ranges are not reported, since discordance with absolute values may lead to misinterpretation of CBC data. Current Interpretive Data was last revised on 2018. Basophil pct 0.3 % [facility] Comment: Interpretive Data Percent cell count reference ranges are not reported, since discordance with absolute values may lead to misinterpretation of CBC data. Current Interpretive Data was last revised on 2018. Blood 11/01/2024 6:24 PM WATER RESOURCE CONSULTANT 11/01/2024 6:57 PM WATER RESOURCE CONSULTANT us Freddy Soto MD LAB BLOOD ORDERABLES Final Result [facility] [place] [address] * Pro B-type natriuretic peptide (11/01/2024 6:24 PM WATER RESOURCE CONSULTANT) NT-proBNP 145 <=450 pg/mL Comment: Interpretive Comments: [...] Heart J. 2006:27:330-337. 2. Choco RW, Amanda AM. J. AM Misbah Cardiol: Cardiovasc Imag. 2009;2: 216- 225. Interpretive Data Last Revised Date: 2018. Blood 11/01/2024 6:24 PM WATER RESOURCE CONSULTANT 11/01/2024 6:57 PM WATER RESOURCE CONSULTANT Freddy Soto MD LAB BLOOD ORDERABLES Final Result Performing Organization Address [facility] Co de Phone Number [facility] [place] [place] [address] * Calcium, ionized (11/01/2024 6:24 PM WATER RESOURCE CONSULTANT) Pathologist [facility] Calcium, Ionized 4.83 4.50 - 5.10 mg/dL Blood 11/01/2024 6:24 PM WATER RESOURCE CONSULTANT 11/01/2024 6:49 PM WATER RESOURCE CONSULTANT Freddy Soto MD LAB BLOOD ORDERABLES Final Result Performing Organization Address [facility] [[email or web address]] [place] [address] * (ABNORMAL) Iron profile w/ IBC (11/01/2024 6:24 PM WATER RESOURCE CONSULTANT) Pathologist [facility] Iron 46(L) 50 - 150 mcg/dL TIBC See Comment 250 - 400 mcg/dL [facility] Comment:Unable to calculate Transferrin saturation See Comment 20 - 50 % [facility] Comment:Unable to calculate Blood 11/01/2024 6:24 PM WATER RESOURCE CONSULTANT 11/01/2024 6:57 PM WATER RESOURCE CONSULTANT Result [facility] Freddy Soto MD LAB BLOOD ORDERABLES Final Result Performing Organization Address [facility] [[email or web address] [place] [address] * (ABNORMAL) CBC with auto differential (11/01/2024 6:24 PM WATER RESOURCE CONSULTANT) Pathologist [facility] WBC 15.2(H) 3.8 - 9.9 K/cumm Hgb 13.5 13.0 - 17.5 g/dL [facility] Hct 41.6 38.9 - 50.3 % [facility] Plt 241 150 - 400 K/cumm [facility] MPV 11.0 9.1 - 12.3 fL [facility] RBC 4.14(L) 4.30 - 5.80 M/cumm [facility] MCV 100.5(H) 81.3 - 96.4 fL [facility] MCH 32.6 27.1 - 33.3 pg [facility] MCHC 32.5 32.3 - 35.7 g/dL [facility] RDW CV 13.4 11.1 - 14.9 % [facility] RDW SD 48.0 35.7 - 48.1 fL [facility] NRBC abs 0.00 0.00 - 0.01 K/cumm [facility] Blood 11/01/2024 6:24 PM WATER RESOURCE CONSULTANT 11/01/2024 6:57 PM WATER RESOURCE CONSULTANT Freddy Soto MD LAB BLOOD ORDERABLES Final Result [facility] Department [place] [place] [address] * TSH (11/01/2024 6:24 PM WATER RESOURCE CONSULTANT) Pathologist [facility] Thyroid Stimulating Hormone 1.73 0.30 - 4.20 mcIUnit/mL Blood 11/01/2024 6:24 PM WATER RESOURCE CONSULTANT 11/01/2024 6:57 PM WATER RESOURCE CONSULTANT Freddy Soto MD LAB BLOOD ORDERABLES Final Result [facility] [place] [place] [address] * Phosphorus (11/01/2024 6:24 PM WATER RESOURCE CONSULTANT) Phosphorus, pl 2.7 2.3 - 4.5 mg/dL Blood 11/01/2024 6:24 PM WATER RESOURCE CONSULTANT 11/01/2024 6:57 PM WATER RESOURCE CONSULTANT Freddy Soto MD LAB BLOOD ORDERABLES Final Result Performing Organization Address [facility] [[email or web address]] de Phone Number [facility] [place] [place] [address] * Magnesium (11/01/2024 6:24 PM WATER RESOURCE CONSULTANT) Pathologist [facility] Magnesium 2.0 1.4 - 2.5 mg/dL Blood 11/01/2024 6:24 PM WATER RESOURCE CONSULTANT 11/01/2024 6:57 PM WATER RESOURCE CONSULTANT Freddy Soto MD LAB BLOOD ORDERABLES Final Result Performing Organization Address [facility] [[email or web address] [place] [address] * (ABNORMAL) Hemoglobin A1c (11/01/2024 6:24 PM WATER RESOURCE CONSULTANT) [facility] [address] Hgb A1C 6.6(H) 4.0 - 5.6 % Estimated Average Glucose 143 mg/dL [facility] Comment: The ADA recommends reporting an estimated Average Glucose (eAG) with all Hemoglobin A1c results using the equation derived from a study of 507 normal and diabetic adults. Minority populations were underrepresented and children were not included. (Diabetes Care 2020; 43(S1): S66-S76). The eAG is not equivalent to a fasting glucose. Blood 11/01/2024 6:24 PM WATER RESOURCE CONSULTANT 11/01/2024 6:58 PM WATER RESOURCE CONSULTANT Freddy Soto MD LAB BLOOD ORDERABLES Final Result Performing Organization Address [facility] [place] [address] * (ABNORMAL) Ferritin (11/01/2024 6:24 PM WATER RESOURCE CONSULTANT) Ferritin 517(H) 30 - 400 ng/mL Blood 11/01/2024 6:24 PM WATER RESOURCE CONSULTANT 11/01/2024 6:57 PM WATER RESOURCE CONSULTANT us Freddy Soto MD LAB BLOOD ORDERABLES Final Result ASHA DUNH[facility] [place] [address] * Lipid panel (11/01/2024 6:24 PM WATER RESOURCE CONSULTANT) Cholesterol 164 30 - 199 mg/dL Comment: [...] on 2018. Triglycerides 105 <=149 mg/dL ASHA [facility] Comment: Interpretive Data Ages < or = [...] revised on 2018. HDL 66 >=40 mg/dL [facility] Comment: Interpretive Data Ages < or = [...] on 2018. LDL, calculated 79 <=129 mg/dL ASHA [facility] Comment: Interpretive Data Ages < or = [...] 3. Luiz Alvarado et al. BRADY Cardiol. 2019January 28;5(5):540-548. doi: 10.1001/[email or web address].2020.0013 Current Interpretive Data was last revised on 2024. Non-HDL Cholesterol 98 mg/dL [facility] Comment: Interpretive Data Ages < or = [...] last revised on 2018. Chol/HDL ratio 2 [facility] Blood 11/01/2024 6:24 PM WATER RESOURCE CONSULTANT 11/01/2024 6:57 PM WATER RESOURCE CONSULTANT us Freddy Soto MD LAB BLOOD ORDERABLES Final Result [facility] Department [place] [address] * (ABNORMAL) Comprehensive metabolic panel (11/01/2024 6:24 PM WATER RESOURCE CONSULTANT) Sodium 145 135 - 145 mmol/L Potassium, pl 4.7 3.3 - 4.9 mmol/L [facility] Comment:Hemolyzed; Potassium value may be falsely elevated by as much as 0.3-0.5 mmol/L. Suggest redraw and reanalysis. Chloride 107 97 - 110 mmol/L [facility] CO2 27 22 - 32 mmol/L [facility] Anion gap 11 2 - 15 mmol/L [facility] BUN 17 6 - 25 mg/dL [facility] Creatinine 0.67(L) 0.80 - 1.30 mg/dL [facility] Glucose 134 70 - 199 mg/dL [facility] Comment: Interpretive Data Fasting glucose >/= 126 [...] Calcium 9.3 8.5 - 10.3 mg/dL [facility] Bilirubin, total 0.5 0.1 - 1.2 mg/dL [facility] Protein, pl 6.6 6.5 - 8.5 g/dL [facility] Albumin 3.7 3.5 - 5.0 g/dL [facility] Alk phos 60 40 - 130 Units/L [facility] ALT 28 7 - 55 Units/L [facility] AST 31 10 - 50 Units/L [facility] Comment:Hemolyzed; result ma y be falsely elevated Blood 11/01/2024 6:24 PM WATER RESOURCE CONSULTANT 11/01/2024 6:57 PM WATER RESOURCE CONSULTANT Freddy Soto MD LAB BLOOD ORDERABLES Final Result [facility] [place] [address] * ECG 12 lead (11/01/2024 5:42 PM WATER RESOURCE CONSULTANT) Ventricular Rate EKG/Min 93 BPM [facility] Atrial Rate 93 BPM [facility] ME-Interval (MSEC) 156 ms [facility] [facility] QRS-Interval (MSEC) 78 ms [facility] QT-Interval (MSEC) 328 ms [facility] QTc 407 ms [facility] P [place] 1 degrees [facility] R [place] -21 degrees [facility] T [place] [address] [facility] Diagnosis Normal sinus rhythm Nonspecific ST and T wave abnormality Abnormal ECG No previous ECGs available Confirmed by Oren Red MD ([id number]) on 11/02/2024 6:35:[address] [facility] 11/01/2024 5:42 PM WATER RESOURCE CONSULTANT 11/02/2024 6:35 PM WATER RESOURCE CONSULTANT us Chelo Chappell MD ECG ORDERABLES Final Resul t Performing Organization Address [facility] Co de Phone Number [facility] * RIGHT LEFT HEART CATHETERIZATION CORONARY GRAFT WITH WITHOUT LEFT VENTRICULOGRAPHY ANGIOGRAM, CORONARY FLOW VELOCITY (CFR) / INSTATANEOUS FLOW VELOCITY (IFR), 1ST VESSEL, CORONARY OCT, 1ST VESSEL (10/28/2024 11:03 AM WATER RESOURCE CONSULTANT) Anatomical Region Laterality Modality X-Ray Angiograph y Impressions 10/28/2024 2:13 PM WATER RESOURCE CONSULTANT Moderate ostial left main disease, nonischemic on IFR and intravascular ultrasound assessment(MLA>12mm2) Elevated left and right-sided filling pressures, mild group 2 pulmonary hypertension. Preserved right ventricular function based on hemodynamics. THERAPEUTIC RECOMMENDATIONS: Would recommend re-initiation of low-dose diuretic therapy, compression therapy. Would pursue a venous reflux study if not already done. Narrative 10/28/2024 2:13 PM WATER RESOURCE CONSULTANT Images from the original result were not included. Cardiovascular Procedure Center [facility] [id number] [id number] DIAGNOSTIC CATHETERIZATION REPORT Patient: Jonah Conn : 1950 MR number: [id number] Date of Service: 10/28/2024 County Health Officer: Chet Esposito MD INDICATION: Swelling PATIENT CLINICAL PROFILE: Jonah Conn is a 74 y.o. male with a history of shortness of breath and likely relatively new diagnosis of hypersensitivity pneumonitis. He was placed on prednisone and subsequently saw pulmonology or [facility]. His immunosuppression has been transitioned. Since starting [...] obtained. The patient was brought to the rags laborer and placed on the table. The RIGHT [...] via pulmonary artery catheter I provided direct [id number] moderate conscious sedation which administered by independent [...] clotting time, low range (10/28/2024 10:59 AM WATER RESOURCE CONSULTANT) ACT 223(H) 123 - 168 sec POC Performer [id number] [facility] POC Device Number [id number] [facility] Blood 10/28/2024 10:5 9 AM WATER RESOURCE CONSULTANT 10/28/2024 10:59 AM WATER RESOURCE CONSULTANT us Chet Esposito MD LAB POCT ORDERABLES - DEVICE Final Result [facility] Department [place] [address] * (ABNORMAL) POCT Activated clotting time, low range (10/28/2024 10:48 AM WATER RESOURCE CONSULTANT) ACT 285(H) 123 - 168 sec POC Performer [id number] [facility] POC Device Number [id number] [facility] Blood 10/28/2024 10:4 8 AM WATER RESOURCE CONSULTANT 10/28/2024 10:48 AM WATER RESOURCE CONSULTANT us Chet Esposito MD LAB POCT ORDERABLES - DEVICE Final Result Performing Organization Address [facility] [[email or web address]] de Phone Number [facility] Department [place] [address] * (ABNORMAL) POCT Activated clotting time, low range (10/28/2024 10:34 AM WATER RESOURCE CONSULTANT) ACT 205(H) 123 - 168 sec POC Performer [id number] [facility] POC Device Number [id number] [facility] Blood 10/28/2024 10:3 4 AM WATER RESOURCE CONSULTANT 10/28/2024 10:34 AM WATER RESOURCE CONSULTANT Chet Esposito MD LAB POCT ORDERABLES - DEVICE Final Result Performing Organization Address [facility] de Phone Number [facility] Department [place] [address] * (ABNORMAL) POCT oxyhemoglobin (10/28/2024 10:07 AM WATER RESOURCE CONSULTANT) Pathologist [facility] [employer] Oxyhemoglobin 92.6 >=65.0 % [employer] Hemoglobin 12.5(L) 13.0 - 17.5 g/dL [facility] [employer] O2 content 16.1 15.0 - 22.0 Vol % [facility] Anatomic Site aPOC Aorta descend [facility] Blood 10/28/2024 10:0 7 AM WATER RESOURCE CONSULTANT 10/28/2024 10:07 AM WATER RESOURCE CONSULTANT Chet Esposito MD LAB POCT ORDERABLES - DEVICE Final Result Performing Organization Address [facility] Co de Phone Number [facility] [place] [place] [address] * (ABNORMAL) POCT oxyhemoglobin (10/28/2024 10:06 AM WATER RESOURCE CONSULTANT) [employer] Oxyhemoglobin 69.9 >=65.0 % [employer] Hemoglobin 12.4(L) 13.0 - 17.5 g/dL [facility] [employer] O2 content 12.0(L) 15.0 - 22.0 Vol % [facility] Anatomic Site aPOC Pulm Art right [facility] Blood 10/28/2024 10:0 6 AM WATER RESOURCE CONSULTANT 10/28/2024 10:06 AM WATER RESOURCE CONSULTANT us Chet Esposito MD LAB POCT ORDERABLES - DEVICE Final Result Performing Organization Address [facility] [place] [address] * (ABNORMAL) POCT oxyhemoglobin (10/28/2024 10:06 AM WATER RESOURCE CONSULTANT) [employer] Oxyhemoglobin 68.9 >=65.0 % [employer] Hemoglobin 12.4(L) 13.0 - 17.5 g/dL [facility] [employer] O2 content 11.8(L) 15.0 - 22.0 Vol % [facility] Anatomic Site aPOC Pulm Art right [facility] Blood 10/28/2024 10:0 6 AM WATER RESOURCE CONSULTANT 10/28/2024 10:06 AM WATER RESOURCE CONSULTANT us Chet Esposito MD LAB POCT ORDERABLES - DEVICE Final Result Performing Organization Address [facility] [place] [address] * (ABNORMAL) CBC without differential (10/28/2024 9:34 AM WATER RESOURCE CONSULTANT) WBC 15.5(H) 3.8 - 9.9 K/cumm Hgb 12.5(L) 13.0 - 17.5 g/dL [facility] Hct 36.7(L) 38.9 - 50.3 % [facility] Plt 236 150 - 400 K/cumm [facility] MPV 10.7 9.1 - 12.3 fL [facility] RBC 3.79(L) 4.30 - 5.80 M/cumm [facility] MCV 96.8(H) 81.3 - 96.4 fL [facility] MCH 33.0 27.1 - 33.3 pg [facility] MCHC 34.1 32.3 - 35.7 g/dL [facility] RDW CV 13.0 11.1 - 14.9 % [facility] RDW SD 45.7 35.7 - 48.1 fL [facility] NRBC abs 0.00 0.00 - 0.01 K/cumm [facility] Blood 10/28/2024 9:34 AM WATER RESOURCE CONSULTANT 10/28/2024 9:57 AM WATER RESOURCE CONSULTANT Narrative [facility] - 10/28/2024 10:15 AM WATER RESOURCE CONSULTANT To be drawn after hydration bolus complete us Chet Esposito MD LAB BLOOD ORDERABLES Final Result [facility] Department [place] [address] * (ABNORMAL) CBC with auto differential (10/22/2024 1:07 PM WATER RESOURCE CONSULTANT) Pathologist [facility] WBC 12.7(H) 3.8 - 10.8 Thousand/ uL [...] [facility] MCHC 33.2 32.0 - 36.0 g/dL [facility] Comment: For adults, a slight decrease in the calculated MCHC value (in the range of 30 to 32 g/dL) is most likely not clinically significant; however, it should be interpreted with caution in correlation with other red cell parameters and the patient's clinical condition. Rdw 12.1 11.0 - 15.0 % [facility] Platelets 276 140 - 400 Thousand/ uL [facility] MPV 10.8 7.5 - 12.5 fL [facility] Neutrophils, abs 10,744(H) 1,500 - 7,800 cells/uL [facility] Lymphocytes, abs 1,080 850 - 3,900 cells/uL [facility] Monocyte abs 813 200 - 950 cells/uL [facility] Eosinophils, abs 38 15 - 500 cells/uL [facility] Basophils, abs 25 0 - 200 cells/uL [facility] Neutrophils 84.6 % [facility] Lymphocyte pct 8.5 % [facility] Monocytes 6.4 % [facility] Eosinophils 0.3 % [facility] Basophils 0.2 % [facility] Blood 10/22/2024 1:07 PM WATER RESOURCE CONSULTANT 10/22/2024 1:07 PM WATER RESOURCE CONSULTANT us Boogie Luna MD LAB BLOOD ORDERABLES Final R esult [facility] [address] [place] [address] * (ABNORMAL) Basic metabolic panel (10/22/2024 1:07 PM WATER RESOURCE CONSULTANT) Glucose 129(H) 65 - 99 mg/dL [facility] Comment: Fasting reference interval For someone without known diabetes, a glucose value >125 mg/dL indicates that they may have diabetes and this should be confirmed with a follow-up test. BUN 17 7 - 25 mg/dL [facility] Creatinine 0.77 0.70 - 1.28 mg/dL [facility] eGFR 93 > OR = 60 mL/min/1.7 3m2 [facility] BUN/creat ratio SEE NOTE: (calc) [facility] Comment: Not Reported: BUN and Creatinine are within reference range. Sodium 144 135 - 146 mmol/L [facility] Potassium, pl 4.4 3.5 - 5.3 mmol/L [facility] Chloride 106 98 - 110 mmol/L [facility] CO2 29 20 - 32 mmol/L [facility] Calcium 9.3 8.6 - 10.3 mg/dL [facility] Blood 10/22/2024 1:07 PM WATER RESOURCE CONSULTANT 10/22/2024 1:07 PM WATER RESOURCE CONSULTANT us Boogie Luna MD LAB BLOOD ORDERABLES Final R esult [facility] [address] [place] [address] * ECG 12-LEAD (10/20/2024 7:27 PM WATER RESOURCE CONSULTANT) Narrative [facility] - 10/20/2024 7:27 PM WATER RESOURCE CONSULTANT Larry Lord Jr., MD 10/20/2024 7:34 PM ECG 12 lead Date/Time: 10/20/2024 7:27 PM Performed by: Larry Lord Jr., MD Authorized by: Larry Lord Jr., MD Comments: EKG Interpretation Interpreted by ED physician in absence of a curtain worker Ventricular rate: 94 bpm Rhythm: NSR with infrequent PVC [place]: Left axis deviation Intervals: normal Other findings: [...] by ED physician in absence of a curtain worker Ventricular rate: 94 bpm Rhythm: NSR with infrequent PVC [place]: Left axis deviation Intervals: normal Other findings: no acute ischemia, no ST segment elevation, nonspecificT-wave abnormalities Interpretation: nsr with infrequent PVC Compared to priors: yes, earlier today in ED, and similar. Larry Lord Jr., MD 10/20/241933 us Larry Lord Jr., MD ECG ORDERABLES Domenica l Result Performing Organization Address [facility] Co de Phone Number [facility] * (ABNORMAL) Troponin T high-sensitivity 2-hour (10/20/2024 5:14 PM WATER RESOURCE CONSULTANT) Trop T hs 113(H) <=22 ng/L Comment: Interpretive Data For further hscTnT resources including the diagnostic algorithm and an aid in interpretation, copy and paste this link: https://nrl.testcatalog.org/show/hsTrop Current Interpretive Data last revised 2020. Trop T hs pct delta -14 % [facility] Trop T hs interp Equivocal [facility] Blood 10/20/2024 5:14 PM WATER RESOURCE CONSULTANT 10/20/2024 5:17 PM WATER RESOURCE CONSULTANT us Larry Lord Jr., MD LAB BLOOD ORDERABLES Final Result Performing Organization Address [facility] [[email or web address]] de Phone Number [facility] [address] [facility] Department [place] [address] * XR Chest PA Lateral 2 Views (10/20/2024 3:54 PM WATER RESOURCE CONSULTANT) Anatomical Region Laterality Modality Body, Chest N/A Computed Radiogr aphy 10/21/2024 7:59 AM WATER RESOURCE CONSULTANT Impressions 10/21/2024 8:02 AM WATER RESOURCE CONSULTANT Comparison is made to radiograph dated 03/31/2024. Unchanged elevation of the left hemidiaphragm. Bibasilar atelectasis. No pneumothorax or pleural effusion. Stable cardiomediastinal silhouette. Dictated by: Jordin Franco MD The radiology attending physician has personally reviewed this study, and had reviewed and/or edited this written report and agrees with it. Electronically signed by: Alejandro Watson M.D. Narrative 10/21/2024 8:02 AM WATER RESOURCE CONSULTANT EXAMINATION: 2 view chest radiograph Procedure Note [...] Result * ECG 12-LEAD (10/20/2024 3:18 PM WATER RESOURCE CONSULTANT) Narrative [facility] - 10/20/2024 3:18 PM WATER RESOURCE CONSULTANT Larry Lord Jr., MD 10/20/2024 3:20 PM ECG 12 lead Date/Time: 10/20/2024 3:18 PM Performed by: Larry Lord Jr., MD Authorized by: Larry Lord Jr., MD Comments: EKG Interpretation Interpreted by ED physician in absence of a curtain worker Ventricular rate: 95 bpm Rhythm: nsr with PVCs [place]: Left axis deviation Intervals: normal Other findings: [...] by ED physician in absence of a curtain worker Ventricular rate: 95 bpm Rhythm: nsr with PVCs [place]: Left axis deviation Intervals: normal Other findings: no acute ischemia, no ST segment elevation, change in Pwave morphologies but not MAT with rate 95 Interpretation: nsr with PVCs Compared to priors: n/a Larry Lord Jr., MD 10/20/24 1520 us Larry Lord Jr., MD ECG ORDERABLES Domenica l Result Performing Organization Address [facility] Co de Phone Number [facility] * (ABNORMAL) Troponin T high-sensitivity series (baseline, 2hr, 4hr, 6hr) (10/20/2024 3:14 PM WATER RESOURCE CONSULTANT) Pathologist [facility] Trop T hs 131(H) <=22 ng/L Comment: Interpretive Data For further hscTnT resources including the diagnostic algorithm and an aid in interpretation, copy and paste this link: https://nrl.testcatalog.org/show/hsTrop Current Interpretive Data last revised 2020. Blood 10/20/2024 3:14 PM WATER RESOURCE CONSULTANT 10/20/2024 3:16 PM WATER RESOURCE CONSULTANT us Larry Lord Jr., MD LAB BLOOD ORDERABLES Final Result Performing Organization Address [facility] [[email or web address]] de Phone Number [facility] [address] [facility] [place] [address] * (ABNORMAL) Influenza A/B, RSV, and COVID-19 PCR Nasopharyngeal (10/20/2024 3:14 PM WATER RESOURCE CONSULTANT) Pathologist [facility] COVID-19 RNA Negative Negative Influenza A RNA Negative Negative [facility]ANT[facility] Influenza B RNA Negative Negative ASHA PEREZ RSV RNA Positive(A) Negative ASHA PEREZ Comment: Testing performed by [facility]. This test is performed using the [employer] Xpert Xpress CoV-2/Flu/RSV plus assay. This is a multiplex, real-time reverse transcriptase PCR assay intended for the qualitative detection of nucleic acid from SARS-CoV-2, influenza A, influenza B, and respiratory syncytial virus. This assay has been cleared by the [place] Food and Drug administration. The performance characteristics have been verified by the [facility]. Results must be considered in the clinical context, and a negative result does not rule out infection. Interpretive Data last revised 2023 Nasopharyngeal 10/20/2024 3: 14 PM WATER RESOURCE CONSULTANT 10/20/2024 3:16 PM WATER RESOURCE CONSULTANT Narrative [facility]SHA BLANTONCH - 10/20/2024 4:08 PM WATER RESOURCE CONSULTANT Is the Patient experiencing symptoms consistent with COVID?->No us Larry Lord Jr., MD LAB MICROBIOLOGY - G ENERAL ORDERABLES Final Result [facility] [address] [facility]. [place] [address] * eGFR (10/20/2024 3:14 PM WATER RESOURCE CONSULTANT) eGFR >90 >=60 mL/min/1. 73 m2 Comment: [...] last reviewed 2021. Blood 10/20/2024 3:14 PM WATER RESOURCE CONSULTANT 10/20/2024 3:16 PM WATER RESOURCE CONSULTANT us Larry Lord Jr., MD LAB BLOOD ORDERABLES Final Result [facility]SHA [facility]ANT[facility] [address] [facility]. [place] [address] * (ABNORMAL) Differential, auto (10/20/2024 3:14 PM WATER RESOURCE CONSULTANT) Neutrophil abs 10.8(H) 1.5 - 6.5 K/cumm [...] on 2018. Imm gran pct 0.9 % [facility] Comment: Interpretive Data Percent cell count reference ranges are not reported, since discordance with absolute values may lead to misinterpretation of CBC data. Current Interpretive Data was last revised on 2018. Lymphocyte pct 6.1 % [facility] Comment: Interpretive Data Percent cell count reference ranges are not reported, since discordance with absolute values may lead to misinterpretation of CBC data. Current Interpretive Data was last revised on 2018. Monocyte pct 8.7 % [facility] Comment: Interpretive Data Percent cell count reference ranges are not reported, since discordance with absolute values may lead to misinterpretation of CBC data. Current Interpretive Data was last revised on 2018. Eosinophil pct 0.5 % [facility] Comment: Interpretive Data Percent cell count reference ranges are not reported, since discordance with absolute values may lead to misinterpretation of CBC data. Current Interpretive Data was last revised on 2018. Basophil pct 0.2 % [facility] Comment: Interpretive Data Percent cell count reference ranges are not reported, since discordance with absolute values may lead to misinterpretation of CBC data. Current Interpretive Data was last revised on 2018. Blood 10/20/2024 3:14 PM WATER RESOURCE CONSULTANT 10/20/2024 3:16 PM WATER RESOURCE CONSULTANT us Larry Lord Jr., MD LAB BLOOD ORDERABLES Final Result [facility]SHA [facility] [address] [facility]. [place] [address] * Pro B-type natriuretic peptide (10/20/2024 3:14 PM WATER RESOURCE CONSULTANT) NT-proBNP 122 <=450 pg/mL Comment: Interpretive Comments: [...] Heart J. 2006:27:330-337. 2. Choco RW, Amanda AM. J. AM Misbah Cardiol: Cardiovasc Imag. 2009;2: 216- 225. Interpretive Data Last Revised Date: 2018. Blood 10/20/2024 3:14 PM WATER RESOURCE CONSULTANT 10/20/2024 3:16 PM WATER RESOURCE CONSULTANT us Larry Lord Jr., MD LAB BLOOD ORDERABLES Final Result Performing Organization Address [facility] Co de Phone Number ASHA PEREZ [address] [employer] Department [employer] [place], [place] [id number] * (ABNORMAL) CBC with auto differential (10/20/2024 3:14 PM WATER RESOURCE CONSULTANT) WBC 12.9(H) 3.8 - 9.9 K/cumm Hgb 13.6 13.0 - 17.5 g/dL [facility] Hct 40.3 38.9 - 50.3 % [facility] Plt 257 150 - 400 K/cumm [facility] MPV 10.1 9.1 - 12.3 fL [facility] RBC 4.01(L) 4.30 - 5.80 M/cumm [facility] MCV 100.5(H) 81.3 - 96.4 fL [facility] MCH 33.9(H) 27.1 - 33.3 pg [facility] MCHC 33.7 32.3 - 35.7 g/dL [facility] RDW CV 13.0 11.1 - 14.9 % [facility] RDW SD 48.2(H) 35.7 - 48.1 fL [facility] NRBC abs 0.00 0.00 - 0.01 K/cumm [facility] Blood 10/20/2024 3:14 PM WATER RESOURCE CONSULTANT 10/20/2024 3:16 PM WATER RESOURCE CONSULTANT us Larry Lord Jr., MD LAB BLOOD ORDERABLES Final Result Performing Organization Address [facility] Co de Phone Number ASHA PERE[facility] [address] [employer] Department of [employer] [place], [place] [id number] * (ABNORMAL) Comprehensive metabolic panel (10/20/2024 3:14 PM WATER RESOURCE CONSULTANT) Sodium 137 135 - 145 mmol/L Potassium, [...] Units/L [facility] Blood 10/20/2024 3:14 PM WATER RESOURCE CONSULTANT 10/20/2024 3:16 PM WATER RESOURCE CONSULTANT us Larry Lord Jr., MD LAB BLOOD ORDERABLES Final Result ASHA [facility]ANT[facility] [address] [facility]. Department of [employer] [place], [place] [id number] * eGFR (09/15/2024 12:36 PM WATER RESOURCE CONSULTANT) Pathologist [facility] eGFR 90 >=60 mL/min/1. 73 m2 Comment: [...] reviewed 2021. Blood 09/15/2024 12:3 6 PM WATER RESOURCE CONSULTANT 09/15/2024 1:21 PM WATER RESOURCE CONSULTANT us Karla Esquivel Jr., MD LAB BLOOD ORDERABL ES Final Result [facility] Department [place] [address] * (ABNORMAL) Differential, auto (09/15/2024 12:36 PM WATER RESOURCE CONSULTANT) Pathologist [facility] Neutrophil abs 15.5(H) 1.5 - 6.5 K/cumm Imm gran abs 0.2(H) 0.0 - 0.1 K/cumm [facility] Lymphocyte abs 1.5 0.8 - 3.3 K/cumm [facility] Monocyte abs 1.5(H) 0.2 - 0.8 K/cumm [facility] Eosinophil abs 0.1 0.0 - 0.5 K/cumm [facility] Basophil abs 0.1 0.0 - 0.1 K/cumm [facility] Neutrophil pct 82.4 % [facility] Comment: Interpretive Data Percent cell count reference ranges are not reported, since discordance with absolute values may lead to misinterpretation of CBC data. Current Interpretive Data was last revised on 2018. Imm gran pct 1.2 % [facility] Comment: Interpretive Data Percent cell count reference ranges are not reported, since discordance with absolute values may lead to misinterpretation of CBC data. Current Interpretive Data was last revised on 2018. Lymphocyte pct 7.8 % [facility] Comment: Interpretive Data Percent cell count reference ranges are not reported, since discordance with absolute values may lead to misinterpretation of CBC data. Current Interpretive Data was last revised on 2018. Monocyte pct 7.9 % [facility] Comment: Interpretive Data Percent cell count reference ranges are not reported, since discordance with absolute values may lead to misinterpretation of CBC data. Current Interpretive Data was last revised on 2018. Eosinophil pct 0.3 % [facility] Comment: Interpretive Data Percent cell count reference ranges are not reported, since discordance with absolute values may lead to misinterpretation of CBC data. Current Interpretive Data was last revised on 2018. Basophil pct 0.4 % [facility] Comment: Interpretive Data Percent cell count reference ranges are not reported, since discordance with absolute values may lead to misinterpretation of CBC data. Current Interpretive Data was last revised on 2018. Blood 09/15/2024 12:3 6 PM WATER RESOURCE CONSULTANT 09/15/2024 1:21 PM WATER RESOURCE CONSULTANT Karla Esquivel Jr., MD LAB BLOOD ORDERABL ES Final Result ASHA [facility] [place] [address] * Pro B-type natriuretic peptide (09/15/2024 12:36 PM WATER RESOURCE CONSULTANT) NT-proBNP 98 <=450 pg/mL Comment: Interpretive Comments: [...] Date: 2018. Blood 09/15/2024 12:3 6 PM WATER RESOURCE CONSULTANT 09/15/2024 1:21 PM WATER RESOURCE CONSULTANT us Karla Esquivel Jr., MD LAB BLOOD ORDERABL ES Final Result [facility] [place] [address] * (ABNORMAL) CBC with auto differential (09/15/2024 12:36 PM WATER RESOURCE CONSULTANT) WBC 18.8(H) 3.8 - 9.9 K/cumm Hgb 13.7 13.0 - 17.5 g/dL [facility] Hct 40.9 38.9 - 50.3 % [facility] Plt 296 150 - 400 K/cumm [facility] MPV 10.5 9.1 - 12.3 fL [facility] RBC 3.98(L) 4.30 - 5.80 M/cumm [facility] MCV 102.8(H) 81.3 - 96.4 fL [facility] MCH 34.4(H) 27.1 - 33.3 pg [facility] MCHC 33.5 32.3 - 35.7 g/dL [facility] RDW CV 13.4 11.1 - 14.9 % [facility] RDW SD 50.7(H) 35.7 - 48.1 fL [facility] NRBC abs 0.00 0.00 - 0.01 K/cumm [facility] Blood 09/15/2024 12:3 6 PM WATER RESOURCE CONSULTANT 09/15/2024 1:21 PM WATER RESOURCE CONSULTANT us Karla Esquivel Jr., MD LAB BLOOD ORDERABL ES Final Result [facility] [place] [address] * (ABNORMAL) Comprehensive metabolic panel (09/15/2024 12:36 PM WATER RESOURCE CONSULTANT) Sodium 142 135 - 145 mmol/L Potassium, pl 4.1 3.3 - 4.9 mmol/L [facility] Chloride 102 97 - 110 mmol/L [facility] CO2 29 22 - 32 mmol/L [facility] Anion gap 11 2 - 15 mmol/L [facility] BUN 28(H) 6 - 25 mg/dL [facility] Creatinine 0.88 0.80 - 1.30 mg/dL [facility] Glucose 138 70 - 199 mg/dL [facility] Comment: Interpretive Data Fasting glucose >/= 126 [...] 2022. Calcium 9.8 8.5 - 10.3 mg/dL [facility] Bilirubin, total 0.7 0.1 - 1.2 mg/dL [facility] Protein, pl 6.9 6.5 - 8.5 g/dL [facility] Albumin 4.1 3.5 - 5.0 g/dL [facility] Alk phos 49 40 - 130 Units/L [facility] ALT 31 7 - 55 Units/L [facility] AST 21 10 - 50 Units/L [facility] Blood 09/15/2024 12:3 6 PM WATER RESOURCE CONSULTANT 09/15/2024 1:21 PM WATER RESOURCE CONSULTANT us Karla Esquivel Jr., MD LAB BLOOD ORDERABL ES Final Result [facility] [place] [address] * Pulmonary Function Test - (09/15/2024 10:58 AM WATER RESOURCE CONSULTANT) FVC PRE 2.[address] [facility] FVC %PRE PRED 48 % [facility] FEV1 PRE 1.[address] [facility] FEV1 %PRE PRED 57 % [facility] FEV1/FVC PRE 88.3 % [facility] Anatomical Region Laterality Modality PFT 09/15/2024 10:4 5 AM WATER RESOURCE CONSULTANT Narrative 09/17/2024 8:14 AM WATER RESOURCE CONSULTANT PFT performed at:->[facility] Adult [...] and %HbO2 is age dependent. However, the [facility] Pulmonary Function Laboratory defines hypoxemia as a PaO2 <56 mm Hg or a %HbO2 <89%. us Karla Esquivel Jr., MD PFT ORDERABLES Fi nal Result * TRANSTHORACIC ECHO (TTE) COMPLETE W DOPPLER/CF W CONTRAST (09/15/2024 10:41 AM WATER RESOURCE CONSULTANT) LV EF 55-60 % [facility] Anatomical Region Laterality Modality Ultrasound 09/15/2024 9:30 AM WATER RESOURCE CONSULTANT Narrative 09/17/2024 7:57 AM WATER RESOURCE CONSULTANT Patient name: Jonah Conn Date of test: 09/15/2024 Type of test: TTE w/Doppler Hospital #: 0 Date of : 1950 (M) Freelance Director: Jeni Ponce [facility] Referring Physician: KARLA ESQUIVEL MD Contrast Agent: 0.15 ml Definity Administered, (1.35 ml wasted). Contrast Administered by: Jose Cardenas RN Supervised/Interpreted by: Temi Whalen MD Diagnosis: Location: [facility] Reason for test: ILD (interstital [...] 2=Hypo 3=Akinetic 4=Dyskin./Aneurysm 0=Not visualized) Parasternal Long [place]:MAS=1 BAS=1 MIL=1 MADELINE=1 Parasternal Short [place]:MAS=1 MIS=1 OR=1 MIL=1 MAL=1 MA=1 Apical 4 Chambers:=1 MIS=1 BIS=1 BAL=1 MAL=1 AL=1 AC=1 Apical 2 Chambers:AI=1 OR=1 BI=1 BA=1 MA=1 AA=1 AC=1 LV Global [...] MD By signing this report, the attending curtain worker certifies that he or she has personally supervised and interpreted the echocardiogram and has reviewed and or edited and agrees with the written comments contained within the report. Procedure Note De Temi Wood MD - 09/17/2024 Patient name: Jonah Conn Date of test: 09/15/2024 Type of test: TTE w/Doppler [facility]: [facility] Date of : 1950 (M) Freelance Director: Jeni Ponce RDCS Referring Physician: KARLA ESQUIVEL MD Contrast Agent: 0.15 ml Definity Administered, (1.35 ml wasted). Contrast Administered by: Jose Cardenas RN Supervised/Interpreted by: Temi Whalen MD Diagnosis: Location: [facility] Reason for test: ILD (interstital [...] 2=Hypo 3=Akinetic 4=Dyskin./Aneurysm 0=Not visualized) Parasternal Long [place]:MAS=1 BAS=1 MIL=1 MADELINE=1 Parasternal Short [place]:MAS=1 MIS=1 OR=1 MIL=1 MAL=1 MA=1 Apical 4 Chambers:=1 MIS=1 BIS=1 BAL=1 MAL=1 AL=1 AC=1 Apical 2 Chambers:AI=1 OR=1 BI=1 BA=1 MA=1 AA=1 AC=1 LV Global [...] MD By signing this report, the attending curtain worker certifies that he or she has personally supervised and interpreted the echocardiogram and has reviewed and or edited and agrees with the written comments contained within the report. Karla Esquivel Jr., MD CV ECHO PROCEDURES Final Result from Last 3 Months Additional Health Concerns Active Problems Noted Date Diagnosed Date Initial Follow-Up Appointment 11/09/2024 Knowledge Deficit Concerning CHF 11/10/2024 Barriers to Medication Adherence 11/10/2024 Insurance MEDICARE SOLUTIONS MEDICARE SOLUTIONS Member Subscriber Plan / Payer (Ef fective 2023-Present) Name:Jonah Conn Relation to Subscriber:Self Name:Jonah Conn Payer ID:[id number] (NAIC) Type:[facility] MEDICARE Address: [place] [id number] [place] [id number] MEDICARE SOLUTIONS Advance Directives For more information, please contact: [phone] * Full Code (Latest Code Status on File) Date Activated Date Inactivated Comments 11/01/2024 4:25 PM 11/08/2024 5:52 PM Care Teams Quality Control Inspector Relationship Specialty Start Date End Date Randi Araujo MD PCP - General Family Medicine 03/31/24 Марина Meza RN [address] [address] [employer] Outpatient Manager International 11/09/24
--- OUTSIDE RECORDS SUMMARY | 2024-11-11 17:55 | XMS_ITS | Referral Summary ---
Author Organization [facility] Address [address] [place] [address] Care Team Providers Care Global Analytics Head Name Role Phone Unavailable Primary Care Provider Unavailabl e Source Comments [facility],non-owned Affiliates and Associated Physician Practices is amultiple site organization consisting of ambulatory clinics and hospital sitesin [place], [place], [place] and [place]. This disclosure is being madepursuant to the Care Everywhere program and may not contain all information available regarding this patient. Last updated 18.[facility] biNu Social History Tobacco Use Types Packs/Day Years Used Date Smoking Tobacco: Never Assessed Sex and Gender Information Value Date Recorded Sex Assigned at Not on file Gender Identity Not on file Sexual Orientation Not on file Plan of Treatment Not on file [address] [facility] [place] [address]
--- OUTSIDE RECORDS SUMMARY | 2024-11-11 17:55 | XMS_ITS | Encounter Summary ---
Author Organization [facility] Address [address] [place] [address] Care Team Providers Care Sewer Repairer Name Role Phone Unavailable Primary Care Provider Unavailabl e Encounter Details Date Type Department Care Team (Late st Contact Info) Description 03/28/2021 Lab Requisition [facility] DermPath Lab [address] [place] [id number] Kenyon Bennett MD [address] [place] [address] Social History Tobacco Use Types Packs/Day Years Used Date Smoking Tobacco: Never Assessed Sex and Gender Information Value Date Recorded Sex Assigned at Not on file Gender Identity Not on file Sexual Orientation Not on file documented as of this encounter Plan of Treatment Not on file documented as of this encounter Procedures Procedure Name Priority Date/Time Associated Diagnosis Comments DERMATOPATHOLOGY Routine 03/27/2021 12:0 0 AM CDT documented in this encounter Results * DERMATOPATHOLOGY (03/27/2021 12:00 AM CDT) Case Report Dermatopathology Report Case: [id number] Authorizing Provider: Kenyon Bennett MD Collected: 03/27/2021 12:00 AM Ordering Location: [facility] DermPath Lab Received: 03/28/2021 06:07 AM Pathologist: Chantel Mejia MD Specimen: Skin, left shoulder 1:21 PM CDT DERMATOPATHOLOGY LABORATORY Final Diagnosis Specimen A. SKIN, left shoulder: BENIGN VERRUCOUS KERATOSIS, INFLAMED (L82.1) POST-INFLAMMATORY PIGMENT ALTERATION (L81.9) 1:21 PM CDT DERMATOPATHOLOGY LABORATORY Clinical History Irr nevus vs irr SK vs MM. Path# [id number] 1 1:21 PM CDT DERMATOPATHOLOGY LABORATORY Gross Description Specimen A: Received is one formalin filled container labeled with the patient's name and designated left shoulder. The specimen consists of a shave biopsy measuring [id number]. Jar 0. 1:21 PM CDT DERMATOPATHOLOGY LABORATORY Microscopic Description Specimen A. SKIN, left shoulder: Sections show hyperkeratosis, papillomatosis, hypergranulosis, and acanthosis. Inflammatory cells are present within the dermis. These histological findings can be seen in a verruca vulgaris or a seborrheic keratosis. There is abundant melanin within melanophages around the superficial vascular plexus. 1:21 PM CDT DERMATOPATHOLOGY LABORATORY Disclaimer An external and internal positive and negative controls are appropriate for the histochemical, immunohistochemical and immunofluorescence stain(s) in this case (if any), except where stated explicitly. The performance characteristics of the stain(s) cited in this report were developed and its performance characteristic determined by the Dermatopathology Laboratory at [facility], directed by Dr. Evi Underwood. These tests need not be, and therefore are not, approved by the [place] Food and Drug Administration. The tests are used for clinical purposes. Billing Codes Specimen Charges Stain Charges 74246 1 1:21 PM CDT DERMATOPATHOLOGY LABORATORY Embedded Images 1:21 PM CDT DERMATOPATHOLOGY LABORATORY Pathology/Cytolog y TISSUE SPECIMEN FROM SKIN / Unknown 03/27/2021 03/28/2021 6:07 AM CDT Kenyon Bennett MD LAB - PATHOLOGY/CYTO LOGY ORDERABLES DERMATOPATHOLOGY LABORATORY [facility] - Department of Dermatology [address], [address] [phone] documented in this encounter Visit Diagnoses Not on filedocumented in this encounter
--- OUTSIDE RECORDS SUMMARY | 2024-11-11 17:56 | XMS_ITS | Encounter Summary ---
Author Organization [facility] Address [address] [place] [address] Phone Care Team Providers Care Test Tube Maker Name Role Phone Randi Araujo MD Primary Care Provider + Марина Meza RN Unavailable [phone] Encounter Details Date Type Department Care Team (Late st Contact Info) Description 12/27/2023 Orders Only [facility] Scanning, Provider Social History Tobacco Use Types Packs/Day Years [...] Procedure Name Priority Date/Time Associated Diagnosis Comments SCAN - RADIOLOGY/IMAGING 12/27/2023 documented in this encounter Results * SCAN - RADIOLOGY/IMAGING (12/27/2023) Anatomical Region Laterality Modality Other us Provider Scanning Final Result documented in this encounter Visit Diagnoses Not on filedocumented in this encounter Additional Health Concerns Infection Onset Date Last Indicated Resolved Time RSV, droplet Comment:Positive for RSV 10/20/2024 10/20/2024 10/27/2024 3:07 AM LOGISTICS MANAGER RSV, contact + droplet 10/20/2024 10/20/202410/27 3:07 AM LOGISTICS MANAGER COVID: Suspected 11/02/2024 11/02/2024 11/02/2024 6:49 PM LOGISTICS MANAGER RSV, droplet Comment:Patient is taking Mycophenolate Mofetil. When taking patient is considered immunosuppressed. Liz Mir 11/03/2024 11/02/2024 11/02/2024 11/03/2024 7:[address] RSV, contact + droplet 11/02/2024 11/02/202411/09 3:05 AM LOGISTICS MANAGER documented as of this encounter Care Teams Test Tube Maker Relationship Specialty Start Date End Date Randi Araujo MD PCP - General Family Medicine 03/31/24 аМрина Meza, RN [address] [address] [employer] Outpatient Wood Window And Door Craftsman 11/09/24 documented as of this encounter
--- OUTSIDE RECORDS SUMMARY | 2024-11-11 17:56 | XMS_ITS | Encounter Summary ---
Author Organization [facility] Address [address] [place] [address] Phone Care Team Providers Care Inside Phone Sales Name Role Phone Randi Araujo MD Primary Care Provider + Марина Meza RN Unavailable [phone] Encounter Details Date Type Department Care Team (Late st Contact Info) Description 10/20/2024 Telephone [facility] Cardiology [address] [facility] [facility] Advanced Medicine 8th [place] [address] [place] [phone] Boogie Luna MD [address] [place], [place] [id number] Social History Tobacco Use Types Packs/Day Years Used Date Smoking Tobacco: Never Passive Smoke Exposure: Past Smokeless Tobacco: Never Personal Safety Answer Date Recorded Have you ever been in or are you currently in a harmful physical or emotional relationship or is someone making you feel afraid or unsafe? Denies 10/20/2024 Sex and Gender Information Value Date Recorded Sex Assigned at Not on file Legal Sex Male 3:53 PM CDT Gender Identity Male 06/30/2024 8:43 AM CDT Sexual Orientation Not on file documented as of this encounter Miscellaneous Notes * Telephone Encounter - Tim, Trina Acosta RN - 10/20/2024 2:57 PM DURABLE MEDICAL EQUIPMENT REPAIRER Spoke with daughter Vee and they are taking the pt to the ER at [facility] for new Afib. (The pt was already at the ER). Pt was just as PCP appt and was recommended they go to the ER. I will call tomorrow to see what the status is of the pt to make decision regarding appt at 1 pm tomorrow. BLE MEDICAL EQUIPMENT REPAIRER * Telephone Encounter - Teresa Espinoza - 10/20/2024 2:09 PM CST Jeremy Pt's daughter calling to speak with a nurse in regards to seeing which emergency room she should take the pt to. Pt saw his PCP today and was told that he was in AFIB. BLE MEDICAL EQUIPMENT REPAIRER documented in this encounter Plan of Treatment Not on file documented as of this encounter Visit Diagnoses Not on filedocumented in this encounter Additional Health Concerns Infection Onset Date Last Indicated Resolved Time RSV, droplet Comment:Positive for RSV 10/20/2024 10/20/2024 10/27/2024 3:07 AM DURABLE MEDICAL EQUIPMENT REPAIRER RSV, contact + droplet 10/20/2024 10/20/202410/27 3:07 AM DURABLE MEDICAL EQUIPMENT REPAIRER COVID: Suspected 11/02/2024 11/02/2024 11/02/2024 6:49 PM DURABLE MEDICAL EQUIPMENT REPAIRER RSV, droplet Comment:Patient is taking Mycophenolate Mofetil. When taking patient is considered immunosuppressed. Liz Mir 11/03/2024 11/02/2024 11/02/2024 11/03/2024 7:[address] RSV, contact + droplet 11/02/2024 11/02/202411/09 3:05 AM DURABLE MEDICAL EQUIPMENT REPAIRER documented as of this encounter Care Teams Inside Phone Sales Relationship Specialty Start Date End Date Randi Araujo MD PCP - General Family Medicine 03/31/24 Марина Meza RN [address] [facility] [address] [place] [address] [employer] Outpatient Building Contractor 11/09/24 documented as of this encounter
[2024-11-11 18:23] LABS: Basophils Percent Auto 0.3 % (0.2-1.2); Eosinophils Absolute Auto 0.3 K/mm3 (0-0.3); Eosinophils Percent Auto 1.7 % (0-4.4); Hematocrit 34.5 % (42.0-52.0); Immature Granulocyte Absolute 0.28 K/mm3 (0.00-0.031); Immature Granulocyte Percent A 1.9 % (0-0.5); Lymphocytes Absolute Auto 1.24 K/mm3 (0.9-3.2); Lymphocytes Percent Auto 8.5 % (18.3-44.2); Mean Corpuscular HGB Conc 34.8 g/dl (32-36); Mean Corpuscular Hemoglobin 33.4 pg (26-34); Mean Corpuscular Volume 96.1 fl (80-100); Mean Platelet Volume 10.6 fl (7.4-10.4); Monocytes Percent Auto 6.9 % (2.6-8.5); Neutrophils Absolute Auto 11.7 K/mm3 (1.3-6.7); Neutrophils Percent Auto 80.7 % (45.5-73.1); Platelet Count Result 229 k/mm3 (150-375); Red Blood Count 3.59 M/mm3 (4.6-6.20); Red Cell Distribution Width 13.2 % (11.5-14.5); White Blood Count 14.5 K/mm3 (4.5-10.0)
[2024-11-11 18:34] LABS: INR 1.1; Lactic Acid Reflex 2.2 mmol/L (0.7-2.0); Prothrombin Time 14.7 Seconds (11.1-14.7)
[2024-11-11 18:35] LABS: Partial Thromboplastin Time 27.4 Seconds (22.3-36.8)
[2024-11-11 18:37] LABS: Alanine Aminotransferase 22 U/L (6-50); Albumin Level 3.1 g/dL (3.5-5.1); Alkaline Phosphatase 46 U/L (38-126); Anion Gap 7 mmol/L (4-12); Aspartate Amino Transferase 18 U/L (17-59); Bilirubin,Total 1.2 mg/dL (0.2-1.3); Blood Urea Nitrogen 31 mg/dL (9-20); Calcium 7.9 mg/dL (8.4-10.2); Carbon Dioxide 25 mmol/L (22-30); Chloride 91 mmol/L (98-107); Estimated CRCL calculation 77 ml/min; Estimated Glomerular Filt Rate > 60; Glucose 143 mg/dL (65-110); Lipase 392 U/L (23-300); Potassium 3.5 mmol/L (3.4-5.0); Sodium 123 mmol/L (137-145)
[2024-11-11 18:42] LABS: NT Pro B Type Natriuretic Pept 86 pg/mL (19.9-100)
[2024-11-11 19:00] LABS: Influenza A QL RT-PCR Negative (Negative); Influenza B QL RT-PCR Negative (Negative); RSV RNA, RT-PCR Negative (Negative); SARS-CoV-2 RNA PCR Negative (Negative)
--- NOTE | 2024-11-11 19:05 | PC.NURSE ---
Patient wanting to stand due to pain in his back--advised against due to BP issues, repositioned again, addtional pillows/blankets given to attempt to make him more comfortable
--- NOTE | 2024-11-11 21:07 | PC.NURSE ---
Patient used the urinal but family emptied it in sink before being able to collect
[2024-11-11 21:20] LABS: Reflex Lactic Acid Yes or No Add Lactic
[2024-11-11 21:24] LABS: Add Urine Microscopic? NO; Appearance Urine Clear (Clear); Bilirubin Urine Negative (Negative); Blood Urine Negative (Negative); Color Urine Yellow (Yellow); Glucose Urine UA Trace mg/dL (Negative); Ketones Urine Negative (Negative); Leukocyte Esterase Ur Negative LEU/UL (Negative); Nitrate Urine Negative (Negative); Protein Urine Negative (Negative); Specific Grav Ur 1.014 (1.001-1.035); Urobilinogen Urine 0.2 mg/dL (<2.0)
[2024-11-11 21:50] LABS: Procalcitonin 0.2 ng/mL
[2024-11-11] MEDS: NOREPINEPHRINE 8 MG/D5W 250 ML 8 MG/250 ML BAG 9.38 MG IV CONT (22:00)
--- NOTE | 2024-11-11 22:04 | PC.NURSE ---
Norepinephrine confirmed by ovidio RN and Chelo ACEVEDO.
--- NOTE | 2024-11-11 22:18 | PC.NURSE ---
2200 Patient pants removed for central line placement-standing at bedside to urinate by urinal
[2024-11-11] MEDS: PIPERACILLN/TAZ 3.375GM/NS50ML 3.375 GM/50 ML BAG IVPB (22:53)
[2024-11-11 22:54] LABS: Lactic Acid 1.2 mmol/L (0.7-2.0)
--- NOTE | 2024-11-11 23:04 | PC.NURSE ---
Report to Keyshawn ACEVEDO
[2024-11-11] MEDS: VANCOMYCIN 1,250 MG/NS 250 ML 1,250 MG/250 ML BAG 166.67 MG IVPB (23:44)
[2024-11-12] VITALS (18 sets, daily range): BP systolic 94–143; BP diastolic 54–78; PULSE 66–97; RESP 18–28; TEMP 36.6–37.1; O2SAT 91–96; BMI 35.5
--- NOTE | 2024-11-12 00:57 | ADMGEN ---
This patient, Brandon Conn, was admitted to Intensive Care Unit-10. Patient/family oriented to hospital policies and general routines including ID bracelet, bed and alarms, visiting hours, pain management, procedures, bathroom and other care routines, personal items, smoking policy, room service/diet, and visiting hours. Information on how to activate the Rapid Response Team has been discussed. Patient/Family are encouraged to report perceived risks to care and to ask questions if they do not understand what they are told or what they should do.
[2024-11-12] MEDS: SODIUM CHLORIDE 0.9% IV 1,000 ML 125 ML IV CONT (01:24)
[2024-11-12] MEDS: VANCOMYCIN 1,250 MG/NS 250 ML 1,250 MG/250 ML BAG 166.67 MG IVPB (01:24)
--- NOTE | 2024-11-12 03:28 | PM.IMHP ---
H&P: HPI History of Present Illness Date/Time: 11/12/24 03:28 Chief Complaint: Low blood pressure Narrative: This is a pleasant 74-year-old male with a history of obesity, JOHN, interstitial lung disease, recent issues with hypotension, chronic bilateral lower extremity leg swelling and generalized swelling, colitis. He presents to [facility] on 11/11/2024 reporting low blood pressure and lightheadedness. He provides a detailed history as follows: In 2022 the patient was diagnosed with interstitial lung disease following with Dr. Luna auto design checker at [facility]. he was on prednisone 80 mg for 3 months and it was stopped abruptly by Dr. Luna in November 2023. The patient believes since then he has had significant lower extremity swelling and sometimes even in the abdomen and upper extremities. He has been using furosemide to relieve the swelling since then. For many years he has also been on budesonide 9 mg p.o. q.day for colitis. Around August 2024 the patient was started on mycophenolate by his auto design checker. He is unsure if his swelling was much worse immediately following the initiation of that. He was also referred to a senior analytical chemist Dr. Cortes at [facility] for the leg swelling into be evaluated for heart failure. Workup including echocardiogram normal and Dr. Araujo does not believe the patient has heart failure. Recently he was admitted to [place] since the swelling got much worse and he was given aggressive diuresis and lost 37 lb. At this time his skin in the lower extremities are wrinkly although he still does have swelling around the ankles. He has lost the swelling in his abdomen and upper extremities. On Saturday11/06/2024 the patient was due for discharge from [place] but he became hypotensive. They gave him back fluids and eventually he was discharged on Saturday11/08/2024. On Saturday night 11/09/2024 he had low blood pressure so he loaded himself up with fluids and his blood pressure improved. He did so again on Saturday for low blood pressure. On Saturday his blood pressure was low refractory to loading himself with fluids therefore he presented to [facility]. He denies abdominal pain, constipation, diarrhea, nausea vomiting, dark skin pigmentation, excess fat deposition around his trunk, myalgias, fevers. ER evaluation demonstrated initial blood pressure 66/49 with heart rate in the 70s. No fever. Saturating well on room air. A chest x-ray performed demonstrated chronic interstitial changes. WBC 38472, hemoglobin 12, platelet 229, sodium 123 last sodium in June 2024 was 134, potassium 3.5, chloride 91, bicarb 25, BUN 31, serum creatinine 0.98, glucose 143, lactic acid 2.2, calcium 7.9, CRP 14. Urinalysis unremarkable, quad viral screen negative. The patient was given 3 L normal saline without much improvement in blood pressure. Given prophylaxis vancomycin and Zosyn. Review of Systems Review of Systems: All systems reviewed & are unremarkable except as noted in HPI and below (HPI) [facility] Past Medical History Medical History (Updated 11/12/24 @ 03:25 by Leon Appiah MD) Hypersensitivity pneumonitis dust (pillows)and pool chemicals Edema, lower extremity ILD (interstitial lung disease) Lymphocytic colitis Drug-induced colitis Neck pain Actinic keratosis Ventral hernia without obstruction or gangrene Family History Family History Father Family history of heart disease in male family member before age 55 Family history of cardiovascular disease High cholesterol Mother Family history of seizure disorder Family history of heart disease in male family member before age 55 Family history of cardiovascular disease Family history of kidney disease High cholesterol Sibling Family history of cardiovascular disease High cholesterol Social History Social History Smoking status: Never smoker Alcohol intake: never Drinks per week: 7 Substance use: never Substance use type: does not use Do You Feel Safe in your Home?: Yes Lack of Transportation: No Lack of Food: Never True Current Housing: I Have Housing Concerned About Future Housing: No Difficulty Paying Gas/Electric Bills: No Difficulty Paying for Meds: No Currently Unemployed: No Education: Master's Degree or Higher Difficulty w/ Childcare or Family Care: No Spiritual care concerns: No Meds Home Medications and Allergies Home Medications ?Medication ?Instructions ?Recorded ?Confirmed ?Type multivitamin 1 tablet PO DAILY 07/03/22 11/12/24 History Home Oxygen #1 ea 02/17/24 06/09/24 Rx Wheelchair #1 ea 02/17/24 06/09/24 Rx rosuvastatin 10 mg tablet 10 mg PO DAILY #90 tabs 02/25/24 11/12/24 Rx levothyroxine 150 mcg tablet 150 mcg PO DAILY #100 tabs 06/02/24 11/12/24 Rx mycophenolate mofetil 500 mg tablet 1,500 mg PO Q12H 06/09/24 11/12/24 History allopurinol 300 mg tablet 300 mg PO DAILY #90 tabs 08/24/24 11/12/24 Rx budesonide 3 mg 9 mg (3 x 3 mg) PO DAILY #270 ea 08/26/24 11/12/24 Rx capsule,delayed,extended release furosemide 20 mg tablet See Rx Instructions PO QAM #90 tabs 09/01/24 11/12/24 Rx potassium chloride 10 mEq oral 10 meq PO DAILY #30 ea 09/01/24 11/12/24 Rx packet olmesartan 40 mg tablet 40 mg PO DAILY #90 tabs 09/28/24 11/12/24 Rx Allergies Allergy/AdvReac Type Severity Reaction Status Date / Time CHRISTOPHER Inhibitors Allergy Unknown unknown Verified 10/20/24 13:24 Sulfa (Sulfonamide Allergy Unknown unknown Verified 10/20/24 13:24 Antibiotics) Udvbtol-CUJ-KyT Reductase AdvReac Severe colitis Verified 10/20/24 13:24 Inhibitor Vital Signs Vital Signs - 24 hr 11/11/24 17:22 11/11/24 17:22 11/11/24 17:32 Temperature Pulse Rate 75 81 Respiratory Rate 26 H 26 H Blood Pressure 66/49 L Pulse Oximetry 95 Oxygen Delivery Room Air 11/11/24 18:00 11/11/24 18:15 11/11/24 18:30 Temperature Pulse Rate 78 76 73 Respiratory Rate 12 18 17 Blood Pressure 78/37 L 85/47 L 88/52 L Pulse Oximetry 94 97 96 Oxygen Delivery 11/11/24 18:45 11/11/24 19:00 11/11/24 19:15 Temperature Pulse Rate 74 78 83 Respiratory Rate 22 H 22 H 17 Blood Pressure 78/54 L 85/43 L 72/59 L Pulse Oximetry 100 98 95 Oxygen Delivery 11/11/24 20:15 11/11/24 20:30 11/11/24 21:00 Temperature Pulse Rate 81 76 84 Respiratory Rate 18 18 25 H Blood Pressure 89/56 L 103/51 L 89/43 L Pulse Oximetry 99 99 98 Oxygen Delivery 11/11/24 21:30 11/11/24 22:00 11/11/24 22:00 Temperature Pulse Rate 80 76 87 Respiratory Rate 23 H 15 Blood Pressure 77/45 L 94/51 L 94/51 L Pulse Oximetry 98 96 Oxygen Delivery 11/11/24 22:00 11/11/24 22:30 11/11/24 23:05 Temperature 98.1 F Pulse Rate 73 78 Respiratory Rate 23 H Blood Pressure 113/71 88/50 L Pulse Oximetry 73 L Oxygen Delivery 11/11/24 23:43 11/11/24 23:58 11/12/24 01:07 Temperature Pulse Rate 77 76 85 Respiratory Rate 18 Blood Pressure 135/76 130/62 116/74 Pulse Oximetry 95 Oxygen Delivery Exam Const: General: comfortable and no acute distress Other: A&O x3. HENMT: Mouth: Yes moist mucous membranes Eyes: Pupils: Equal, round and reactive pupils present Neck: Neck: supple Resp: Effort & Inspection: normal respiratory effort Auscultation: clear to auscultation bilaterally Cardio: Rate: regular rate Rhythm: regular rhythm Heart sounds: no gallops, no murmurs and no rubs GI: GI Palp: Yes Soft to palpation and No Tenderness to palpation present (GI) Auscultation: normal bowel sounds Other: Protuberant abdomen : General: Yes bladder normal to palpation Skin: Other: Right upper extremity hypopigmentation distal to the elbow, patient reports this was due to an accident Neuro: Motor exam (neuro): 5/5 motor strength present throughout Extrem: General: edema Other: 2+ pitting edema around the ankles, wrinkled skin folds of the lower extremities H&P: Results Labs Labs: Short CBC 11/11/24 Range/Units 18:11 WBC 14.5 H (4.5-10.0) K/mm3 Hgb 12.0 L (14.0-18.0) g/dL Hct 34.5 L (42.0-52.0) % Plt Count 229 (150-375) k/mm3 BMP 11/11/24 18:11 Sodium 123 L Potassium 3.5 Chloride 91 L Carbon Dioxide 25 BUN 31 H D Creatinine 0.98 Glucose 143 H Calcium 7.9 L Liver Function 11/11/24 Range/Units 18:11 Total Bilirubin 1.2 (0.2-1.3) mg/dL AST 18 (17-59) U/L ALT 22 (6-50) U/L Alkaline Phosphatase 46 (38-126) U/L Albumin 3.1 L (3.5-5.1) g/dL Urine 11/11/24 Range/Units 21:16 Urine Color Yellow (Yellow) Urine Appearance Clear (Clear) Urine pH 5.0 (5.0-9.0) Ur Specific [place] 1.014 (1.001-1.035) Urine Protein Negative (Negative) mg/dL Urine Glucose (UA) Trace H (Negative) mg/dL Assessment and Plan Assessment and plan (1) Essential hypertension: Code(s): I10 - Essential (primary) hypertension Status: Acute (2) Hypotension: Qualifiers: Hypotension type: unspecified hypotension type Qualified Code(s): I95.9 - Hypotension, unspecified Code(s): I95.9 - Hypotension, unspecified Status: Acute (3) Hypovolemic shock: Code(s): R57.1 - Hypovolemic shock Status: Acute Plan This is a pleasant 74-year-old male with a history of obesity, JOHN, interstitial lung disease, recent issues with hypotension, chronic bilateral lower extremity leg swelling and generalized swelling, colitis. He presents to [facility] on 11/11/2024 reporting low blood pressure and lightheadedness. He provides a detailed history as follows: In 2022 the patient was diagnosed with interstitial lung disease following with pulm Dr. Luna at [facility]. he was on prednisone 80 mg for 3 months and it was stopped abruptly by Dr. Luna in November 2023 (as far as the pt can remember). The patient believes since then he has had significant lower extremity swelling and sometimes even in the abdomen and upper extremities. He has been using furosemide to relieve the swelling since then. For many years he has also been on budesonide 9 mg p.o. q.day for colitis. Around August 2024 the patient was started on mycophenolate by his auto design checker. He is unsure if his swelling was much worse immediately following the initiation of that. He was also referred to a senior analytical chemist Dr. Cortes at [facility] for the leg swelling to be evaluated for heart failure. Workup including echocardiogram was normal and Dr. Araujo does not believe the patient has heart failure. Recently he was admitted to [place] since the swelling got much worse and he was given aggressive diuresis and lost 37 lb. On Saturday11/06/2024 the patient was due for discharge from [place] but he became hypotensive. They gave him back fluids and eventually he was discharged on Saturday11/08/2024. On Saturday night 11/09/2024 he had low blood pressure so he loaded himself up with fluids and his blood pressure improved. He did so again on Saturday for low blood pressure. On Saturday his blood pressure was low refractory to loading himself with fluids and therefore he presented to [facility]. At this time his skin in the lower extremities are wrinkly and although he has swelling around his ankles he reports this is greatly improved compared to his baseline. He has lost the swelling in his abdomen and upper extremities as well. He denies abdominal pain, constipation, diarrhea, nausea vomiting, dark skin pigmentation, excess fat deposition around his trunk, myalgias, fevers. ER evaluation demonstrated initial blood pressure 66/49 with heart rate in the 70s. No fever. Saturating well on room air. A chest x-ray performed demonstrated chronic interstitial changes. WBC 14846, hemoglobin 12, platelet 229, sodium 123 last sodium in June 2024 was 134, potassium 3.5, chloride 91, bicarb 25, BUN 31, serum creatinine 0.98, glucose 143, lactic acid 2.2, calcium 7.9, CRP 14. Urinalysis unremarkable, quad viral screen negative. The patient was given 3 L normal saline without much improvement in blood pressure. Given prophylaxis vancomycin and Zosyn. Started on Levophed. ----- Currently the patient rests comfortably in bed and he reports feeling better since his blood pressure has improved. [employer]ner has been consulted and the patient was given vancomycin and Zosyn as prophylaxis. He had an elevated white count on admission however this is likely due to budesonide use and his procalcitonin is 0.2. No fever. Blood cultures pending. Chest x-ray does not indicate infection and there was otherwise no focal source of infection. He is currently on 4 micrograms/kg per hour of Levophed blood pressure is 116/74. Normal saline infusing at 125 cc/hour. His chronic swelling since being on prednisone for 3 months and abruptly taken off in November 2023 raises concern for an endocrinopathy. He will need to see an apartment coordinator eventually. Since his admission to [place] last week after aggressive diuresis he has now developed refractory hypotension. It appears the mycophenolate was prescribed 1st in May 2024. The patient cannot recall accurately if his swelling is much worse after the mycophenolate or not but it is very possible - and mycophenolate carries a high incidence of adverse effect of edema and hypertension/hypotension. In addition, his sodium on admission was 123, prior to this is only 134 at lowest. Differential includes hypovolemia, loop diuretic use, endocrinopathy. Continue fluids and Levophed. A stat random cortisols, recheck sodium now. ----- SCDs Full code Hospitalist MIPS Advance Care Plan I have confirmed that the patient's Advanced Care Plan is present, code status is documented, or surrogate decision maker is listed in patient medical record.: Yes Medication Reconciliation I have utilized all available resources to obtain, update and review the patients current medications (includes all prescriptions, OTC, herbals, cannabis, and nutritional supplements).: Yes
[2024-11-12 04:17] LABS: Hematocrit 34.4 % (42.0-52.0); Mean Corpuscular HGB Conc 34.9 g/dl (32-36); Mean Corpuscular Hemoglobin 33.2 pg (26-34); Mean Corpuscular Volume 95.3 fl (80-100); Mean Platelet Volume 10.6 fl (7.4-10.4); Platelet Count Result 235 k/mm3 (150-375); Red Blood Count 3.61 M/mm3 (4.6-6.20); Red Cell Distribution Width 13.2 % (11.5-14.5); White Blood Count 13.2 K/mm3 (4.5-10.0)
[2024-11-12 04:46] LABS: Anion Gap 8 mmol/L (4-12); Blood Urea Nitrogen 23 mg/dL (9-20); Calcium 7.9 mg/dL (8.4-10.2); Carbon Dioxide 20 mmol/L (22-30); Chloride 101 mmol/L (98-107); Estimated CRCL calculation 106 ml/min; Estimated Glomerular Filt Rate > 60; Glucose 146 mg/dL (65-110); Magnesium 1.5 mg/dL (1.6-2.3); Phosphorus 2.8 mg/dL (2.5-4.5); Potassium 3.7 mmol/L (3.4-5.0); Sodium 129 mmol/L (137-145)
[2024-11-12] MEDS: LEVOTHYROXINE SODIUM 150 MCG TABLET PO (05:46)
[2024-11-12] MEDS: COSYNTROPIN 0.25 MG/ML VIAL IV PUSH (05:46)
[2024-11-12] MEDS: CENTRAL LINE FLUSH 10 ML IV PUSH ×3 (05:46→21:24)
[2024-11-12 06:38] LABS: Cortisol Baseline 3.92 ug/dL
[2024-11-12] MEDS: MIDODRINE HCL 10 MG TABLET PO ×3 (08:26→17:18)
[2024-11-12] MEDS: allopurinoL 300 MG TABLET PO (08:26)
[2024-11-12] MEDS: ALBUMIN HUMAN 25% 25 GM/100 ML 100 ML IVPB ×3 (08:26→17:18)
[2024-11-12] MEDS: MAGNESIUM SULF 2 GM/WATER 50ML 2 GM/50 ML BAG IVPB (08:27)
[2024-11-12] MEDS: cefTRIAXone 2 GM/NS 100 ML 2 GM/100 ML BAG IVPB (08:38)
[2024-11-12] MEDS: HYDROCORTISONE SODIUM SUCCINATE 100 MG/2 ML VIAL IV PUSH (08:38)
[2024-11-12 09:16] LABS: MRSA (PCR) DETECTED (NOT DETECTE)
--- NOTE | 2024-11-12 09:44 | P.CONIN_ITS ---
Assessment and Plan Assessment and plan (1) Hypovolemic shock: Code(s): R57.1 - Hypovolemic shock Status: Acute Assessment and Plan: Patient presented with hypotension, has been hydrating himself with some improvement since 11/09/2024. On the day of admission on 09/23, patient drank water but it did not seem to help his blood pressures in presented to the ED where his systolic blood pressures were in the 60s. Patient was given 3 L IV fluid bolus -Off note: Patient was recently discharged from its [facility] where he was admitted for significant lower extremity edema and anasarca at all the way up to his abdomen. Patient was aggressively diuresed and lost 37 lb of weight in 4 days. He was discharged home 11/08/2024 she -patient received 3 L IV fluid bolus in the ER here at [facility] upon arrival, started on maintenance IV fluids -blood pressures were refractory, right femoral central line was inserted and started on vasopressors -Levophed being weaned comment MAP > 65 mmHg at all times for adequate end organ perfusion -urine output has been good, creatinine has been stable -lactic acid has normalized to 1.2 (2.2 on admission) -MRSA screen is positive -patient remains on ceftriaxone and vancomycin -start albumin for any intravascular volume expansion -started patient on midodrine -cortisols levels were low, status post cosyntropin test, cortisol did not respond to > 18 after 60 minutes post cosyntropin test. Likely adrenal insufficient -given patient 1 dose of hydrocortisone -he may require endocrinology evaluation -if blood pressures do not improve patient may benefit from fludrocortisone (2) Acute hyponatremia: Code(s): E87.1 - Hypo-osmolality and hyponatremia Status: Acute Assessment and Plan: Acute hyponatremia could be related to hypovolemic hyponatremia -sodium levels improving after IV fluid bolus, will continue to monitor (3) Dehydration: Code(s): E86.0 - Dehydration Status: Acute Assessment and Plan: Patient was aggressively diuresed [facility] and lost 37 lb of weight in 4 days -likely over diuresed with intravascular depletion -has been fluid resuscitated, will continue to monitor (4) Edema, lower extremity: Code(s): R60.0 - Localized edema Status: Acute Assessment and Plan: Lower extremity edema seems to be a problem for the gentleman, he was recently at [facility] with aggressive diuresis and lost 37 lb in weight -lower extremity edema much improved, states he feels that his feet a getting edematous -hold IV fluids (5) Essential hypertension: Code(s): I10 - Essential (primary) hypertension Status: Acute Assessment and Plan: Hold all antihypertensives and diuretics since patient is on pressors (6) Hypothyroidism (acquired): Code(s): E03.9 - Hypothyroidism, unspecified Status: Acute Assessment and Plan: Continue levothyroxine (7) ILD (interstitial lung disease): Code(s): J84.9 - Interstitial pulmonary disease, unspecified Status: Acute Assessment and Plan: Patient takes Spiriva at home which will order -continue Ellipta (8) Mixed hyperlipidemia: Code(s): E78.2 - Mixed hyperlipidemia Status: Acute Assessment and Plan: Continue rosuvastatin Plan DVT prophylaxis: Enoxaparin Stress ulcer prophylaxis: Not indicated Nutrition: Heart healthy diet Code Status: Full code Critical Care Time Spent: 49 minutes Due to a high probability of clinically significant, life threatening deterioration, the patient required my highest level of preparedness to intervene emergently and I personally spent this critical care time directly and personally managing the patient. This critical care time included obtaining a history; examining the patient; pulse oximetry; ordering and review of studies; arranging urgent treatment with development of a management plan; evaluation of patient's response to treatment; frequent reassessment; and discussions with other providers. It was exclusive of separately billable procedures and treating other patients and teaching time. Please see Assessment and Plan section and the rest of the note for further information on patient assessment and treatment This dictation may have been done utilizing a voice recognition system. Attempts have been made to correct errors. However, there may be uncorrected grammatical, spelling, and recognitions errors present. Radio Recorder Consult Note Consult date: 11/12/24 Reason for consult: Hypotension, shock, hypovolemia HPI: Brandon Conn is a 74 year old male S with past medical history of his hypersensitivity pneumonitis, interstitial lung disease, lymphocytic colitis, lower extremity edema presented the ED on 09/10/2025 with complains of hypotension and low blood pressure readings at home. Patient recently admitted to [facility] was discharged 3 days ago for severe edema and was diuresed and lost 37 lb in 4 days. On 11/06/2024 patient was supposed to be discharged from [facility] became hypotensive with systolics in the 60s, the given additional IV fluids and then he was discharged on 11/08/2024. Started to have low blood pressures on the night of 11/09/2024 and so he started drinking fluids, which he 2 days pressures on 11/09 and 11/10. On the day of admission he has continued to drink water with it in a improve his blood pressures are prompted him to come to the ER. In the ER patient was found to be hypotensive with systolic blood pressures in the 60s, heart rate in the 70s. Lactic acid of 2.2, WBC of 14.5, hemoglobin and platelet counts seem to be normal, sodium was 123. Potassium 3.5, BUN 31 creatinine 0.98, glucose 143. Urinalysis negative, COVID, influenza and RSV PCR were negative chest x-ray showed chronic interstitial lung change without focal infiltrate or effusion. Patient was given 3 L IV fluid bolus and started on maintenance IV fluids, started on antibiotic. A central line was also inserted in the right femoral vein and Levophed was started, patient was transferred to the ICU for further manage Patient seen and examined the ICU. Is awake, alert, oriented, pleasant gentleman currently in no acute distress. Patient remains on Levophed at 2 mcg/min. Urine output has been adequate, patient is afebrile, lactic acid of 1.2. Creatinine remains normal. Magnesium of 1.5. Patient denies any chest pain, shortness a breath, abdominal pain, nausea, vomiting. States his swelling is slightly increased in the feet bilateral Review of Systems 2 Review of Systems: All systems reviewed & are unremarkable except as noted in HPI and below [facility] Past Medical History Medical History (Updated 11/12/24 @ 03:25 by Leon Appiah MD) Hypersensitivity pneumonitis dust (pillows)and pool chemicals Edema, lower extremity ILD (interstitial lung disease) Lymphocytic colitis Drug-induced colitis Neck pain Actinic keratosis Ventral hernia without obstruction or gangrene Family History Family History Father Family history of heart disease in male family member before age 55 Family history of cardiovascular disease High cholesterol Mother Family history of seizure disorder Family history of heart disease in male family member before age 55 Family history of cardiovascular disease Family history of kidney disease High cholesterol Sibling Family history of cardiovascular disease High cholesterol Social History Social History Smoking status: Never smoker Alcohol intake: never Drinks per week: 7 Substance use: never Substance use type: does not use Do You Feel Safe in your Home?: Yes Lack of Transportation: No Lack of Food: Never True Current Housing: I Have Housing Concerned About Future Housing: No Difficulty Paying Gas/Electric Bills: No Difficulty Paying for Meds: No Currently Unemployed: No Education: Master's Degree or Higher Difficulty w/ Childcare or Family Care: No Spiritual care concerns: No Meds Home Medications and Allergies Home Medications ?Medication ?Instructions ?Recorded ?Confirmed ?Type multivitamin 1 tablet PO DAILY 07/03/22 11/12/24 History Home Oxygen #1 ea 02/17/24 11/12/24 Rx Wheelchair #1 ea 02/17/24 11/12/24 Rx rosuvastatin 10 mg tablet 10 mg PO DAILY #90 tabs 02/25/24 11/12/24 Rx levothyroxine 150 mcg tablet 150 mcg PO DAILY #100 tabs 06/02/24 11/12/24 Rx mycophenolate mofetil 500 mg tablet 1,500 mg PO Q12H 06/09/24 11/12/24 History allopurinol 300 mg tablet 300 mg PO DAILY #90 tabs 08/24/24 11/12/24 Rx budesonide 3 mg 9 mg (3 x 3 mg) PO DAILY #270 ea 08/26/24 11/12/24 Rx capsule,delayed,extended release furosemide 20 mg tablet See Rx Instructions PO QAM #90 tabs 09/01/24 11/12/24 Rx potassium chloride 10 mEq oral 10 meq PO DAILY #30 ea 09/01/24 11/12/24 Rx packet bumetanide 1 mg tablet 1 mg PO BID 11/12/24 11/12/24 History dextromethorphan polistirex 30 10 ml PO Q12H PRN cough 11/12/24 11/12/24 History mg/5 mL oral susp ext.release 12hr (Delsym 12 hour) empagliflozin 10 mg tablet 10 mg PO DAILY 11/12/24 11/12/24 History hydrochlorothiazide 25 mg tablet 25 mg PO DAILY 11/12/24 11/12/24 History olmesartan 40 mg tablet 20 mg PO DAILY 11/12/24 11/12/24 History spironolactone 25 mg tablet 25 mg PO DAILY 11/12/24 11/12/24 History (Aldactone) Allergies Allergy/AdvReac Type Severity Reaction Status Date / Time CHRISTOPHER Inhibitors Allergy Unknown unknown Verified 10/20/24 13:24 Sulfa (Sulfonamide Allergy Unknown unknown Verified 10/20/24 13:24 Antibiotics) [id number] Reductase AdvReac Severe colitis Verified 10/20/24 13:24 Inhibitor Vital Signs Vital Signs - 24 hr 11/11/24 17:22 11/11/24 17:22 11/11/24 17:32 Temperature Pulse Rate 75 81 Respiratory Rate 26 H 26 H Blood Pressure 66/49 L Pulse Oximetry 95 Oxygen Delivery Room Air 11/11/24 18:00 11/11/24 18:15 11/11/24 18:30 Temperature Pulse Rate 78 76 73 Respiratory Rate 12 18 17 Blood Pressure 78/37 L 85/47 L 88/52 L Pulse Oximetry 94 97 96 Oxygen Delivery 11/11/24 18:45 11/11/24 19:00 11/11/24 19:15 Temperature Pulse Rate 74 78 83 Respiratory Rate 22 H 22 H 17 Blood Pressure 78/54 L 85/43 L 72/59 L Pulse Oximetry 100 98 95 Oxygen Delivery 11/11/24 20:15 11/11/24 20:30 11/11/24 21:00 Temperature Pulse Rate 81 76 84 Respiratory Rate 18 18 25 H Blood Pressure 89/56 L 103/51 L 89/43 L Pulse Oximetry 99 99 98 Oxygen Delivery 11/11/24 21:30 11/11/24 22:00 11/11/24 22:00 Temperature Pulse Rate 80 76 87 Respiratory Rate 23 H 15 Blood Pressure 77/45 L 94/51 L 94/51 L Pulse Oximetry 98 96 Oxygen Delivery 11/11/24 22:00 11/11/24 22:30 11/11/24 23:05 Temperature 98.1 F Pulse Rate 73 78 Respiratory Rate 23 H Blood Pressure 113/71 88/50 L Pulse Oximetry 73 L Oxygen Delivery 11/11/24 23:43 11/11/24 23:58 11/12/24 01:07 Temperature Pulse Rate 77 76 85 Respiratory Rate 18 Blood Pressure 135/76 130/62 116/74 Pulse Oximetry 95 Oxygen Delivery 11/12/24 01:15 11/12/24 02:00 11/12/24 02:00 Temperature 98.8 F Pulse Rate 85 85 75 Respiratory Rate 20 20 Blood Pressure 110/78 Pulse Oximetry 92 92 Oxygen Delivery Room Air 11/12/24 03:00 11/12/24 04:00 11/12/24 04:00 Temperature Pulse Rate 84 85 79 Respiratory Rate 20 Blood Pressure 113/63 Pulse Oximetry 92 Oxygen Delivery Room Air 11/12/24 04:00 11/12/24 04:13 11/12/24 06:00 Temperature Pulse Rate 79 85 83 Respiratory Rate 21 H Blood Pressure 118/54 L 94/54 L Pulse Oximetry 96 Oxygen Delivery 11/12/24 06:00 11/12/24 07:00 Temperature Pulse Rate 79 87 Respiratory Rate 22 H Blood Pressure 103/59 L 134/60 Pulse Oximetry 95 Oxygen Delivery Exam 2 Narrative: General: Pleasant gentleman in no acute this HEENT:? Pupils equal and reactive, sclerae is clear, moist oral mucous Neck:? Supple Respiratory:? Coarse breath sounds, decreased at bases, adequate air entry, no wheezing Cardiac:? S1-S2 normal, regular rate and rhythm Abdomen:? Soft, nontender, nondistended, protuberant, normoactive bowels Extremities:? 2+ pitting edema around the ankles and on the dorsum of the foot, wrinkling of the skin noted on the lower extremities bilaterally, palpable pedal pulses Neuro:? Patient is awake, alert, oriented, nonfocal Skin:? Skin changes to the right upper extremities and bilateral lower extremity Psych:? Normal mentation at Results Labs 11/12/24 04:11 11/12/24 04:11 Labs: Short CBC 11/11/24 11/12/24 Range/Units 18:11 04:11 WBC 14.5 H 13.2 H (4.5-10.0) K/mm3 Hgb 12.0 L 12.0 L (14.0-18.0) g/dL Hct 34.5 L 34.4 L (42.0-52.0) % Plt Count 229 235 (150-375) k/mm3 [facility] 11/11/24 11/12/24 11/12/24 18:11 04:11 04:11 Sodium 123 L 129 L Potassium 3.5 3.7 Chloride 91 L 101 Carbon Dioxide 25 20 L BUN 31 H D 23 H Creatinine 0.98 Cancelled 0.70 Glucose 143 H 146 H Calcium 7.9 L 7.9 L Liver Function 11/11/24 Range/Units 18:11 Total Bilirubin 1.2 (0.2-1.3) mg/dL AST 18 (17-59) U/L ALT 22 (6-50) U/L Alkaline Phosphatase 46 (38-126) U/L Albumin 3.1 L (3.5-5.1) g/dL Urine 11/11/24 Range/Units 21:16 Urine Color Yellow (Yellow) Urine Appearance Clear (Clear) Urine pH 5.0 (5.0-9.0) Ur Specific [place] 1.014 (1.001-1.035) Urine Protein Negative (Negative) mg/dL Urine Glucose (UA) Trace H (Negative) mg/dL Quality VTE Prophylaxis VTE prophylaxis: pharmacologic ordered Hospitalist MIPS Advance Care Plan I have confirmed that the patient's Advanced Care Plan is present, code status is documented, or surrogate decision maker is listed in patient medical record.: Yes Medication Reconciliation I have utilized all available resources to obtain, update and review the patients current medications (includes all prescriptions, OTC, herbals, cannabis, and nutritional supplements).: Yes
--- NOTE | 2024-11-12 11:26 | PCFNICU ---
ICU Rounding Note: Pt current nutrition is Heart Healthy with Ensure Enlive BID. Last recorded weight is 123 kg Bowel Motility: +BM reported 11/11 Labs Reviewed: Mg 1.5., Glu 146, Na 129, Hct 34.4, Hgb 12.0 Meds Noted:Levophed, Albumin, MVI, Lovenox. Skin: WNL Additional Notes: Patient in with hypotension and dehydration. Diet order: heart healthy diet. No po intake reported at this time. Weight loss screen sent for 34 ibs or more. Patient was diuresed and lost 37 ibs in approx 4 days. Agree with diet orders. Following daily in ICU rounds.
[2024-11-12] MEDS: MULTIVITAMINS THERAPEUTIC TAB (*BKC) 1 TABLET PO (12:49)
[2024-11-12] MEDS: ENOXAPARIN 40 MG/0.4 ML SYRINGE SUB-Q (12:49)
[2024-11-12] MEDS: VANCOMYCIN 1,500 MG/NS 500 ML 1,500 MG/500 ML BAG 250 MG IVPB (12:50)
[2024-11-12] MEDS: UMECLIDINIUM BROMIDE 62.5 MCG ELLIPTA 1 PUFF INHALATION (13:35)
[2024-11-13] VITALS (9 sets, daily range): BP systolic 107–141; BP diastolic 59–69; PULSE 67–73; RESP 16–30; TEMP 36.4–37.1; O2SAT 91–99
[2024-11-13] MEDS: VANCOMYCIN 1,500 MG/NS 500 ML 1,500 MG/500 ML BAG 250 MG IVPB (00:12)
[2024-11-13] MEDS: ALBUMIN HUMAN 25% 25 GM/100 ML 100 ML IVPB (00:12)
[2024-11-13 05:03] LABS: Basophils Percent Auto 0.4 % (0.2-1.2); Eosinophils Absolute Auto 0.1 K/mm3 (0-0.3); Eosinophils Percent Auto 1.6 % (0-4.4); Hematocrit 30.1 % (42.0-52.0); Immature Granulocyte Absolute 0.15 K/mm3 (0.00-0.031); Immature Granulocyte Percent A 1.8 % (0-0.5); Lymphocytes Absolute Auto 1.22 K/mm3 (0.9-3.2); Lymphocytes Percent Auto 14.3 % (18.3-44.2); Mean Corpuscular HGB Conc 33.2 g/dl (32-36); Mean Corpuscular Volume 99.3 fl (80-100); Mean Platelet Volume 9.8 fl (7.4-10.4); Monocytes Absolute Auto 0.7 K/mm3 (0.1-0.6); Monocytes Percent Auto 8.2 % (2.6-8.5); Neutrophils Absolute Auto 6.3 K/mm3 (1.3-6.7); Neutrophils Percent Auto 73.7 % (45.5-73.1); Platelet Count Result 194 k/mm3 (150-375); Red Blood Count 3.03 M/mm3 (4.6-6.20); Red Cell Distribution Width 13.2 % (11.5-14.5); White Blood Count 8.5 K/mm3 (4.5-10.0)
[2024-11-13 05:24] LABS: Alanine Aminotransferase 18 U/L (6-50); Albumin Level 3.5 g/dL (3.5-5.1); Alkaline Phosphatase 40 U/L (38-126); Anion Gap 9 mmol/L (4-12); Aspartate Amino Transferase 15 U/L (17-59); Bilirubin,Total 0.6 mg/dL (0.2-1.3); Blood Urea Nitrogen 13 mg/dL (9-20); Calcium 8.5 mg/dL (8.4-10.2); Carbon Dioxide 23 mmol/L (22-30); Chloride 104 mmol/L (98-107); Estimated CRCL calculation 114 ml/min; Estimated Glomerular Filt Rate > 60; Glucose 143 mg/dL (65-110); Phosphorus 2.3 mg/dL (2.5-4.5); Potassium 3.3 mmol/L (3.4-5.0); Sodium 136 mmol/L (137-145)
[2024-11-13] MEDS: LEVOTHYROXINE SODIUM 150 MCG TABLET PO (06:40)
[2024-11-13] MEDS: CENTRAL LINE FLUSH 10 ML IV PUSH (06:40)
[2024-11-13] MEDS: allopurinoL 300 MG TABLET PO (08:27)
[2024-11-13] MEDS: cefTRIAXone 2 GM/NS 100 ML 2 GM/100 ML BAG IVPB (08:27)
[2024-11-13] MEDS: MIDODRINE HCL 10 MG TABLET PO ×3 (08:27→17:39)
[2024-11-13] MEDS: ENOXAPARIN 40 MG/0.4 ML SYRINGE SUB-Q (08:27)
[2024-11-13] MEDS: ROSUVASTATIN 10 MG TABLET PO (08:27)
[2024-11-13] MEDS: POTASSIUM/PHOSPHORUS/SODIUM 1.5 GM PACKET 1 PACKET PO (08:36)
[2024-11-13] MEDS: POTASSIUM CHLORIDE 20 MEQ PACKET (FOR LIQUID) 40 MEQ PO (08:36)
[2024-11-13 11:28] LABS: Vancomycin Trough 15.6 ug/mL (10.0-20.0)
--- NOTE | 2024-11-13 11:36 | PCFNICU ---
ICU Rounding Note: Pt current nutrition is Heart Healthy with Ensure Enlive BID. Last recorded weight is 123.3 kg. Bowel Motility:+BM reported 11/12 Labs Reviewed:Glu 143, Na 136, K 3.3 Meds Noted:MVI, Lovenox, Midodrine. Skin: WNL Additional Notes: Levophed off. Patient tolerating heart heathy diet. Intake > 75% of meals. Agree with diet orders. Following daily in ICU rounds.
--- NOTE | 2024-11-13 12:01 | P.PNINT_ITS ---
Progress Note: A&P Assessment and Plan (1) Hypovolemic shock: Code(s): R57.1 - Hypovolemic shock Status: Acute Assessment and Plan: RESOLVED Patient presented with hypotension, has been hydrating himself with some improvement since 11/09/2024. On the day of admission on 09/23, patient drank water but it did not seem to help his blood pressures in presented to the ED where his systolic blood pressures were in the 60s. Patient was given 3 L IV fluid bolus -Off note: Patient was recently discharged from its [facility] where he was admitted for significant lower extremity edema and anasarca at all the way up to his abdomen. Patient was aggressively diuresed and lost 37 lb of weight in 4 days. He was discharged home 11/08/2024 she -patient received 3 L IV fluid bolus in the ER here at [facility] upon arrival, started on maintenance IV fluids -blood pressures were refractory, right femoral central line was inserted and started on vasopressors -OFF Levophed -urine output has been good, creatinine has been stable -lactic acid has normalized to 1.2 (2.2 on admission) -MRSA screen is positive -patient remains on ceftriaxone and vancomycin (11/12) -status post albumin for intravascular volume expansion - continue midodrine -cortisols levels were low, status post cosyntropin test, cortisol did not respond to > 18 after 60 minutes post cosyntropin test. Likely adrenal sufficiency, -given patient 1 dose of hydrocortisone -he may require endocrinology evaluation -if blood pressures do not improve patient may benefit from fludrocortisone -11/11/2024: Blood cultures growing Gram-positive cocci in clusters 1 of 2 bottles (2) Acute hyponatremia: Code(s): E87.1 - Hypo-osmolality and hyponatremia Status: Acute Assessment and Plan: RESOLVED Acute hyponatremia could be related to hypovolemic hyponatremia -sodium levels improving after IV fluid bolus, will continue to monitor (3) Dehydration: Code(s): E86.0 - Dehydration Status: Acute Assessment and Plan: RESOLVED Patient was aggressively diuresed [facility] and lost 37 lb of weight in 4 days -likely over diuresed with intravascular depletion -has been fluid resuscitated, will continue to monitor (4) Edema, lower extremity: Code(s): R60.0 - Localized edema Status: Acute Assessment and Plan: Lower extremity edema seems to be a problem for the gentleman, he was recently at [facility] with aggressive diuresis and lost 37 lb in weight -lower extremity edema much improved, states he feels that his feet a getting edematous -hold IV fluids (5) Essential hypertension: Code(s): I10 - Essential (primary) hypertension Status: Acute Assessment and Plan: Hold all antihypertensives and diuretics since patient just came off the vasopressors (6) Hypothyroidism (acquired): Code(s): E03.9 - Hypothyroidism, unspecified Status: Acute Assessment and Plan: Continue levothyroxine (7) ILD (interstitial lung disease): Code(s): J84.9 - Interstitial pulmonary disease, unspecified Status: Acute Assessment and Plan: Patient takes Spiriva at home which will order -continue Ellipta (8) Mixed hyperlipidemia: Code(s): E78.2 - Mixed hyperlipidemia Status: Acute Assessment and Plan: Continue rosuvastatin Plan DVT prophylaxis: Enoxaparin Stress ulcer prophylaxis: Not indicated Nutrition: Heart healthy diet Code Status: Full code Critical Care Time Spent: 31 minutes Patient may transfer out of the ICU Due to a high probability of clinically significant, life threatening deterioration, the patient required my highest level of preparedness to intervene emergently and I personally spent this critical care time directly and personally managing the patient. This critical care time included obtaining a history; examining the patient; pulse oximetry; ordering and review of studies; arranging urgent treatment with development of a management plan; evaluation of patient's response to treatment; frequent reassessment; and discussions with other providers. It was exclusive of separately billable procedures and treating other patients and teaching time. Please see Assessment and Plan section and the rest of the note for further information on patient assessment and treatment This dictation may have been done utilizing a voice recognition system. Attempts have been made to correct errors. However, there may be uncorrected grammatical, spelling, and recognitions errors present. Subjective Date/time seen: 11/13/24 12:01 Interval history: Reason for consult: Hypotension, shock, hypovolemia, bacteremia 11/13/2024: Patient seen and examined the ICU, is awake, alert, oriented, pleasant gentleman currently in no distress. Off Levophed, urine output has been good, afebrile, hemodynamically stable. White blood cell count has normalized. Potassium and phosphorus are low. Patient denies any chest pain, shortness on breath, abdominal pain, nausea, vomiting, diarrhea. States he feels much better. Review of Systems Review of Systems: All systems reviewed & are unremarkable except as noted in HPI and below Exam Narrative: General: Pleasant gentleman in no acute this HEENT:? Pupils equal and reactive, sclerae is clear, moist oral mucous Neck:? Supple Respiratory:? Coarse breath sounds, decreased at bases, adequate air entry, no wheezing Cardiac:? S1-S2 normal, regular rate and rhythm Abdomen:? Soft, nontender, nondistended, protuberant, normoactive bowels Extremities:? 2+ pitting edema around the ankles and on the dorsum of the foot, wrinkling of the skin noted on the lower extremities bilaterally, palpable pedal pulses Neuro:? Patient is awake, alert, oriented, nonfocal Skin:? Skin changes to the right upper extremities and bilateral lower extremity Psych:? Normal mentation and affect Objective Data Vital Signs Vital Signs: Vital Signs - 24 hr 11/12/24 13:00 11/12/24 14:00 11/12/24 14:00 Temperature 98 F Pulse Rate 82 75 77 Respiratory Rate 18 Blood Pressure 119/58 L 108/60 Pulse Oximetry 94 Oxygen Delivery Oxygen Flow Rate 11/12/24 14:00 11/12/24 16:00 11/12/24 16:00 Temperature Pulse Rate 77 73 73 Respiratory Rate 20 Blood Pressure 108/60 105/57 L Pulse Oximetry 91 Oxygen Delivery Oxygen Flow Rate 11/12/24 16:00 11/12/24 16:00 11/12/24 18:00 Temperature Pulse Rate 79 71 81 Respiratory Rate 18 Blood Pressure 105/57 L Pulse Oximetry 92 Oxygen Delivery Room Air Oxygen Flow Rate 11/12/24 18:00 11/12/24 18:00 11/12/24 19:57 Temperature Pulse Rate 80 79 73 Respiratory Rate 25 H 25 H Blood Pressure 115/57 L 115/57 L Pulse Oximetry 92 95 Oxygen Delivery Room Air Oxygen Flow Rate 11/12/24 19:57 11/12/24 19:57 11/12/24 22:00 Temperature Pulse Rate 72 72 66 Respiratory Rate 26 H Blood Pressure 109/55 L Pulse Oximetry 92 Oxygen Delivery Oxygen Flow Rate 11/12/24 22:09 11/13/24 00:00 11/13/24 00:00 Temperature 98.1 F Pulse Rate 67 69 Respiratory Rate 20 24 H Blood Pressure 118/65 107/61 Pulse Oximetry 93 91 Oxygen Delivery Room Air Oxygen Flow Rate 11/13/24 00:00 11/13/24 02:00 11/13/24 02:00 Temperature Pulse Rate 73 68 68 Respiratory Rate 27 H Blood Pressure 111/63 Pulse Oximetry 92 Oxygen Delivery Oxygen Flow Rate 11/13/24 04:00 11/13/24 04:00 11/13/24 04:00 Temperature 98.7 F Pulse Rate 70 68 Respiratory Rate 22 H Blood Pressure 136/63 Pulse Oximetry 94 Oxygen Delivery Room Air Oxygen Flow Rate 11/13/24 05:14 11/13/24 06:00 11/13/24 06:01 Temperature Pulse Rate 70 70 Respiratory Rate 20 Blood Pressure 110/60 Pulse Oximetry 96 94 Oxygen Delivery Nasal Cannula Oxygen Flow Rate 2 11/13/24 08:00 11/13/24 08:00 11/13/24 10:00 Temperature 98.7 F Pulse Rate 68 73 Respiratory Rate 28 H 30 H Blood Pressure 111/59 L 121/66 Pulse Oximetry 92 93 Oxygen Delivery Room Air Oxygen Flow Rate Intake/Output Intake/Output: Intake & Output 11/10/24 11/11/24 11/12/24 11/13/24 23:59 23:59 23:59 23:59 Intake Total 2068.5 2673.8 1080 Output Total 420 2750 300 Balance 1648.5 -76.2 780 Meds/Results Medications: Active Medications Generic Name Dose Route Start Last Admin Trade Name Lavern PRN Reason Stop Dose Admin Acetaminophen 500 mg 11/12/24 02:44 Acetaminophen 500 Mg Tablet PO Q4H PRN Mild Pain (1-3) or Fever Allopurinol 300 mg 11/12/24 09:00 11/13/24 08:27 Allopurinol 300 Mg Tablet PO 300 mg DAILY MELVINA Administration Enoxaparin Sodium 40 mg 11/13/24 09:00 11/13/24 08:27 Enoxaparin 40 Mg/0.4 Ml Syringe SUB-Q 40 mg DAILY MELVINA Administration Vancomycin HCl 1,500 mg in 500 mls @ 250 mls/hr 11/12/24 12:00 11/13/24 02:12 Vancomycin 1,500 Mg/Ns 500 Ml IVPB Infused Q12H MELVINA Infusion Ceftriaxone Sodium 2 gm in 100 mls @ 200 mls/hr 11/12/24 09:00 11/13/24 08:27 Rocephin 2 Gm/Ns 100 Ml IVPB 200 mls/hr Q24H MELVINA Administration Levothyroxine Sodium 150 mcg 11/12/24 06:30 11/13/24 06:40 Levothyroxine Sodium 150 Mcg Tablet PO 150 mcg DAILY@0630 EMLVINA Administration Midodrine 10 mg 11/12/24 09:00 11/13/24 08:27 Midodrine Hcl 10 Mg Tablet PO 10 mg TID MELVINA Administration Multivitamins Therapeutic 1 tablet 11/12/24 12:00 11/12/24 12:49 Multivitamins Therapeutic Tab (*Bkc) PO 1 tablet DAILY@1200 MELVINA Administration Rosuvastatin Calcium 10 mg 11/13/24 09:00 11/13/24 08:27 Rosuvastatin 10 Mg Tablet PO 10 mg DAILY MELVINA Administration Sodium Chloride 10 ml 11/12/24 06:00 11/13/24 06:40 Central Line Flush IV PUSH 10 ml Q8HR MELVINA Administration Sodium Chloride 20 ml 11/11/24 22:42 Central Line Flush IV PUSH PRN PRN after blood draws Umeclidinium [place] 1 puff 11/13/24 08:00 11/12/24 13:35 Umeclidinium [place] 62.5 Mcg Ellipta INHALATION 1 puff DAILYRT MELVINA Administration Radiology Results: ITS Impressions Chest X-Ray 11/11/24 17:48 IMPRESSION: Chronic interstitial change, without focal infiltrate or effusion. Labs Labs: Laboratory Results - last 24 hr 11/13/24 11/13/24 04:50 10:57 WBC 8.5 RBC 3.03 L Hgb 10.0 L Hct 30.1 L MCV 99.3 MCH 33.0 MCHC 33.2 RDW 13.2 Plt Count 194 MPV 9.8 Immature Gran % (Auto) 1.8 H Neut % (Auto) 73.7 H Lymph % (Auto) 14.3 L [place] % (Auto) 8.2 Eos % (Auto) 1.6 Baso % (Auto) 0.4 Lymph # (Auto) 1.22 [place] # (Auto) 0.7 H Eos # (Auto) 0.1 Baso # (Auto) 0.0 Abs Immat Gran (auto) 0.15 H Absolute Neuts (auto) 6.3 Absolute Nucleated RBC 0.000 Nucleated RBC % 0.0 Sodium 136 L Potassium 3.3 L Chloride 104 Carbon Dioxide 23 Anion Gap 9 BUN 13 D Creatinine 0.65 L Estim Creat Clear Calc 114 Estimated GFR > 60 Glucose 143 H Calcium 8.5 Phosphorus 2.3 L Magnesium 2.0 Total Bilirubin 0.6 AST 15 L ALT 18 Alkaline Phosphatase 40 Total Protein 6.0 L Albumin 3.5 Vancomycin Trough 15.6 Quality VTE Prophylaxis VTE prophylaxis: pharmacologic ordered
[2024-11-13] MEDS: MULTIVITAMINS THERAPEUTIC TAB (*BKC) 1 TABLET PO (12:34)
--- NOTE | 2024-11-13 13:50 | PC.NURSE ---
This patient, Brandon Conn, was transferred to [facility] on 11/13/24 at 1340. Personal belongings sent with patient. Report given to Jaimee ACEVEDO. Appropriate documentation sent with patient.
--- NOTE | 2024-11-13 13:54 | PC.NURSE ---
Addendum entered by Jaimee Randall RN 11/13/24 13:54: Patient was received at 1340, not 1354. Original Note: This patient, Brandon Conn, was received from [ICU-10 ] on 11/13/24 at 1354. Patient/family oriented to unit policies and routines
[2024-11-13] MEDS: VANCOMYCIN 1,500 MG/NS 500 ML 1,500 MG/500 ML BAG 150 MG IVPB (14:23)
[2024-11-14] MEDS: VANCOMYCIN 1,500 MG/NS 500 ML 1,500 MG/500 ML BAG 200 MG IVPB (02:17)
[2024-11-14] MEDS: LEVOTHYROXINE SODIUM 150 MCG TABLET PO (05:42)
[2024-11-14 06:00] VITALS: BP 125/65; PULSE 71; RESP 18; TEMP 36.6; O2SAT 97
[2024-11-14 06:37] LABS: Hematocrit 34.6 % (42.0-52.0); Hemoglobin 11.4 g/dL (14.0-18.0); Mean Corpuscular HGB Conc 32.9 g/dl (32-36); Mean Corpuscular Hemoglobin 32.9 pg (26-34); Mean Platelet Volume 10.1 fl (7.4-10.4); Platelet Count Result 224 k/mm3 (150-375); Red Blood Count 3.46 M/mm3 (4.6-6.20); Red Cell Distribution Width 13.2 % (11.5-14.5); White Blood Count 10.1 K/mm3 (4.5-10.0)
[2024-11-14 06:50] LABS: Estimated CRCL calculation 132 ml/min; Estimated Glomerular Filt Rate > 60; Phosphorus 2.3 mg/dL (2.5-4.5)
[2024-11-14] MEDS: cefTRIAXone 2 GM/NS 100 ML 2 GM/100 ML BAG IVPB (08:10)
[2024-11-14] MEDS: ROSUVASTATIN 10 MG TABLET PO (08:11)
[2024-11-14] MEDS: allopurinoL 300 MG TABLET PO (08:11)
[2024-11-14] MEDS: MIDODRINE HCL 10 MG TABLET PO ×2 (08:11→12:07)
[2024-11-14] MEDS: ENOXAPARIN 40 MG/0.4 ML SYRINGE SUB-Q (08:18)
--- NOTE | 2024-11-14 09:23 | P.PNIM_ITS ---
Progress Note: A&P Assessment and Plan (1) Hypovolemic shock: Code(s): R57.1 - Hypovolemic shock Status: Acute (2) A-fib: Qualifiers: Atrial fibrillation type: paroxysmal Qualified Code(s): I48.0 - Paroxysmal atrial fibrillation Code(s): I48.91 - Unspecified atrial fibrillation Status: Acute Plan (1) Hypovolemic shock: Code(s): R57.1 - Hypovolemic shock Status: Acute Assessment and Plan: RESOLVED Patient presented with hypotension, has been hydrating himself with some improvement since 11/09/2024. On the day of admission on 09/23, patient drank water but it did not seem to help his blood pressures in presented to the ED where his systolic blood pressures were in the 60s. Patient was given 3 L IV fluid bolus -Off note: Patient was recently discharged from its [facility] where he was admitted for significant lower extremity edema and anasarca at all the way up to his abdomen. Patient was aggressively diuresed and lost 37 lb of weight in 4 days. He was discharged home 11/08/2024 she -patient received 3 L IV fluid bolus in the ER here at [facility] upon arrival, started on maintenance IV fluids -blood pressures were refractory, right femoral central line was inserted and started on vasopressors -OFF Levophed -urine output has been good, creatinine has been stable -lactic acid has normalized to 1.2 (2.2 on admission) -MRSA screen is positive -patient remains on ceftriaxone and vancomycin (11/12) -status post albumin for intravascular volume expansion - continue midodrine -cortisols levels were low, status post cosyntropin test, cortisol did not respond to > 18 after 60 minutes post cosyntropin test. Likely adrenal sufficiency, -given patient 1 dose of hydrocortisone -he may require endocrinology evaluation -if blood pressures do not improve patient may benefit from fludrocortisone 11/11/2024: Blood cultures growing Gram-positive cocci in clusters 1 of 2 bottles Repeat blood culture 11/14 (2) Acute hyponatremia: Code(s): E87.1 - Hypo-osmolality and hyponatremia Status: Acute Assessment and Plan: Acute hyponatremia could be related to hypovolemic hyponatremia -sodium levels improving after IV fluid bolus, will continue to monitor Resolved (3) Dehydration: Code(s): E86.0 - Dehydration Status: Acute Assessment and Plan: RESOLVED Patient was aggressively diuresed [facility] and lost 37 lb of weight in 4 days -likely over diuresed with intravascular depletion -has been fluid resuscitated, will continue to monitor (4) Edema, lower extremity: Code(s): R60.0 - Localized edema Status: Acute Assessment and Plan: Lower extremity edema seems to be a problem for the gentleman, he was recently at [facility] with aggressive diuresis and lost 37 lb in weight -lower extremity edema much improved, states he feels that his feet a getting edematous -hold IV fluids (5) Essential hypertension: Code(s): I10 - Essential (primary) hypertension Status: Acute Assessment and Plan: Hold all antihypertensives and diuretics since patient just came off the vasopressors (6) Hypothyroidism (acquired): Code(s): E03.9 - Hypothyroidism, unspecified Status: Acute Assessment and Plan: Continue levothyroxine (7) ILD (interstitial lung disease): Code(s): J84.9 - Interstitial pulmonary disease, unspecified Status: Acute Assessment and Plan: Patient takes Spiriva at home which will order -continue Ellipta (8) Mixed hyperlipidemia: Code(s): E78.2 - Mixed hyperlipidemia Status: Acute Assessment and Plan: Continue rosuvastatin Subjective Date/time seen: 11/14/24 09:23 Interval history: I saw exam patient today, patient feels better, has general weakness, denies chest pain abdomen pain nausea vomiting diarrhea or dysuria. Patient afebrile, blood pressure stable Patient is afebrile, blood pressure stable, patient on room air, lab review, Exam Narrative: GENERAL: Pleasant, in no acute distress. Well-nourished. - EYES: EOMI. Anicteric. - HENT: Moist mucous membranes. - LUNGS: Clear to auscultation bilateral ly, no wheezing, rhonchi, or rales. - CARDIOVASCULAR: Regular rate and rhyth m. No murmur. No JVD. - ABDOMEN: Soft, non-tender and non-dist ended. No palpable masses. - EXTREMITIES: No edema. Peripheral puls es 2+. Non-tender. - NEUROLOGIC: No focal neurological defi cits. CN II-XII grossly intact. - PSYCHIATRIC: Awake, Alert and oriented x 3. Appropriate mood and affect. - SKIN: No rashes or lesions. Warm. - LYMPH: No cervical lymphadenopathy. Objective Data Vital Signs Vital Signs: Vital Signs - 24 hr 11/13/24 10:00 11/13/24 10:00 11/13/24 13:15 Temperature Pulse Rate 73 73 Respiratory Rate 30 H Blood Pressure 121/66 Pulse Oximetry 93 Oxygen Delivery Room Air 11/13/24 21:10 11/14/24 06:00 Temperature 97.5 F L 98 F Pulse Rate 67 71 Respiratory Rate 16 18 Blood Pressure 141/69 H 125/65 Pulse Oximetry 99 97 Oxygen Delivery Intake/Output Intake/Output: Intake & Output 11/11/24 11/12/24 11/13/24 11/14/24 23:59 23:59 23:59 23:59 Intake Total 2068.5 2673.8 2520 250 Output Total 420 2750 300 Balance 1648.5 -76.2 2220 250 Meds/Results Medications: Active Medications Generic Name Dose Route Start Last Admin Trade Name Freq PRN Reason Stop Dose Admin Acetaminophen 500 mg 11/12/24 02:44 Acetaminophen 500 Mg Tablet PO Q4H PRN Mild Pain (1-3) or Fever Allopurinol 300 mg 11/12/24 09:00 11/14/24 08:11 Allopurinol 300 Mg Tablet PO 300 mg DAILY MELVINA Administration Enoxaparin Sodium 40 mg 11/13/24 09:00 11/14/24 08:18 Enoxaparin 40 Mg/0.4 Ml Syringe SUB-Q 40 mg DAILY MELVINA Administration Ceftriaxone Sodium 2 gm in 100 mls @ 200 mls/hr 11/12/24 09:00 11/14/24 08:10 Rocephin 2 Gm/Ns 100 Ml IVPB 200 mls/hr Q24H MELVINA Administration Vancomycin HCl 1,500 mg in 500 mls @ 250 mls/hr 11/13/24 14:00 11/14/24 02:17 Vancomycin 1,500 Mg/Ns 500 Ml IVPB 200 mls/hr Q12H MELVINA Administration Levothyroxine Sodium 150 mcg 11/12/24 06:30 11/14/24 05:42 Levothyroxine Sodium 150 Mcg Tablet PO 150 mcg DAILY@0630 MELVINA Administration Midodrine 10 mg 11/12/24 09:00 11/14/24 08:11 Midodrine Hcl 10 Mg Tablet PO 10 mg TID MELVINA Administration Multivitamins Therapeutic 1 tablet 11/12/24 12:00 11/13/24 12:34 Multivitamins Therapeutic Tab (*Bkc) PO 1 tablet DAILY@1200 MELVINA Administration Rosuvastatin Calcium 10 mg 11/13/24 09:00 11/14/24 08:11 Rosuvastatin 10 Mg Tablet PO 10 mg DAILY MELVINA Administration Umeclidinium [place] 1 puff 11/13/24 08:00 11/12/24 13:35 Umeclidinium [place] 62.5 Mcg Ellipta INHALATION 1 puff DAILYRT MELVINA Administration Radiology Results: ITS Impressions Chest X-Ray 11/11/24 17:48 IMPRESSION: Chronic interstitial change, without focal infiltrate or effusion. Labs Labs: Laboratory Results - last 24 hr 11/13/24 11/14/24 10:57 06:16 WBC 10.1 H RBC 3.46 L Hgb 11.4 L Hct 34.6 L MCV 100.0 MCH 32.9 MCHC 32.9 RDW 13.2 Plt Count 224 MPV 10.1 Creatinine 0.55 L Estim Creat Clear Calc 132 Estimated GFR > 60 Phosphorus 2.3 L Vancomycin Trough 15.6
[2024-11-14 09:28] VITALS: O2SAT 96
[2024-11-14] MEDS: UMECLIDINIUM BROMIDE 62.5 MCG ELLIPTA 1 PUFF INHALATION (09:28)
[2024-11-14 10:05] LABS: Anion Gap 10 mmol/L (4-12); Blood Urea Nitrogen 9 mg/dL (9-20); Calcium 8.9 mg/dL (8.4-10.2); Carbon Dioxide 21 mmol/L (22-30); Chloride 104 mmol/L (98-107); Estimated CRCL calculation 134 ml/min; Estimated Glomerular Filt Rate > 60; Glucose 168 mg/dL (65-110); Magnesium 1.6 mg/dL (1.6-2.3); Potassium 3.8 mmol/L (3.4-5.0); Sodium 135 mmol/L (137-145)
[2024-11-14 10:43] LABS: Basophils Absolute Auto 0.1 K/mm3 (0.0-0.1); Basophils Percent Auto 0.6 % (0.2-1.2); Eosinophils Absolute Auto 0.4 K/mm3 (0-0.3); Eosinophils Percent Auto 3.4 % (0-4.4); Immature Granulocyte Absolute 0.16 K/mm3 (0.00-0.031); Immature Granulocyte Percent A 1.5 % (0-0.5); Lymphocytes Percent Auto 14.5 % (18.3-44.2); Monocytes Absolute Auto 0.7 K/mm3 (0.1-0.6); Monocytes Percent Auto 6.9 % (2.6-8.5); Neutrophils Absolute Auto 7.6 K/mm3 (1.3-6.7); Neutrophils Percent Auto 73.1 % (45.5-73.1)
[2024-11-14] MEDS: POTASSIUM CHLORIDE 20 MEQ PACKET (FOR LIQUID) 10 MEQ PO (12:07)
[2024-11-14] MEDS: MULTIVITAMINS THERAPEUTIC TAB (*BKC) 1 TABLET PO (12:07)
[2024-11-14] MEDS: POTASSIUM PHOS/SODIUM PHOS 250 MG TABLET PO (12:07)
[2024-11-14] MEDS: VANCOMYCIN 1,500 MG/NS 500 ML 1,500 MG/500 ML BAG 175 MG IVPB (13:15)
[2024-11-14 14:49] VITALS: BP 145/80; PULSE 72; RESP 18; TEMP 36.3; O2SAT 98
[2024-11-14 21:53] VITALS: BP 156/89; PULSE 74; RESP 16; TEMP 36.2; O2SAT 98
[2024-11-15] MEDS: VANCOMYCIN 1,500 MG/NS 500 ML 1,500 MG/500 ML BAG 150 MG IVPB ×2 (02:34→13:39)
[2024-11-15] MEDS: LEVOTHYROXINE SODIUM 150 MCG TABLET PO (05:42)
[2024-11-15 06:00] VITALS: BP 145/81; PULSE 100; RESP 20; TEMP 36.7; O2SAT 95
[2024-11-15 06:41] LABS: Basophils Absolute Auto 0.1 K/mm3 (0.0-0.1); Basophils Percent Auto 0.6 % (0.2-1.2); Eosinophils Absolute Auto 0.3 K/mm3 (0-0.3); Eosinophils Percent Auto 2.7 % (0-4.4); Hematocrit 34.7 % (42.0-52.0); Hemoglobin 11.2 g/dL (14.0-18.0); Immature Granulocyte Absolute 0.13 K/mm3 (0.00-0.031); Immature Granulocyte Percent A 1.3 % (0-0.5); Lymphocytes Absolute Auto 1.54 K/mm3 (0.9-3.2); Lymphocytes Percent Auto 15.4 % (18.3-44.2); Mean Corpuscular HGB Conc 32.3 g/dl (32-36); Mean Corpuscular Hemoglobin 32.3 pg (26-34); Mean Platelet Volume 10.2 fl (7.4-10.4); Monocytes Absolute Auto 0.7 K/mm3 (0.1-0.6); Monocytes Percent Auto 7.2 % (2.6-8.5); Neutrophils Absolute Auto 7.3 K/mm3 (1.3-6.7); Neutrophils Percent Auto 72.8 % (45.5-73.1); Platelet Count Result 242 k/mm3 (150-375); Red Blood Count 3.47 M/mm3 (4.6-6.20); Red Cell Distribution Width 13.1 % (11.5-14.5)
[2024-11-15 06:52] LABS: Anion Gap 11 mmol/L (4-12); Blood Urea Nitrogen 7 mg/dL (9-20); Calcium 9.1 mg/dL (8.4-10.2); Carbon Dioxide 20 mmol/L (22-30); Chloride 104 mmol/L (98-107); Estimated CRCL calculation 133 ml/min; Estimated Glomerular Filt Rate > 60; Glucose 188 mg/dL (65-110); Magnesium 1.5 mg/dL (1.6-2.3); Phosphorus 2.8 mg/dL (2.5-4.5); Sodium 135 mmol/L (137-145)
[2024-11-15] MEDS: POTASSIUM CHLORIDE 20 MEQ PACKET (FOR LIQUID) 10 MEQ PO (07:50)
[2024-11-15] MEDS: MIDODRINE HCL 10 MG TABLET PO (07:50)
[2024-11-15] MEDS: ENOXAPARIN 40 MG/0.4 ML SYRINGE SUB-Q (07:51)
[2024-11-15] MEDS: allopurinoL 300 MG TABLET PO (07:51)
[2024-11-15] MEDS: ROSUVASTATIN 10 MG TABLET PO (07:51)
[2024-11-15] MEDS: cefTRIAXone 2 GM/NS 100 ML 2 GM/100 ML BAG IVPB (07:51)
[2024-11-15] MEDS: UMECLIDINIUM BROMIDE 62.5 MCG ELLIPTA 1 PUFF INHALATION (08:56)
--- NOTE | 2024-11-15 09:09 | PM.IMPN ---
Progress Note: A&P Assessment and Plan (1) Hypovolemic shock: Code(s): R57.1 - Hypovolemic shock Status: Acute (2) A-fib: Qualifiers: Atrial fibrillation type: paroxysmal Qualified Code(s): I48.0 - Paroxysmal atrial fibrillation Code(s): I48.91 - Unspecified atrial fibrillation Status: Acute Plan (1) Hypovolemic shock: Code(s): R57.1 - Hypovolemic shock Status: Acute Assessment and Plan: RESOLVED Patient presented with hypotension, has been hydrating himself with some improvement since 11/09/2024. On the day of admission on 09/23, patient drank water but it did not seem to help his blood pressures in presented to the ED where his systolic blood pressures were in the 60s. Patient was given 3 L IV fluid bolus -Off note: Patient was recently discharged from its [facility] where he was admitted for significant lower extremity edema and anasarca at all the way up to his abdomen. Patient was aggressively diuresed and lost 37 lb of weight in 4 days. He was discharged home 11/08/2024 she -patient received 3 L IV fluid bolus in the ER here at [facility] upon arrival, started on maintenance IV fluids -blood pressures were refractory, right femoral central line was inserted and started on vasopressors -OFF Levophed -urine output has been good, creatinine has been stable -lactic acid has normalized to 1.2 (2.2 on admission) -MRSA screen is positive -patient remains on ceftriaxone and vancomycin (11/12) -status post albumin for intravascular volume expansion - continue midodrine -cortisols levels were low, status post cosyntropin test, cortisol did not respond to > 18 after 60 minutes post cosyntropin test. Likely adrenal sufficiency, -given patient 1 dose of hydrocortisone -he may require endocrinology evaluation -if blood pressures do not improve patient may benefit from fludrocortisone 11/11/2024: Blood cultures growing Gram-positive cocci in clusters 1 of 2 bottles Repeat blood culture 11/14, pending blood culture November 15 (2) Acute hyponatremia: Code(s): E87.1 - Hypo-osmolality and hyponatremia Status: Acute Assessment and Plan: Acute hyponatremia could be related to hypovolemic hyponatremia -sodium levels improving after IV fluid bolus, will continue to monitor Resolved (3) Dehydration: Code(s): E86.0 - Dehydration Status: Acute Assessment and Plan: RESOLVED Patient was aggressively diuresed [facility] and lost 37 lb of weight in 4 days likely over diuresed with intravascular depletion received fluid resuscitation Corrected (4) Edema, lower extremity: Code(s): R60.0 - Localized edema Status: Acute Assessment and Plan: Lower extremity edema seems to be a problem for the gentleman, he was recently at [facility] with aggressive diuresis and lost 37 lb in weight extremity edema much improved, Continue Bumex 1 mg daily p.o. (5) Essential hypertension: Code(s): I10 - Essential (primary) hypertension Status: Acute Assessment and Plan: Blood pressure becomes stable Hold midodrine (6) Hypothyroidism (acquired): Code(s): E03.9 - Hypothyroidism, unspecified Status: Acute Assessment and Plan: Continue levothyroxine (7) ILD (interstitial lung disease): Code(s): J84.9 - Interstitial pulmonary disease, unspecified Status: Acute Assessment and Plan: Patient takes Spiriva at home which will order -continue Ellipta (8) Mixed hyperlipidemia: Code(s): E78.2 - Mixed hyperlipidemia Status: Acute Assessment and Plan: Continue rosuvastatin Subjective Date/time seen: 11/15/24 09:09 Interval history: I saw exam patient today, patient feels better, has general weakness, denies chest pain abdomen pain nausea vomiting diarrhea or dysuria. Patient afebrile, blood pressure stable Patient is afebrile, blood pressure stable, patient on room air, lab review, Exam Narrative: GENERAL: Pleasant, in no acute distress. Well-nourished. - EYES: EOMI. Anicteric. - HENT: Moist mucous membranes. - LUNGS: Clear to auscultation bilaterally, no wheezing, rhonchi, or rales. - CARDIOVASCULAR: Regular rate and rhythm. No murmur. No JVD. - ABDOMEN: Soft, non-tender and non-distended. No palpable masses. - EXTREMITIES: 2+ lower extremity edema. Peripheral pulses 2+. Non-tender. - NEUROLOGIC: No focal neurological deficits. CN II-XII grossly intact. - PSYCHIATRIC: Awake, Alert and oriented x 3. Appropriate mood and affect. - SKIN: No rashes or lesions. Warm. - LYMPH: No cervical lymphadenopathy. Objective Data Vital Signs Vital Signs: Vital Signs - 24 hr 11/14/24 09:28 11/14/24 14:49 11/14/24 21:53 Temperature 97.4 F L 97.1 F L Pulse Rate 72 74 Respiratory Rate 18 16 Blood Pressure 145/80 H 156/89 H Pulse Oximetry 96 98 98 Oxygen Delivery Room Air Fraction of Inspired Oxygen 21 11/15/24 06:00 Temperature 98.1 F Pulse Rate 100 Respiratory Rate 20 Blood Pressure 145/81 H Pulse Oximetry 95 Oxygen Delivery Fraction of Inspired Oxygen Intake/Output Intake/Output: Intake & Output 11/12/24 11/13/24 11/14/24 11/15/24 23:59 23:59 23:59 23:59 Intake Total 2673.8 2520 2110 Output Total 2750 300 Balance -76.2 2220 2110 Meds/Results Medications: Active Medications Generic Name Dose Route Start Last Admin Trade Name Freq PRN Reason Stop Dose Admin Acetaminophen 500 mg 11/12/24 02:44 Acetaminophen 500 Mg Tablet PO Q4H PRN Mild Pain (1-3) or Fever Allopurinol 300 mg 11/12/24 09:00 11/15/24 07:51 Allopurinol 300 Mg Tablet PO 300 mg DAILY MELVINA Administration Enoxaparin Sodium 40 mg 11/13/24 09:00 11/15/24 07:51 Enoxaparin 40 Mg/0.4 Ml Syringe SUB-Q 40 mg DAILY MELVINA Administration Ceftriaxone Sodium 2 gm in 100 mls @ 200 mls/hr 11/12/24 09:00 11/15/24 07:51 Rocephin 2 Gm/Ns 100 Ml IVPB 200 mls/hr Q24H MELVINA Administration Vancomycin HCl 1,500 mg in 500 mls @ 250 mls/hr 11/13/24 14:00 11/15/24 02:34 Vancomycin 1,500 Mg/Ns 500 Ml IVPB 150 mls/hr Q12H MELVINA Administration Levothyroxine Sodium 150 mcg 11/12/24 06:30 11/15/24 05:42 Levothyroxine Sodium 150 Mcg Tablet PO 150 mcg DAILY@0630 MELVINA Administration Midodrine 10 mg 11/12/24 09:00 11/15/24 07:50 Midodrine Hcl 10 Mg Tablet PO 10 mg TID MELVINA Administration Multivitamins Therapeutic 1 tablet 11/12/24 12:00 11/14/24 12:07 Multivitamins Therapeutic Tab (*Bkc) PO 1 tablet DAILY@1200 MELVINA Administration Potassium Chloride 10 meq 11/14/24 09:00 11/15/24 07:50 Potassium Chloride 20 Meq Packet (For Liquid) PO 10 meq QAM MELVINA Administration Rosuvastatin Calcium 10 mg 11/13/24 09:00 11/15/24 07:51 Rosuvastatin 10 Mg Tablet PO 10 mg DAILY MELVINA Administration Umeclidinium [place] 1 puff 11/13/24 08:00 11/15/24 08:56 Umeclidinium [place] 62.5 Mcg Ellipta INHALATION 1 puff DAILYRT MELVINA Administration Radiology Results: ITS Impressions Chest X-Ray 11/11/24 17:48 IMPRESSION: Chronic interstitial change, without focal infiltrate or effusion. Labs Labs: Laboratory Results - last 24 hr 11/14/24 11/14/24 11/15/24 06:13 06:16 06:24 WBC 10.1 H 10.0 RBC 3.46 L 3.47 L Hgb 11.4 L 11.2 L Hct 34.6 L 34.7 L MCV 100.0 100.0 MCH 32.9 32.3 MCHC 32.9 32.3 RDW 13.2 13.1 Plt Count 224 242 MPV 10.1 10.2 Immature Gran % (Auto) 1.5 H 1.3 H Neut % (Auto) 73.1 72.8 Lymph % (Auto) 14.5 L 15.4 L [place] % (Auto) 6.9 7.2 Eos % (Auto) 3.4 2.7 Baso % (Auto) 0.6 0.6 Lymph # (Auto) 1.50 1.54 [place] # (Auto) 0.7 H 0.7 H Eos # (Auto) 0.4 H 0.3 Baso # (Auto) 0.1 0.1 Abs Immat Gran (auto) 0.16 H 0.13 H Absolute Neuts (auto) 7.6 H 7.3 H Absolute Nucleated RBC 0.000 0.000 Nucleated RBC % 0.0 0.0 Sodium 135 L 135 L Potassium 3.8 4.0 Chloride 104 104 Carbon Dioxide 21 L 20 L Anion Gap 10 11 BUN 9 7 L Creatinine 0.54 L 0.55 L Estim Creat Clear Calc 134 133 Estimated GFR > 60 > 60 Glucose 168 H 188 H Calcium 8.9 9.1 Phosphorus 2.8 Magnesium 1.6 1.5 L
[2024-11-15] MEDS: SODIUM CHLORIDE 0.9% IV 250 ML 75 ML (09:17)
[2024-11-15] MEDS: MULTIVITAMINS THERAPEUTIC TAB (*BKC) 1 TABLET PO (12:57)
[2024-11-15] MEDS: BUMETANIDE 1 MG TABLET PO (12:57)
[2024-11-15 13:12] LABS: Vancomycin Trough 16.5 ug/mL (10.0-20.0)
[2024-11-15 15:25] VITALS: BP 167/94; PULSE 92; RESP 18; TEMP 36.9; O2SAT 98
[2024-11-15 21:53] VITALS: BP 143/88; PULSE 85; RESP 20; TEMP 35.9; O2SAT 99
[2024-11-16] MEDS: VANCOMYCIN 1,500 MG/NS 500 ML 1,500 MG/500 ML BAG 250 MG IVPB (01:05)
[2024-11-16] MEDS: LEVOTHYROXINE SODIUM 150 MCG TABLET PO (05:40)
[2024-11-16 06:00] VITALS: BP 123/73; PULSE 92; RESP 16; TEMP 36.3; O2SAT 98
[2024-11-16 06:51] LABS: Basophils Absolute Auto 0.1 K/mm3 (0.0-0.1); Basophils Percent Auto 0.5 % (0.2-1.2); Eosinophils Absolute Auto 0.2 K/mm3 (0-0.3); Eosinophils Percent Auto 2.4 % (0-4.4); Hematocrit 35.3 % (42.0-52.0); Hemoglobin 11.6 g/dL (14.0-18.0); Immature Granulocyte Absolute 0.18 K/mm3 (0.00-0.031); Immature Granulocyte Percent A 1.8 % (0-0.5); Lymphocytes Absolute Auto 1.41 K/mm3 (0.9-3.2); Lymphocytes Percent Auto 14.2 % (18.3-44.2); Mean Corpuscular HGB Conc 32.9 g/dl (32-36); Mean Corpuscular Hemoglobin 32.8 pg (26-34); Mean Corpuscular Volume 99.7 fl (80-100); Mean Platelet Volume 10.1 fl (7.4-10.4); Monocytes Absolute Auto 0.9 K/mm3 (0.1-0.6); Neutrophils Absolute Auto 7.2 K/mm3 (1.3-6.7); Neutrophils Percent Auto 72.1 % (45.5-73.1); Platelet Count Result 245 k/mm3 (150-375); Red Blood Count 3.54 M/mm3 (4.6-6.20); Red Cell Distribution Width 13.2 % (11.5-14.5)
[2024-11-16 07:01] LABS: Anion Gap 7 mmol/L (4-12); Blood Urea Nitrogen 7 mg/dL (9-20); Calcium 9.6 mg/dL (8.4-10.2); Carbon Dioxide 27 mmol/L (22-30); Chloride 101 mmol/L (98-107); Estimated CRCL calculation 118 ml/min; Estimated Glomerular Filt Rate > 60; Glucose 186 mg/dL (65-110); Magnesium 1.4 mg/dL (1.6-2.3); Phosphorus 3.1 mg/dL (2.5-4.5); Potassium 3.7 mmol/L (3.4-5.0); Sodium 135 mmol/L (137-145)
[2024-11-16] MEDS: cefTRIAXone 2 GM/NS 100 ML 2 GM/100 ML BAG IVPB (09:06)
[2024-11-16] MEDS: BUMETANIDE 1 MG TABLET PO (09:07)
[2024-11-16] MEDS: ROSUVASTATIN 10 MG TABLET PO (09:07)
[2024-11-16] MEDS: allopurinoL 300 MG TABLET PO (09:07)
[2024-11-16] MEDS: POTASSIUM CHLORIDE 20 MEQ PACKET (FOR LIQUID) 10 MEQ PO (09:08)
[2024-11-16] MEDS: ENOXAPARIN 40 MG/0.4 ML SYRINGE SUB-Q (09:08)
--- NOTE | 2024-11-16 09:25 | P.PNIM_ITS ---
Progress Note: A&P Assessment and Plan (1) Hypovolemic shock: Code(s): R57.1 - Hypovolemic shock Status: Acute (2) A-fib: Qualifiers: Atrial fibrillation type: paroxysmal Qualified Code(s): I48.0 - Paroxysmal atrial fibrillation Code(s): I48.91 - Unspecified atrial fibrillation Status: Acute Plan (1) Hypovolemic shock: Code(s): R57.1 - Hypovolemic shock Status: Acute Assessment and Plan: RESOLVED Patient presented with hypotension, has been hydrating himself with some improvement since 11/09/2024. On the day of admission on 09/23, patient drank water but it did not seem to help his blood pressures in presented to the ED where his systolic blood pressures were in the 60s. Patient was given 3 L IV fluid bolus -Off note: Patient was recently discharged from its [facility] where he was admitted for significant lower extremity edema and anasarca at all the way up to his abdomen. Patient was aggressively diuresed and lost 37 lb of weight in 4 days. He was discharged home 11/08/2024 she -patient received 3 L IV fluid bolus in the ER here at [facility] upon arrival, started on maintenance IV fluids -blood pressures were refractory, right femoral central line was inserted and started on vasopressors -OFF Levophed -urine output has been good, creatinine has been stable -lactic acid has normalized to 1.2 (2.2 on admission) -MRSA screen is positive -patient remains on ceftriaxone and vancomycin (11/12) -status post albumin for intravascular volume expansion - continue midodrine -cortisols levels were low, status post cosyntropin test, cortisol did not respond to > 18 after 60 minutes post cosyntropin test. Likely adrenal sufficiency, -given patient 1 dose of hydrocortisone -he may require endocrinology evaluation -if blood pressures do not improve patient may benefit from fludrocortisone 11/11/2024: Staphylococcus epidermidis and micrococcus leuteus 1 of 2 bottles, susceptible to vancomycin Repeat blood culture 11/14: No growth Change to Zyvox p.o. (2) Acute hyponatremia: Code(s): E87.1 - Hypo-osmolality and hyponatremia Status: Acute Assessment and Plan: Acute hyponatremia could be related to hypovolemic hyponatremia -sodium levels improving after IV fluid bolus, will continue to monitor Resolved (3) Dehydration: Code(s): E86.0 - Dehydration Status: Acute Assessment and Plan: RESOLVED Patient was aggressively diuresed [facility] and lost 37 lb of weight in 4 days likely over diuresed with intravascular depletion received fluid resuscitation Corrected (4) Edema, lower extremity: Code(s): R60.0 - Localized edema Status: Acute Assessment and Plan: Lower extremity edema seems to be a problem for the gentleman, he was recently at [facility] with aggressive diuresis and lost 37 lb in weight extremity edema much improved, Continue Bumex 1 mg daily p.o. (5) Essential hypertension: Code(s): I10 - Essential (primary) hypertension Status: Acute Assessment and Plan: Blood pressure becomes stable Hold midodrine (6) Hypothyroidism (acquired): Code(s): E03.9 - Hypothyroidism, unspecified Status: Acute Assessment and Plan: Continue levothyroxine (7) ILD (interstitial lung disease): Code(s): J84.9 - Interstitial pulmonary disease, unspecified Status: Acute Assessment and Plan: Patient takes Spiriva at home which will order -continue Ellipta (8) Mixed hyperlipidemia: Code(s): E78.2 - Mixed hyperlipidemia Status: Acute Assessment and Plan: Continue rosuvastatin Subjective Date/time seen: 11/16/24 09:25 Interval history: I saw exam patient today, patient feels better, has general weakness, denies chest pain abdomen pain nausea vomiting diarrhea or dysuria. Patient afebrile, blood pressure stable Patient is afebrile, blood pressure stable, patient on room air, lab review, repeated blood culture has no bacterial growth Exam Narrative: GENERAL: Pleasant, in no acute distress. Well-nourished. - EYES: EOMI. Anicteric. - HENT: Moist mucous membranes. - LUNGS: Clear to auscultation bilateral ly, no wheezing, rhonchi, or rales. - CARDIOVASCULAR: Regular rate and rhyth m. No murmur. No JVD. - ABDOMEN: Soft, non-tender and non-dist ended. No palpable masses. - EXTREMITIES: 2+ lower extremity sharri a. Peripheral pulses 2+. Non-tender. - NEUROLOGIC: No focal neurological defi cits. CN II-XII grossly intact. - PSYCHIATRIC: Awake, Alert and oriented x 3. Appropriate mood and affect. - SKIN: No rashes or lesions. Warm. - LYMPH: No cervical lymphadenopathy. Objective Data Vital Signs Vital Signs: Vital Signs - 24 hr 11/15/24 15:25 11/15/24 20:00 11/15/24 21:53 Temperature 98.4 F 96.6 F L Pulse Rate 92 85 Respiratory Rate 18 20 Blood Pressure 167/94 H 143/88 H Pulse Oximetry 98 99 Oxygen Delivery Room Air 11/16/24 06:00 Temperature 97.3 F L Pulse Rate 92 Respiratory Rate 16 Blood Pressure 123/73 Pulse Oximetry 98 Oxygen Delivery Intake/Output Intake/Output: Intake & Output 11/13/24 11/14/24 11/15/24 11/16/24 23:59 23:59 23:59 23:59 Intake Total 2520 2110 2210 620 Output Total 300 200 Balance 2220 2110 2210 420 Meds/Results Medications: Active Medications Generic Name Dose Route Start Last Admin Trade Name Freq PRN Reason Stop Dose Admin Acetaminophen 500 mg 11/12/24 02:44 Acetaminophen 500 Mg Tablet PO Q4H PRN Mild Pain (1-3) or Fever Allopurinol 300 mg 11/12/24 09:00 11/16/24 09:07 Allopurinol 300 Mg Tablet PO 300 mg DAILY MELVINA Administration Bumetanide 1 mg 11/15/24 12:25 11/16/24 09:07 Bumetanide 1 Mg Tablet PO 1 mg DAILY MELVINA Administration Enoxaparin Sodium 40 mg 11/13/24 09:00 11/16/24 09:08 Enoxaparin 40 Mg/0.4 Ml Syringe SUB-Q 40 mg DAILY MELVINA Administration Ceftriaxone Sodium 2 gm in 100 mls @ 200 mls/hr 11/12/24 09:00 11/16/24 09:06 Rocephin 2 Gm/Ns 100 Ml IVPB 200 mls/hr Q24H MELVINA Administration Vancomycin HCl 1,500 mg in 500 mls @ 250 mls/hr 11/13/24 14:00 11/16/24 03:05 Vancomycin 1,500 Mg/Ns 500 Ml IVPB Infused Q12H MELVINA Infusion Levothyroxine Sodium 150 mcg 11/12/24 06:30 11/16/24 05:40 Levothyroxine Sodium 150 Mcg Tablet PO 150 mcg DAILY@0630 MELVINA Administration Midodrine 10 mg 11/12/24 09:00 11/15/24 07:50 Midodrine Hcl 10 Mg Tablet PO 10 mg TID MELVINA Administration Multivitamins Therapeutic 1 tablet 11/12/24 12:00 11/15/24 12:57 Multivitamins Therapeutic Tab (*Bkc) PO 1 tablet DAILY@1200 MELVINA Administration Potassium Chloride 10 meq 11/14/24 09:00 11/16/24 09:08 Potassium Chloride 20 Meq Packet (For Liquid) PO 10 meq QAM MELVINA Administration Rosuvastatin Calcium 10 mg 11/13/24 09:00 11/16/24 09:07 Rosuvastatin 10 Mg Tablet PO 10 mg DAILY MELVINA Administration Umeclidinium [place] 1 puff 11/13/24 08:00 11/15/24 08:56 Umeclidinium [place] 62.5 Mcg Ellipta INHALATION 1 puff DAILYRT MELVINA Administration Radiology Results: ITS Impressions Chest X-Ray 11/11/24 17:48 IMPRESSION: Chronic interstitial change, without focal infiltrate or effusion. Labs Labs: Laboratory Results - last 24 hr 11/15/24 11/16/24 12:38 06:28 WBC 10.0 RBC 3.54 L Hgb 11.6 L Hct 35.3 L MCV 99.7 MCH 32.8 MCHC 32.9 RDW 13.2 Plt Count 245 MPV 10.1 Immature Gran % (Auto) 1.8 H Neut % (Auto) 72.1 Lymph % (Auto) 14.2 L [place] % (Auto) 9.0 H Eos % (Auto) 2.4 Baso % (Auto) 0.5 Lymph # (Auto) 1.41 [place] # (Auto) 0.9 H Eos # (Auto) 0.2 Baso # (Auto) 0.1 Abs Immat Gran (auto) 0.18 H Absolute Neuts (auto) 7.2 H Absolute Nucleated RBC 0.000 Nucleated RBC % 0.0 Sodium 135 L Potassium 3.7 Chloride 101 Carbon Dioxide 27 Anion Gap 7 BUN 7 L Creatinine 0.63 L Estim Creat Clear Calc 118 Estimated GFR > 60 Glucose 186 H Calcium 9.6 Phosphorus 3.1 Magnesium 1.4 L Vancomycin Trough 16.5
--- NOTE | 2024-11-16 09:30 | P.DS_ITS ---
DS: Admitting Diagnosis Discharge Date 11/16/24 Admitting Diagnosis (1) Hypovolemic shock: Code(s): R57.1 - Hypovolemic shock Status: Acute (2) A-fib: Qualifiers: Atrial fibrillation type: paroxysmal Qualified Code(s): I48.0 - Paroxysmal atrial fibrillation Code(s): I48.91 - Unspecified atrial fibrillation Status: Acute DS: Discharge Diagnosis Discharge Diagnosis (1) Hypovolemic shock: Code(s): R57.1 - Hypovolemic shock Status: Acute (2) A-fib: Qualifiers: Atrial fibrillation type: paroxysmal Qualified Code(s): I48.0 - Paroxysmal atrial fibrillation Code(s): I48.91 - Unspecified atrial fibrillation Status: Acute DS: Summary Hospital Course Hospital Course: This is a pleasant 74-year-old male with a history of obesity, JOHN, interstitial lung disease, recent issues with hypotension, chronic bilateral lower extremity leg swelling and generalized swelling, colitis. He presents to [facility] on 11/11/2024 reporting low blood pressure and lightheadedness. He provides a detailed history as follows: In 2022 the patient was diagnosed with interstitial lung disease following with Dr. Luna a r collections rep at [facility]. he was on prednisone 80 mg for 3 months and it was stopped abruptly by Dr. Luna in November 2023. The patient believes since then he has had significant lower extremity swelling and sometimes even in the abdomen and upper extremities. He has been using furosemide to relieve the swelling since then. For many years he has also been on budesonide 9 mg p.o. q.day for colitis. Around August 2024 the patient was started on mycophenolate by his a r collections rep. He is unsure if his swelling was much worse immediately following the initiation of that. He was also referred to a wood flooring specialist Dr. Cortes at [facility] for the leg swelling into be evaluated for heart failure. Workup including echocardiogram normal and Dr. Araujo does not believe the patient has heart failure. Recently he was admitted to [facility] since the swelling got much worse and he was given aggressive diuresis and lost 37 lb. At this time his skin in the lower extremities are wrinkly although he still does have swelling around the ankles. He has lost the swelling in his abdomen and upper extremities. On Saturday11/06/2024 the patient was due for discharge from [facility] but he became hypotensive. They gave him back fluids and eventually he was discharged on Saturday11/08/2024. On Saturday night 11/09/2024 he had low blood pressure so he loaded himself up with fluids and his blood pressure improved. He did so again on Saturday for low blood pressure. On Saturday his blood pressure was low refractory to loading himself with fluids therefore he presented to [facility]. Patient denies abdominal pain, constipation, diarrhea, nausea vomiting, dark skin pigmentation, excess fat deposition around his trunk, myalgias, fevers. ER evaluation demonstrated initial blood pressure 66/49 with heart rate in the 70s. No fever. Saturating well on room air. A chest x-ray performed demonstrated chronic interstitial changes. WBC 42310, hemoglobin 12, platelet 229, sodium 123 last sodium in June 2024 was 134, potassium 3.5, chloride 91, bicarb 25, BUN 31, serum creatinine 0.98, glucose 143, lactic acid 2.2, calcium 7.9, CRP 14. Urinalysis unremarkable, quad viral screen negative. The following med issues have been addressed during hospitalization Hypovolemic shock: Code(s): R57.1 - Hypovolemic shock Status: Acute Assessment and Plan: RESOLVED Patient presented with hypotension, has been hydrating himself with some improvement since 11/09/2024. On the day of admission on 09/23, patient drank water but it did not seem to help his blood pressures in presented to the ED where his systolic blood pressures were in the 60s. Patient was given 3 L IV fluid bolus -Off note: Patient was recently discharged from its [facility] where he was admitted for significant lower extremity edema and anasarca at all the way up to his abdomen. Patient was aggressively diuresed and lost 37 lb of weight in 4 days. He was discharged home 11/08/2024 she -patient received 3 L IV fluid bolus in the ER here at [facility] upon arrival, started on maintenance IV fluids -blood pressures were refractory, right femoral central line was inserted and started on vasopressors -OFF Levophed -urine output has been good, creatinine has been stable -lactic acid has normalized to 1.2 (2.2 on admission) -MRSA screen is positive -patient remains on ceftriaxone and vancomycin (11/12) -status post albumin for intravascular volume expansion - continue midodrine -cortisols levels were low, status post cosyntropin test, cortisol did not respond to > 18 after 60 minutes post cosyntropin test. Likely adrenal sufficiency, -given patient 1 dose of hydrocortisone -he may require endocrinology evaluation -if blood pressures do not improve patient may benefit from fludrocortisone 11/11/2024: Staphylococcus epidermidis and micrococcus leuteus 1 of 2 bottles, susceptible to vancomycin Repeat blood culture 11/14: No growth Change to Zyvox p.o. (2) Acute hyponatremia: Code(s): E87.1 - Hypo-osmolality and hyponatremia Status: Acute Assessment and Plan: Acute hyponatremia could be related to hypovolemic hyponatremia -sodium levels improving after IV fluid bolus, will continue to monitor Resolved (3) Dehydration: Code(s): E86.0 - Dehydration Status: Acute Assessment and Plan: RESOLVED Patient was aggressively diuresed [facility] and lost 37 lb of weight in 4 days likely over diuresed with intravascular depletion received fluid resuscitation Corrected (4) Edema, lower extremity: Code(s): R60.0 - Localized edema Status: Acute Assessment and Plan: Lower extremity edema seems to be a problem for the gentleman, he was recently at [facility] with aggressive diuresis and lost 37 lb in weight extremity edema much improved, Continue Bumex 1 mg daily p.o. (5) Essential hypertension: Code(s): I10 - Essential (primary) hypertension Status: Acute Assessment and Plan: Blood pressure becomes stable Hold midodrine (6) Hypothyroidism (acquired): Code(s): E03.9 - Hypothyroidism, unspecified Status: Acute Assessment and Plan: Continue levothyroxine (7) ILD (interstitial lung disease): Code(s): J84.9 - Interstitial pulmonary disease, unspecified Status: Acute Assessment and Plan: Patient takes Spiriva at home which will order -continue Ellipta (8) Mixed hyperlipidemia: Code(s): E78.2 - Mixed hyperlipidemia Status: Acute Assessment and Plan: Continue rosuvastatin Time Spent with Patient Time attestation: Total time spent providing and/or coordinating discharge services: Exam Narrative: GENERAL: Pleasant, in no acute distress. Well-nourished. - EYES: EOMI. Anicteric. - HENT: Moist mucous membranes. - LUNGS: Clear to auscultation bilateral ly, no wheezing, rhonchi, or rales. - CARDIOVASCULAR: Regular rate and rhyth m. No murmur. No JVD. - ABDOMEN: Soft, non-tender and non-dist ended. No palpable masses. - EXTREMITIES: 2+ lower extremity sharri a. Peripheral pulses 2+. Non-tender. - NEUROLOGIC: No focal neurological defi cits. CN II-XII grossly intact. - PSYCHIATRIC: Awake, Alert and oriented x 3. Appropriate mood and affect. - SKIN: No rashes or lesions. Warm. - LYMPH: No cervical lymphadenopathy. DS: Data Data Completed and Pending Labs on day of discharge: Labs from last 24 hours 11/16/24 11/15/24 06:28 12:38 WBC 10.0 RBC 3.54 L Hgb 11.6 L Hct 35.3 L MCV 99.7 MCH 32.8 MCHC 32.9 RDW 13.2 Plt Count 245 MPV 10.1 Immature Gran % (Auto) 1.8 H Neut % (Auto) 72.1 Lymph % (Auto) 14.2 L [place] % (Auto) 9.0 H Eos % (Auto) 2.4 Baso % (Auto) 0.5 Lymph # (Auto) 1.41 [place] # (Auto) 0.9 H Eos # (Auto) 0.2 Baso # (Auto) 0.1 Abs Immat Gran (auto) 0.18 H Absolute Neuts (auto) 7.2 H Absolute Nucleated RBC 0.000 Nucleated RBC % 0.0 Sodium 135 L Potassium 3.7 Chloride 101 Carbon Dioxide 27 Anion Gap 7 BUN 7 L Creatinine 0.63 L Estim Creat Clear Calc 118 Estimated GFR > 60 Glucose 186 H Calcium 9.6 Phosphorus 3.1 Magnesium 1.4 L Vancomycin Trough 16.5 Preliminary micro results at discharge 11/11/24 22:10 Blood Culture - Preliminary Blood Staphylococcus epidermidis Micrococcus luteus 11/14/24 14:04 Blood Culture - Preliminary Blood 11/14/24 14:04 Blood Culture - Preliminary Blood 11/11/24 22:40 Blood Culture - Preliminary Blood Discharge Plan Discharge Attending physician on discharge: Pat Knight Consulting providers: Tono Smith Discharging Clinician: Pat Knight Anticipated Discharge Date/Time: 11/16/24 10:31 Patient Disposition: Home, Self-Care Activity: as tolerated Diet: as tolerated and heart healthy Patient Instructions: Antibiotic Form Patient Language: Spanish Stand Alone Forms: General Discharge Information Follow-up/Referrals: Randi Araujo MD [Primary Care Provider] - (Patient needs to see primary care doctor in 1 week) Discharge Medications: New linezolid 600 mg Tablet 600 mg PO Q12HR Qty: 10 0RF Continued multivitamin Tablet 1 tablet PO DAILY (DME) Wheelchair See Rx Instructions .Route .MEDSUPPLY Qty: 1 0RF Rx Instructions: As directed (DME) Home Oxygen See Rx Instructions .Route .MEDSUPPLY Qty: 1 0RF Rx Instructions: 2L via nasal cannula mycophenolate mofetil 500 mg tablet 1,500 mg PO Q12H bumetanide 1 mg tablet 1 mg PO BID dextromethorphan polistirex [Delsym 12 hour] 30 mg/5 mL suspension,extended rel 12 hr 10 ml PO Q12H PRN (Reason: cough) empagliflozin 10 mg tablet 10 mg PO DAILY hydrochlorothiazide 25 mg tablet 25 mg PO DAILY spironolactone [Aldactone] 25 mg tablet 25 mg PO DAILY olmesartan 40 mg tablet 20 mg PO DAILY rosuvastatin 10 mg tablet 10 mg PO DAILY Qty: 90 3RF levothyroxine 150 mcg tablet 150 mcg PO DAILY Qty: 100 1RF allopurinol 300 mg tablet 300 mg PO DAILY Qty: 90 1RF budesonide 3 mg capsule,delayed,extend.release 9 mg PO DAILY Qty: 270 1RF furosemide 20 mg tablet See Rx Instructions PO QAM Qty: 90 3RF Rx Instructions: Take two tablets (40 mg) orally every morning and 1 tablet (20 mg) in the evening potassium chloride 10 mEq packet 10 meq PO DAILY Qty: 30 1RF Date of admission: 11/12/24 09:54 Primary Care Provider: Randi Araujo Admitting Provider: Sierra Quiroz Attending physician on admission: Sierra Quiroz Condition: Serious
[2024-11-16] MEDS: UMECLIDINIUM BROMIDE 62.5 MCG ELLIPTA 1 PUFF INHALATION (11:27)
[2024-11-16] MEDS: LINEZOLID 600 MG TABLET PO (11:47)
[2024-11-16] MEDS: MULTIVITAMINS THERAPEUTIC TAB (*BKC) 1 TABLET PO (11:47)
== END 2024-11-16 14:05 | disposition home or self-care (01) | DRG 640 ==
LOC: ANHED 18:23 → ANHICU 23:35 → ANH3MEDSUR 11-13 14:12
PROVIDERS: Internal Medicine; Admitting Provider General Practice; Emergency Provider Physician Assistant; PCP Family Medicine; Visit Provider Hospitalist
DX: E86.0 Dehydration (principal); R57.1 Hypovolemic shock; J84.9 Interstitial pulmonary disease, unspecified; R78.81 Bacteremia; E87.1 Hypo-osmolality and hyponatremia; I95.9 Hypotension, unspecified; I48.0 Paroxysmal atrial fibrillation; I10 Essential (primary) hypertension; E03.9 Hypothyroidism, unspecified; E78.2 Mixed hyperlipidemia; K52.9 Noninfective gastroenteritis and colitis, unspecified; E66.9 Obesity, unspecified; G47.33 Obstructive sleep apnea (adult) (pediatric)
CPT/HCPCS: 36415; 36556; 71045; 80048; 80053; 80202; 81003; 82088; 82533; 82565; 83605; 83690; 83735; 83880; 84100; 84145; 84244; 85025; 85027; 85610; 85730; 86140; 87040; 87181; 87637; 87641; 93005; 94640; 96361; 96365; 96375; 96376; 97161; 97165; 99291; A9270; C1751; G0378; J0696; J0834; J1650; J1720; J2543; J3370; J3475; J7030; J7050; P9047